=== PATIENT | male | born 1960 | race Caucasian/White ===

== ENCOUNTER 2017-10-14 01:25 | Emergency (ER) | payer SELFPAY ==
[2017-10-14] MEDS ORDERED: DIPH/PERTUSS(ACELL)/TETANUS VAC/PF 0.5 ML SYR (>=10YO) IM ONE (01:47)
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
[2017-10-14 03:33] VITALS: BP 142/82
== END 2017-10-14 03:45 | disposition home or self-care (01) ==
LOC: ER 01:25
DX: S06.0X0A Concussion without loss of consciousness, initial encounter (principal); S02.2XXA Fracture of nasal bones, initial encounter for closed fracture; S00.411A Abrasion of right ear, initial encounter; S50.311A Abrasion of right elbow, initial encounter; S80.212A Abrasion, left knee, initial encounter; S80.211A Abrasion, right knee, initial encounter; R07.81 Pleurodynia; Y04.2XXA Assault by strike against or bumped into by another person, initial encounter; Y92.59 Other trade areas as the place of occurrence of the external cause; F10.129 Alcohol abuse with intoxication, unspecified; E11.9 Type 2 diabetes mellitus without complications; I10 Essential (primary) hypertension; F17.210 Nicotine dependence, cigarettes, uncomplicated
CPT/HCPCS: 99284; 90471; 73070; 70450; 70486; 71250; 72125; 90715; L0120

== ENCOUNTER 2017-10-30 11:01 | Emergency (ER) | payer SELFPAY ==
[2017-10-30] MEDS ORDERED: ACETAMINOPHEN 325 MG TABLET PO ONE (11:54)
[2017-10-30] MEDS ORDERED: CEFTRIAXONE INJ 1000 MG VIAL IV ONE (11:54)
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
[2017-10-30] MEDS ORDERED: LISINOPRIL 5 MG TABLET PO ONE (12:42)
--- NOTE | 2017-10-30 12:49 | RADIOLOGY REPORT (SQ) ---
EXAM DESCRIPTION: CHEST PA/LAT COMPLETED DATE/TIME: 10/30/2017 12:16 pm REASON FOR STUDY: fever, cough COMPARISON: None. EXAM PARAMETERS: NUMBER OF VIEWS: two views TECHNIQUE: Digital Frontal and Lateral radiographic views of the chest acquired. RADIATION DOSE: NA LIMITATIONS: none FINDINGS: LUNGS AND PLEURA: No opacities, masses or pneumothorax. No pleural effusion. MEDIASTINUM AND HILAR STRUCTURES: No masses or contour abnormalities. HEART AND VASCULAR STRUCTURES: Heart normal size. No evidence for failure. BONES: No acute findings. HARDWARE: None in the chest. OTHER: No other significant finding. IMPRESSION: NO SIGNIFICANT RADIOGRAPHIC FINDING IN THE CHEST. TECHNICAL DOCUMENTATION: JOB ID: [id number] [employer]- All Rights Reserved Reading location - IP/workstation name: [email or web address]
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
--- NOTE | 2017-10-30 12:53 | RADIOLOGY REPORT (SQ) ---
EXAM DESCRIPTION: ELBOW RIGHT OVER 2 VIEWS COMPLETED DATE/TIME: 10/30/2017 12:16 pm REASON FOR STUDY: ELBOW PAIN COMPARISON: None. NUMBER OF VIEWS: Four views. TECHNIQUE: AP, lateral, and both oblique radiographic images acquired of the right elbow. LIMITATIONS: None. FINDINGS: MINERALIZATION: Normal. BONES: No acute fracture or dislocation. No worrisome bone lesions. JOINT: No effusion. SOFT TISSUES: Diffuse swelling. No foreign body. OTHER: No other significant finding. IMPRESSION: Soft tissue injury. TECHNICAL DOCUMENTATION: JOB ID: [id number] [employer]- All Rights Reserved Reading location - IP/workstation name: [email or web address]
[2017-10-30 12:59] LABS: ABSOLUTE BASOPHILS # (AUTO) 0.1 10^3/uL (0.0-0.2); ABSOLUTE LYMPHOCYTES (AUTO) 1.2 10^3/uL (0.5-4.7); ABSOLUTE MONOCYTES (AUTO) 1.5 10^3/uL (0.1-1.4); ABSOLUTE NEUT (AUTO) 10.5 10^3/uL (1.7-8.2); BASOPHILS % (AUTO) 0.7 % (0-2); EOSINOPHILS % (AUTO) 0.3 % (0-6); LYMPHOCYTES % (AUTO) 8.8 % (13-45); MEAN CORPUSCULAR HEMOGLOBIN 29.7 pg (27.0-33.4); MEAN CORPUSCULAR HGB CONC 34.1 g/dL (32.0-36.0); MEAN CORPUSCULAR VOLUME 87 fl (80-97); MONOCYTES % (AUTO) 11.5 % (3-13); PLATELET COUNT 266 10^3/uL (150-450); RED CELL DISTRIBUTION WIDTH 13.7 % (11.5-14.0); SEGMENTED NEUTROPHILS % (AUTO) 78.7 % (42-78); TOTAL CELLS COUNTED % (AUTO) 100 %; WHITE BLOOD COUNT 13.3 10^3/uL (4.0-10.5)
[2017-10-30 13:20] LABS: ALANINE AMINOTRANSFERASE 35 U/L (21-72); ALBUMIN 4.3 g/dL (3.5-5.0); ALKALINE PHOSPHATASE 62 U/L (38-126); ANION GAP 11 (5-19); ASPARTATE AMINO TRANSFERASE 22 U/L (17-59); BILIRUBIN,DIRECT 0.4 mg/dL (0.0-0.4); BILIRUBIN,TOTAL 1.5 mg/dL (0.2-1.3); BLOOD UREA NITROGEN 12 mg/dL (7-20); CALCIUM 9.7 mg/dL (8.4-10.2); CARBON DIOXIDE 24 mmol/L (22-30); CHLORIDE 100 mmol/L (98-107); GLUCOSE 239 mg/dL (75-110); POTASSIUM 3.9 mmol/L (3.6-5.0); TOTAL PROTEIN 7.6 g/dL (6.3-8.2)
[2017-10-30] MEDS ORDERED: SULFAMETHOXAZOLE/TRIMETHOPRIM 800-160 MG TABLET PO ONE (13:52)
[2017-10-30] MEDS ORDERED: KETOROLAC TROMETHAMINE INJ/PF 30 MG/1 ML SDV IV ONE (14:43)
[2017-10-30 15:24] VITALS: BP 155/70
== END 2017-10-30 15:21 | disposition home or self-care (01) ==
LOC: ER 11:01
DX: L03.113 Cellulitis of right upper limb (principal); M79.601 Pain in right arm; R50.9 Fever, unspecified; R05 Cough; E11.9 Type 2 diabetes mellitus without complications
CPT/HCPCS: 99284; 96374; 96375; 36415; 87040; 85025; 85652; 86140; 80053; 71046; 73080; J1885; J0696

== ENCOUNTER 2017-10-31 16:18 | Inpatient (IN) | payer SELFPAY ==
--- NOTE | 2017-10-31 16:51 | ER Document Report ---
ED Medical Screen (RME) - General Chief Complaint: Wound Infection Stated Complaint: ELBOW SWELLING/PAIN, DIZZY, HEADACHE Time Seen by Provider: 10/31/17 16:44 Mode of Arrival: Ambulatory Information source: Patient TRAVEL OUTSIDE OF THE [place] IN LAST 30 DAYS: No - HPI Patient complains to provider of: elblow swelling Onset: Yesterday - pt seen here yesterday for cellulitis of R elbow. States swelling and redness have increased and he was told to RTED if this happened - Related Data Allergies/Adverse Reactions: aspartame [From Nutrasweet Aspartame] Allergy (Verified 10/31/17 16:29) Coconut * [Coconut] Allergy (Verified 10/31/17 16:29) Past Medical History - Past Medical History Cardiac Medical History: Reports: Hx Hypertension Endocrine Medical History: Reports: Hx Diabetes Mellitus Type 2 Renal/ Medical History: Denies: Hx Peritoneal Dialysis Past Surgical History: Reports: Hx Orthopedic Surgery - Left Knee, Ruptured Disc Repair L4/L5 - Immunizations Immunizations up to date: Yes Hx Diphtheria, Pertussis, Tetanus Vaccination: Yes Physical Exam - Vital signs Vitals: Temp Pulse Resp BP Pulse Ox 99.9 F 87 18 166/72 H 95 10/31/17 16:39 10/31/17 16:39 10/31/17 16:39 10/31/17 16:39 10/31/17 16:39 Course - Vital Signs Vital signs: Temp Pulse Resp BP Pulse Ox 99.9 F 87 18 166/72 H 95 10/31/17 16:39 10/31/17 16:39 10/31/17 16:39 10/31/17 16:39 10/31/17 16:39
[2017-10-31 18:02] LABS: ABSOLUTE BASOPHILS # (AUTO) 0.1 10^3/uL (0.0-0.2); ABSOLUTE EOSINOPHILS # (AUTO) 0.1 10^3/uL (0.0-0.6); ABSOLUTE LYMPHOCYTES (AUTO) 1.8 10^3/uL (0.5-4.7); ABSOLUTE MONOCYTES (AUTO) 1.8 10^3/uL (0.1-1.4); ABSOLUTE NEUT (AUTO) 10.5 10^3/uL (1.7-8.2); BASOPHILS % (AUTO) 0.5 % (0-2); EOSINOPHILS % (AUTO) 0.4 % (0-6); HEMATOCRIT 38.9 % (37.9-51.0); HEMOGLOBIN 13.2 g/dL (13.5-17.0); LYMPHOCYTES % (AUTO) 12.7 % (13-45); MEAN CORPUSCULAR HEMOGLOBIN 29.6 pg (27.0-33.4); MEAN CORPUSCULAR HGB CONC 33.9 g/dL (32.0-36.0); MEAN CORPUSCULAR VOLUME 87 fl (80-97); MONOCYTES % (AUTO) 12.5 % (3-13); PLATELET COUNT 264 10^3/uL (150-450); RED BLOOD COUNT 4.44 10^6/uL (4.35-5.55); RED CELL DISTRIBUTION WIDTH 13.6 % (11.5-14.0); SEGMENTED NEUTROPHILS % (AUTO) 73.9 % (42-78); TOTAL CELLS COUNTED % (AUTO) 100 %; WHITE BLOOD COUNT 14.2 10^3/uL (4.0-10.5)
[2017-10-31] MEDS ORDERED: PIPERACILLIN/TAZOBACTAM 3.375 GM VIAL IV ONE ×2 (18:04→23:37)
[2017-10-31] MEDS ORDERED: VANCOMYCIN HCL INJ 1000 MG VIAL IV ONE (18:04)
[2017-10-31] MEDS ORDERED: NORMAL SALINE 1000 ML 1,000 ML IV ONE (18:05)
[2017-10-31 18:18] LABS: ALANINE AMINOTRANSFERASE 24 U/L (21-72); ALKALINE PHOSPHATASE 52 U/L (38-126); ANION GAP 14 (5-19); ASPARTATE AMINO TRANSFERASE 15 U/L (17-59); BILIRUBIN,DIRECT 0.2 mg/dL (0.0-0.4); BILIRUBIN,TOTAL 0.6 mg/dL (0.2-1.3); BLOOD UREA NITROGEN 15 mg/dL (7-20); CALCIUM 9.5 mg/dL (8.4-10.2); CARBON DIOXIDE 23 mmol/L (22-30); CHLORIDE 98 mmol/L (98-107); GLUCOSE 278 mg/dL (75-110); POTASSIUM 4.1 mmol/L (3.6-5.0); SODIUM 135.3 mmol/L (137-145); TOTAL PROTEIN 6.6 g/dL (6.3-8.2)
--- NOTE | 2017-10-31 18:20 | ER Document Report ---
ED General - General Chief Complaint: Wound Infection Stated Complaint: ELBOW SWELLING/PAIN, DIZZY, HEADACHE Time Seen by Provider: 10/31/17 16:44 Mode of Arrival: Ambulatory Notes: [id number] male presents with increasing redness and swelling and pain on the right elbow. This began 3 days ago. He had an injury and a skin breakage about a week ago, developed an infection, came here yesterday was recommended to be admitted but instead wanted to go home with antibiotics. At that point he had a mild leukocytosis. He is able to range his elbow Pain is described as severe worse with movement and going up and down his arm. No numbness or tingling. TRAVEL OUTSIDE OF THE [place] IN LAST 30 DAYS: No - Related Data Allergies/Adverse Reactions: aspartame [From Nutrasweet Aspartame] Allergy (Verified 10/31/17 16:46) Coconut * [Coconut] Allergy (Verified 10/31/17 16:46) Past Medical History - General Information source: Patient - Social History Smoking Status: Never Smoker Chew tobacco use (# tins/day): No Frequency of alcohol use: weekends Drug Abuse: None Family History: Reviewed & Not Pertinent. denies: Hyperlipidemia Patient has suicidal ideation: No Patient has homicidal ideation: No - Past Medical History Cardiac Medical History: Reports: Hx Hypertension Endocrine Medical History: Reports: Hx Diabetes Mellitus Type 2 Renal/ Medical History: Denies: Hx Peritoneal Dialysis Past Surgical History: Reports: Hx Orthopedic Surgery - Left Knee, Ruptured Disc Repair L4/L5 - Immunizations Immunizations up to date: Yes Hx Diphtheria, Pertussis, Tetanus Vaccination: Yes Review of Systems - Review of Systems Notes: REVIEW OF SYSTEMS GEN: Denies fever, chills, weight loss ENT: Denies sore throat, nasal discharge, ear pain EYES: Denies blurry vision, eye pain, discharge CV: Denies chest pain, palpitations, edema RESP: Denies cough, shortness of breath, wheezing GI: Denies abdominal pain, nausea, vomiting, diarrhea MSK: Denies joint pain/swelling, edema, SKIN: edness and pain right elbow LYMPH: Denies swollen glands/lymph nodes NEURO: Denies headache, focal weakness or numbness, dizziness PSYCH: Denies depression, suicidal or homicidal ideation PHYSICAL EXAMINATION General: No acute distress, well-nourished Head: Atraumatic, normocephalic ENT: Mouth normal, oropharynx moist, no exudates or tonsillar enlargement Eyes: Conjunctiva normal, pupils equal, lids normal Neck: No JVD, supple, no guarding CVS: Normal rate, regular rhythm, no murmurs Resp: No resp distress, equal and normal breath sounds bilaterally GI: Nondistended, soft, no tenderness to palpation, no rebound or guarding Ext: Edema erythema extending from the upper arm down to the mid forearm. No apparent elbow effusion. Patient can internally externally rotate, pronate supinate flex and extend fully without much pain. Compartments are soft. T Back: No CVA or midline TTP Skin: No rash, warm Lymphatic: No lymphadeopathy noted Neuro: Awake, alert. Face symmetric. GCS 15. R Physical Exam - Vital signs Vitals: Temp Pulse Resp BP Pulse Ox 99.9 F 87 18 166/72 H 95 10/31/17 16:39 10/31/17 16:39 10/31/17 16:39 10/31/17 16:39 10/31/17 16:39 Course - Re-evaluation Re-evalutation: 10/31/17 18:20 Presents with increasing redness and swelling in the right elbow concerning for cellulitis spanning a joint. I have a low suspicion for septic joint at this point given his physical examination. He is able to range quite nicely. I do not feel an abscess but will ultrasound to rule him out. Patient does have leukocytosis which is worsening. He will be given vancomycin and Zosyn, I will elevate that elbow, get some labs, and admit him to the medical service. 10/31/17 21:49 Ultrasound pending but labs showed leukocytosis. Cultures were obtained and antibiotics have been given. I discussed the case with Dr. Rascon who will admit. Arm was elevated. - Vital Signs Vital signs: Temp Pulse Resp BP Pulse Ox 99.9 F 87 18 166/72 H 95 10/31/17 16:39 10/31/17 16:39 10/31/17 16:39 10/31/17 16:39 10/31/17 16:39 - Laboratory Result Diagrams: 10/31/17 17:33 10/31/17 17:33 Laboratory results interpreted by me: 10/31/17 10/31/17 17:33 17:33 WBC 14.2 H Hgb 13.2 L Lymphocytes % 12.7 L Absolute Neutrophils 10.5 H Absolute Monocytes 1.8 H Sodium 135.3 L Glucose 278 H AST 15 L Discharge - Discharge Clinical Impression: Cellulitis of right upper extremity Condition: Fair Disposition: ADMITTED INPATIENT Admitting Provider: Hospitalist Unit Admitted: Medical Floor
[2017-10-31] MEDS ORDERED: MAGNESIUM HYDROXIDE SUSP 30 ML UDCUP PO PRN (18:33)
[2017-10-31] MEDS ORDERED: GLUCAGON,HUMAN RECOMB 1 MG INJ IM PRN (18:38)
[2017-10-31] MEDS ORDERED: DEXTROSE 40% GEL 15 GM TUBE PO PRN ×2 (18:38)
[2017-10-31] MEDS ORDERED: DEXTROSE 50%-WATER 25 GM/50 ML DISP.SYRIN IV PRN ×2 (18:38)
[2017-10-31] MEDS ORDERED: VANCOMYCIN HCL 0 MG in DEXTROSE 5%-WATER 250 ML IV NR (18:45)
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
[2017-10-31] MEDS: RINGERS SOLUTION,LACTATED 1,000 ML IV PRN (20:14)
--- NOTE | 2017-10-31 21:19 | RADIOLOGY REPORT (SQ) ---
EXAM DESCRIPTION: U/S EXTREMITY NONVASCULAR COMP COMPLETED DATE/TIME: 10/31/2017 9:03 pm REASON FOR STUDY: R elbow pain ?abcess COMPARISON: Radiographs 10 30 17 TECHNIQUE: Dynamic and static grayscale images acquired of the localized site of clinical concern an d recorded on PACS. Additional selected color Doppler and spectral images recorded. SITE OF CONCERN: Right elbow LIMITATIONS: None. FINDINGS: SKIN AND SUBCUTANEOUS TISSUES: No masses. No fluid collections. Diffuse superficial soft tissue edema. No foreign bodies. DEEP SOFT TISSUES/MUSCLES: No masses. No fluid collections. No edema. VASCULAR: No increased or decreased vascularity. No occlusions. OTHER: No other significant finding. IMPRESSION: Superficial soft tissue edema without focal fluid collection or abscess. TECHNICAL DOCUMENTATION: JOB ID: [id number] [employer]- All Rights Reserved Reading location - IP/workstation name: [email or web address]
[2017-10-31] MEDS: OXYCODONE-ACETAMINOPHEN 5-325 MG TABLET PO PRN (23:58)
[2017-11-01] MEDS: GUAIFENESIN/D-METHORPHAN (200-20 MG) SYRUP 10 ML PO PRN ×3 (00:09→20:24)
[2017-11-01] MEDS: ONDANSETRON 4 MG TAB.RAPDIS PO PRN ×3 (00:23→16:43)
[2017-11-01] MEDS: PIPERACILLIN/TAZOBACTAM 3.375 GM VIAL IV PRN ×2 (01:17→05:18)
[2017-11-01] MEDS: PIPERACILLIN SODIUM/TAZOBACTAM 3.375 GM in NORMAL SALINE 100 ML IV SCH ×3 (03:25→16:43)
[2017-11-01] MEDS ORDERED: INFLUENZA ADLT QUAD (36MOS+) 2017-18 VAC 0.5 ML SYR IM PRN (03:41)
[2017-11-01] MEDS: LANSOPRAZOLE 30 MG TAB.RAP.DR PO SCH (05:21)
[2017-11-01 05:49] LABS: ABSOLUTE BASOPHILS # (AUTO) 0.1 10^3/uL (0.0-0.2); ABSOLUTE EOSINOPHILS # (AUTO) 0.1 10^3/uL (0.0-0.6); ABSOLUTE LYMPHOCYTES (AUTO) 1.5 10^3/uL (0.5-4.7); ABSOLUTE MONOCYTES (AUTO) 1.3 10^3/uL (0.1-1.4); ABSOLUTE NEUT (AUTO) 7.3 10^3/uL (1.7-8.2); BASOPHILS % (AUTO) 0.7 % (0-2); EOSINOPHILS % (AUTO) 0.6 % (0-6); HEMATOCRIT 32.6 % (37.9-51.0); HEMOGLOBIN 11.3 g/dL (13.5-17.0); LYMPHOCYTES % (AUTO) 14.9 % (13-45); MEAN CORPUSCULAR HEMOGLOBIN 30.5 pg (27.0-33.4); MEAN CORPUSCULAR HGB CONC 34.7 g/dL (32.0-36.0); MEAN CORPUSCULAR VOLUME 88 fl (80-97); MONOCYTES % (AUTO) 13.1 % (3-13); PLATELET COUNT 214 10^3/uL (150-450); RED BLOOD COUNT 3.72 10^6/uL (4.35-5.55); RED CELL DISTRIBUTION WIDTH 13.4 % (11.5-14.0); SEGMENTED NEUTROPHILS % (AUTO) 70.7 % (42-78); TOTAL CELLS COUNTED % (AUTO) 100 %; WHITE BLOOD COUNT 10.3 10^3/uL (4.0-10.5)
[2017-11-01 06:13] LABS: ALANINE AMINOTRANSFERASE 23 U/L (21-72); ALBUMIN 3.2 g/dL (3.5-5.0); ALKALINE PHOSPHATASE 41 U/L (38-126); ANION GAP 11 (5-19); ASPARTATE AMINO TRANSFERASE 12 U/L (17-59); BILIRUBIN,DIRECT 0.1 mg/dL (0.0-0.4); BILIRUBIN,TOTAL 0.5 mg/dL (0.2-1.3); BLOOD UREA NITROGEN 12 mg/dL (7-20); CALCIUM 8.5 mg/dL (8.4-10.2); CARBON DIOXIDE 21 mmol/L (22-30); CHLORIDE 100 mmol/L (98-107); CHOLESTEROL 143.39 mg/dL (0-200); GLUCOSE 301 mg/dL (75-110); POTASSIUM 3.9 mmol/L (3.6-5.0); SODIUM 132.2 mmol/L (137-145); TOTAL PROTEIN 5.6 g/dL (6.3-8.2); TRIGLYCERIDES 153 mg/dL (<150)
[2017-11-01 06:24] LABS: DIRECT LDL 80 mg/dL (<100); VLDL CHOLESTEROL 30.6 mg/dL (10-31)
[2017-11-01] MEDS: OXYCODONE-ACETAMINOPHEN 5-325 MG TABLET PO PRN ×3 (08:28→22:27)
--- NOTE | 2017-11-01 09:28 | PDOC PROGRESS REPORT ---
Subjective Progress Note for:: 11/01/17 Subjective:: Pt states that his arm swelling is improving. Pt states that the pain has improved. Reason For Visit: RIGHT ELBOW FOREARM AND UPPER EXTREMITY CELLULITIS Physical Exam Vital Signs: Temp Pulse Resp BP Pulse Ox 99.2 F 72 16 142/78 H 95 11/01/17 04:39 11/01/17 04:39 11/01/17 04:39 11/01/17 04:39 11/01/17 04:39 Intake & Output 10/31/17 11/01/17 11/02/17 05:59 06:59 06:59 Intake Total Output Total Balance Weight General appearance: PRESENT: no acute distress, well-developed, well-nourished Head exam: PRESENT: atraumatic, normocephalic Eye exam: PRESENT: conjunctiva pink, EOMI. ABSENT: scleral icterus Ear exam: PRESENT: normal external ear exam Mouth exam: PRESENT: moist, tongue midline Neck exam: ABSENT: carotid bruit, JVD, lymphadenopathy, thyromegaly Respiratory exam: PRESENT: clear to auscultation kayleen. ABSENT: rales, rhonchi, wheezes Cardiovascular exam: PRESENT: RRR. ABSENT: diastolic murmur, rubs, systolic murmur Pulses: PRESENT: normal dorsalis pedis pul Vascular exam: PRESENT: normal capillary refill GI/Abdominal exam: PRESENT: normal bowel sounds, soft. ABSENT: distended, guarding, mass, organolmegaly, rebound, tenderness Rectal exam: PRESENT: deferred Extremities exam: PRESENT: +1 edema - right upper ext swelling + 1, other - right upper ext swelling improving with decrease discomfort Musculoskeletal exam: PRESENT: full ROM Neurological exam: PRESENT: alert, awake, oriented to person, oriented to place , oriented to time, oriented to situation, CN II-XII grossly intact. ABSENT: motor sensory deficit Psychiatric exam: PRESENT: appropriate affect, normal mood. ABSENT: homicidal ideation, suicidal ideation Skin exam: PRESENT: other - right elbow erythema improving. Results Laboratory Results: 11/01/17 04:50 11/01/17 04:50 11/01/17 11/01/17 04:50 04:50 WBC 10.3 RBC 3.72 L Hgb 11.3 L Hct 32.6 L MCV 88 MCH 30.5 MCHC 34.7 RDW 13.4 Plt Count 214 Seg Neutrophils % 70.7 Lymphocytes % 14.9 Monocytes % 13.1 H Eosinophils % 0.6 Basophils % 0.7 Absolute Neutrophils 7.3 Absolute Lymphocytes 1.5 Absolute Monocytes 1.3 Absolute Eosinophils 0.1 Absolute Basophils 0.1 Sodium 132.2 L Potassium 3.9 Chloride 100 Carbon Dioxide 21 L Anion Gap 11 BUN 12 Creatinine 0.83 Est GFR ( Amer) > 60 Est GFR (Non-Af Amer) > 60 Glucose 301 H Calcium 8.5 Total Bilirubin 0.5 AST 12 L ALT 23 Alkaline Phosphatase 41 Total Protein 5.6 L Albumin 3.2 L Triglycerides 153 H Cholesterol 143.39 LDL Cholesterol Direct 80 VLDL Cholesterol 30.6 HDL Cholesterol 40 Impressions: Extremity Ultrasound 10/31/17 18:05 IMPRESSION: Superficial soft tissue edema without focal fluid collection or abscess. Assessment & Plan - Diagnosis (1) Cellulitis of right upper extremity Is this a current diagnosis for this admission?: Yes Plan: We will place patient on vancomycin and Zosyn. Improving will check CT elbow right. (2) DM type 2 (diabetes mellitus, type 2) Is this a current diagnosis for this admission?: Yes Plan: HgbA1C 9.5%: Pt on SSI. (3) Overweight (BMI 25.0-29.9) Is this a current diagnosis for this admission?: Yes Plan: Encourage dietary changes. (4) Hypertension Is this a current diagnosis for this admission?: Yes Plan: Resume home medications once meds are known. (5) DVT prophylaxis Is this a current diagnosis for this admission?: Yes Plan: SCDs - Time Time Spent with patient: 25-34 minutes
[2017-11-01] MEDS ORDERED: PIPERACILLIN SODIUM/TAZOBACTAM 3.375 GM in NORMAL SALINE 100 ML IV ONE (12:00)
[2017-11-01] MEDS: INSULIN LISPRO 100 UNIT/ML 3 ML VIAL SUBCUT PRN ×3 (13:12→22:37)
--- NOTE | 2017-11-01 14:04 | RADIOLOGY REPORT (SQ) ---
EXAM DESCRIPTION: CT RT UPPER EXTREMITY WITH COMPLETED DATE/TIME: 11/01/2017 1:53 pm REASON FOR STUDY: concern for abscess. COMPARISON: None. TECHNIQUE: Postcontrast axial imaging performed through the right elbow with reformatted coronal and sagittal imaging windowed for bone and soft tissues. Images saved to PACS. 3D IMAGING: Were 3D images as MIP, SSD, or volume rendering performed at the work station? No. All CT scanners at this facility use dose modulation, iterative reconstruction, and/or weight based d osing when appropriate to reduce radiation dose to as low as reasonably achievable (ALARA). [facility]: Dose Right [facility]: CareDose [facility]: Dose Right [facility]: Teradose 4D [facility]: [employer] CONTRAST TYPE AND DOSE: contrast/concentration: Isovue 370.00 mg/ml; Total Contrast Delivered: 65.0 ml; Total Saline Delivered: 60.0 ml RENAL FUNCTION: BUN 12 creatinine 0.83. LIMITATIONS: None. RADIATION DOSE: CT Rad equipment meets quality standard of care and radiation dose reduction techniq ues were employed. CTDIvol: 2.6 mGy. DLP: 91 mGy-cm.mGy. FINDINGS: SOFT TISSUES: Diffuse edema/ inflammation throughout the subcutaneous soft tissues. Irreg ular fluid collection posterior to the olecranon measuring 1.6 x 2.5 by 3.5 cm. BONES: No acute fracture. No dislocation. MINERALIZATION: Normal. ENHANCEMENT: No abnormal enhancement. OTHER: No other significant finding. IMPRESSION: DIFFUSE EDEMA/ INFLAMMATION THROUGHOUT THE SUBCUTANEOUS SOFT TISSUES. IRREGULAR FLUID C OLLECTION POSTERIOR TO THE OLECRANON WHICH MAY BE AN INFECTED BURSA OR ABSCESS. NO SIGNIFICANT BONY FINDINGS. TECHNICAL DOCUMENTATION: JOB ID: [id number] Quality ID # [id number]: Final reports with documentation of one or more dose reduction techniques (e.g., Au tomated exposure control, adjustment of the mA and/or kV according to patient size, use of iterative reconstruction technique) 2010 [employer]- All Rights Reserved Reading location - IP/workstation name: [email or web address]
[2017-11-01] MEDS: RINGERS SOLUTION,LACTATED 1,000 ML IV PRN (16:44)
[2017-11-02] MEDS: PIPERACILLIN SODIUM/TAZOBACTAM 3.375 GM in NORMAL SALINE 100 ML IV SCH ×5 (00:55→23:05)
[2017-11-02] MEDS: GUAIFENESIN/D-METHORPHAN (200-20 MG) SYRUP 10 ML PO PRN ×4 (02:38→21:01)
[2017-11-02] MEDS: ONDANSETRON 4 MG TAB.RAPDIS PO PRN ×3 (02:50→19:53)
[2017-11-02] MEDS: OXYCODONE-ACETAMINOPHEN 5-325 MG TABLET PO PRN ×2 (03:50→18:21)
[2017-11-02] MEDS: LANSOPRAZOLE 30 MG TAB.RAP.DR PO SCH (05:12)
[2017-11-02] MEDS ORDERED: INSULIN GLARGINE,HUM.REC.ANLOG 1,000 UNIT/10 ML UNIT SUBCUT ONE (10:53)
--- NOTE | 2017-11-02 11:01 | PDOC PROGRESS REPORT ---
Subjective Progress Note for:: 11/02/17 Subjective:: Patient states that the swelling in his right arm has decreased however he is having pain at site of abrasion. Reason For Visit: RIGHT ELBOW FOREARM AND UPPER EXTREMITY CELLULITIS Physical Exam Vital Signs: Temp Pulse Resp BP Pulse Ox 98.9 F 76 16 151/84 H 94 11/02/17 08:22 11/02/17 08:22 11/02/17 08:22 11/02/17 08:22 11/02/17 08:22 Intake & Output 11/01/17 11/02/17 11/03/17 06:59 06:59 06:59 Intake Total 4822 Output Total 400 Balance 4422 Weight 105.6 kg General appearance: PRESENT: no acute distress, well-developed, well-nourished Head exam: PRESENT: atraumatic, normocephalic Eye exam: PRESENT: conjunctiva pink, EOMI. ABSENT: scleral icterus Ear exam: PRESENT: normal external ear exam Mouth exam: PRESENT: moist, tongue midline Neck exam: ABSENT: carotid bruit, JVD, lymphadenopathy, thyromegaly Respiratory exam: PRESENT: clear to auscultation kayleen. ABSENT: rales, rhonchi, wheezes Cardiovascular exam: PRESENT: RRR. ABSENT: diastolic murmur, rubs, systolic murmur Pulses: PRESENT: normal dorsalis pedis pul Vascular exam: PRESENT: normal capillary refill GI/Abdominal exam: PRESENT: normal bowel sounds, soft. ABSENT: distended, guarding, mass, organolmegaly, rebound, tenderness Rectal exam: PRESENT: deferred Extremities exam: PRESENT: other - right elbow with fluctuant area to palpation. Neurological exam: PRESENT: alert, awake, oriented to person, oriented to place , oriented to time, oriented to situation, CN II-XII grossly intact. ABSENT: motor sensory deficit Psychiatric exam: PRESENT: appropriate affect, normal mood. ABSENT: homicidal ideation, suicidal ideation Skin exam: PRESENT: warm - Right upper ext and elbow. Results Laboratory Results: 11/01/17 04:50 11/01/17 04:50 Impressions: Extremity Ultrasound 10/31/17 18:05 IMPRESSION: Superficial soft tissue edema without focal fluid collection or abscess. Upper Extremity CT 11/01/17 00:00 IMPRESSION: DIFFUSE EDEMA/ INFLAMMATION THROUGHOUT THE SUBCUTANEOUS SOFT TISSUES. IRREGULAR FLUID COLLECTION POSTERIOR TO THE OLECRANON WHICH MAY BE AN INFECTED BURSA OR ABSCESS. NO SIGNIFICANT BONY FINDINGS. Assessment & Plan - Diagnosis (1) Cellulitis of right upper extremity Is this a current diagnosis for this admission?: Yes Plan: Will continue vancomycin and Zosyn. CT of right elbow demonstates evidence of possible abscess. Will have Orthopedics evaluate pt. (2) Upper respiratory infection, viral Is this a current diagnosis for this admission?: Yes Plan: Will place pt on PRN Albuterol treatments. (3) DM type 2 (diabetes mellitus, type 2) Is this a current diagnosis for this admission?: Yes Plan: HgbA1C 9.5%: Pt on Lantus 15 units SQ QAM and continue SSI. (4) Overweight (BMI 25.0-29.9) Is this a current diagnosis for this admission?: Yes Plan: Encourage dietary changes. (5) Hypertension Is this a current diagnosis for this admission?: Yes Plan: Will restart losartan. (6) DVT prophylaxis Is this a current diagnosis for this admission?: Yes Plan: SCDs - Time Time Spent with patient: 15-24 minutes
[2017-11-02] MEDS: INSULIN LISPRO 100 UNIT/ML 3 ML VIAL SUBCUT PRN ×3 (13:17→21:50)
[2017-11-02] MEDS: RINGERS SOLUTION,LACTATED 1,000 ML IV PRN (16:27)
[2017-11-02] MEDS: VANCOMYCIN HCL 1,500 MG in DEXTROSE 5%-WATER 250 ML IV SCH ×2 (16:28→23:55)
[2017-11-02] MEDS: ALBUTEROL SULFATE 0.042% NEB (1.25 MG/3 ML) AMPUL NEB PRN ×2 (16:29→20:36)
--- NOTE | 2017-11-02 18:08 | PDOC CONSULTATION ---
Consultation Consult Date: 11/02/17 Consult reason:: Right olecranon bursitis History of Present Illness Admission Date/PCP: 10/31/17 18:28 KASANDRA KING, Patient complains of: Right elbow pain and swelling and redness History of Present Illness: 57-year-old gentleman who status post fall onto his right elbow suffering abrasion over the olecranon process. Patient waited several days developed erythema and swelling of the right elbow and forearm. Patient was admitted overnight for IV antibiotics with cellulitis of the right forearm. From yesterday to today patient states that the erythema has resolved. He has better range of motion although he still has some swelling. Denies any numbness or tingling or paresthesias. Complains of pain over the olecranon process with fluid collection. Complained of fever but since has resolved since being on IV antibiotics. Past Medical History Cardiac Medical History: Reports: Hypertension Endocrine Medical History: Reports: Diabetes Mellitus Type 2 Psychiatric Medical History: Reports: Depression Past Surgical History Past Surgical History: Reports: Orthopedic Surgery - Left Knee, Ruptured Disc Repair L4/L5 Social History Lives with: Spouse/Significant other Smoking Status: Never Smoker Frequency of Alcohol Use: Occasional Hx Recreational Drug Use: No Drugs: None Hx Prescription Drug Abuse: No - Advance Directive Resuscitation Status: Full Code Family History Family History: Reviewed & Not Pertinent. denies: Hyperlipidemia Parental Family History Reviewed: No Children Family History Reviewed: No Sibling(s) Family History Reviewed.: No Medication/Allergy Home Medications: Losartan Potassium 50 mg PO DAILY 30 Days #30 tablet 10/30/17 Metformin HCl [Glucophage 500 mg Tablet] 500 mg PO BIDACBS 11/01/17 Allergies/Adverse Reactions: aspartame [From Nutrasweet Aspartame] Allergy (Verified 10/31/17 16:46) Coconut * [Coconut] Allergy (Verified 10/31/17 16:46) Review of Systems Constitutional: PRESENT: fever(s). ABSENT: weight gain, weight loss Eyes: ABSENT: visual disturbances Ears: ABSENT: hearing changes Nose, Mouth, and Throat: ABSENT: headache(s) Cardiovascular: ABSENT: chest pain, orthropnea Respiratory: ABSENT: dyspnea, hemoptysis Gastrointestinal: ABSENT: abdominal pain, nausea, vomiting Genitourinary: ABSENT: dysuria, hematuria Musculoskeletal: PRESENT: as per HPI Integumentary: PRESENT: as per HPI, erythema Psychiatric: ABSENT: anxiety, hallucinations, homidical ideation, suicidal ideation Endocrine: ABSENT: cold intolerance, heat intolerance Hematologic/Lymphatic: ABSENT: easy bruising, lymphadenopathy Physical Exam Vital Signs: Temp Pulse Resp BP Pulse Ox 37.4 C 89 16 122/85 99 11/02/17 16:30 11/02/17 16:32 11/02/17 16:32 11/02/17 16:30 11/02/17 16:32 Intake & Output 11/01/17 11/02/17 11/03/17 06:59 06:59 06:59 Intake Total 4822 1175 Output Total 400 Balance 4422 1175 Weight 105.6 kg General appearance: PRESENT: no acute distress, well-developed, well-nourished Head exam: PRESENT: atraumatic, normocephalic Eye exam: PRESENT: EOMI, PERRLA Ear exam: PRESENT: normal external ear exam Mouth exam: PRESENT: neck supple Neck exam: PRESENT: full ROM. ABSENT: lymphadenopathy, thyromegaly Respiratory exam: PRESENT: symmetrical, unlabored. ABSENT: accessory muscle use , tachypnea Cardiovascular exam: PRESENT: RRR Pulses: PRESENT: normal radial pulses Vascular exam: PRESENT: normal capillary refill GI/Abdominal exam: PRESENT: soft, tenderness. ABSENT: distended Neurological exam: PRESENT: alert, awake, oriented to person, oriented to place , oriented to time, oriented to situation Psychiatric exam: PRESENT: appropriate affect, normal mood Skin exam: PRESENT: erythema Adult Front & Back Image: 1 - Fluid collection in the olecranon bursa. No erythema. Previous marking of erythema seen. Patient has full range of motion of the elbow with some discomfort. Still has some swelling secondary to infection. Neurovascular intact distally. Results Laboratory Results: 11/01/17 04:50 11/01/17 04:50 Impressions: Extremity Ultrasound 10/31/17 18:05 IMPRESSION: Superficial soft tissue edema without focal fluid collection or abscess. Upper Extremity CT 11/01/17 00:00 IMPRESSION: DIFFUSE EDEMA/ INFLAMMATION THROUGHOUT THE SUBCUTANEOUS SOFT TISSUES. IRREGULAR FLUID COLLECTION POSTERIOR TO THE OLECRANON WHICH MAY BE AN INFECTED BURSA OR ABSCESS. NO SIGNIFICANT BONY FINDINGS. Status: Image reviewed by me Assessment & Plan - Diagnosis (1) Olecranon bursitis of right elbow Is this a current diagnosis for this admission?: Yes Plan: Patient with cellulitis and olecranon bursitis second to infectious process. Patient is responding very well to the IV antibiotics. At this moment I will monitor and if still present here in the next 24-48 hours I may consider aspiration but I do not think the patient at this moment in time will require incision and drainage of the fluid collection. The patient is discharged tomorrow instructed to follow-up at the end of this week in my office to continue monitoring the olecranon bursitis and a resolving cellulitis.
[2017-11-02] MEDS: ACETAMINOPHEN 325 MG TABLET PO PRN (21:38)
[2017-11-03] MEDS: OXYCODONE-ACETAMINOPHEN 5-325 MG TABLET PO PRN (01:13)
[2017-11-03] MEDS ORDERED: GUAIFENESIN 600 MG TABLET.SA PO ONE (02:00)
[2017-11-03] MEDS: PIPERACILLIN SODIUM/TAZOBACTAM 3.375 GM in NORMAL SALINE 100 ML IV SCH ×4 (05:22→23:22)
[2017-11-03] MEDS: LANSOPRAZOLE 30 MG TAB.RAP.DR PO SCH (05:22)
[2017-11-03] MEDS: ALBUTEROL SULFATE 0.042% NEB (1.25 MG/3 ML) AMPUL NEB PRN (06:19)
[2017-11-03] MEDS: GUAIFENESIN/CODEINE PHOS 100-10 MG/ 5 ML UDC PO PRN ×3 (06:32→22:12)
[2017-11-03] MEDS ORDERED: INSULIN GLARGINE,HUM.REC.ANLOG 1,000 UNIT/10 ML UNIT SUBCUT SCH (08:00)
[2017-11-03] MEDS ORDERED: INSULIN GLARGINE,HUM.REC.ANLOG 300 UNIT/3 ML INSULN.PEN SUBCUT SCH (08:00)
[2017-11-03] MEDS ORDERED: AMLODIPINE BESYLATE 10 MG TABLET PO ONE (09:18)
--- NOTE | 2017-11-03 09:19 | PDOC PROGRESS REPORT ---
Subjective Progress Note for:: 11/03/17 Subjective:: Pt states that he is cough a lot. Pt states that he had fever overnight. Spoke to the night nurse who states that patient has not had any fevers. Spoke to daytime nurse who also states that patient has not had any fevers. Patient reports that he is coughing more frequently and having chills. Patient states that his girlfriend and roommate both had flu. Patient did not share this information at time of admission. Informed patient that his last fever was at time of admission. Reason For Visit: RIGHT ELBOW FOREARM AND UPPER EXTREMITY CELLULITIS Physical Exam Vital Signs: Temp Pulse Resp BP Pulse Ox 99.1 F 84 17 155/88 H 95 11/03/17 08:01 11/03/17 08:01 11/03/17 08:01 11/03/17 08:01 11/03/17 08:01 Intake & Output 11/02/17 11/03/17 11/04/17 06:59 06:59 06:59 Intake Total 4822 3012 Output Total 400 Balance 4422 3012 Weight 105.6 kg General appearance: PRESENT: no acute distress, well-developed, well-nourished Head exam: PRESENT: atraumatic, normocephalic Eye exam: PRESENT: conjunctiva pink, EOMI. ABSENT: scleral icterus Ear exam: PRESENT: normal external ear exam Mouth exam: PRESENT: moist, tongue midline Neck exam: ABSENT: carotid bruit, JVD, lymphadenopathy, thyromegaly Respiratory exam: PRESENT: other - Patient with cough, scant wheezing heard, no accessory muscle use, no prolonged expiratory phase Cardiovascular exam: PRESENT: RRR. ABSENT: diastolic murmur, rubs, systolic murmur Pulses: PRESENT: normal dorsalis pedis pul Vascular exam: PRESENT: normal capillary refill GI/Abdominal exam: PRESENT: normal bowel sounds, soft. ABSENT: distended, guarding, mass, organolmegaly, rebound, tenderness Rectal exam: PRESENT: deferred Extremities exam: PRESENT: other - Right elbow with dressing in place. Erythema has decreased.. ABSENT: calf tenderness, clubbing, pedal edema Musculoskeletal exam: PRESENT: other - Elbow with dressing in place right, patient was swelling of right elbow but decreased from time of admission. Neurological exam: PRESENT: alert, awake, oriented to person, oriented to place , oriented to time, oriented to situation, CN II-XII grossly intact. ABSENT: motor sensory deficit Psychiatric exam: PRESENT: appropriate affect, normal mood. ABSENT: homicidal ideation, suicidal ideation Skin exam: PRESENT: other - Erythema has greatly decreased of right elbow. Patient still has edema associated more at the elbow region where the wound has ruptured. Results Laboratory Results: 11/01/17 04:50 11/01/17 04:50 Impressions: Extremity Ultrasound 10/31/17 18:05 IMPRESSION: Superficial soft tissue edema without focal fluid collection or abscess. Upper Extremity CT 11/01/17 00:00 IMPRESSION: DIFFUSE EDEMA/ INFLAMMATION THROUGHOUT THE SUBCUTANEOUS SOFT TISSUES. IRREGULAR FLUID COLLECTION POSTERIOR TO THE OLECRANON WHICH MAY BE AN INFECTED BURSA OR ABSCESS. NO SIGNIFICANT BONY FINDINGS. Assessment & Plan - Diagnosis (1) Cellulitis of right upper extremity Is this a current diagnosis for this admission?: Yes Plan: Complicated by irregular fluid collection posterior to the olecranon S/P draining at site: will continue vancomycin and Zosyn. (2) Upper respiratory infection, viral Is this a current diagnosis for this admission?: Yes Plan: Most likely viral: Patient is given report that he had flu exposure. Will place on Tamiflu. We are unable to test for the flu. Will continue cough suppressant and guaifenesin (3) DM type 2 (diabetes mellitus, type 2) Is this a current diagnosis for this admission?: Yes Plan: HgbA1C 9.5%: We will increase Lantus to 25 units subcu every morning and continue SSI. (4) Overweight (BMI 25.0-29.9) Is this a current diagnosis for this admission?: Yes Plan: Encourage dietary changes. (5) Hypertension Is this a current diagnosis for this admission?: Yes Plan: We will add Norvasc 10 mg and continue losartan 25 mg p.o. daily. (6) DVT prophylaxis Is this a current diagnosis for this admission?: Yes Plan: SCDs
[2017-11-03] MEDS ORDERED: OSELTAMIVIR PHOSPHATE 75 MG CAPSULE PO ONE (10:15)
[2017-11-03 10:35] LABS: ABSOLUTE BASOPHILS # (AUTO) 0.1 10^3/uL (0.0-0.2); ABSOLUTE EOSINOPHILS # (AUTO) 0.1 10^3/uL (0.0-0.6); ABSOLUTE LYMPHOCYTES (AUTO) 1.1 10^3/uL (0.5-4.7); ABSOLUTE NEUT (AUTO) 5.9 10^3/uL (1.7-8.2); BASOPHILS % (AUTO) 0.7 % (0-2); HEMATOCRIT 33.4 % (37.9-51.0); HEMOGLOBIN 11.3 g/dL (13.5-17.0); MEAN CORPUSCULAR HEMOGLOBIN 29.7 pg (27.0-33.4); MEAN CORPUSCULAR HGB CONC 33.8 g/dL (32.0-36.0); MEAN CORPUSCULAR VOLUME 88 fl (80-97); MONOCYTES % (AUTO) 12.6 % (3-13); RED CELL DISTRIBUTION WIDTH 13.1 % (11.5-14.0); SEGMENTED NEUTROPHILS % (AUTO) 72.7 % (42-78); TOTAL CELLS COUNTED % (AUTO) 100 %; WHITE BLOOD COUNT 8.1 10^3/uL (4.0-10.5)
[2017-11-03 10:50] LABS: ALANINE AMINOTRANSFERASE 35 U/L (21-72); ALBUMIN 3.7 g/dL (3.5-5.0); ALKALINE PHOSPHATASE 39 U/L (38-126); ANION GAP 9 (5-19); ASPARTATE AMINO TRANSFERASE 41 U/L (17-59); BILIRUBIN,DIRECT 0.5 mg/dL (0.0-0.4); BILIRUBIN,TOTAL 0.8 mg/dL (0.2-1.3); BLOOD UREA NITROGEN 9 mg/dL (7-20); CALCIUM 8.7 mg/dL (8.4-10.2); CARBON DIOXIDE 25 mmol/L (22-30); CHLORIDE 100 mmol/L (98-107); GLUCOSE 209 mg/dL (75-110); POTASSIUM 3.7 mmol/L (3.6-5.0); SODIUM 134.3 mmol/L (137-145)
[2017-11-03 11:00] LABS: PLATELET COUNT 169 10^3/uL (150-450)
[2017-11-03] MEDS: ACETAMINOPHEN 325 MG TABLET PO PRN (11:47)
[2017-11-03] MEDS: LOSARTAN POTASSIUM 50 MG TABLET PO SCH (11:48)
[2017-11-03] MEDS: ONDANSETRON 4 MG TAB.RAPDIS PO PRN ×2 (11:48→17:51)
[2017-11-03] MEDS: GUAIFENESIN 600 MG TABLET.SA PO SCH ×2 (11:49→22:06)
[2017-11-03] MEDS: DOCUSATE SODIUM 100 MG CAPSULE PO PRN ×2 (11:50→17:52)
[2017-11-03] MEDS: VANCOMYCIN HCL 1,500 MG in DEXTROSE 5%-WATER 250 ML IV SCH ×3 (13:41→23:23)
[2017-11-03] MEDS: INSULIN LISPRO 100 UNIT/ML 3 ML VIAL SUBCUT PRN (13:42)
[2017-11-03] MEDS: RINGERS SOLUTION,LACTATED 1,000 ML IV PRN (15:35)
--- NOTE | 2017-11-03 16:42 | PDOC PROGRESS REPORT ---
Subjective Progress Note for:: 11/03/17 Subjective:: Patient complains of increasing tenderness and pain on the right elbow. States that he is now coming down with the flu. Reason For Visit: RIGHT ELBOW FOREARM AND UPPER EXTREMITY CELLULITIS Physical Exam Vital Signs: Temp Pulse Resp BP Pulse Ox 37.6 C 74 19 147/61 H 90 L 11/03/17 15:47 11/03/17 15:47 11/03/17 15:47 11/03/17 15:47 11/03/17 15:47 Intake & Output 11/02/17 11/03/17 11/04/17 06:59 06:59 06:59 Intake Total 4822 3012 0 Output Total 400 Balance 4422 3012 0 Weight 105.6 kg Adult Front & Back Image: 1 - He spontaneously drained mild purulent drainage. At the drainage patient is very tender palpation of the bursa as well as the lateral aspect of the elbow over the coming extensor muscle belly very hot to touch. Erythema still not present. Full range of motion of the elbow but worse with flexion. Vascular intact distally. No fluctuant palpated in the forearm or olecranon Results Laboratory Results: 11/03/17 09:30 11/03/17 09:30 11/03/17 11/03/17 09:30 09:30 WBC 8.1 RBC 3.80 L Hgb 11.3 L Hct 33.4 L MCV 88 MCH 29.7 MCHC 33.8 RDW 13.1 Plt Count 169 Seg Neutrophils % 72.7 Lymphocytes % 13.0 Monocytes % 12.6 Eosinophils % 1.0 Basophils % 0.7 Absolute Neutrophils 5.9 Absolute Lymphocytes 1.1 Absolute Monocytes 1.0 Absolute Eosinophils 0.1 Absolute Basophils 0.1 Sodium 134.3 L Potassium 3.7 Chloride 100 Carbon Dioxide 25 Anion Gap 9 BUN 9 Creatinine 0.74 Est GFR ( Amer) > 60 Est GFR (Non-Af Amer) > 60 Glucose 209 H Calcium 8.7 Total Bilirubin 0.8 AST 41 ALT 35 Alkaline Phosphatase 39 Total Protein 7.0 Albumin 3.7 Impressions: Extremity Ultrasound 10/31/17 18:05 IMPRESSION: Superficial soft tissue edema without focal fluid collection or abscess. Upper Extremity CT 11/01/17 00:00 IMPRESSION: DIFFUSE EDEMA/ INFLAMMATION THROUGHOUT THE SUBCUTANEOUS SOFT TISSUES. IRREGULAR FLUID COLLECTION POSTERIOR TO THE OLECRANON WHICH MAY BE AN INFECTED BURSA OR ABSCESS. NO SIGNIFICANT BONY FINDINGS. Status: Image reviewed by me Assessment & Plan - Diagnosis (1) Olecranon bursitis of right elbow Is this a current diagnosis for this admission?: Yes - Plan Summary Plan Summary: 57-year-old gentleman who is being treated with IV antibiotics for his infectious olecranon bursitis and cellulitis of the right forearm. Despite the olecranon bursa spontaneously draining patient is exquisitely tender over the bursa and lateral forearm. I am concerned he may have another pocket in the forearm that may require I&D. We will proceed with an MRI without contrast of his right elbow and forearm. Continue IV antibiotics
[2017-11-03 16:43] LABS: VANCOMYCIN,TROUGH 15.7 ug/mL (5.0-20.0)
[2017-11-03] MEDS: OSELTAMIVIR PHOSPHATE 75 MG CAPSULE PO SCH (17:52)
--- NOTE | 2017-11-03 19:06 | RADIOLOGY REPORT (SQ) ---
EXAM DESCRIPTION: SKULL 1-3 VIEWS COMPLETED DATE/TIME: 11/03/2017 6:53 pm REASON FOR STUDY: MRI METAL CHECK FOR ORBITS COMPARISON: None. NUMBER OF VIEWS: Three view. TECHNIQUE: Images of the facial bones acquired. LIMITATIONS: None. FINDINGS: ORBITS: No fracture. No foreign body. SINUSES: No mucosal thickening. No air fluid levels. FACIAL BONES: No fracture. OTHER: Advanced dental caries IMPRESSION: NO FOREIGN BODY OR FRACTURE OF THE FACIAL BONES. TECHNICAL DOCUMENTATION: JOB ID: [id number] [employer]- All Rights Reserved Reading location - IP/workstation name: [email or web address]
[2017-11-04] MEDS: OXYCODONE-ACETAMINOPHEN 5-325 MG TABLET PO PRN ×2 (00:20→15:48)
[2017-11-04] MEDS: LANSOPRAZOLE 30 MG TAB.RAP.DR PO SCH (06:42)
[2017-11-04] MEDS: PIPERACILLIN SODIUM/TAZOBACTAM 3.375 GM in NORMAL SALINE 100 ML IV SCH ×3 (06:42→18:41)
[2017-11-04] MEDS: ONDANSETRON 4 MG TAB.RAPDIS PO PRN (08:56)
[2017-11-04] MEDS: INSULIN GLARGINE,HUM.REC.ANLOG 300 UNIT/3 ML INSULN.PEN SUBCUT SCH (08:57)
[2017-11-04] MEDS: VANCOMYCIN HCL 1,500 MG in DEXTROSE 5%-WATER 250 ML IV SCH ×2 (08:57→17:12)
[2017-11-04] MEDS: AMLODIPINE BESYLATE 10 MG TABLET PO SCH (09:50)
[2017-11-04] MEDS: GUAIFENESIN 600 MG TABLET.SA PO SCH ×2 (09:50→21:43)
[2017-11-04] MEDS: OSELTAMIVIR PHOSPHATE 75 MG CAPSULE PO SCH ×2 (09:50→17:15)
[2017-11-04] MEDS: LOSARTAN POTASSIUM 50 MG TABLET PO SCH (09:51)
[2017-11-04] MEDS: DOCUSATE SODIUM 100 MG CAPSULE PO PRN ×2 (09:52→17:15)
--- NOTE | 2017-11-04 13:39 | RADIOLOGY REPORT (SQ) ---
EXAM DESCRIPTION: MRI RT UPPER EXTREMITY WITHOUT COMPLETED DATE/TIME: 11/04/2017 12:49 pm REASON FOR STUDY: infectious olecranon bursitis COMPARISON: CT right elbow 11/01/2017 TECHNIQUE: Right elbow images acquired and stored on PACS. Multiplanar images to include fat sensiti ve sequences as T1, fluid sensitive sequences as T2/STIR, cartilage sensitive sequences as FSPD, and gradient echo sequences. LIMITATIONS: None. FINDINGS: In the dorsal right elbow soft tissues, the olecranon bursa is distended with fluid. Ther e is an irregularly-shaped fluid pocket measuring 6 cm craniocaudad by 3.5 cm transverse by 2 cm AP w ith extensive surrounding inflammatory change in the subcutaneous fat. A tiny sinus tract to the ski n is identified on axial T2 images 15 and 16. There is no bony olecranon marrow edema worrisome for osteomyelitis. No definite cortical erosion. However, the distal 2 cm of the triceps tendon is abnormally high in signal on T1 and STIR images, wo rrisome for high-grade tendinopathy, infectious etiology is favored over degenerative change due to t he adjacent inflamed/infected olecranon bursa. There is no definite intra-articular extension of infection. Physiologic joint fluid is present at t he elbow. BONE MARROW: No alteration of signal to suggest marrow replacement or edema. No occult fracture. No l arge osteophytes. JOINT EFFUSION: None noted. No loose bodies. ARTICULAR SURFACES: Normal. MEDIAL COLLATERAL LIGAMENT COMPLEX: Intact without edema or tear. MEDIAL EPICONDYLE AND COMMON FLEXOR TENDON: No tendinopathy. No partial or full-thickness tear. LATERAL COLLATERAL LIGAMENT: Intact without edema or tear. LATERAL EPICONDYLE AND COMMON EXTENSOR TENDON: No tendinopathy. No partial or full-thickness tear. LATERAL ULNAR COLLATERAL LIGAMENT: Intact without evidence for tear. BICEPS TENDON: Intact. No partial or full-thickness tendon tear. No muscle edema. TRICEPS TENDON: As above ULNAR NERVE: Well-visualized. No extrinsic compression. Inflammation along the olecranon spares the perineural fat along the ulnar nerve. ADJACENT SOFT TISSUES: There is focal infectious olecranon bursitis as above. Mild skin thickening a nd subcutaneous edema is seen elsewhere in the soft tissues around the elbow joint. No other fluid p ocket worrisome for abscess OTHER: No other significant finding. IMPRESSION: Infected olecranon bursa with sinus tract draining to the skin. Residual abscess measur es about 6 cm craniocaudad by 3.5 cm transverse by 2 cm AP. There is adjacent abnormal increased sig nal in the distal 2 cm of the triceps tendon without bony erosion or edema. TECHNICAL DOCUMENTATION: JOB ID: [id number] [employer]- All Rights Reserved Reading location - IP/workstation name: [email or web address]
[2017-11-04] MEDS: ALBUTEROL SULFATE 0.042% NEB (1.25 MG/3 ML) AMPUL NEB PRN (14:52)
[2017-11-04] MEDS: INSULIN LISPRO 100 UNIT/ML 3 ML VIAL SUBCUT PRN (18:40)
--- NOTE | 2017-11-04 20:07 | PDOC PROGRESS REPORT ---
Subjective Progress Note for:: 11/04/17 Subjective:: 57-year-old white male with a past injury to his right elbow presents with an infected olecranon bursa, cellulitis to the area, with underlying abscess. Surgery following and possible I&D to address the retained abscess near his elbow. Patient currently on empiric Zosyn and vancomycin. No growth on blood cultures 2. Cellulitis is clearly getting better on examination. Pain in the area has gotten better with manipulation of his elbow. Reason For Visit: RIGHT ELBOW FOREARM AND UPPER EXTREMITY CELLULITIS Physical Exam Vital Signs: Temp Pulse Resp BP Pulse Ox 98.7 F 87 18 156/66 H 90 L 11/04/17 16:27 11/04/17 16:27 11/04/17 16:27 11/04/17 16:27 11/04/17 16:27 Intake & Output 11/03/17 11/04/17 11/05/17 06:59 06:59 06:59 Intake Total 3012 3833 1625 Balance 3012 3833 1625 Weight 104.6 kg General appearance: PRESENT: no acute distress, cooperative, obese Head exam: PRESENT: atraumatic, normocephalic Eye exam: PRESENT: EOMI, PERRLA. ABSENT: conjunctiva pink, nystagmus Mouth exam: PRESENT: moist, neck supple, tongue midline Throat exam: PRESENT: tonsillar exudate, tonsillogmegaly Neck exam: ABSENT: JVD, lymphadenopathy, meningismus, tenderness Respiratory exam: PRESENT: accessory muscle use, chest wall tenderness. ABSENT : crackles, rales, rhonchi Cardiovascular exam: PRESENT: RRR, +S1, +S2. ABSENT: bradycardia, tachycardia Pulses: PRESENT: normal radial pulses, +1 pedal pulses bilateral GI/Abdominal exam: ABSENT: ascites, diminished bowel sounds, distended, mass, rebound, rigid Gentrourinary exam: ABSENT: ecchymosis Extremities exam: PRESENT: joint swelling, tenderness. ABSENT: pedal edema Musculoskeletal exam: PRESENT: deformity, tenderness. ABSENT: dislocation Neurological exam: PRESENT: altered, oriented to person, oriented to place, oriented to time, CN II-XII grossly intact Psychiatric exam: ABSENT: agitated, anxious, depressed, flat affect Focused psych exam: ABSENT: delusional, euphoric, paranoid, pressured speech Skin exam: ABSENT: dry Results Laboratory Results: 11/03/17 09:30 11/03/17 09:30 Impressions: Extremity Ultrasound 10/31/17 18:05 IMPRESSION: Superficial soft tissue edema without focal fluid collection or abscess. Upper Extremity CT 11/01/17 00:00 IMPRESSION: DIFFUSE EDEMA/ INFLAMMATION THROUGHOUT THE SUBCUTANEOUS SOFT TISSUES. IRREGULAR FLUID COLLECTION POSTERIOR TO THE OLECRANON WHICH MAY BE AN INFECTED BURSA OR ABSCESS. NO SIGNIFICANT BONY FINDINGS. Skull X-Ray 11/03/17 17:23 IMPRESSION: NO FOREIGN BODY OR FRACTURE OF THE FACIAL BONES. Upper Extremity MRI 11/04/17 00:00 IMPRESSION: Infected olecranon bursa with sinus tract draining to the skin. Residual abscess measures about 6 cm craniocaudad by 3.5 cm transverse by 2 cm AP. There is adjacent abnormal increased signal in the distal 2 cm of the triceps tendon without bony erosion or edema. Assessment & Plan - Plan Summary Plan Summary: 1. Infected olecranon bursa on right arm with cellulitis and abscess. No growth on blood cultures after 4 days continue on empiric vancomycin, Zosyn Possible I&D by surgery this Thursday. 2. Upper respiratory infection, viral Flu test in this institution. Was empirically started on Tamiflu. otherWise supportive care. 3. Diabetes mellitus type 2 A1c 9.5% Continue Lantus dose On sliding scale insulin, continue 4. Overweight Encourage caloric restriction. 5. Hypertension Monitor on Norvasc and losartan.
[2017-11-04] MEDS: GUAIFENESIN/CODEINE PHOS 100-10 MG/ 5 ML UDC PO PRN (20:18)
[2017-11-05] MEDS: PIPERACILLIN SODIUM/TAZOBACTAM 3.375 GM in NORMAL SALINE 100 ML IV SCH ×3 (00:19→11:04)
[2017-11-05] MEDS: VANCOMYCIN HCL 1,500 MG in DEXTROSE 5%-WATER 250 ML IV SCH ×2 (00:59→07:55)
[2017-11-05] MEDS: ONDANSETRON 4 MG TAB.RAPDIS PO PRN ×2 (02:55→23:20)
[2017-11-05] MEDS: LANSOPRAZOLE 30 MG TAB.RAP.DR PO SCH (05:41)
[2017-11-05 07:10] LABS: HEMATOCRIT 34.7 % (37.9-51.0); HEMOGLOBIN 11.9 g/dL (13.5-17.0); MEAN CORPUSCULAR HEMOGLOBIN 29.7 pg (27.0-33.4); MEAN CORPUSCULAR HGB CONC 34.4 g/dL (32.0-36.0); MEAN CORPUSCULAR VOLUME 86 fl (80-97); PLATELET COUNT 289 10^3/uL (150-450); RED BLOOD COUNT 4.02 10^6/uL (4.35-5.55); WHITE BLOOD COUNT 7.1 10^3/uL (4.0-10.5)
[2017-11-05 07:34] LABS: ALBUMIN 3.5 g/dL (3.5-5.0); ANION GAP 14 (5-19); BLOOD UREA NITROGEN 10 mg/dL (7-20); CALCIUM 9.1 mg/dL (8.4-10.2); CARBON DIOXIDE 25 mmol/L (22-30); CHLORIDE 100 mmol/L (98-107); GLUCOSE 111 mg/dL (75-110); PHOSPHORUS 4.4 mg/dL (2.5-4.5); POTASSIUM 3.6 mmol/L (3.6-5.0)
[2017-11-05] MEDS: OXYCODONE-ACETAMINOPHEN 5-325 MG TABLET PO PRN ×2 (07:55→18:36)
[2017-11-05] MEDS: INSULIN GLARGINE,HUM.REC.ANLOG 300 UNIT/3 ML INSULN.PEN SUBCUT SCH (07:56)
[2017-11-05] MEDS: LOSARTAN POTASSIUM 50 MG TABLET PO SCH (10:03)
[2017-11-05] MEDS: GUAIFENESIN 600 MG TABLET.SA PO SCH ×2 (10:03→22:20)
[2017-11-05] MEDS: AMLODIPINE BESYLATE 10 MG TABLET PO SCH (10:04)
[2017-11-05] MEDS: OSELTAMIVIR PHOSPHATE 75 MG CAPSULE PO SCH ×2 (10:04→18:35)
[2017-11-05] MEDS: DOCUSATE SODIUM 100 MG CAPSULE PO PRN ×2 (10:04→18:36)
[2017-11-05] MEDS ORDERED: BUPIVACAINE HCL 0.5 % INJ/PF 30 ML SDV ONE (13:01)
--- NOTE | 2017-11-05 13:55 | EKG REPORT ---
SEVERITY:- BORDERLINE ECG - SINUS RHYTHM BORDERLINE T ABNORMALITIES, DIFFUSE LEADS : Confirmed by: Zuhair Powers MD 05-Nov-2017 13:54:23
[2017-11-05] MEDS: RINGERS SOLUTION,LACTATED 1,000 ML IV PRN ×2 (13:57→23:36)
--- NOTE | 2017-11-05 14:19 | PDOC PROGRESS REPORT ---
Subjective Progress Note for:: 11/05/17 Subjective:: 57-year-old male with infected olecranon bursa. I&D today with surgery for abscess identified on MRI of right elbow. Cellulitis component of infection has been successfully receding. Patient does describe some symptoms subjective fever and chills last night. Patient with less tenderness of right elbow today and increased range of motion. No growth on blood cultures 2. Highly suspicious of MRSA infection and will continue covering for this. Will target a total antibiotic coverage of 14 days. Patient continues to be on empiric Tamiflu for possible flu. His significant other at the bedside was flu positive a proximally 1 month ago. Reason For Visit: RIGHT ELBOW FOREARM AND UPPER EXTREMITY CELLULITIS Physical Exam Vital Signs: Temp Pulse Resp BP Pulse Ox 98.4 F 70 18 148/71 H 95 11/05/17 11:59 11/05/17 11:59 11/05/17 11:59 11/05/17 11:59 11/05/17 11:59 Intake & Output 11/04/17 11/05/17 11/06/17 06:59 06:59 06:59 Intake Total 3833 3306 Balance 3833 3306 Weight 104.6 kg General appearance: PRESENT: no acute distress, cooperative, mild distress, obese Head exam: PRESENT: atraumatic, normocephalic Eye exam: PRESENT: EOMI, PERRLA Ear exam: PRESENT: normal external ear exam. ABSENT: bleeding Mouth exam: PRESENT: moist, neck supple, tongue midline Neck exam: ABSENT: thyromegaly Respiratory exam: PRESENT: wheezes. ABSENT: accessory muscle use, rales, rhonchi Cardiovascular exam: PRESENT: RRR, +S1, +S2. ABSENT: bradycardia, diastolic murmur, systolic murmur Pulses: PRESENT: normal radial pulses. ABSENT: normal dorsalis pedis pul GI/Abdominal exam: PRESENT: soft. ABSENT: ascites, distended, firm, mass, rebound, rigid, tenderness Extremities exam: PRESENT: joint swelling. ABSENT: full ROM Musculoskeletal exam: PRESENT: full ROM. ABSENT: ambulatory Neurological exam: PRESENT: alert, altered, oriented to person, oriented to place, oriented to time Psychiatric exam: ABSENT: agitated, anxious, flat affect Focused psych exam: ABSENT: catatonic, delusional Skin exam: ABSENT: cyanosis, dry, mottled, pallor Results Laboratory Results: 11/05/17 06:34 11/05/17 06:34 11/05/17 11/05/17 06:34 06:34 WBC 7.1 RBC 4.02 L Hgb 11.9 L Hct 34.7 L MCV 86 MCH 29.7 MCHC 34.4 RDW 13.0 Plt Count 289 Sodium 139.0 Potassium 3.6 Chloride 100 Carbon Dioxide 25 Anion Gap 14 BUN 10 Creatinine 1.33 H Est GFR ( Amer) > 60 Est GFR (Non-Af Amer) 55 L Glucose 111 H Calcium 9.1 Phosphorus 4.4 Albumin 3.5 Impressions: Extremity Ultrasound 10/31/17 18:05 IMPRESSION: Superficial soft tissue edema without focal fluid collection or abscess. Upper Extremity CT 11/01/17 00:00 IMPRESSION: DIFFUSE EDEMA/ INFLAMMATION THROUGHOUT THE SUBCUTANEOUS SOFT TISSUES. IRREGULAR FLUID COLLECTION POSTERIOR TO THE OLECRANON WHICH MAY BE AN INFECTED BURSA OR ABSCESS. NO SIGNIFICANT BONY FINDINGS. Skull X-Ray 11/03/17 17:23 IMPRESSION: NO FOREIGN BODY OR FRACTURE OF THE FACIAL BONES. Upper Extremity MRI 11/04/17 00:00 IMPRESSION: Infected olecranon bursa with sinus tract draining to the skin. Residual abscess measures about 6 cm craniocaudad by 3.5 cm transverse by 2 cm AP. There is adjacent abnormal increased signal in the distal 2 cm of the triceps tendon without bony erosion or edema. Assessment & Plan - Plan Summary Plan Summary: 1. Infected olecranon bursa on the right arm with cellulitis and abscess. Patient will receive an I&D surgery today. continued on empiric vancomycin and Zosyn with good improvement in cellulitis. Describes subjective fever and chills last night. Good Improvement in leukocytosis. Will complete a total antibiotic course of 14 days. Can complete PO treatment in outpatient if he is stable s/p I&D, likely tomorrow. 2. Upper respiratory infection, viral Significant other at the bedside was diagnosed positive for the flu approximately 1 month ago Patient did have diffuse achy body pain and fever and chills on admission, continued on Tamiflu coverage. 3. Diabetes mellitus, type II A1C:9.5% Continue Lantus and sliding scale short-acting insulin. 4. Hypertension Continue Norvasc and losartan 5. Overweight. Encourage caloric reduction 6. Reducable periumbilical hernia Advised outpatient surgery evaluation and possible elective repair after his infection has been treated.
[2017-11-05] MEDS ORDERED: FENTANYL CITRATE INJ/PF 250 MCG/5 ML AMPULE ONE (14:47)
[2017-11-05] MEDS ORDERED: ACETAMINOPHEN 100 ML IV ONE (14:48)
[2017-11-05] MEDS ORDERED: PROPOFOL INJ 200 MG/20 ML VIAL IV ONE (14:48)
[2017-11-05] MEDS ORDERED: MIDAZOLAM 2 MG/2 ML INJ ONE ×2 (14:48→15:13)
[2017-11-05] MEDS ORDERED: EPHEDRINE SULFATE INJ 50 MG/1 ML AMPULE ONE (14:49)
[2017-11-05] MEDS ORDERED: BUPIVACAINE HCL 0.5%-EPI 1:200000 INJ/PF 30 ML VIAL ONE (15:11)
[2017-11-05] MEDS ORDERED: KETAMINE HCL INJ 500 MG/10 ML VIAL ONE (15:13)
[2017-11-05] MEDS ORDERED: MEPERIDINE HCL/PF INJ 25 MG/1 ML DISP.SYRIN IV PRN (15:47)
[2017-11-05] MEDS ORDERED: DIPHENHYDRAMINE HCL 50 MG/ML VIAL IV PRN (15:47)
[2017-11-05] MEDS ORDERED: OXYCODONE-ACETAMINOPHEN 5-325 MG TABLET PO PRN ×2 (15:47)
[2017-11-05] MEDS ORDERED: FENTANYL CITRATE INJ/PF 100 MCG/2 ML AMPUL IV PRN ×3 (15:47)
[2017-11-05] MEDS ORDERED: ALBUTEROL SULFATE 0.083% NEB 2.5 MG/3 ML AMPUL NEB ONE (16:01)
--- NOTE | 2017-11-05 16:50 | Operative Report ---
Operative Report DATE OF SURGERY: 11/05/17 PREOPERATIVE DIAGNOSIS: Right infectious olecranon bursitis POSTOPERATIVE DIAGNOSIS: Same OPERATION: I&D and excision of olecranon bursa right elbow SURGEON: SHAMA ODSHI ANESTHESIA: LMAC TISSUE REMOVED OR ALTERED: Olecranon bursa COMPLICATIONS: None ESTIMATED BLOOD LOSS: 30 mL INTRAOPERATIVE FINDINGS: As above PROCEDURE: Patient was brought to the operating room and was given MAC. Patient was placed in a lateral decubitus position with the right elbow over post. The tourniquet was applied to the right upper extremity and the right upper extremity was prepped and draped in a normal sterile surgical fashion. Timeout was done identifying the right vallecula as the correct site. Tourniquet was inflated at 250 mmHg and then we did a 3 inch incision over the olecranon bursa including the sinus tract. Then between the skin and bursa we used Metzenbaum scissors to delineate the space and interval between it. I was able to dissect the bursal tissue medial laterally as well as superior and inferiorly to the best my abilities. It was thickened yellow and inflamed. There is mild purulent drainage but the majority had drained through the sinus tract. This tissue was then sent to pathology for culture sensitivity and evaluation. I then cut and used rondure to remove the bursal tissue identified. I used 3 L of sterile saline solution with pulsatile lavage and clean the wound nicely. The wound looked dry clean with no purulent left behind and no purulent tissue. I then used 2-0 PDS to approximate the tissue and 3-0 nylon to do horizontal mattress sutures. The most proximal incision I placed a Anderson. 4 x 4 dressing followed by soft roll was applied and the tourniquet was deflated at 22 minutes. Bobo bandage was used to overwrap it and then drapes were removed. Patient was placed in supine position and then transferred to PACU in a stable condition.
[2017-11-05] MEDS: VANCOMYCIN HCL 1,000 MG in DEXTROSE 5%-WATER 250 ML IV SCH (22:20)
[2017-11-05] MEDS: INSULIN LISPRO 100 UNIT/ML 3 ML VIAL SUBCUT SCH (23:12)
[2017-11-05] MEDS ORDERED: KETOROLAC TROMETHAMINE INJ/PF 30 MG/1 ML SDV INJ ONE (23:15)
[2017-11-05] MEDS ORDERED: OXYCODONE-ACETAMINOPHEN 5-325 MG TABLET PO ONE (23:15)
[2017-11-06] MEDS: OXYCODONE-ACETAMINOPHEN 5-325 MG TABLET PO PRN ×4 (00:32→20:12)
[2017-11-06] MEDS: PIPERACILLIN SODIUM/TAZOBACTAM 3.375 GM in NORMAL SALINE 100 ML IV SCH (05:48)
[2017-11-06] MEDS: LANSOPRAZOLE 30 MG TAB.RAP.DR PO SCH (06:55)
[2017-11-06] MEDS: INSULIN LISPRO 100 UNIT/ML 3 ML VIAL SUBCUT SCH ×4 (07:15→22:43)
[2017-11-06 07:46] LABS: HEMATOCRIT 30.5 % (37.9-51.0); HEMOGLOBIN 10.4 g/dL (13.5-17.0); MEAN CORPUSCULAR HEMOGLOBIN 29.8 pg (27.0-33.4); MEAN CORPUSCULAR HGB CONC 34.1 g/dL (32.0-36.0); MEAN CORPUSCULAR VOLUME 87 fl (80-97); PLATELET COUNT 311 10^3/uL (150-450); RED BLOOD COUNT 3.49 10^6/uL (4.35-5.55); RED CELL DISTRIBUTION WIDTH 13.3 % (11.5-14.0); WHITE BLOOD COUNT 8.8 10^3/uL (4.0-10.5)
[2017-11-06 08:12] LABS: ANION GAP 10 (5-19); BLOOD UREA NITROGEN 16 mg/dL (7-20); CALCIUM 8.4 mg/dL (8.4-10.2); CARBON DIOXIDE 23 mmol/L (22-30); CHLORIDE 105 mmol/L (98-107); GLUCOSE 94 mg/dL (75-110); PHOSPHORUS 5.1 mg/dL (2.5-4.5); POTASSIUM 3.7 mmol/L (3.6-5.0); SODIUM 137.8 mmol/L (137-145)
[2017-11-06] MEDS: INSULIN GLARGINE,HUM.REC.ANLOG 300 UNIT/3 ML INSULN.PEN SUBCUT SCH (08:24)
[2017-11-06] MEDS: LOSARTAN POTASSIUM 50 MG TABLET PO SCH (09:38)
[2017-11-06] MEDS: AMLODIPINE BESYLATE 10 MG TABLET PO SCH (09:39)
[2017-11-06] MEDS: OSELTAMIVIR PHOSPHATE 75 MG CAPSULE PO SCH ×2 (09:39→18:09)
[2017-11-06] MEDS: GUAIFENESIN 600 MG TABLET.SA PO SCH ×2 (09:39→22:31)
[2017-11-06] MEDS: VANCOMYCIN HCL 1,000 MG in DEXTROSE 5%-WATER 250 ML IV SCH (09:39)
[2017-11-06] MEDS: RINGERS SOLUTION,LACTATED 1,000 ML IV PRN (09:44)
[2017-11-06] MEDS: DOCUSATE SODIUM 100 MG CAPSULE PO PRN ×2 (09:44→18:10)
[2017-11-06] MEDS ORDERED: HYDRALAZINE HCL INJ/PF 20 MG/1 ML SDV IV PRN (10:38)
[2017-11-06] MEDS: NORMAL SALINE 1000 ML 1,000 ML IV PRN ×2 (11:58→22:32)
--- NOTE | 2017-11-06 13:41 | PDOC PROGRESS REPORT ---
Subjective Progress Note for:: 11/06/17 Subjective:: Patient states pain is adequately controlled. Denies any fevers or chills overnight. Denies any numbness or tingling. Reason For Visit: RIGHT ELBOW FOREARM AND UPPER EXTREMITY CELLULITIS Physical Exam Vital Signs: Temp Pulse Resp BP Pulse Ox 37.1 C 64 20 146/78 H 95 11/06/17 11:48 11/06/17 11:48 11/06/17 11:48 11/06/17 11:48 11/06/17 11:48 Intake & Output 11/05/17 11/06/17 11/07/17 06:59 06:59 06:59 Intake Total 3306 27951 Output Total 5 Balance 3306 79518 Weight 104.2 kg Adult Front & Back Image: 1 - Dressing was removed and the Flournoy was removed as well. I was able to compress and express only serosanguineous drainage. Sutures are intact with minimal to no erythema. Tenderness is improved. He has about -10 of extension with full flexion pronation and supination. Neurovascular intact distally. Results Laboratory Results: 11/06/17 06:40 11/06/17 06:40 11/06/17 11/06/17 06:40 06:40 WBC 8.8 RBC 3.49 L Hgb 10.4 L Hct 30.5 L MCV 87 MCH 29.8 MCHC 34.1 RDW 13.3 Plt Count 311 Sodium 137.8 Potassium 3.7 Chloride 105 Carbon Dioxide 23 Anion Gap 10 BUN 16 Creatinine 2.42 H Est GFR ( Amer) 33 L Est GFR (Non-Af Amer) 28 L Glucose 94 Calcium 8.4 Phosphorus 5.1 H Albumin 3.0 L 10/31/17 19:30 Blood Blood Culture - Final NO GROWTH IN 5 DAYS Impressions: Extremity Ultrasound 10/31/17 18:05 IMPRESSION: Superficial soft tissue edema without focal fluid collection or abscess. Upper Extremity CT 11/01/17 00:00 IMPRESSION: DIFFUSE EDEMA/ INFLAMMATION THROUGHOUT THE SUBCUTANEOUS SOFT TISSUES. IRREGULAR FLUID COLLECTION POSTERIOR TO THE OLECRANON WHICH MAY BE AN INFECTED BURSA OR ABSCESS. NO SIGNIFICANT BONY FINDINGS. Skull X-Ray 11/03/17 17:23 IMPRESSION: NO FOREIGN BODY OR FRACTURE OF THE FACIAL BONES. Upper Extremity MRI 11/04/17 00:00 IMPRESSION: Infected olecranon bursa with sinus tract draining to the skin. Residual abscess measures about 6 cm craniocaudad by 3.5 cm transverse by 2 cm AP. There is adjacent abnormal increased signal in the distal 2 cm of the triceps tendon without bony erosion or edema. Status: Image reviewed by me Assessment & Plan - Diagnosis (1) Olecranon bursitis of right elbow Is this a current diagnosis for this admission?: Yes - Plan Summary Plan Summary: Patient is postop day 1 from I&D as well as excision of the right elbow olecranon bursa. Gram stain showing gram-positive cocci in cluster. Awaiting final culture and sensitivity to hopefully send the patient on p.o. antibiotics. Daily dressing changes required. Instructed to do range of motion exercises to avoid having the elbow it stiff. He can follow-up in 1-2 weeks for wound check and removal of sutures.
[2017-11-06 14:17] LABS: AMORPHOUS SEDIMENT,URINE TRACE /HPF; APPEARANCE,URINE CLOUDY; BILIRUBIN,URINE NEGATIVE (NEGATIVE); COLOR,URINE YELLOW; GLUCOSE, URINE 50 mg/dL (NEGATIVE); KETONES,URINE NEGATIVE (NEGATIVE); LEUKOCYTE ESTERASE,URINE NEGATIVE (NEGATIVE); NITRITE,URINE NEGATIVE (NEGATIVE); PROTEIN,URINE 30 mg/dL (NEGATIVE); UROBILINOGEN,URINE NEGATIVE mg/dL (<2.0)
--- NOTE | 2017-11-06 20:09 | RADIOLOGY REPORT (SQ) ---
EXAM DESCRIPTION: U/S LTD DUPLEX ART/LINCOLN FLOW COMPLETED DATE/TIME: 11/06/2017 7:57 pm REASON FOR STUDY: eval of renal arteries and any hydronephrosis COMPARISON: None. TECHNIQUE: Realtime and static grayscale images acquired. Selected color Doppler, velocities and spe ctral images recorded. LIMITATIONS: None. FINDINGS: RIGHT KIDNEY: RENAL ARTERY VELOCITIES: 85.9 cm/sec. Segmental artery velocity 57.3 cm/sec. VELOCITY RATIO: 0.86. Normal waveforms. KIDNEY: Normal size. No significant pathology. LEFT KIDNEY: RENAL ARTERY VELOCITIES: 54.9 cm/sec. Segmental artery velocity 70.0 cm/sec. VELOCITY RATIO: 0.55. Normal waveforms. KIDNEY: Normal size. Possible cyst. IMPRESSION: NO DOPPLER EVIDENCE OF HEMODYNAMICALLY SIGNIFICANT RENAL ARTERY STENOSIS. NO HYDRONEPHROSIS. POSSIBLE CYST LEFT KIDNEY. COMMENT: NORMAL RENAL ARTERY/AORTA VELOCITY RATIO IS LESS THAN OR EQUAL TO 3.5. TECHNICAL DOCUMENTATION: JOB ID: [id number] [employer] [employer]- All Rights Reserved Reading location - IP/workstation name: [email or web address]
--- NOTE | 2017-11-06 21:46 | PDOC PROGRESS REPORT ---
Subjective Subjective:: 57-year-old male with infected olecranon bursa. I&D on 11/05/17 with surgery for abscess identified on MRI of right elbow. Continued improvement on Vancomycin IV, culture from I and D growing Gram + cocci, pending final result. Patient with noted CHERYLE, Vanc trough requested from pharmacy. Zosyn has been discontinued. Giving supportive IVF. UA was benign for infection. US of renals showed no hydronephrosis, or renal artery stenosis, noted cyst. Patients cellulitis continues to recover. Clinically, patient was feeling better today, and elbow has increased ROM, and decreased tenderness. Total inpatient/outpatient antibiotic duration should be 14 days, of which he has had 7 out of 14. Reason For Visit: RIGHT ELBOW FOREARM AND UPPER EXTREMITY CELLULITIS Physical Exam Vital Signs: Temp Pulse Resp BP Pulse Ox 98.5 F 70 18 140/68 H 92 11/06/17 16:32 11/06/17 16:32 11/06/17 16:32 11/06/17 16:32 11/06/17 16:32 Intake & Output 11/05/17 11/06/17 11/07/17 06:59 06:59 06:59 Intake Total 3306 01986 1280 Output Total 5 Balance 3306 44396 1280 Weight 104.2 kg General appearance: PRESENT: no acute distress, obese Head exam: PRESENT: atraumatic, normocephalic Eye exam: PRESENT: EOMI, PERRLA Mouth exam: PRESENT: moist, neck supple, tongue midline Neck exam: PRESENT: full ROM. ABSENT: JVD, tenderness Respiratory exam: ABSENT: accessory muscle use, crackles, rales, rhonchi, wheezes Cardiovascular exam: PRESENT: RRR, +S1, +S2. ABSENT: diastolic murmur, irregular rhythm Pulses: PRESENT: normal radial pulses, normal dorsalis pedis pul GI/Abdominal exam: ABSENT: ascites, distended, mass Extremities exam: ABSENT: calf tenderness, pedal edema Musculoskeletal exam: PRESENT: full ROM. ABSENT: normal inspection - right elbow with mild limits in ROM, improving cellulitis. Neurological exam: PRESENT: alert, oriented to person, oriented to place, oriented to time, CN II-XII grossly intact. ABSENT: altered Psychiatric exam: ABSENT: agitated, anxious, manic Focused psych exam: ABSENT: delusional, flight of ideas, paranoid Skin exam: PRESENT: dry, erythema. ABSENT: cyanosis, mottled Results Laboratory Results: 11/06/17 06:40 11/06/17 06:40 11/06/17 11/06/17 11/06/17 06:40 06:40 13:45 WBC 8.8 RBC 3.49 L Hgb 10.4 L Hct 30.5 L MCV 87 MCH 29.8 MCHC 34.1 RDW 13.3 Plt Count 311 Sodium 137.8 Potassium 3.7 Chloride 105 Carbon Dioxide 23 Anion Gap 10 BUN 16 Creatinine 2.42 H Est GFR ( Amer) 33 L Est GFR (Non-Af Amer) 28 L Glucose 94 Calcium 8.4 Phosphorus 5.1 H Albumin 3.0 L Urine Color YELLOW Urine Appearance CLOUDY Urine pH 5.0 Ur Specific [place] 1.010 Urine Protein 30 H Urine Glucose (UA) 50 H Urine Ketones NEGATIVE Urine Blood NEGATIVE Urine Nitrite NEGATIVE Ur Leukocyte Esterase NEGATIVE Urine WBC (Auto) 3 Urine RBC (Auto) 1 10/31/17 19:30 Blood Blood Culture - Final NO GROWTH IN 5 DAYS Impressions: Extremity Ultrasound 10/31/17 18:05 IMPRESSION: Superficial soft tissue edema without focal fluid collection or abscess. Upper Extremity CT 11/01/17 00:00 IMPRESSION: DIFFUSE EDEMA/ INFLAMMATION THROUGHOUT THE SUBCUTANEOUS SOFT TISSUES. IRREGULAR FLUID COLLECTION POSTERIOR TO THE OLECRANON WHICH MAY BE AN INFECTED BURSA OR ABSCESS. NO SIGNIFICANT BONY FINDINGS. Skull X-Ray 11/03/17 17:23 IMPRESSION: NO FOREIGN BODY OR FRACTURE OF THE FACIAL BONES. Upper Extremity MRI 11/04/17 00:00 IMPRESSION: Infected olecranon bursa with sinus tract draining to the skin. Residual abscess measures about 6 cm craniocaudad by 3.5 cm transverse by 2 cm AP. There is adjacent abnormal increased signal in the distal 2 cm of the triceps tendon without bony erosion or edema. Vascular Ultrasound 11/06/17 00:00 IMPRESSION: NO DOPPLER EVIDENCE OF HEMODYNAMICALLY SIGNIFICANT RENAL ARTERY STENOSIS. NO HYDRONEPHROSIS. POSSIBLE CYST LEFT KIDNEY. Assessment & Plan - Plan Summary Plan Summary: 1. Infected olecranon bursa on the right arm with cellulitis and abscess. Patient will receive an I&D surgery on 11/05/17 continued on empiric vancomycin with good improvement in cellulitis. good improvement in cellulitis, pain, and ROM of right elbow, awaiting I&D culture for sensitivities. Will complete a total antibiotic course of 14 days. at present he is 7 out of 14 days 2. Upper respiratory infection, viral Significant other at the bedside was diagnosed positive for the flu approximately 1 month ago Patient did have diffuse achy body pain and fever and chills on admission, continued on Tamiflu coverage. He is on day 4 of 5. 3. Diabetes mellitus, type II A1C:9.5% Continue Lantus and sliding scale short-acting insulin. 4. Hypertension Continue Norvasc and losartan 5. Overweight. Encourage caloric reduction 6. Reducable periumbilical hernia Advised outpatient surgery evaluation and possible elective repair after his infection has been treated. can request outpatient surgery f/u for this and to follow up elbow infection
[2017-11-06] MEDS: GUAIFENESIN/CODEINE PHOS 100-10 MG/ 5 ML UDC PO PRN (22:48)
[2017-11-07 04:39] LABS: ABSOLUTE EOSINOPHILS # (AUTO) 0.4 10^3/uL (0.0-0.6); ABSOLUTE LYMPHOCYTES (AUTO) 1.5 10^3/uL (0.5-4.7); ABSOLUTE MONOCYTES (AUTO) 1.1 10^3/uL (0.1-1.4); ABSOLUTE NEUT (AUTO) 5.2 10^3/uL (1.7-8.2); BASOPHILS % (AUTO) 0.5 % (0-2); EOSINOPHILS % (AUTO) 5.1 % (0-6); HEMATOCRIT 31.4 % (37.9-51.0); HEMOGLOBIN 10.5 g/dL (13.5-17.0); LYMPHOCYTES % (AUTO) 18.2 % (13-45); MEAN CORPUSCULAR HEMOGLOBIN 29.3 pg (27.0-33.4); MEAN CORPUSCULAR HGB CONC 33.3 g/dL (32.0-36.0); MEAN CORPUSCULAR VOLUME 88 fl (80-97); MONOCYTES % (AUTO) 13.5 % (3-13); PLATELET COUNT 325 10^3/uL (150-450); RED BLOOD COUNT 3.57 10^6/uL (4.35-5.55); RED CELL DISTRIBUTION WIDTH 13.4 % (11.5-14.0); SEGMENTED NEUTROPHILS % (AUTO) 62.7 % (42-78); TOTAL CELLS COUNTED % (AUTO) 100 %; WHITE BLOOD COUNT 8.3 10^3/uL (4.0-10.5)
[2017-11-07 05:05] LABS: ALBUMIN 2.9 g/dL (3.5-5.0); ANION GAP 10 (5-19); BLOOD UREA NITROGEN 17 mg/dL (7-20); CALCIUM 8.1 mg/dL (8.4-10.2); CARBON DIOXIDE 23 mmol/L (22-30); CHLORIDE 106 mmol/L (98-107); GLUCOSE 150 mg/dL (75-110); PHOSPHORUS 5.1 mg/dL (2.5-4.5); POTASSIUM 3.6 mmol/L (3.6-5.0); SODIUM 138.5 mmol/L (137-145)
[2017-11-07] MEDS: LANSOPRAZOLE 30 MG TAB.RAP.DR PO SCH (06:52)
[2017-11-07] MEDS: OXYCODONE-ACETAMINOPHEN 5-325 MG TABLET PO PRN ×3 (06:52→23:12)
[2017-11-07] MEDS: INSULIN LISPRO 100 UNIT/ML 3 ML VIAL SUBCUT SCH ×4 (06:55→21:21)
[2017-11-07] MEDS ORDERED: VANCOMYCIN HCL 1,500 MG in DEXTROSE 5%-WATER 250 ML IV SCH (08:00)
[2017-11-07] MEDS: INSULIN GLARGINE,HUM.REC.ANLOG 300 UNIT/3 ML INSULN.PEN SUBCUT SCH (08:31)
[2017-11-07 09:02] LABS: VANCOMYCIN,TROUGH 26.5 ug/mL (5.0-20.0)
[2017-11-07] MEDS: GUAIFENESIN 600 MG TABLET.SA PO SCH ×2 (10:42→21:13)
[2017-11-07] MEDS: AMLODIPINE BESYLATE 10 MG TABLET PO SCH (10:43)
[2017-11-07] MEDS: OSELTAMIVIR PHOSPHATE 75 MG CAPSULE PO SCH ×2 (10:43→17:23)
[2017-11-07] MEDS: DOCUSATE SODIUM 100 MG CAPSULE PO PRN ×2 (10:43→17:22)
--- NOTE | 2017-11-07 11:04 | PDOC PROGRESS REPORT ---
Subjective Progress Note for:: 11/07/17 Subjective:: The patient is a 57-year-old male admitted for an abscess over the right olecranon bursa. He was taken to surgery on 11/05/2017 for incision and drainage. Cultures are growing MRSA. The patient is feeling well and wants to be discharged. However, he has developed acute kidney injury. I explained that his creatinine went up overnight. I told him that he is not appropriate for discharge at this time. He states that he is urinating frequently and really feels the best he has in weeks. He is also being treated for an upper respiratory tract infection presumably due to flu. He is on Tamiflu. Reason For Visit: RIGHT ELBOW FOREARM AND UPPER EXTREMITY CELLULITIS Physical Exam Vital Signs: Temp Pulse Resp BP Pulse Ox 97.8 F 65 20 149/74 H 97 11/07/17 00:06 11/07/17 00:06 11/07/17 00:06 11/07/17 00:06 11/07/17 00:06 Intake & Output 11/06/17 11/07/17 11/08/17 06:59 06:59 06:59 Intake Total 84462 3458 Output Total 5 Balance 80402 3458 Weight 104.2 kg 101.8 kg Additional comments: The patient appears to be very healthy for his age. He does not appear to be toxic. He is not in any distress. His facial appearance is unremarkable. His lungs are clear anteriorly. He does have a few crackles in the left base. The cardiac exam is regular without murmurs, gallops or rubs. The abdomen is obese but bowel sounds are present. He does not have guarding or rebound noted and there are no hernias or masses present. The right elbow is covered with a surgical bandage. Otherwise, there is no erythema present. The lower extremities are unremarkable. No pitting edema is present. There are no other acute skin lesions or rashes. Results Laboratory Results: 11/07/17 04:09 11/07/17 04:09 11/06/17 11/07/17 11/07/17 13:45 04:09 04:09 WBC 8.3 RBC 3.57 L Hgb 10.5 L Hct 31.4 L MCV 88 MCH 29.3 MCHC 33.3 RDW 13.4 Plt Count 325 Seg Neutrophils % 62.7 Lymphocytes % 18.2 Monocytes % 13.5 H Eosinophils % 5.1 Basophils % 0.5 Absolute Neutrophils 5.2 Absolute Lymphocytes 1.5 Absolute Monocytes 1.1 Absolute Eosinophils 0.4 Absolute Basophils 0.0 Sodium 138.5 Potassium 3.6 Chloride 106 Carbon Dioxide 23 Anion Gap 10 BUN 17 Creatinine 2.78 H Est GFR ( Amer) 28 L Est GFR (Non-Af Amer) 24 L Glucose 150 H Calcium 8.1 L Phosphorus 5.1 H Albumin 2.9 L Urine Color YELLOW Urine Appearance CLOUDY Urine pH 5.0 Ur Specific [place] 1.010 Urine Protein 30 H Urine Glucose (UA) 50 H Urine Ketones NEGATIVE Urine Blood NEGATIVE Urine Nitrite NEGATIVE Ur Leukocyte Esterase NEGATIVE Urine WBC (Auto) 3 Urine RBC (Auto) 1 Impressions: Extremity Ultrasound 10/31/17 18:05 IMPRESSION: Superficial soft tissue edema without focal fluid collection or abscess. Upper Extremity CT 11/01/17 00:00 IMPRESSION: DIFFUSE EDEMA/ INFLAMMATION THROUGHOUT THE SUBCUTANEOUS SOFT TISSUES. IRREGULAR FLUID COLLECTION POSTERIOR TO THE OLECRANON WHICH MAY BE AN INFECTED BURSA OR ABSCESS. NO SIGNIFICANT BONY FINDINGS. Skull X-Ray 11/03/17 17:23 IMPRESSION: NO FOREIGN BODY OR FRACTURE OF THE FACIAL BONES. Upper Extremity MRI 11/04/17 00:00 IMPRESSION: Infected olecranon bursa with sinus tract draining to the skin. Residual abscess measures about 6 cm craniocaudad by 3.5 cm transverse by 2 cm AP. There is adjacent abnormal increased signal in the distal 2 cm of the triceps tendon without bony erosion or edema. Vascular Ultrasound 11/06/17 00:00 IMPRESSION: NO DOPPLER EVIDENCE OF HEMODYNAMICALLY SIGNIFICANT RENAL ARTERY STENOSIS. NO HYDRONEPHROSIS. POSSIBLE CYST LEFT KIDNEY. Assessment & Plan - Diagnosis (1) Infected olecranon bursa Is this a current diagnosis for this admission?: Yes (2) Cellulitis of right upper extremity Is this a current diagnosis for this admission?: Yes (3) Acute kidney injury (nontraumatic) Is this a current diagnosis for this admission?: Yes (4) Hernia Is this a current diagnosis for this admission?: Yes (5) DM type 2 (diabetes mellitus, type 2) Is this a current diagnosis for this admission?: Yes (6) DVT prophylaxis Is this a current diagnosis for this admission?: Yes (7) Hypertension Is this a current diagnosis for this admission?: Yes (8) Overweight (BMI 25.0-29.9) Is this a current diagnosis for this admission?: Yes (9) Upper respiratory infection, viral Is this a current diagnosis for this admission?: Yes - Time Time Spent with patient: 25-34 minutes - Inpatient Certification Medical Necessity: Need For IV Fluids, Risk of Complication if Not Cared For in Hospital - The patient will remain in the hospital for progressive, acute renal injury. - Plan Summary Plan Summary: 1. Continue IV fluids for acute kidney injury 2. Zosyn was previously discontinued. Today, I discontinued vancomycin secondary to the elevated trough. In addition, oral agents are available according to the culture. 3. We will repeat labs in the morning and if the labs are significantly trending downward I think patient can be discharged with close outpatient follow -up. 4. Hypertension is under good control. Continue medical management. 5. Complete Tamiflu for upper respiratory tract infection. 6. Continue insulin coverage. Blood sugars are under good range. 7. Patient has been informed that he should seek treatment for a reducible periumbilical hernia after his acute illness resolves.
[2017-11-07] MEDS: 1/2 NORMAL SALINE 1,000 ML IV PRN (14:47)
[2017-11-07] MEDS: LINEZOLID 600 MG TABLET PO SCH (21:13)
[2017-11-08] MEDS: LANSOPRAZOLE 30 MG TAB.RAP.DR PO SCH (05:04)
[2017-11-08] MEDS: 1/2 NORMAL SALINE 1,000 ML IV PRN (05:04)
[2017-11-08] MEDS: INSULIN LISPRO 100 UNIT/ML 3 ML VIAL SUBCUT SCH ×4 (05:14→21:45)
[2017-11-08 05:20] LABS: ANION GAP 14 (5-19); BLOOD UREA NITROGEN 17 mg/dL (7-20); CALCIUM 8.4 mg/dL (8.4-10.2); CARBON DIOXIDE 22 mmol/L (22-30); CHLORIDE 103 mmol/L (98-107); GLUCOSE 146 mg/dL (75-110); SODIUM 138.8 mmol/L (137-145)
[2017-11-08] MEDS: OSELTAMIVIR PHOSPHATE 75 MG CAPSULE PO SCH (10:43)
[2017-11-08] MEDS: AMLODIPINE BESYLATE 10 MG TABLET PO SCH (10:43)
[2017-11-08] MEDS: INSULIN GLARGINE,HUM.REC.ANLOG 300 UNIT/3 ML INSULN.PEN SUBCUT SCH (10:43)
[2017-11-08] MEDS: GUAIFENESIN 600 MG TABLET.SA PO SCH ×2 (10:43→21:46)
[2017-11-08] MEDS: LINEZOLID 600 MG TABLET PO SCH ×2 (10:43→21:46)
[2017-11-08] MEDS: DOCUSATE SODIUM 100 MG CAPSULE PO PRN ×2 (10:46→17:30)
[2017-11-08] MEDS: OXYCODONE-ACETAMINOPHEN 5-325 MG TABLET PO PRN ×2 (13:19→20:06)
--- NOTE | 2017-11-08 16:14 | PDOC PROGRESS REPORT ---
Subjective Progress Note for:: 11/08/17 Subjective:: The patient is a 57-year-old male admitted for an abscess over the right olecranon bursa. He was taken to surgery on 11/05/2017 for incision and drainage. Cultures are growing MRSA. The patient is feeling well and wants to be discharged. However, he has developed acute kidney injury. Creatinine has stabilized overnight. Patient is without any complaints with the exception of pain at his elbow when he tries to bear weight with the right arm. Reason For Visit: RIGHT ELBOW FOREARM AND UPPER EXTREMITY CELLULITIS Physical Exam Vital Signs: Temp Pulse Resp BP Pulse Ox 97.9 F 68 16 150/76 H 97 11/08/17 07:50 11/08/17 08:03 11/08/17 08:03 11/08/17 07:50 11/08/17 08:03 Intake & Output 11/07/17 11/08/17 11/09/17 06:59 06:59 06:59 Intake Total 3458 2112 Balance 3458 2112 Weight 101.8 kg 105.6 kg Additional comments: The patient appears nontoxic and in no acute distress. His cognition and mentation are completely appropriate. His lungs continue to demonstrate a few crackles in the left base but his lung exam is improved from yesterday. His cardiac exam is regular without murmurs, gallops or rubs. The abdomen is soft, flat and benign. Bowel sounds are noted in the lower quadrants. No guarding or rebound is present. The patient's lower extremities are without edema. Skin is warm dry and intact without lesions or rashes. Right elbow was examined. The surgical site looks great. There is no drainage present. There is no erythema. There is mild edema. Results Laboratory Results: 11/07/17 04:09 11/08/17 04:20 11/08/17 04:20 Sodium 138.8 Potassium 4.0 Chloride 103 Carbon Dioxide 22 Anion Gap 14 BUN 17 Creatinine 2.69 H Est GFR ( Amer) 30 L Est GFR (Non-Af Amer) 24 L Glucose 146 H Calcium 8.4 11/05/17 16:00 Elbow - Right Gram Stain - Final 11/05/17 16:00 Elbow - Right Wound Culture - Final Mrsa (Meth Resis Staph Aureus) No Anaerobic Organisms Impressions: Extremity Ultrasound 10/31/17 18:05 IMPRESSION: Superficial soft tissue edema without focal fluid collection or abscess. Upper Extremity CT 11/01/17 00:00 IMPRESSION: DIFFUSE EDEMA/ INFLAMMATION THROUGHOUT THE SUBCUTANEOUS SOFT TISSUES. IRREGULAR FLUID COLLECTION POSTERIOR TO THE OLECRANON WHICH MAY BE AN INFECTED BURSA OR ABSCESS. NO SIGNIFICANT BONY FINDINGS. Skull X-Ray 11/03/17 17:23 IMPRESSION: NO FOREIGN BODY OR FRACTURE OF THE FACIAL BONES. Upper Extremity MRI 11/04/17 00:00 IMPRESSION: Infected olecranon bursa with sinus tract draining to the skin. Residual abscess measures about 6 cm craniocaudad by 3.5 cm transverse by 2 cm AP. There is adjacent abnormal increased signal in the distal 2 cm of the triceps tendon without bony erosion or edema. Vascular Ultrasound 11/06/17 00:00 IMPRESSION: NO DOPPLER EVIDENCE OF HEMODYNAMICALLY SIGNIFICANT RENAL ARTERY STENOSIS. NO HYDRONEPHROSIS. POSSIBLE CYST LEFT KIDNEY. Assessment & Plan - Diagnosis (1) Infected olecranon bursa Is this a current diagnosis for this admission?: Yes Plan: Therapy was switched to linezolid. Literature review demonstrates non- superiority to Vancomycin. (2) Cellulitis of right upper extremity Is this a current diagnosis for this admission?: Yes Plan: As above. (3) Acute kidney injury (nontraumatic) Is this a current diagnosis for this admission?: Yes Plan: IVF were discontinued. Patient told to continue good po fluid intake. (4) Hernia Is this a current diagnosis for this admission?: Yes Plan: The patient has an umbilical hernia which will need to be repaired, this can be done electively after discharge. (5) DM type 2 (diabetes mellitus, type 2) Is this a current diagnosis for this admission?: Yes Plan: Continue basal insulin with sliding scale coverage. (6) DVT prophylaxis Is this a current diagnosis for this admission?: Yes Plan: Ambulation, SCD. (7) Hypertension Is this a current diagnosis for this admission?: Yes Plan: Stable, continue medical management. (8) Overweight (BMI 25.0-29.9) Is this a current diagnosis for this admission?: Yes (9) Upper respiratory infection, viral Is this a current diagnosis for this admission?: Yes Plan: Patient is being empirically treated with Tamiflu. He has received 5 days. This can be discontinued. - Time Time Spent with patient: 25-34 minutes - Inpatient Certification Medical Necessity: Need Close Monitoring Due to Risk of Patient Decompensation, Risk of Complication if Not Cared For in Hospital
[2017-11-09] MEDS: LANSOPRAZOLE 30 MG TAB.RAP.DR PO SCH (05:16)
[2017-11-09 05:44] LABS: ANION GAP 10 (5-19); BLOOD UREA NITROGEN 17 mg/dL (7-20); CALCIUM 8.5 mg/dL (8.4-10.2); CARBON DIOXIDE 24 mmol/L (22-30); CHLORIDE 108 mmol/L (98-107); GLUCOSE 71 mg/dL (75-110); POTASSIUM 3.5 mmol/L (3.6-5.0)
[2017-11-09] MEDS: INSULIN LISPRO 100 UNIT/ML 3 ML VIAL SUBCUT SCH ×4 (06:39→23:43)
[2017-11-09] MEDS ORDERED: POTASSIUM CHLORIDE 10 MEQ TABLET.SA PO ONE ×2 (07:22→09:30)
[2017-11-09] MEDS: OXYCODONE-ACETAMINOPHEN 5-325 MG TABLET PO PRN ×2 (09:36→21:28)
[2017-11-09] MEDS: LINEZOLID 600 MG TABLET PO SCH ×2 (09:36→21:28)
[2017-11-09] MEDS: AMLODIPINE BESYLATE 10 MG TABLET PO SCH (09:37)
[2017-11-09] MEDS: GUAIFENESIN 600 MG TABLET.SA PO SCH ×2 (09:37→21:28)
[2017-11-09] MEDS: DOCUSATE SODIUM 100 MG CAPSULE PO PRN ×2 (10:17→17:59)
[2017-11-09] MEDS: INSULIN GLARGINE,HUM.REC.ANLOG 300 UNIT/3 ML INSULN.PEN SUBCUT SCH (10:43)
--- NOTE | 2017-11-09 12:25 | RADIOLOGY REPORT (SQ) ---
EXAM DESCRIPTION: VENOUS UNILATERAL UPPER COMPLETED DATE/TIME: 11/09/2017 12:13 pm REASON FOR STUDY: edema Right upper extrimety COMPARISON: None. TECHNIQUE: Dynamic and static sanabria scale and color images acquired of the right arm venous system. S elected spectral images acquired with additional compression and augmentation maneuvers. The contrala teral subclavian vein and internal jugular vein were also imaged. Images stored on PACS. LIMITATIONS: None. FINDINGS: INTERNAL JUGULAR VEIN: Normal phasicity, compression, augmentation. No visualized echogeni c material on sanabria scale. No defects on color images. Comparison opposite side normal. SUBCLAVIAN VEIN: Normal compression, augmentation. No visualized echogenic material on sanabria scale. No defects on color images. AXILLARY VEIN: Normal compression, augmentation. No visualized echogenic material on sanabria scale. No d efects on color images. BRACHIAL VEIN: Normal compression, augmentation. No visualized echogenic material on sanabria scale. No d efects on color images. BASILIC VEIN: Normal compression, augmentation. No visualized echogenic material on sanabria scale. No de fects on color images. CEPHALIC VEIN: Normal compression, augmentation. No visualized echogenic material on sanabria scale. No d efects on color images. OTHER: No other significant finding. CONTRALATERAL SUBCLAVIAN VEIN AND INTERNAL JUGULAR VEIN: Normal phasicity, compression and augmentation. No visualized echogenic material on sanabria scale. No de fects on color images. IMPRESSION: NO EVIDENCE DVT OR SVT RIGHT ARM. TECHNICAL DOCUMENTATION: JOB ID: [id number] [employer]- All Rights Reserved Reading location - IP/workstation name: [email or web address]
[2017-11-09] MEDS: GUAIFENESIN/CODEINE PHOS 100-10 MG/ 5 ML UDC PO PRN (14:36)
--- NOTE | 2017-11-09 15:03 | PDOC PROGRESS REPORT ---
Subjective Progress Note for:: 11/09/17 Subjective:: The patient is a 57-year-old male admitted for an abscess over the right olecranon bursa. He was taken to surgery on 11/05/2017 for incision and drainage. Cultures are growing MRSA. The patient is feeling well and wants to be discharged. However, he has developed acute kidney injury likely secondary to vancomycin toxicity. The patient's creatinine does appear to have plateaued. I did discuss the case with nephrology. They feel that if the patient's creatinine is stable tomorrow he can be discharged with follow-up in [address] Starks did agree to see the patient in 1 week after discharge. Today, the patient was complaining of swelling in both of his hands. His right hand was significantly more swollen than the left. The left is mildly swollen where an IV is placed. He told me that he was lying on the right arm. I ordered a stat venous Doppler which is negative for DVT. Reason For Visit: RIGHT ELBOW FOREARM AND UPPER EXTREMITY CELLULITIS Physical Exam Vital Signs: Temp Pulse Resp BP Pulse Ox 97.9 F 70 16 157/78 H 96 11/09/17 11:58 11/09/17 14:12 11/09/17 14:12 11/09/17 11:58 11/09/17 14:12 Intake & Output 11/08/17 11/09/17 11/10/17 06:59 06:59 06:59 Intake Total 2112 1233 Output Total 350 Balance 2112 883 Weight 105.6 kg 105.6 kg Additional comments: The patient is obviously annoyed this morning. He wanted me to tell him he was going home. In any event, his mentation and cognition are appropriate. He is appropriately upset that he has remained in the hospital. His facial appearance is unremarkable. His lungs do show a few crackles in the bases posteriorly. His cardiac exam is regular without murmurs, gallops or rubs. The abdomen is soft and flat. Bowel sounds are present. He does not have any guarding rebound noted and there are no hernias or masses present. The right arm is swollen up to the elbow. The left hand shows some swelling. Yesterday, I examined the wound and it is healing extremely well. There is no purulent discharge. In fact there is essentially no discharge from the wound. The lower extremities also show approximately 1+ edema. The skin is otherwise clean , warm, dry and intact. Results Laboratory Results: 11/07/17 04:09 11/09/17 04:04 11/09/17 11/09/17 04:04 04:04 Sodium 142.0 Potassium 3.5 L Chloride 108 H Carbon Dioxide 24 Anion Gap 10 BUN 17 Creatinine 2.85 H Est GFR ( Amer) 28 L Est GFR (Non-Af Amer) 23 L Glucose 71 L Uric Acid 6.2 Calcium 8.5 11/05/17 16:00 Elbow - Right Gram Stain - Final 11/05/17 16:00 Elbow - Right Wound Culture - Final Mrsa (Meth Resis Staph Aureus) No Anaerobic Organisms Impressions: Extremity Ultrasound 10/31/17 18:05 IMPRESSION: Superficial soft tissue edema without focal fluid collection or abscess. Upper Extremity CT 11/01/17 00:00 IMPRESSION: DIFFUSE EDEMA/ INFLAMMATION THROUGHOUT THE SUBCUTANEOUS SOFT TISSUES. IRREGULAR FLUID COLLECTION POSTERIOR TO THE OLECRANON WHICH MAY BE AN INFECTED BURSA OR ABSCESS. NO SIGNIFICANT BONY FINDINGS. Skull X-Ray 11/03/17 17:23 IMPRESSION: NO FOREIGN BODY OR FRACTURE OF THE FACIAL BONES. Upper Extremity MRI 11/04/17 00:00 IMPRESSION: Infected olecranon bursa with sinus tract draining to the skin. Residual abscess measures about 6 cm craniocaudad by 3.5 cm transverse by 2 cm AP. There is adjacent abnormal increased signal in the distal 2 cm of the triceps tendon without bony erosion or edema. Vascular Ultrasound 11/06/17 00:00 IMPRESSION: NO DOPPLER EVIDENCE OF HEMODYNAMICALLY SIGNIFICANT RENAL ARTERY STENOSIS. NO HYDRONEPHROSIS. POSSIBLE CYST LEFT KIDNEY. Venous Doppler Study 11/09/17 00:00 IMPRESSION: NO EVIDENCE DVT OR SVT RIGHT ARM. Assessment & Plan - Diagnosis (1) Infected olecranon bursa Is this a current diagnosis for this admission?: Yes Plan: Therapy was switched to linezolid. Literature review demonstrates non- inferiority to Vancomycin. Follow-up with orthopedic surgery after discharge. (2) Cellulitis of right upper extremity Is this a current diagnosis for this admission?: Yes Plan: As above. (3) Acute kidney injury (nontraumatic) Is this a current diagnosis for this admission?: Yes Plan: The patient's creatinine is slightly higher today, but, in significantly so. The acute kidney injury is likely secondary to toxicity from vancomycin. Urinalysis was fairly unremarkable. Duplex exam of the renal arteries and veins and anatomy was unremarkable. The patient will need to follow-up with nephrology. If his renal function is stable to improved tomorrow he can be considered for discharge. Again, Dr. Starks agreed to see the patient in 1 week. At this point time the patient appears to be slightly volume up. Therefore, I am not going to continue any additional IV fluids. IV fluids were stopped yesterday afternoon. (4) Hernia Is this a current diagnosis for this admission?: Yes Plan: The patient has an umbilical hernia which will need to be repaired, this can be done electively after discharge. Surgery should not be considered until renal failure is completely resolved. (5) DM type 2 (diabetes mellitus, type 2) Is this a current diagnosis for this admission?: Yes Plan: Continue basal insulin with sliding scale coverage. (6) DVT prophylaxis Is this a current diagnosis for this admission?: Yes Plan: Ambulation, SCD. (7) Hypertension Is this a current diagnosis for this admission?: Yes Plan: Stable, continue medical management. (8) Overweight (BMI 25.0-29.9) Is this a current diagnosis for this admission?: Yes (9) Upper respiratory infection, viral Is this a current diagnosis for this admission?: Yes Plan: Patient was empirically treated with Tamiflu. He received 5 days. - Time Time Spent with patient: 15-24 minutes - Inpatient Certification Medical Necessity: Need Close Monitoring Due to Risk of Patient Decompensation, Risk of Complication if Not Cared For in Hospital
[2017-11-10] MEDS: LANSOPRAZOLE 30 MG TAB.RAP.DR PO SCH (05:21)
[2017-11-10] MEDS: INSULIN LISPRO 100 UNIT/ML 3 ML VIAL SUBCUT SCH ×4 (05:26→23:23)
[2017-11-10 06:17] LABS: ANION GAP 13 (5-19); BLOOD UREA NITROGEN 18 mg/dL (7-20); CALCIUM 8.8 mg/dL (8.4-10.2); CARBON DIOXIDE 24 mmol/L (22-30); CHLORIDE 103 mmol/L (98-107); GLUCOSE 120 mg/dL (75-110); POTASSIUM 4.1 mmol/L (3.6-5.0); SODIUM 139.9 mmol/L (137-145)
[2017-11-10] MEDS: INSULIN GLARGINE,HUM.REC.ANLOG 300 UNIT/3 ML INSULN.PEN SUBCUT SCH (08:58)
[2017-11-10] MEDS: AMLODIPINE BESYLATE 10 MG TABLET PO SCH (09:47)
[2017-11-10] MEDS: OXYCODONE-ACETAMINOPHEN 5-325 MG TABLET PO PRN ×2 (09:49→22:34)
[2017-11-10] MEDS: LINEZOLID 600 MG TABLET PO SCH ×2 (09:51→22:29)
[2017-11-10] MEDS: GUAIFENESIN 600 MG TABLET.SA PO SCH ×2 (09:51→22:29)
[2017-11-10] MEDS: DOCUSATE SODIUM 100 MG CAPSULE PO PRN ×2 (09:57→18:05)
--- NOTE | 2017-11-10 17:30 | PDOC PROGRESS REPORT ---
Subjective Progress Note for:: 11/10/17 Subjective:: Pt states that he is doing well. Reason For Visit: RIGHT ELBOW FOREARM AND UPPER EXTREMITY CELLULITIS Physical Exam Vital Signs: Temp Pulse Resp BP Pulse Ox 98.8 F 70 18 150/79 H 96 11/10/17 11:56 11/10/17 11:56 11/10/17 11:56 11/10/17 11:56 11/10/17 11:56 Intake & Output 11/09/17 11/10/17 11/11/17 06:59 06:59 06:59 Intake Total 1233 1595 Output Total 350 Balance 883 1595 Weight 105.6 kg 105.8 kg General appearance: PRESENT: no acute distress, well-developed, well-nourished Head exam: PRESENT: atraumatic, normocephalic Eye exam: PRESENT: conjunctiva pink, EOMI. ABSENT: scleral icterus Ear exam: PRESENT: normal external ear exam Mouth exam: PRESENT: moist, tongue midline Neck exam: ABSENT: carotid bruit, JVD, lymphadenopathy, thyromegaly Respiratory exam: PRESENT: clear to auscultation kayleen. ABSENT: rales, rhonchi, wheezes Cardiovascular exam: PRESENT: RRR. ABSENT: diastolic murmur, rubs, systolic murmur Pulses: PRESENT: normal dorsalis pedis pul Vascular exam: PRESENT: normal capillary refill GI/Abdominal exam: PRESENT: normal bowel sounds, soft. ABSENT: distended, guarding, mass, organolmegaly, rebound, tenderness Rectal exam: PRESENT: deferred Extremities exam: PRESENT: other - +right arm swollen Musculoskeletal exam: PRESENT: other - +right arm swelling Neurological exam: PRESENT: alert, awake, oriented to person, oriented to place , oriented to time, oriented to situation, CN II-XII grossly intact. ABSENT: motor sensory deficit Psychiatric exam: PRESENT: appropriate affect, normal mood. ABSENT: homicidal ideation, suicidal ideation Skin exam: PRESENT: dry, intact, warm, other - + right elbow mild erythema.. ABSENT: cyanosis, rash Results Laboratory Results: 11/07/17 04:09 11/10/17 04:50 11/10/17 04:50 Sodium 139.9 Potassium 4.1 Chloride 103 Carbon Dioxide 24 Anion Gap 13 BUN 18 Creatinine 2.78 H Est GFR ( Amer) 28 L Est GFR (Non-Af Amer) 24 L Glucose 120 H Calcium 8.8 Impressions: Extremity Ultrasound 10/31/17 18:05 IMPRESSION: Superficial soft tissue edema without focal fluid collection or abscess. Upper Extremity CT 11/01/17 00:00 IMPRESSION: DIFFUSE EDEMA/ INFLAMMATION THROUGHOUT THE SUBCUTANEOUS SOFT TISSUES. IRREGULAR FLUID COLLECTION POSTERIOR TO THE OLECRANON WHICH MAY BE AN INFECTED BURSA OR ABSCESS. NO SIGNIFICANT BONY FINDINGS. Skull X-Ray 11/03/17 17:23 IMPRESSION: NO FOREIGN BODY OR FRACTURE OF THE FACIAL BONES. Upper Extremity MRI 11/04/17 00:00 IMPRESSION: Infected olecranon bursa with sinus tract draining to the skin. Residual abscess measures about 6 cm craniocaudad by 3.5 cm transverse by 2 cm AP. There is adjacent abnormal increased signal in the distal 2 cm of the triceps tendon without bony erosion or edema. Vascular Ultrasound 11/06/17 00:00 IMPRESSION: NO DOPPLER EVIDENCE OF HEMODYNAMICALLY SIGNIFICANT RENAL ARTERY STENOSIS. NO HYDRONEPHROSIS. POSSIBLE CYST LEFT KIDNEY. Venous Doppler Study 11/09/17 00:00 IMPRESSION: NO EVIDENCE DVT OR SVT RIGHT ARM. Assessment & Plan - Diagnosis (1) Acute renal injury Is this a current diagnosis for this admission?: Yes Plan: Secondary to ATN: Resolving. Pt will follow up with Dr. Starks outpatient. (2) Septic joint Qualifiers: Septic arthritis location: elbow Laterality: right Is this a current diagnosis for this admission?: Yes Plan: Will continue Zyvox. (3) Cellulitis of right upper extremity Is this a current diagnosis for this admission?: Yes Plan: Zyvox. (4) Upper respiratory infection, viral Is this a current diagnosis for this admission?: Yes Plan: Most likely viral: Completed Tamiflu. (5) DM type 2 (diabetes mellitus, type 2) Is this a current diagnosis for this admission?: Yes Plan: HgbA1C 9.5%: Will continue Lantus to 25 units subcu every morning and continue SSI. (6) Overweight (BMI 25.0-29.9) Is this a current diagnosis for this admission?: Yes Plan: Encourage dietary changes. (7) Hypertension Is this a current diagnosis for this admission?: Yes Plan: Will continue to monitor. (8) DVT prophylaxis Is this a current diagnosis for this admission?: Yes Plan: SCDs - Time Time Spent with patient: 15-24 minutes
[2017-11-11] MEDS: LANSOPRAZOLE 30 MG TAB.RAP.DR PO SCH (06:54)
[2017-11-11] MEDS: INSULIN LISPRO 100 UNIT/ML 3 ML VIAL SUBCUT SCH ×2 (06:58→12:01)
[2017-11-11 07:43] LABS: ANION GAP 11 (5-19); BLOOD UREA NITROGEN 20 mg/dL (7-20); CALCIUM 8.7 mg/dL (8.4-10.2); CARBON DIOXIDE 25 mmol/L (22-30); CHLORIDE 105 mmol/L (98-107); GLUCOSE 131 mg/dL (75-110); POTASSIUM 4.2 mmol/L (3.6-5.0); SODIUM 140.5 mmol/L (137-145)
[2017-11-11] MEDS: INSULIN GLARGINE,HUM.REC.ANLOG 300 UNIT/3 ML INSULN.PEN SUBCUT SCH (08:24)
[2017-11-11] MEDS: LINEZOLID 600 MG TABLET PO SCH (10:05)
[2017-11-11] MEDS: AMLODIPINE BESYLATE 10 MG TABLET PO SCH (10:06)
[2017-11-11] MEDS: GUAIFENESIN 600 MG TABLET.SA PO SCH (10:06)
[2017-11-11] MEDS: DOCUSATE SODIUM 100 MG CAPSULE PO PRN (10:07)
[2017-11-11] MEDS: OXYCODONE-ACETAMINOPHEN 5-325 MG TABLET PO PRN (10:15)
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
[2017-11-11 15:21] VITALS: BP 163/71
== END 2017-11-11 16:27 | disposition home or self-care (01) | DRG 501 ==
LOC: ER 16:18 → EH 18:28 → 3N 23:27 → 4N 11-05 06:43
PROVIDERS: ADMIT Internal Medicine; ATTEND Internal Medicine
PROC: 3E0F73Z Introduction of Anti-inflammatory into Respiratory Tract, Via Natural or Artificial Opening (ICD-10-PCS; 2017-11-02)
PROC: 0R9L3ZX Drainage of Right Elbow Joint, Percutaneous Approach, Diagnostic (ICD-10-PCS; 2017-11-05)
PROC: 0MB30ZZ Excision of Right Elbow Bursa and Ligament, Open Approach (ICD-10-PCS; principal; 2017-11-05 15:15)
DX: M71.121 Other infective bursitis, right elbow (principal); L03.113 Cellulitis of right upper limb; N17.9 Acute kidney failure, unspecified; E11.65 Type 2 diabetes mellitus with hyperglycemia; E87.1 Hypo-osmolality and hyponatremia; M71.021 Abscess of bursa, right elbow; E66.3 Overweight; B95.62 Methicillin resistant Staphylococcus aureus infection as the cause of diseases classified elsewhere; E74.39 Other disorders of intestinal carbohydrate absorption; F32.9 Major depressive disorder, single episode, unspecified; I10 Essential (primary) hypertension; K42.9 Umbilical hernia without obstruction or gangrene; J06.9 Acute upper respiratory infection, unspecified; Z68.31 Body mass index [BMI] 31.0-31.9, adult; Z79.899 Other long term (current) drug therapy; Z91.018 Allergy to other foods; Z91.048 Other nonmedicinal substance allergy status
CPT/HCPCS: 01710; 36415; 70250; 76881; 80048; 80053; 80061; 80069; 80202; 81001; 82962; 83036; 84550; 85025; 85027; 87040; 87070; 87075; 87077; 87186; 87205; 88305; 93005; 93010; 93971; 93976; 94640; 94799; 99285; J0131; J1815; J1885; J2250; J2543; J2704; J3010; J3370; J3490; J7030; J7060; J7120; S0119

== ENCOUNTER → 2017-11-13 | Outpatient (CLI) | payer SELFPAY ==
[2017-11-13 16:45] LABS: ABSOLUTE BASOPHILS # (AUTO) 0.1 10^3/uL (0.0-0.2); ABSOLUTE EOSINOPHILS # (AUTO) 0.3 10^3/uL (0.0-0.6); ABSOLUTE LYMPHOCYTES (AUTO) 1.5 10^3/uL (0.5-4.7); ABSOLUTE NEUT (AUTO) 7.2 10^3/uL (1.7-8.2); EOSINOPHILS % (AUTO) 3.3 % (0-6); HEMATOCRIT 34.1 % (37.9-51.0); HEMOGLOBIN 11.3 g/dL (13.5-17.0); LYMPHOCYTES % (AUTO) 15.1 % (13-45); MEAN CORPUSCULAR HEMOGLOBIN 28.4 pg (27.0-33.4); MEAN CORPUSCULAR VOLUME 86 fl (80-97); MONOCYTES % (AUTO) 10.3 % (3-13); PLATELET COUNT 563 10^3/uL (150-450); RED BLOOD COUNT 3.96 10^6/uL (4.35-5.55); RED CELL DISTRIBUTION WIDTH 13.6 % (11.5-14.0); SEGMENTED NEUTROPHILS % (AUTO) 70.3 % (42-78); TOTAL CELLS COUNTED % (AUTO) 100 %; WHITE BLOOD COUNT 10.2 10^3/uL (4.0-10.5)
[2017-11-13 17:05] LABS: ANION GAP 11 (5-19); BLOOD UREA NITROGEN 19 mg/dL (7-20); CALCIUM 9.4 mg/dL (8.4-10.2); CARBON DIOXIDE 27 mmol/L (22-30); CHLORIDE 100 mmol/L (98-107); GLUCOSE 128 mg/dL (75-110); POTASSIUM 4.8 mmol/L (3.6-5.0); SODIUM 138.4 mmol/L (137-145); URIC ACID 6.3 mg/dL (3.5-8.5)
[2017-11-14 12:13] LABS: APPEARANCE,URINE CLEAR; BILIRUBIN,URINE NEGATIVE (NEGATIVE); COLOR,URINE COLORLESS; GLUCOSE, URINE NEGATIVE (NEGATIVE); KETONES,URINE NEGATIVE (NEGATIVE); LEUKOCYTE ESTERASE,URINE NEGATIVE (NEGATIVE); NITRITE,URINE NEGATIVE (NEGATIVE); PROTEIN,URINE NEGATIVE (NEGATIVE); URINE SPECIFIC GRAVITY 1.006; UROBILINOGEN,URINE NEGATIVE mg/dL (<2.0)
== END ==
LOC: OD 15:03
PROVIDERS: ATTEND Internal Medicine Nephrology
DX: E11.9 Type 2 diabetes mellitus without complications (principal); I10 Essential (primary) hypertension; B95.62 Methicillin resistant Staphylococcus aureus infection as the cause of diseases classified elsewhere
CPT/HCPCS: 36415; 80048; 81001; 83735; 84550; 85025

== ENCOUNTER → 2017-11-18 | Outpatient (CLI) | payer SELFPAY ==
[2017-11-18 17:31] LABS: ANION GAP 13 (5-19); BLOOD UREA NITROGEN 28 mg/dL (7-20); CALCIUM 9.8 mg/dL (8.4-10.2); CARBON DIOXIDE 27 mmol/L (22-30); CHLORIDE 100 mmol/L (98-107); GLUCOSE 158 mg/dL (75-110); POTASSIUM 4.5 mmol/L (3.6-5.0); SODIUM 139.5 mmol/L (137-145)
== END ==
LOC: OD 15:13
PROVIDERS: ATTEND Internal Medicine Nephrology
DX: E11.9 Type 2 diabetes mellitus without complications (principal); I10 Essential (primary) hypertension; B95.62 Methicillin resistant Staphylococcus aureus infection as the cause of diseases classified elsewhere
CPT/HCPCS: 36415; 80048; 83735

== ENCOUNTER → 2017-12-31 | Outpatient (CLI) | payer SELFPAY ==
[2017-12-31 13:31] LABS: HEMATOCRIT 35.5 % (37.9-51.0); HEMOGLOBIN 12.2 g/dL (13.5-17.0); MEAN CORPUSCULAR HEMOGLOBIN 29.7 pg (27.0-33.4); MEAN CORPUSCULAR HGB CONC 34.4 g/dL (32.0-36.0); MEAN CORPUSCULAR VOLUME 86 fl (80-97); PLATELET COUNT 320 10^3/uL (150-450); RED BLOOD COUNT 4.12 10^6/uL (4.35-5.55)
[2017-12-31 13:45] LABS: APPEARANCE,URINE CLEAR; BILIRUBIN,URINE NEGATIVE (NEGATIVE); COLOR,URINE YELLOW; GLUCOSE, URINE 50 mg/dL (NEGATIVE); KETONES,URINE NEGATIVE (NEGATIVE); LEUKOCYTE ESTERASE,URINE NEGATIVE (NEGATIVE); NITRITE,URINE NEGATIVE (NEGATIVE); PROTEIN,URINE NEGATIVE (NEGATIVE); URINE SPECIFIC GRAVITY 1.012; UROBILINOGEN,URINE NEGATIVE mg/dL (<2.0)
[2017-12-31 14:14] LABS: ANION GAP 16 (5-19); BLOOD UREA NITROGEN 12 mg/dL (7-20); CALCIUM 9.8 mg/dL (8.4-10.2); CARBON DIOXIDE 26 mmol/L (22-30); CHLORIDE 104 mmol/L (98-107); GLUCOSE 140 mg/dL (75-110); PHOSPHORUS 4.4 mg/dL (2.5-4.5); POTASSIUM 4.8 mmol/L (3.6-5.0); SODIUM 145.6 mmol/L (137-145)
== END ==
LOC: OD 12:05
PROVIDERS: ATTEND Internal Medicine Nephrology
DX: I12.9 Hypertensive chronic kidney disease with stage 1 through stage 4 chronic kidney disease, or unspecified chronic kidney disease (principal); N18.4 Chronic kidney disease, stage 4 (severe); E11.9 Type 2 diabetes mellitus without complications
CPT/HCPCS: 36415; 80048; 81001; 83970; 84100; 85027

== ENCOUNTER → 2018-07-01 | Outpatient (CLI) | payer SELFPAY ==
[2018-07-01 15:31] LABS: ANION GAP 12 (5-19); BLOOD UREA NITROGEN 14 mg/dL (7-20); CALCIUM 9.6 mg/dL (8.4-10.2); CARBON DIOXIDE 25 mmol/L (22-30); CHLORIDE 103 mmol/L (98-107); GLUCOSE 154 mg/dL (75-110); POTASSIUM 4.6 mmol/L (3.6-5.0); SODIUM 140.3 mmol/L (137-145)
== END ==
LOC: OD 13:40
PROVIDERS: ATTEND Internal Medicine Nephrology
DX: I12.9 Hypertensive chronic kidney disease with stage 1 through stage 4 chronic kidney disease, or unspecified chronic kidney disease (principal); N18.2 Chronic kidney disease, stage 2 (mild); E11.22 Type 2 diabetes mellitus with diabetic chronic kidney disease
CPT/HCPCS: 36415; 80048

== ENCOUNTER 2018-09-12 20:25 | Emergency (ER) | payer SELFPAY ==
[2018-09-12] MEDS ORDERED: NORMAL SALINE 1000 ML 1,000 ML IV ONE (20:58)
[2018-09-12] MEDS ORDERED: ONDANSETRON HCL INJ/PF 4 MG/2 ML SDV IV ONE (20:58)
--- NOTE | 2018-09-12 20:58 | ER Document Report ---
ED General - General Chief Complaint: Flu Symptoms Stated Complaint: POSSIBLE FEVER,CHILLS,NAUSEA Time Seen by Provider: 09/12/18 20:45 Notes: Patient is a 57-year-old male that presents to the emergency department for chief complaint of fevers, chills, body aches. Patient states he was feeling well earlier today, he went to worship, and shortly after, started having nausea, several episodes of vomiting, and subjective fever and chills. He was feeling lightheaded like he may pass out and generalized body aches. He denies having any diarrhea associated with this. He is had an associated cough, nonproductive. Denies having any associated chest pain. He does have some pain in the left upper quadrant of his abdomen, he currently rates the pain as a 3 out of 10 describes as an aching sensation, that was worse with the vomiting. No other complaints at this time. 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 Past Medical History: Diabetes, hypertension Past Surgical History: Back surgery, knee surgery Social History: Denies current tobacco use, admits occasional alcohol use, denies illicit drug use. Family History: Reviewed and noncontributory for presenting illness Allergies: Reviewed, see documented allergy list. REVIEW OF SYSTEMS: Other than noted above, the 12 point review of systems was reviewed with the patient and were negative, all pertinent findings are included in the HPI. PHYSICAL EXAMINATION: Vital signs reviewed, nursing noted reviewed. GENERAL: Patient appears uncomfortable, but nontoxic appearing, no respiratory distress HEAD: Atraumatic, normocephalic. EYES: Eyes appear normal, extraocular movements intact, sclera anicteric, conjunctiva are normal. ENT: nares patent, oropharynx clear without exudates. Moist mucous membranes. NECK: Normal range of motion, supple without lymphadenopathy LUNGS: Breath sounds clear to auscultation bilaterally and equal. No wheezes rales or rhonchi. HEART: Regular rate and rhythm without murmurs ABDOMEN: Soft, nontender, normoactive bowel sounds. No rebound, guarding, or rigidity. No masses appreciated. EXTREMITIES: Nontender, good range of motion, no pitting or edema. NEUROLOGICAL: No focal neurological deficits. Moves all extremities spontaneously Motor and sensory grossly intact on exam. PSYCH: Normal mood, normal affect. SKIN: Warm, Dry, normal turgor, no rashes or lesions noted on exposed skin TRAVEL OUTSIDE OF THE [place] IN LAST 30 DAYS: No - Related Data Allergies/Adverse Reactions: aspartame [From Nutrasweet Aspartame] Allergy (Verified 10/31/17 16:46) Coconut * [Coconut] Allergy (Verified 10/31/17 16:46) Past Medical History - Social History Smoking Status: Never Smoker Family History: Reviewed & Not Pertinent. denies: Hyperlipidemia - Past Medical History Cardiac Medical History: Reports: Hx Hypertension Endocrine Medical History: Reports: Hx Diabetes Mellitus Type 2 Renal/ Medical History: Denies: Hx Peritoneal Dialysis Psychiatric Medical History: Reports: Hx Depression Past Surgical History: Reports: Hx Orthopedic Surgery - Left Knee, Ruptured Disc Repair L4/L5 - Immunizations Immunizations up to date: Yes Hx Diphtheria, Pertussis, Tetanus Vaccination: Yes Physical Exam - Vital signs Vitals: Temp Pulse Resp BP Pulse Ox 99.7 F 76 16 203/78 H 93 09/12/18 20:49 09/12/18 20:49 09/12/18 20:49 09/12/18 20:49 09/12/18 20:49 Course - Re-evaluation Re-evalutation: Patient seen and examined vital signs reviewed. Laboratory data and imaging were ordered as appropriate for the patient's presenting symptoms and complaint, with consideration of any critical or life threatening conditions that may be associated with their obtained history and exam as noted above. Patient was treated with IV fluid, Toradol, and Tylenol, is also given Zofran for nausea. Results were reviewed when available and demonstrated mild hyponatremia, otherwise unremarkable, flu testing was negative, however patient's symptoms were most consistent with influenza, with body aches, fever, nausea vomiting and cough. Has a symptoms started within the past 12 hours, I did give the patient the option to have a prescription for Tamiflu to take it if needed to possibly shorten the duration of his overall symptoms. Advised hydration at home, and taking oral Zofran, and NSAIDs and Tylenol for fever. Patient was agreeable to plan of care The patient was re-evaluated and was improved Evaluation was most consistent with influenza Results were discussed with the patient at this point, after careful consideration I feel that that patient can be discharged from the emergency department, the patient was educated treatments and reasons to return to the [facility] department based on their presumed diagnosis as noted above, they were advised to followup with a primary care physician in 2-3 days. Patient was agreeable to plan of care. *Note is created using voice recognition software and may contain spelling, syntax or grammatical errors. Laboratory 09/12/18 09/12/18 09/12/18 21:40 21:40 21:40 WBC 6.4 RBC 4.05 L Hgb 12.2 L Hct 34.9 L MCV 86 MCH 30.2 MCHC 35.0 RDW 13.4 Plt Count 234 Seg Neutrophils % 74.2 Lymphocytes % 8.9 L Monocytes % 14.6 H Eosinophils % 1.4 Basophils % 0.9 Absolute Neutrophils 4.7 Absolute Lymphocytes 0.6 Absolute Monocytes 0.9 Absolute Eosinophils 0.1 Absolute Basophils 0.1 Sodium 132.5 L Potassium 4.3 Chloride 101 Carbon Dioxide 22 Anion Gap 10 BUN 13 Creatinine 1.08 Est GFR ( Amer) > 60 Est GFR (Non-Af Amer) > 60 Glucose 183 H Calcium 9.4 Total Bilirubin 0.6 Direct Bilirubin 0.2 Neonat Total Bilirubin Not Reportable Neonat Direct Bilirubin Not Reportable Neonat Indirect Bili Not Reportable AST 31 ALT 34 Alkaline Phosphatase 51 Total Protein 7.0 Albumin 4.2 Lipase 65.3 Influenza A (Rapid) NEGATIVE Influenza B (Rapid) NEGATIVE Chest X-Ray 09/12/18 20:57 IMPRESSION: No acute cardiopulmonary disease. copyright 2011 [facility] [facility]- All Rights Reserved - Vital Signs Vital signs: Temp Pulse Resp BP Pulse Ox 103.1 F H 76 16 203/78 H 93 09/12/18 22:19 09/12/18 20:49 09/12/18 20:49 09/12/18 20:49 09/12/18 20:49 - Laboratory Result Diagrams: 09/12/18 21:40 09/12/18 21:40 Laboratory results interpreted by me: 09/12/18 09/12/18 09/12/18 21:40 21:40 23:25 RBC 4.05 L Hgb 12.2 L Hct 34.9 L Lymphocytes % 8.9 L Monocytes % 14.6 H Sodium 132.5 L Glucose 183 H Urine Glucose (UA) 50 H Discharge - Discharge Clinical Impression: Influenza Nausea and vomiting Qualifiers: Vomiting type: unspecified Vomiting Intractability: non-intractable Qualified Code(s): R11.2 - Nausea with vomiting, unspecified Condition: Stable Disposition: HOME, SELF-CARE Instructions: Influenza (OM) Additional Instructions: PLEASE TAKE 500-1000MG EVERY 8 HOURS FOR FEVER AND PAIN, YOU CAN TAKE 400-600MG OF IBUPROFEN/ADVIL EVERY 8 HOURS FOR FEVER AND PAIN WELL. PLEASE START TAKING OVER THE COUNTER MELATONIN 4MG WITH 2 25MG BENADRYL CAPSULES TO HELP WITH YOUR SLEEPING ISSUES. IF YOU SYMPTOMS ARE WORSENING OR NOT IMPROVING DO NOT HESITATE TO RETURN TO THE EMERGENCY DEPARTMENT. Prescriptions: Oseltamivir Phosphate [Tamiflu 75 mg Capsule] 75 mg PO BID #10 capsule Referrals: Mary CARMICHAEL MD [Primary Care Provider] - Follow up as needed
--- NOTE | 2018-09-12 21:47 | RADIOLOGY REPORT (SQ) ---
EXAM DESCRIPTION: XR CHEST 2 VIEWS COMPLETED DATE/TME: 09/12/2018 20:57 CLINICAL HISTORY: 57 years, Male, cough COMPARISON: October 30, 2017 NUMBER OF VIEWS: Two TECHNIQUE: PA and lateral views of the chest LIMITATIONS: None. FINDINGS: Lung volumes are decreased but clear. No pleural abnormalities. The cardiac silhouette and pulmonary vessels are normal. IMPRESSION: No acute cardiopulmonary disease. copyright 2010 [employer]- All Rights Reserved
[2018-09-12 21:58] LABS: ABSOLUTE BASOPHILS # (AUTO) 0.1 10^3/uL (0.0-0.2); ABSOLUTE EOSINOPHILS # (AUTO) 0.1 10^3/uL (0.0-0.6); ABSOLUTE LYMPHOCYTES (AUTO) 0.6 10^3/uL (0.5-4.7); ABSOLUTE MONOCYTES (AUTO) 0.9 10^3/uL (0.1-1.4); ABSOLUTE NEUT (AUTO) 4.7 10^3/uL (1.7-8.2); BASOPHILS % (AUTO) 0.9 % (0-2); EOSINOPHILS % (AUTO) 1.4 % (0-6); HEMATOCRIT 34.9 % (37.9-51.0); HEMOGLOBIN 12.2 g/dL (13.5-17.0); LYMPHOCYTES % (AUTO) 8.9 % (13-45); MEAN CORPUSCULAR HEMOGLOBIN 30.2 pg (27.0-33.4); MEAN CORPUSCULAR VOLUME 86 fl (80-97); MONOCYTES % (AUTO) 14.6 % (3-13); PLATELET COUNT 234 10^3/uL (150-450); RED BLOOD COUNT 4.05 10^6/uL (4.35-5.55); RED CELL DISTRIBUTION WIDTH 13.4 % (11.5-14.0); SEGMENTED NEUTROPHILS % (AUTO) 74.2 % (42-78); TOTAL CELLS COUNTED % (AUTO) 100 %; WHITE BLOOD COUNT 6.4 10^3/uL (4.0-10.5)
[2018-09-12 22:07] LABS: ALANINE AMINOTRANSFERASE 34 U/L (21-72); ALBUMIN 4.2 g/dL (3.5-5.0); ALKALINE PHOSPHATASE 51 U/L (38-126); ANION GAP 10 (5-19); ASPARTATE AMINO TRANSFERASE 31 U/L (17-59); BILIRUBIN,DIRECT 0.2 mg/dL (0.0-0.4); BILIRUBIN,TOTAL 0.6 mg/dL (0.2-1.3); BLOOD UREA NITROGEN 13 mg/dL (7-20); CALCIUM 9.4 mg/dL (8.4-10.2); CARBON DIOXIDE 22 mmol/L (22-30); CHLORIDE 101 mmol/L (98-107); GLUCOSE 183 mg/dL (75-110); LIPASE 65.3 U/L (23-300); POTASSIUM 4.3 mmol/L (3.6-5.0); SODIUM 132.5 mmol/L (137-145)
[2018-09-12 22:12] LABS: A TYPE INFLUENZA AG NEGATIVE (NEGATIVE); B INFLUENZA AG NEGATIVE (NEGATIVE)
[2018-09-12] MEDS ORDERED: KETOROLAC TROMETHAMINE INJ/PF 30 MG/1 ML SDV IV ONE (22:20)
[2018-09-12] MEDS ORDERED: ACETAMINOPHEN 325 MG TABLET PO ONE (22:21)
[2018-09-12] MEDS ORDERED: RINGERS SOLUTION,LACTATED 1,000 ML IV ONE (22:24)
[2018-09-12 23:38] LABS: APPEARANCE,URINE CLEAR; BILIRUBIN,URINE NEGATIVE (NEGATIVE); COLOR,URINE STRAW; GLUCOSE, URINE 50 mg/dL (NEGATIVE); KETONES,URINE NEGATIVE (NEGATIVE); LEUKOCYTE ESTERASE,URINE NEGATIVE (NEGATIVE); NITRITE,URINE NEGATIVE (NEGATIVE); PROTEIN,URINE NEGATIVE (NEGATIVE); URINE SPECIFIC GRAVITY 1.009; UROBILINOGEN,URINE NEGATIVE mg/dL (<2.0)
[2018-09-12] MEDS ORDERED: ONDANSETRON ODT 4 MG TAB (6 TAB/ER DISP) PO PRN (23:45)
[2018-09-12 23:58] VITALS: BP 132/68
== END 2018-09-12 23:58 | disposition home or self-care (01) ==
LOC: ER 20:25
DX: J10.1 Influenza due to other identified influenza virus with other respiratory manifestations (principal); E87.6 Hypokalemia; R11.2 Nausea with vomiting, unspecified; R05 Cough; R42 Dizziness and giddiness; R10.12 Left upper quadrant pain; E11.9 Type 2 diabetes mellitus without complications; I10 Essential (primary) hypertension; Z91.018 Allergy to other foods
CPT/HCPCS: 99283; 96361; 96374; 96375; 36415; 83690; 85025; 80053; 81001; 87804; 71046; J1885; J2405; J7030; J7120

== ENCOUNTER 2019-02-16 10:45 | Inpatient (IN) | payer OTHER ==
--- NOTE | 2019-02-16 10:57 | ER Document Report ---
Addendum entered and electronically signed by AIRAM MARTINEZ NP 02/16/19 11:29: Course - Re-evaluation Re-evalutation: 02/16/19 11:28 Provider called to patient for complaints of feeling lightheaded. Patient sitting with head slumped over although answers questions appropriately. Patient sits up and is alert when provider speaks the patient. RN advised to repeat vitals and obtain Accu-Chek at this time. RN states that blood sugar was in the 300s and at that his blood pressure with the machine was reading 80 systolic. RN encouraged to obtain manual blood pressure - Vital Signs Vital signs: Temp Pulse Resp BP Pulse Ox 99.5 F 82 18 166/78 H 97 02/16/19 10:51 02/16/19 10:51 02/16/19 10:51 02/16/19 10:51 02/16/19 10:51 - Laboratory Result Diagrams: 02/16/19 11:15 02/16/19 11:15 Laboratory results interpreted by me: 02/16/19 11:15 WBC 13.8 H Hgb 13.1 L Seg Neutrophils % 79.8 H Lymphocytes % 9.4 L Absolute Neutrophils 11.0 H Original Note: ED Medical Screen (RME) - General Chief Complaint: Toe Injury Stated Complaint: TOE PAIN Time Seen by Provider: 02/16/19 10:49 Primary Care Provider: Mary CARMICHAEL MD [Primary Care Provider] - Follow up as needed Notes: Patient with a history of high blood pressure and diabetes with diabetic foot wound to right foot. Patient's right second toe swollen and bleeding. Patient states symptoms started yesterday. Patient reports subjective fever. I have greeted and performed a rapid initial assessment of this patient. A comprehensive ED assessment and evaluation of the patient, analysis of test results and completion of the medical decision making process will be conducted by additional ED providers. TRAVEL OUTSIDE OF THE [place] IN LAST 30 DAYS: No - Related Data Allergies/Adverse Reactions: aspartame [From Nutrasweet Aspartame] Allergy (Verified 02/16/19 10:53) Coconut * [Coconut] Allergy (Verified 02/16/19 10:53) vancomycin Allergy (Verified 02/16/19 10:53) Past Medical History - Past Medical History Cardiac Medical History: Reports: Hx Hypertension Endocrine Medical History: Reports: Hx Diabetes Mellitus Type 2 Renal/ Medical History: Denies: Hx Peritoneal Dialysis Psychiatric Medical History: Reports: Hx Depression Past Surgical History: Reports: Hx Orthopedic Surgery - Left Knee, Ruptured Disc Repair L4/L5 - Immunizations Immunizations up to date: Yes Hx Diphtheria, Pertussis, Tetanus Vaccination: Yes History of Influenza Vaccine for 05/2017 - 10/2017 Season: No Physical Exam - Vital signs Vitals: Temp Pulse Resp BP Pulse Ox 99.5 F 82 18 166/78 H 97 02/16/19 10:51 02/16/19 10:51 02/16/19 10:51 02/16/19 10:51 02/16/19 10:51 - General General appearance: Alert Notes: Diabetic foot wound to the toe of right foot Course - Vital Signs Vital signs: Temp Pulse Resp BP Pulse Ox 99.5 F 82 18 166/78 H 97 02/16/19 10:51 02/16/19 10:51 02/16/19 10:51 02/16/19 10:51 02/16/19 10:51 Doctor's Discharge - Discharge Referrals: Mary CARMICHAEL MD [Primary Care Provider] - Follow up as needed
[2019-02-16 11:26] LABS: ABSOLUTE BASOPHILS # (AUTO) 0.1 10^3/uL (0.0-0.2); ABSOLUTE EOSINOPHILS # (AUTO) 0.1 10^3/uL (0.0-0.6); ABSOLUTE LYMPHOCYTES (AUTO) 1.3 10^3/uL (0.5-4.7); ABSOLUTE MONOCYTES (AUTO) 1.3 10^3/uL (0.1-1.4); BASOPHILS % (AUTO) 0.7 % (0-2); EOSINOPHILS % (AUTO) 0.6 % (0-6); HEMATOCRIT 37.9 % (37.9-51.0); HEMOGLOBIN 13.1 g/dL (13.5-17.0); LYMPHOCYTES % (AUTO) 9.4 % (13-45); MEAN CORPUSCULAR HEMOGLOBIN 29.2 pg (27.0-33.4); MEAN CORPUSCULAR HGB CONC 34.5 g/dL (32.0-36.0); MEAN CORPUSCULAR VOLUME 85 fl (80-97); MONOCYTES % (AUTO) 9.5 % (3-13); PLATELET COUNT 358 10^3/uL (150-450); RED BLOOD COUNT 4.48 10^6/uL (4.35-5.55); RED CELL DISTRIBUTION WIDTH 13.4 % (11.5-14.0); SEGMENTED NEUTROPHILS % (AUTO) 79.8 % (42-78); TOTAL CELLS COUNTED % (AUTO) 100 %; WHITE BLOOD COUNT 13.8 10^3/uL (4.0-10.5)
[2019-02-16 11:46] LABS: ALANINE AMINOTRANSFERASE 18 U/L (21-72); ALBUMIN 4.2 g/dL (3.5-5.0); ALKALINE PHOSPHATASE 82 U/L (38-126); ANION GAP 10 (5-19); ASPARTATE AMINO TRANSFERASE 16 U/L (17-59); BILIRUBIN,DIRECT 0.3 mg/dL (0.0-0.4); BILIRUBIN,TOTAL 0.8 mg/dL (0.2-1.3); BLOOD UREA NITROGEN 15 mg/dL (7-20); CALCIUM 9.6 mg/dL (8.4-10.2); CARBON DIOXIDE 27 mmol/L (22-30); CHLORIDE 96 mmol/L (98-107); GLUCOSE 323 mg/dL (75-110); POTASSIUM 4.8 mmol/L (3.6-5.0); SODIUM 133.2 mmol/L (137-145); TOTAL PROTEIN 7.7 g/dL (6.3-8.2)
--- NOTE | 2019-02-16 12:06 | RADIOLOGY REPORT (SQ) ---
EXAM DESCRIPTION: FOOT RIGHT COMPLETE COMPLETED DATE/TIME: 02/16/2019 11:57 am REASON FOR STUDY: diabetic foot wound/infection COMPARISON: None. NUMBER OF VIEWS: Three views. TECHNIQUE: AP, lateral and oblique radiographic images acquired of the right foot. LIMITATIONS: None. FINDINGS: MINERALIZATION: Normal. BONES: There appears to be some bone destruction in the terminal tuft of the 2nd digit. JOINTS: No effusions. SOFT TISSUES: There is a small amount of air in the soft tissues of the 2nd digit. OTHER: No other significant finding. IMPRESSION: Likely osteomyelitis in the 2nd distal phalanx. TECHNICAL DOCUMENTATION: JOB ID: [id number] [employer]- All Rights Reserved Reading location - IP/workstation name: [email or web address]
[2019-02-16] MEDS ORDERED: LINEZOLID 600 MG/300 ML RTUPB IV ONE (12:42)
--- NOTE | 2019-02-16 13:36 | ER Document Report ---
Entered by KASANDRA RITTER SCRIBE 02/16/19 1231 Acting as scribe for:FRANKY MARQUIS MD ED Extremity Problem, Lower - General Chief Complaint: Toe Injury Stated Complaint: TOE INJURY Time Seen by Provider: 02/16/19 10:49 Primary Care Provider: Mary CARMICHAEL MD [ACTIVE STAFF] - Follow up as needed Notes: Patient is a 58-year-old male presenting to the emergency department complaining of a toe injury. Patient states that this morning he reached down to touch his right, second toe and pulled off numerous layers of skin which caused it to bleed excessively. at bedside states that she noticed his feet swollen last night but did not think much of it. TRAVEL OUTSIDE OF THE [place] IN LAST 30 DAYS: No - Related Data Allergies/Adverse Reactions: aspartame [From Nutrasweet Aspartame] Allergy (Verified 02/16/19 10:53) Coconut * [Coconut] Allergy (Verified 02/16/19 10:53) vancomycin Allergy (Verified 02/16/19 10:53) Past Medical History - General Information source: Patient - Social History Smoking Status: Never Smoker Cigarette use (# per day): No Chew tobacco use (# tins/day): No Frequency of alcohol use: Occasional Drug Abuse: None Family History: Reviewed & Not Pertinent Patient has suicidal ideation: No Patient has homicidal ideation: No - Past Medical History Cardiac Medical History: Reports: Hx Hypertension Endocrine Medical History: Reports: Hx Diabetes Mellitus Type 2 Psychiatric Medical History: Reports: Hx Depression Past Surgical History: Reports: Hx Orthopedic Surgery - Left Knee, Ruptured Disc Repair L4/L5 - Immunizations Immunizations up to date: Yes Hx Diphtheria, Pertussis, Tetanus Vaccination: Yes Review of Systems - Review of Systems Constitutional: No symptoms reported EENT: No symptoms reported Cardiovascular: No symptoms reported Respiratory: No symptoms reported Gastrointestinal: No symptoms reported Genitourinary: No symptoms reported Male Genitourinary: No symptoms reported Musculoskeletal: No symptoms reported Skin: No symptoms reported Hematologic/Lymphatic: No symptoms reported Neurological/Psychological: Numbness - Feet diabetic peripheral neuropathy -: Yes All other systems reviewed and negative Physical Exam - Vital signs Vitals: Temp Pulse Resp BP Pulse Ox 99.5 F 82 18 166/78 H 97 02/16/19 10:51 02/16/19 10:51 02/16/19 10:51 02/16/19 10:51 02/16/19 10:51 - Notes Notes: Physical Exam: General: Alert, appears well. HEENT: Normocephalic. Atraumatic. PERRL. Extraocular movements intact. Oropharynx clear. Neck: Supple. Non-tender. Respiratory: No respiratory distress. Clear and equal breath sounds bilaterally. Cardiovascular: Regular rate and rhythm. Abdominal: Normal Inspection. Non-tender. No distension. Normal Bowel Sounds. Back: Non-tender. No deformity or step off. Extremities: Moves all four extremities. Upper extremities: Normal inspection. Normal ROM. Lower extremities: Decreased sensation in the feet. Right second digit is grossly epididymis. Plantar surface of the toe has swelling. Distal pressure ulcer present. Entire surface Erithmatic. Normal ROM. Neurological: Normal cognition. AAOx4. Normal speech. Psychological: Normal affect. Normal Mood. Skin: Warm. Dry. Normal color. Course - Vital Signs Vital signs: Temp Pulse Resp BP Pulse Ox 99.5 F 82 18 123/66 97 02/16/19 10:51 02/16/19 10:51 02/16/19 10:51 02/16/19 11:39 02/16/19 10:51 - Laboratory Result Diagrams: 02/16/19 11:15 02/16/19 11:15 Laboratory results interpreted by me: 02/16/19 02/16/19 02/16/19 11:15 11:15 11:15 WBC 13.8 H Hgb 13.1 L Seg Neutrophils % 79.8 H Lymphocytes % 9.4 L Absolute Neutrophils 11.0 H Sodium 133.2 L Chloride 96 L Glucose 323 H POC Glucose Hemoglobin A1c % 9.2 H AST 16 L ALT 18 L 02/16/19 11:24 WBC Hgb Seg Neutrophils % Lymphocytes % Absolute Neutrophils Sodium Chloride Glucose POC Glucose 317 H Hemoglobin A1c % AST ALT - Diagnostic Test Radiology reviewed: Image reviewed, Reports reviewed - X-ray of the right foot shows swelling to the right second toe, air in the distal soft tissues, erosion of the end of the distal phalanx consistent with osteomyelitis. - Consults Dr. Crabtree Time consulted: 12:40 Consulted provider: will come to ER Discharge - Discharge Clinical Impression: Diabetic peripheral neuropathy associated with type 2 diabetes mellitus, Type 2 diabetes mellitus with pressure ulcer of toe, stage 4 Osteomyelitis Qualifiers: Osteomyelitis type: other Osteomyelitis location: foot Laterality: right Qualified Code(s): M86.8X7 - Other osteomyelitis, ankle and foot Cellulitis Qualifiers: Site of cellulitis: extremity Site of cellulitis of extremity: toe Laterality: right Qualified Code(s): L03.031 - Cellulitis of right toe Condition: Stable Disposition: ADMITTED INPATIENT Admitting Provider: Leyda (Hospitalist) Unit Admitted: Medical Floor Referrals: Mary CARMICHAEL MD [ACTIVE STAFF] - Follow up as needed Scribe Attestation: 02/16/19 12:49 I personally performed the services described in the documentation, reviewed and edited the documentation which was dictated to the scribe in my presence, and it accurately records my words and actions. I personally performed the services described in the documentation, reviewed and edited the documentation which was dictated to the scribe in my presence, and it accurately records my words and actions.
[2019-02-16] MEDS ORDERED: TEMAZEPAM 15 MG CAPSULE PO PRN (13:59)
[2019-02-16] MEDS ORDERED: IPRATROPIUM/ALBUTEROL 0.5-2.5 MG/3 ML AMPUL NEB PRN (13:59)
[2019-02-16] MEDS ORDERED: GLUCAGON,HUMAN RECOMB 1 MG INJ IM PRN (14:05)
[2019-02-16] MEDS ORDERED: DEXTROSE 50%-WATER 25 GM/50 ML DISP.SYRIN IV PRN ×2 (14:05)
[2019-02-16] MEDS ORDERED: DEXTROSE 40% GEL 15 GM TUBE PO PRN ×2 (14:05)
[2019-02-16 14:37] LABS: APPEARANCE,URINE CLEAR; BILIRUBIN,URINE NEGATIVE (NEGATIVE); COLOR,URINE YELLOW; GLUCOSE, URINE >=500 mg/dL (NEGATIVE); KETONES,URINE NEGATIVE (NEGATIVE); LEUKOCYTE ESTERASE,URINE NEGATIVE (NEGATIVE); NITRITE,URINE NEGATIVE (NEGATIVE); PROTEIN,URINE 30 mg/dL (NEGATIVE); URINE SPECIFIC GRAVITY 1.021; UROBILINOGEN,URINE NEGATIVE mg/dL (<2.0)
--- NOTE | 2019-02-16 15:48 | PDOC H&P ---
History of Present Illness Admission Date/PCP: 02/16/19 15:21 BRIDGER MARTINEZ MD History of Present Illness: GISELLA HAYS is a 58 year old male past medical history of diabetes, hypertensi on, recently admitted for right upper extremity cellulitis caused by MRSA presenting to ED complaining of right second toe wound. Patient is stating that he felt a scab at the dorsal aspect of his right second toe and he pulled it off, he noticed that the skin came off right away his toe started to bleed excessively. He does not recall any injuries, checks his feet frequently, does not recall any blisters, wound, or any trauma. He is endorsing throbbing sensation to the right lower extremity however he does not any feel any pain, he also felt some chills and was febrile at home last night. Recently was hospitalized for right upper extremity cellulitis caused by MRSA was started on vancomycin and developed CHERYLE. Denies any chills, shortness of breath, chest pain, nausea, vomiting, diarrhea, constipation or any urinary symptoms. In ED x-ray of right feet was suspicious for possible osteomyelitis with elevated ESR and CRP. Hospitalist consulted for admission. Past Medical History Cardiac Medical History: Reports: Hypertension Endocrine Medical History: Reports: Diabetes Mellitus Type 2 Psychiatric Medical History: Reports: Depression Past Surgical History Past Surgical History: Reports: Orthopedic Surgery - Left Knee, Ruptured Disc Repair L4/L5 Social History Smoking Status: Never Smoker Frequency of Alcohol Use: Occasional Hx Recreational Drug Use: No Drugs: None Hx Prescription Drug Abuse: No Family History Family History: Reviewed & Not Pertinent Parental Family History Reviewed: Yes Children Family History Reviewed: Yes Sibling(s) Family History Reviewed.: Yes Medication/Allergy Home Medications: Amlodipine Besylate [Norvasc 10 mg Tablet] 10 mg PO DAILY #30 tablet 11/11/17 Hum Insulin NPH/Reg Insulin Hm [Insulin Inj 70-30 (100 Unit/1 ml) 3 ml Vial] 1 unit SUBCUT BID #10 ml 11/11/17 Insulin Glargine,Hum.rec.anlog [Lantus Insulin 100 Unit/mL Insulin Pen] 25 unit SUBCUT QAM insuln.pen 11/11/17 Linezolid [Zyvox 600 mg Tablet] 600 mg PO Q12 #28 tablet 11/11/17 Oxycodone HCl/Acetaminophen [Percocet 5-325 mg Tablet] 1 tab PO Q6HP PRN #10 tablet 11/11/17 Oseltamivir Phosphate [Tamiflu 75 mg Capsule] 75 mg PO BID #10 capsule 09/12/18 Allergies/Adverse Reactions: aspartame [From Nutrasweet Aspartame] Allergy (Verified 02/16/19 10:53) Coconut * [Coconut] Allergy (Verified 02/16/19 10:53) vancomycin Allergy (Verified 02/16/19 10:53) Review of Systems Review of Systems: as per hpi Physical Exam Vital Signs: Temp Pulse Resp BP Pulse Ox 98.4 F 82 17 129/83 H 98 02/16/19 13:01 02/16/19 10:51 02/16/19 13:01 02/16/19 13:01 02/16/19 13:01 Intake & Output 02/15/19 02/16/19 02/17/19 06:59 06:59 06:59 Weight 95.9 kg General appearance: PRESENT: no acute distress, well-developed, well-nourished Head exam: PRESENT: atraumatic, normocephalic Eye exam: PRESENT: conjunctiva pink, EOMI, PERRLA. ABSENT: scleral icterus Ear exam: PRESENT: normal external ear exam Mouth exam: PRESENT: moist, tongue midline Neck exam: ABSENT: carotid bruit, JVD, lymphadenopathy, thyromegaly Respiratory exam: PRESENT: clear to auscultation kayleen. ABSENT: rales, rhonchi, wheezes Cardiovascular exam: PRESENT: RRR. ABSENT: diastolic murmur, rubs, systolic murmur Pulses: PRESENT: normal dorsalis pedis pul, +2 pedal pulses bilateral Vascular exam: PRESENT: normal capillary refill GI/Abdominal exam: PRESENT: normal bowel sounds, soft. ABSENT: distended, guarding, mass, organolmegaly, rebound, tenderness Rectal exam: PRESENT: deferred Extremities exam: PRESENT: full ROM. ABSENT: calf tenderness, clubbing, pedal edema Musculoskeletal exam: PRESENT: other - Swollen right second toe, circular scab about 1 x 1 cm at the plantar surface of the distal metatarsal. No active discharge. Neurological exam: PRESENT: alert, awake, oriented to person, oriented to place, oriented to time, oriented to situation, CN II-XII grossly intact. ABSENT: motor sensory deficit Psychiatric exam: PRESENT: appropriate affect, normal mood. ABSENT: homicidal ideation, suicidal ideation Skin exam: PRESENT: dry, intact, warm. ABSENT: cyanosis, rash Results Laboratory Results: 02/16/19 11:15 02/16/19 11:15 02/16/19 02/16/19 02/16/19 11:15 11:15 11:15 WBC 13.8 H RBC 4.48 Hgb 13.1 L Hct 37.9 MCV 85 MCH 29.2 MCHC 34.5 RDW 13.4 Plt Count 358 Seg Neutrophils % 79.8 H Lymphocytes % 9.4 L Monocytes % 9.5 Eosinophils % 0.6 Basophils % 0.7 Absolute Neutrophils 11.0 H Absolute Lymphocytes 1.3 Absolute Monocytes 1.3 Absolute Eosinophils 0.1 Absolute Basophils 0.1 Sodium 133.2 L Potassium 4.8 Chloride 96 L Carbon Dioxide 27 Anion Gap 10 BUN 15 Creatinine 1.13 Est GFR ( Amer) > 60 Est GFR (Non-Af Amer) > 60 Glucose 323 H Calcium 9.6 Total Bilirubin 0.8 AST 16 L ALT 18 L Alkaline Phosphatase 82 C-Reactive Protein 63.1 H Total Protein 7.7 Albumin 4.2 Urine Color Urine Appearance Urine pH Ur Specific Blair Urine Protein Urine Glucose (UA) Urine Ketones Urine Blood Urine Nitrite Ur Leukocyte Esterase Urine WBC (Auto) 02/16/19 14:18 WBC RBC Hgb Hct MCV MCH MCHC RDW Plt Count Seg Neutrophils % Lymphocytes % Monocytes % Eosinophils % Basophils % Absolute Neutrophils Absolute Lymphocytes Absolute Monocytes Absolute Eosinophils Absolute Basophils Sodium Potassium Chloride Carbon Dioxide Anion Gap BUN Creatinine Est GFR ( Amer) Est GFR (Non-Af Amer) Glucose Calcium Total Bilirubin AST ALT Alkaline Phosphatase C-Reactive Protein Total Protein Albumin Urine Color YELLOW Urine Appearance CLEAR Urine pH 5.0 Ur Specific Blair 1.021 Urine Protein 30 H Urine Glucose (UA) >=500 H Urine Ketones NEGATIVE Urine Blood NEGATIVE Urine Nitrite NEGATIVE Ur Leukocyte Esterase NEGATIVE Urine WBC (Auto) 1 Impressions: Foot X-Ray 02/16/19 10:54 IMPRESSION: Likely osteomyelitis in the 2nd distal phalanx. Assessment and Plan - Diagnosis (1) Osteomyelitis Qualifiers: Osteomyelitis type: other acute Osteomyelitis location: foot Laterality: right Qualified Code(s): M86.171 - Other acute osteomyelitis, right ankle and foot Is this a current diagnosis for this admission?: Yes Plan: Elevated CRP/ESR. Right foot radiography suspicious for osteomyelitis. IV antibiotics day 1. Zyvox 600 mg IV twice daily day 1. Follow-up wound and blood culture. Continue empiric IV antibiotics, wound care. Surgery consulted. Pending recommendations. (2) DM type 2 (diabetes mellitus, type 2) Qualifiers: Diabetes mellitus jail insulin use: with jail use Diabetes lorena litus complication detail: with polyneuropathy Is this a current diagnosis for this admission?: Yes Plan: Not controlled. A1c> 9% Diabetic diet, long-acting insulin, pre-meal insulin, sliding scale insulin, Accu-Chek, hypoglycemia protocol. Adjust dosage as needed. Outpatient PCP follow-up. (3) Hypertension Is this a current diagnosis for this admission?: Yes Plan: Normotensive. Will start on low-dose lisinopril as patient has uncontrolled diabetes and KATHY inhibitors are known to be renal protective. Adjust dosage as needed.
[2019-02-16] MEDS ORDERED: HYDRALAZINE HCL INJ/PF 20 MG/1 ML SDV IV PRN (15:49)
[2019-02-16] MEDS: INSULIN LISPRO 100 UNIT/ML 3 ML VIAL SUBCUT SCH ×2 (17:46→21:53)
[2019-02-16] MEDS: PROMETHAZINE HCL INJ 25 MG/1 ML VIAL IV PRN ×2 (17:46→22:56)
[2019-02-16] MEDS: HEPARIN SOD (PORCINE) 5,000 UNIT/ML 1 ML SYRINGE SUBCUT SCH ×2 (17:48→21:54)
[2019-02-16] MEDS: PIPERACILLIN SODIUM/TAZOBACTAM 4.5 GM in NORMAL SALINE 100 ML IV SCH (18:38)
[2019-02-16] MEDS: NORMAL SALINE 1000 ML 1,000 ML IV PRN (20:09)
--- NOTE | 2019-02-16 20:28 | PDOC CONSULTATION ---
Consultation Consult Date: 02/16/19 Provider Consulted: EKTA BOOGIE Consult reason:: Infected right 2nd toe History of Present Illness Admission Date/PCP: 02/16/19 15:21 BRIDGER MARTINEZ MD History of Present Illness: GISELLA HAYS is a 58 year old male diabetic noted swelling and redness right 2nd toe for past 2 days. Noted some drainage on his right sock this am and went to ED. Apparently has a chronic ulcer on his right 2nd toe plantar area but he never noticed it in the past because of neuropathy. Has decreased sensation in both feet. Admits to having fever and chills. Past Medical History Cardiac Medical History: Reports: Hypertension Endocrine Medical History: Reports: Diabetes Mellitus Type 2 Psychiatric Medical History: Reports: Depression Past Surgical History Past Surgical History: Reports: Orthopedic Surgery - Left Knee, Ruptured Disc Repair L4/L5 Social History Smoking Status: Never Smoker Frequency of Alcohol Use: Occasional Hx Recreational Drug Use: No Drugs: None Hx Prescription Drug Abuse: No Family History Family History: Reviewed & Not Pertinent Parental Family History Reviewed: Yes - mother had DM Children Family History Reviewed: No Sibling(s) Family History Reviewed.: No Medication/Allergy Home Medications: No Home Medications 02/16/19 Allergies/Adverse Reactions: aspartame [From Nutrasweet Aspartame] Allergy (Verified 02/16/19 10:53) Coconut * [Coconut] Allergy (Verified 02/16/19 10:53) vancomycin Allergy (Verified 02/16/19 10:53) Review of Systems Constitutional: PRESENT: as per HPI Cardiovascular: PRESENT: other - no chest pains/cough Gastrointestinal: PRESENT: other - no pains Musculoskeletal: PRESENT: other - right 2nd toe pains Physical Exam Vital Signs: Temp Pulse Resp BP Pulse Ox 98.4 F 82 17 129/83 H 98 02/16/19 13:01 02/16/19 10:51 02/16/19 13:01 02/16/19 13:01 02/16/19 13:01 Intake & Output 02/15/19 02/16/19 02/17/19 06:59 06:59 06:59 Weight 95.9 kg General appearance: PRESENT: mild distress Head exam: PRESENT: atraumatic Eye exam: PRESENT: conjunctiva pink Mouth exam: PRESENT: moist Neck exam: PRESENT: full ROM Respiratory exam: PRESENT: clear to auscultation kayleen Cardiovascular exam: PRESENT: RRR Pulses: PRESENT: normal radial pulses, +2 pedal pulses bilateral Vascular exam: PRESENT: normal capillary refill GI/Abdominal exam: PRESENT: soft Rectal exam: PRESENT: deferred Extremities exam: PRESENT: tenderness - Marked swelling right 2nd toe with a scab on the tip plantar area with some flactuance. Has small raw areas around 2nd toe. Results Laboratory Results: 02/16/19 11:15 02/16/19 11:15 02/16/19 02/16/19 02/16/19 11:15 11:15 11:15 WBC 13.8 H RBC 4.48 Hgb 13.1 L Hct 37.9 MCV 85 MCH 29.2 MCHC 34.5 RDW 13.4 Plt Count 358 Seg Neutrophils % 79.8 H Lymphocytes % 9.4 L Monocytes % 9.5 Eosinophils % 0.6 Basophils % 0.7 Absolute Neutrophils 11.0 H Absolute Lymphocytes 1.3 Absolute Monocytes 1.3 Absolute Eosinophils 0.1 Absolute Basophils 0.1 Sodium 133.2 L Potassium 4.8 Chloride 96 L Carbon Dioxide 27 Anion Gap 10 BUN 15 Creatinine 1.13 Est GFR ( Amer) > 60 Est GFR (Non-Af Amer) > 60 Glucose 323 H Calcium 9.6 Total Bilirubin 0.8 AST 16 L ALT 18 L Alkaline Phosphatase 82 C-Reactive Protein 63.1 H Total Protein 7.7 Albumin 4.2 Urine Color Urine Appearance Urine pH Ur Specific [place] Urine Protein Urine Glucose (UA) Urine Ketones Urine Blood Urine Nitrite Ur Leukocyte Esterase Urine WBC (Auto) 02/16/19 14:18 WBC RBC Hgb Hct MCV MCH MCHC RDW Plt Count Seg Neutrophils % Lymphocytes % Monocytes % Eosinophils % Basophils % Absolute Neutrophils Absolute Lymphocytes Absolute Monocytes Absolute Eosinophils Absolute Basophils Sodium Potassium Chloride Carbon Dioxide Anion Gap BUN Creatinine Est GFR ( Amer) Est GFR (Non-Af Amer) Glucose Calcium Total Bilirubin AST ALT Alkaline Phosphatase C-Reactive Protein Total Protein Albumin Urine Color YELLOW Urine Appearance CLEAR Urine pH 5.0 Ur Specific [place] 1.021 Urine Protein 30 H Urine Glucose (UA) >=500 H Urine Ketones NEGATIVE Urine Blood NEGATIVE Urine Nitrite NEGATIVE Ur Leukocyte Esterase NEGATIVE Urine WBC (Auto) 1 Impressions: Foot X-Ray 02/16/19 10:54 IMPRESSION: Likely osteomyelitis in the 2nd distal phalanx. Assessment & Plan - Diagnosis (1) Cellulitis Qualifiers: Site of cellulitis: extremity Site of cellulitis of extremity: toe Laterality: right Qualified Code(s): L03.031 - Cellulitis of right toe Is this a current diagnosis for this admission?: Yes (2) Type 2 diabetes mellitus with stage 4 decubitus ulcer of toe Is this a current diagnosis for this admission?: Yes - Time Time Spent: 30 to 50 Minutes - Inpatient Certification Medical Necessity: Need for IV Antibiotics, Need for Surgery - Plan Summary Plan Summary: D/W Hospitalist .Will have MRI right foot to R/O osteomyelitis Will need I&D right 2nd toe with possible amputation especially if positive for osteomyelitis Continue IV antibiotic NPO from midnight
--- NOTE | 2019-02-16 21:41 | RADIOLOGY REPORT (SQ) ---
EXAM DESCRIPTION: MR LOWER EXTREMITY WITHOUT IV CONTRAST COMPLETED DATE/TME: 02/16/2019 18:40 CLINICAL HISTORY: 58 years, Male, Rt 2nd Toe Wound. R/O osteomyelitis COMPARISON: Plain films from today's date TECHNIQUE: 191 Images stored on PACS. LIMITATIONS: None. FINDINGS: Diffuse subcutaneous edema suggesting cellulitis. Bone marrow edema with abnormal signal involving the distal phalanx of the second digit. Surrounding pronounced subcutaneous edema and inflammation. Periosteal irregularity of the distal phalanx of the second digit is also present, and findings are most consistent with acute osteomyelitis. No discrete sinus tract formation. No other areas of suspicious marrow signal. IMPRESSION: Osteomyelitis of the distal phalanx of the second digit. copyright 2010 [employer]- All Rights Reserved
[2019-02-16] MEDS: LINEZOLID 600 MG/300 ML RTUPB IV SCH (21:50)
[2019-02-16] MEDS: GABAPENTIN 100 MG CAPSULE PO SCH (21:51)
[2019-02-16] MEDS: FAMOTIDINE 20 MG TABLET PO SCH (21:51)
[2019-02-16] MEDS ORDERED: INSULIN GLARGINE,HUM.REC.ANLOG 1,000 UNIT/10 ML VIAL SUBCUT SCH (22:00)
[2019-02-16] MEDS: OXYCODONE-ACETAMINOPHEN 5-325 MG TABLET PO PRN (22:56)
[2019-02-17] MEDS: PIPERACILLIN SODIUM/TAZOBACTAM 4.5 GM in NORMAL SALINE 100 ML IV SCH ×5 (00:16→23:52)
[2019-02-17] MEDS: GABAPENTIN 100 MG CAPSULE PO SCH ×3 (05:05→21:35)
[2019-02-17] MEDS: HEPARIN SOD (PORCINE) 5,000 UNIT/ML 1 ML SYRINGE SUBCUT SCH ×3 (05:05→21:44)
[2019-02-17 05:25] LABS: ABSOLUTE BASOPHILS # (AUTO) 0.1 10^3/uL (0.0-0.2); ABSOLUTE EOSINOPHILS # (AUTO) 0.2 10^3/uL (0.0-0.6); ABSOLUTE LYMPHOCYTES (AUTO) 2.1 10^3/uL (0.5-4.7); ABSOLUTE MONOCYTES (AUTO) 1.3 10^3/uL (0.1-1.4); ABSOLUTE NEUT (AUTO) 6.1 10^3/uL (1.7-8.2); EOSINOPHILS % (AUTO) 1.8 % (0-6); HEMATOCRIT 32.9 % (37.9-51.0); HEMOGLOBIN 11.2 g/dL (13.5-17.0); LYMPHOCYTES % (AUTO) 21.4 % (13-45); MEAN CORPUSCULAR HEMOGLOBIN 28.8 pg (27.0-33.4); MEAN CORPUSCULAR HGB CONC 34.2 g/dL (32.0-36.0); MEAN CORPUSCULAR VOLUME 84 fl (80-97); MONOCYTES % (AUTO) 13.4 % (3-13); PLATELET COUNT 297 10^3/uL (150-450); RED CELL DISTRIBUTION WIDTH 13.4 % (11.5-14.0); SEGMENTED NEUTROPHILS % (AUTO) 62.4 % (42-78); TOTAL CELLS COUNTED % (AUTO) 100 %; WHITE BLOOD COUNT 9.7 10^3/uL (4.0-10.5)
[2019-02-17 05:49] LABS: ANION GAP 10 (5-19); BLOOD UREA NITROGEN 17 mg/dL (7-20); CALCIUM 8.8 mg/dL (8.4-10.2); CARBON DIOXIDE 23 mmol/L (22-30); CHLORIDE 101 mmol/L (98-107); GLUCOSE 244 mg/dL (75-110); POTASSIUM 4.2 mmol/L (3.6-5.0); SODIUM 134.4 mmol/L (137-145)
[2019-02-17] MEDS: INSULIN LISPRO 100 UNIT/ML 3 ML VIAL SUBCUT SCH ×4 (07:33→21:39)
[2019-02-17] MEDS: OXYCODONE-ACETAMINOPHEN 5-325 MG TABLET PO PRN ×2 (07:43→21:34)
[2019-02-17] MEDS ORDERED: GLUCAGON,HUMAN RECOMB 1 MG INJ IM PRN (08:41)
[2019-02-17] MEDS ORDERED: DEXTROSE 40% GEL 15 GM TUBE PO PRN ×2 (08:41)
[2019-02-17] MEDS ORDERED: DEXTROSE 50%-WATER 25 GM/50 ML DISP.SYRIN IV PRN ×2 (08:41)
[2019-02-17] MEDS: FAMOTIDINE 20 MG TABLET PO SCH ×2 (09:17→21:35)
[2019-02-17] MEDS: LISINOPRIL 5 MG TABLET PO SCH (09:17)
[2019-02-17] MEDS: LINEZOLID 600 MG/300 ML RTUPB IV SCH ×2 (10:35→21:36)
--- NOTE | 2019-02-17 11:12 | PDOC PROGRESS REPORT ---
Subjective Progress Note for:: 02/17/19 Subjective:: GISELLA HAYS is a 58 year old male past medical history of diabetes, hypertension, recently admitted for right upper extremity cellulitis caused by MRSA presenting to ED complaining of right second toe wound. Patient is stating that he felt a scab at the dorsal aspect of his right second toe and he pulled it off, he noticed that the skin came off right away his toe started to bleed excessively. He does not recall any injuries, checks his feet frequently, does not recall any blisters, wound, or any trauma. He is endorsing throbbing sensation to the right lower extremity however he does not any feel any pain, he also felt some chills and was febrile at home last night. Recently was hospitalized for right upper extremity cellulitis caused by MRSA was started on vancomycin and developed CHERYLE. Denies any chills, shortness of breath, chest pain, nausea, vomiting, diarrhea, constipation or any urinary symptoms. In ED x-ray of right feet was suspicious for possible osteomyelitis with elevated ESR and CRP. Hospitalist consulted for admission. 02/17/2019. No acute events overnight. Patient n.p.o. pending for possible I&D or amputation. Surgery following. Denies any fever, chills, nausea, vomiting, diarrhea, constipation or any urinary symptoms. Patient anxious about surgery. Reason For Visit: OSTEOMYELITIS Physical Exam Vital Signs: Temp Pulse Resp BP Pulse Ox 98.8 F 68 18 149/75 H 96 02/16/19 19:40 02/16/19 19:40 02/16/19 19:40 02/16/19 19:40 02/16/19 19:40 Intake & Output 02/16/19 02/17/19 02/18/19 06:59 06:59 06:59 Intake Total 1300 Balance 1300 Weight 106.7 kg General appearance: PRESENT: no acute distress, obese, well-developed, well- nourished Head exam: PRESENT: atraumatic, normocephalic Eye exam: PRESENT: conjunctiva pink, EOMI, PERRLA. ABSENT: scleral icterus Ear exam: PRESENT: normal external ear exam Mouth exam: PRESENT: moist, tongue midline Neck exam: ABSENT: carotid bruit, JVD, lymphadenopathy, thyromegaly Respiratory exam: PRESENT: clear to auscultation kayleen. ABSENT: rales, rhonchi, wheezes Cardiovascular exam: PRESENT: RRR. ABSENT: diastolic murmur, rubs, systolic murmur Pulses: PRESENT: normal dorsalis pedis pul, +2 pedal pulses bilateral Vascular exam: PRESENT: normal capillary refill GI/Abdominal exam: PRESENT: normal bowel sounds, soft. ABSENT: distended, guarding, mass, organolmegaly, rebound, tenderness Rectal exam: PRESENT: deferred Extremities exam: PRESENT: full ROM. ABSENT: calf tenderness, clubbing, pedal edema Neurological exam: PRESENT: alert, awake, oriented to person, oriented to place, oriented to time, oriented to situation, CN II-XII grossly intact. ABSENT: motor sensory deficit Psychiatric exam: PRESENT: appropriate affect, normal mood. ABSENT: homicidal ideation, suicidal ideation Skin exam: PRESENT: dry, intact, warm, other - Right second toe swollen edematous. No active discharge.. ABSENT: cyanosis, rash Results Laboratory Results: 02/17/19 04:58 02/17/19 04:58 02/16/19 02/16/19 02/16/19 11:15 11:15 11:15 WBC 13.8 H RBC 4.48 Hgb 13.1 L Hct 37.9 MCV 85 MCH 29.2 MCHC 34.5 RDW 13.4 Plt Count 358 Seg Neutrophils % 79.8 H Lymphocytes % 9.4 L Monocytes % 9.5 Eosinophils % 0.6 Basophils % 0.7 Absolute Neutrophils 11.0 H Absolute Lymphocytes 1.3 Absolute Monocytes 1.3 Absolute Eosinophils 0.1 Absolute Basophils 0.1 Sodium 133.2 L Potassium 4.8 Chloride 96 L Carbon Dioxide 27 Anion Gap 10 BUN 15 Creatinine 1.13 Est GFR ( Amer) > 60 Est GFR (Non-Af Amer) > 60 Glucose 323 H Calcium 9.6 Total Bilirubin 0.8 AST 16 L ALT 18 L Alkaline Phosphatase 82 C-Reactive Protein 63.1 H Total Protein 7.7 Albumin 4.2 Urine Color Urine Appearance Urine pH Ur Specific [place] Urine Protein Urine Glucose (UA) Urine Ketones Urine Blood Urine Nitrite Ur Leukocyte Esterase Urine WBC (Auto) 02/16/19 02/17/19 02/17/19 14:18 04:58 04:58 WBC 9.7 RBC 3.90 L Hgb 11.2 L Hct 32.9 L MCV 84 MCH 28.8 MCHC 34.2 RDW 13.4 Plt Count 297 Seg Neutrophils % 62.4 Lymphocytes % 21.4 Monocytes % 13.4 H Eosinophils % 1.8 Basophils % 1.0 Absolute Neutrophils 6.1 Absolute Lymphocytes 2.1 Absolute Monocytes 1.3 Absolute Eosinophils 0.2 Absolute Basophils 0.1 Sodium 134.4 L Potassium 4.2 Chloride 101 Carbon Dioxide 23 Anion Gap 10 BUN 17 Creatinine 1.15 Est GFR ( Amer) > 60 Est GFR (Non-Af Amer) > 60 Glucose 244 H Calcium 8.8 Total Bilirubin AST ALT Alkaline Phosphatase C-Reactive Protein Total Protein Albumin Urine Color YELLOW Urine Appearance CLEAR Urine pH 5.0 Ur Specific [place] 1.021 Urine Protein 30 H Urine Glucose (UA) >=500 H Urine Ketones NEGATIVE Urine Blood NEGATIVE Urine Nitrite NEGATIVE Ur Leukocyte Esterase NEGATIVE Urine WBC (Auto) 1 Impressions: Foot X-Ray 02/16/19 10:54 IMPRESSION: Likely osteomyelitis in the 2nd distal phalanx. Lower Extremity MRI 02/16/19 18:40 IMPRESSION: Osteomyelitis of the distal phalanx of the second digit. copyright 2010 [employer]- All Rights Reserved Assessment and Plan - Diagnosis (1) Osteomyelitis Qualifiers: Osteomyelitis type: other acute Osteomyelitis location: foot Laterality: right Qualified Code(s): M86.171 - Other acute osteomyelitis, right ankle and foot Is this a current diagnosis for this admission?: Yes Plan: Elevated CRP/ESR. Right foot radiography suspicious for osteomyelitis. 02/16/2019. MRI right foot positive for osteomyelitis second toe. IV antibiotics day 2 Zyvox 600 mg IV twice daily day 2 Zosyn day 2. Follow-up wound and blood culture. Continue empiric IV antibiotics, wound care. Following. N.p.o. for possible surgery. (2) DM type 2 (diabetes mellitus, type 2) Qualifiers: Diabetes mellitus mcfp insulin use: with mcfp use Diabetes mellitus complication detail: with polyneuropathy Is this a current diagnosis for this admission?: Yes Plan: Not controlled. A1c> 9% Diabetic diet, long-acting insulin, pre-meal insulin, sliding scale insulin, Accu-Chek, hypoglycemia protocol. Adjust dosage as needed. Outpatient PCP follow-up. (3) Hypertension Is this a current diagnosis for this admission?: Yes Plan: Normotensive. Will start on low-dose lisinopril as patient has uncontrolled diabetes and KATHY inhibitors are known to be renal protective. Adjust dosage as needed.
--- NOTE | 2019-02-17 11:32 | PDOC PROGRESS REPORT ---
Subjective Progress Note for:: 02/17/19 Subjective:: No complaints. Reason For Visit: OSTEOMYELITIS Physical Exam Vital Signs: Temp Pulse Resp BP Pulse Ox 98.8 F 68 18 149/75 H 96 02/16/19 19:40 02/16/19 19:40 02/16/19 19:40 02/16/19 19:40 02/16/19 19:40 Intake & Output 02/16/19 02/17/19 02/18/19 06:59 06:59 06:59 Intake Total 1300 Balance 1300 Weight 106.7 kg General appearance: PRESENT: no acute distress, cooperative Respiratory exam: PRESENT: clear to auscultation kayleen Cardiovascular exam: PRESENT: RRR Extremities exam: PRESENT: other - Right foot with palpable pulse. Right second toe with diffuse discoloration and erythema and tenderness. Mild forefoot edema. Results Laboratory Results: 02/17/19 04:58 02/17/19 04:58 02/16/19 02/16/19 02/16/19 11:15 11:15 14:18 WBC RBC Hgb Hct MCV MCH MCHC RDW Plt Count Seg Neutrophils % Lymphocytes % Monocytes % Eosinophils % Basophils % Absolute Neutrophils Absolute Lymphocytes Absolute Monocytes Absolute Eosinophils Absolute Basophils Sodium 133.2 L Potassium 4.8 Chloride 96 L Carbon Dioxide 27 Anion Gap 10 BUN 15 Creatinine 1.13 Est GFR ( Amer) > 60 Est GFR (Non-Af Amer) > 60 Glucose 323 H Calcium 9.6 Total Bilirubin 0.8 AST 16 L ALT 18 L Alkaline Phosphatase 82 C-Reactive Protein 63.1 H Total Protein 7.7 Albumin 4.2 Urine Color YELLOW Urine Appearance CLEAR Urine pH 5.0 Ur Specific [place] 1.021 Urine Protein 30 H Urine Glucose (UA) >=500 H Urine Ketones NEGATIVE Urine Blood NEGATIVE Urine Nitrite NEGATIVE Ur Leukocyte Esterase NEGATIVE Urine WBC (Auto) 1 02/17/19 02/17/19 04:58 04:58 WBC 9.7 RBC 3.90 L Hgb 11.2 L Hct 32.9 L MCV 84 MCH 28.8 MCHC 34.2 RDW 13.4 Plt Count 297 Seg Neutrophils % 62.4 Lymphocytes % 21.4 Monocytes % 13.4 H Eosinophils % 1.8 Basophils % 1.0 Absolute Neutrophils 6.1 Absolute Lymphocytes 2.1 Absolute Monocytes 1.3 Absolute Eosinophils 0.2 Absolute Basophils 0.1 Sodium 134.4 L Potassium 4.2 Chloride 101 Carbon Dioxide 23 Anion Gap 10 BUN 17 Creatinine 1.15 Est GFR ( Amer) > 60 Est GFR (Non-Af Amer) > 60 Glucose 244 H Calcium 8.8 Total Bilirubin AST ALT Alkaline Phosphatase C-Reactive Protein Total Protein Albumin Urine Color Urine Appearance Urine pH Ur Specific [place] Urine Protein Urine Glucose (UA) Urine Ketones Urine Blood Urine Nitrite Ur Leukocyte Esterase Urine WBC (Auto) Impressions: Foot X-Ray 02/16/19 10:54 IMPRESSION: Likely osteomyelitis in the 2nd distal phalanx. Lower Extremity MRI 02/16/19 18:40 IMPRESSION: Osteomyelitis of the distal phalanx of the second digit. copyright 2010 [email or web address]- All Rights Reserved Assessment & Plan - Diagnosis (1) Osteomyelitis Qualifiers: Osteomyelitis location: foot Laterality: right Is this a current diagnosis for this admission?: Yes Plan: Osteomyelitis of the right second toe. We will plan second toe amputation with plans to leave the wound open. I have discussed with the patient the risk and benefits of the procedure including risk of poor wound healing, infection, bleeding, need for additional surgery. Patient understands and agrees to proceed.
[2019-02-17] MEDS: NORMAL SALINE 1000 ML 1,000 ML IV PRN ×2 (12:26→17:39)
[2019-02-17] MEDS ORDERED: PROPOFOL INJ 200 MG/20 ML VIAL IV ONE (13:43)
[2019-02-17] MEDS ORDERED: FENTANYL CITRATE INJ/PF 100 MCG/2 ML AMPUL ONE ×2 (13:43→15:39)
[2019-02-17] MEDS ORDERED: MIDAZOLAM 2 MG/2 ML INJ ONE (13:43)
[2019-02-17] MEDS ORDERED: FENTANYL CITRATE INJ/PF 100 MCG/2 ML AMPUL IV PRN ×3 (15:19)
[2019-02-17] MEDS ORDERED: MEPERIDINE HCL/PF INJ 25 MG/1 ML DISP.SYRIN IV PRN (15:19)
[2019-02-17] MEDS ORDERED: MORPHINE SULFATE 10 MG/ML INJ IV PRN (15:19)
[2019-02-17] MEDS ORDERED: BUPIVACAINE HCL 0.25 % INJ/PF (2.5 MG/1 ML) 30 ML VIAL ONE (15:19)
[2019-02-17] MEDS ORDERED: DIPHENHYDRAMINE HCL 50 MG/ML VIAL IV PRN (15:19)
[2019-02-17] MEDS ORDERED: ONDANSETRON HCL INJ/PF 4 MG/2 ML SDV IV PRN (15:19)
[2019-02-17] MEDS ORDERED: OXYCODONE-ACETAMINOPHEN 5-325 MG TABLET PO PRN ×2 (15:19)
--- NOTE | 2019-02-17 16:58 | Operative Report ---
Operative Report DATE OF SURGERY: 02/17/19 PREOPERATIVE DIAGNOSIS: Right second toe osteomyelitis POSTOPERATIVE DIAGNOSIS: Right second toe osteomyelitis OPERATION: Right second toe amputation SURGEON: YESSICA BURROWS ANESTHESIA: GA TISSUE REMOVED OR ALTERED: Right second toe COMPLICATIONS: None ESTIMATED BLOOD LOSS: 30 cc INTRAOPERATIVE FINDINGS: Markedly erythematous and edematous right second toe PROCEDURE: Informed consent was obtained. Patient was brought to the operating room placed on the operating table in the supine position. After satisfactory induction of general anesthesia patient's right foot was prepped and draped in usual sterile fashion. Incision was made circumferentially just above the base of the second toe dissection was carried down and the second toe was disarticulated and removed. Hemostasis was achieved with electrocautery. The wound was then irrigated and irrigant aspirated out. The deeper tissue was closed over the metatarsal head. The superficial tissue was left open. However 3 interrupted nylon sutures were placed for delayed primary closure in a few days. The sutures were taped together with Steri-Strips. The wound was packed with gauze. Dressings were applied. Patient tolerated procedure well with no apparent complications.
[2019-02-17] MEDS ORDERED: EPHEDRINE SULFATE INJ 50 MG/1 ML AMPULE ONE (17:04)
[2019-02-17] MEDS ORDERED: ONDANSETRON HCL INJ/PF 4 MG/2 ML SDV ONE (17:06)
[2019-02-17] MEDS: PROMETHAZINE HCL INJ 25 MG/1 ML VIAL IV PRN (18:04)
[2019-02-17] MEDS: MORPHINE SULFATE 10 MG/ML INJ IV PRN (18:17)
[2019-02-17] MEDS ORDERED: ROCURONIUM BROMIDE INJ 50 MG/5 ML VIAL IV ONE (18:22)
[2019-02-17] MEDS ORDERED: SUCCINYLCHOLINE CHLORIDE INJ 200 MG/10 ML VIAL ONE (18:22)
[2019-02-17] MEDS: INSULIN GLARGINE,HUM.REC.ANLOG 1,000 UNIT/10 ML VIAL SUBCUT SCH (21:39)
[2019-02-18] MEDS: OXYCODONE-ACETAMINOPHEN 5-325 MG TABLET PO PRN ×4 (03:03→21:44)
[2019-02-18] MEDS: PIPERACILLIN SODIUM/TAZOBACTAM 4.5 GM in NORMAL SALINE 100 ML IV SCH (05:19)
[2019-02-18] MEDS: GABAPENTIN 100 MG CAPSULE PO SCH ×3 (05:19→21:35)
[2019-02-18] MEDS: HEPARIN SOD (PORCINE) 5,000 UNIT/ML 1 ML SYRINGE SUBCUT SCH ×3 (05:21→21:35)
[2019-02-18] MEDS: PROMETHAZINE HCL INJ 25 MG/1 ML VIAL IV PRN (05:59)
[2019-02-18 06:30] LABS: ABSOLUTE BASOPHILS # (AUTO) 0.1 10^3/uL (0.0-0.2); ABSOLUTE EOSINOPHILS # (AUTO) 0.2 10^3/uL (0.0-0.6); ABSOLUTE LYMPHOCYTES (AUTO) 1.8 10^3/uL (0.5-4.7); ABSOLUTE MONOCYTES (AUTO) 1.1 10^3/uL (0.1-1.4); ABSOLUTE NEUT (AUTO) 5.6 10^3/uL (1.7-8.2); BASOPHILS % (AUTO) 0.9 % (0-2); HEMATOCRIT 31.3 % (37.9-51.0); HEMOGLOBIN 10.4 g/dL (13.5-17.0); LYMPHOCYTES % (AUTO) 20.3 % (13-45); MEAN CORPUSCULAR HEMOGLOBIN 28.7 pg (27.0-33.4); MEAN CORPUSCULAR HGB CONC 33.3 g/dL (32.0-36.0); MEAN CORPUSCULAR VOLUME 86 fl (80-97); MONOCYTES % (AUTO) 12.7 % (3-13); PLATELET COUNT 275 10^3/uL (150-450); RED BLOOD COUNT 3.63 10^6/uL (4.35-5.55); RED CELL DISTRIBUTION WIDTH 13.4 % (11.5-14.0); SEGMENTED NEUTROPHILS % (AUTO) 64.1 % (42-78); TOTAL CELLS COUNTED % (AUTO) 100 %; WHITE BLOOD COUNT 8.8 10^3/uL (4.0-10.5)
[2019-02-18 06:48] LABS: ALANINE AMINOTRANSFERASE 15 U/L (21-72); ALKALINE PHOSPHATASE 41 U/L (38-126); ANION GAP 7 (5-19); ASPARTATE AMINO TRANSFERASE 13 U/L (17-59); BILIRUBIN,DIRECT 0.3 mg/dL (0.0-0.4); BILIRUBIN,TOTAL 0.4 mg/dL (0.2-1.3); BLOOD UREA NITROGEN 12 mg/dL (7-20); CALCIUM 8.4 mg/dL (8.4-10.2); CARBON DIOXIDE 25 mmol/L (22-30); CHLORIDE 105 mmol/L (98-107); GLUCOSE 135 mg/dL (75-110); POTASSIUM 4.3 mmol/L (3.6-5.0); SODIUM 137.2 mmol/L (137-145); TOTAL PROTEIN 5.9 g/dL (6.3-8.2)
[2019-02-18] MEDS: INSULIN LISPRO 100 UNIT/ML 3 ML VIAL SUBCUT SCH ×4 (07:14→21:35)
--- NOTE | 2019-02-18 09:02 | PDOC PROGRESS REPORT ---
Subjective Progress Note for:: 02/18/19 Subjective:: Mild pains right 2nd toe amputation site. Reason For Visit: OSTEOMYELITIS Physical Exam Vital Signs: Temp Pulse Resp BP Pulse Ox 98.9 F 66 18 141/66 H 99 02/18/19 08:00 02/18/19 08:34 02/18/19 08:34 02/18/19 08:00 02/18/19 08:34 Intake & Output 02/17/19 02/18/19 02/19/19 06:59 06:59 06:59 Intake Total 1300 4157 100 Output Total 10 Balance 1300 4147 100 Weight 106.7 kg 105.8 kg Exam: Dressing over roght foot is dry though needed to be re inforced last night for bleeding Amp site was packed and not closed Results Laboratory Results: 02/18/19 06:07 02/18/19 06:07 02/18/19 02/18/19 06:07 06:07 WBC 8.8 RBC 3.63 L Hgb 10.4 L Hct 31.3 L MCV 86 MCH 28.7 MCHC 33.3 RDW 13.4 Plt Count 275 Seg Neutrophils % 64.1 Lymphocytes % 20.3 Monocytes % 12.7 Eosinophils % 2.0 Basophils % 0.9 Absolute Neutrophils 5.6 Absolute Lymphocytes 1.8 Absolute Monocytes 1.1 Absolute Eosinophils 0.2 Absolute Basophils 0.1 Sodium 137.2 Potassium 4.3 Chloride 105 Carbon Dioxide 25 Anion Gap 7 BUN 12 Creatinine 1.18 Est GFR ( Amer) > 60 Est GFR (Non-Af Amer) > 60 Glucose 135 H Calcium 8.4 Total Bilirubin 0.4 AST 13 L ALT 15 L Alkaline Phosphatase 41 Total Protein 5.9 L Albumin 3.0 L Impressions: Foot X-Ray 02/16/19 10:54 IMPRESSION: Likely osteomyelitis in the 2nd distal phalanx. Lower Extremity MRI 02/16/19 18:40 IMPRESSION: Osteomyelitis of the distal phalanx of the second digit. copyright 2011 [employer]- All Rights Reserved Assessment & Plan - Diagnosis (1) Cellulitis Qualifiers: Site of cellulitis: extremity Site of cellulitis of extremity: toe Laterality: right Qualified Code(s): L03.031 - Cellulitis of right toe Is this a current diagnosis for this admission?: Yes (2) Type 2 diabetes mellitus with stage 4 decubitus ulcer of toe Is this a current diagnosis for this admission?: Yes - Time Time Spent with patient: 15-24 minutes - Inpatient Certification Medical Necessity: Need for IV Antibiotics - Plan Summary Plan Summary: Will remove packing in am. Continue IV antibiotics
[2019-02-18] MEDS: NORMAL SALINE 1000 ML 1,000 ML IV PRN ×2 (09:10→21:35)
[2019-02-18] MEDS: LINEZOLID 600 MG/300 ML RTUPB IV SCH ×2 (09:52→21:35)
[2019-02-18] MEDS: FAMOTIDINE 20 MG TABLET PO SCH ×2 (09:56→21:35)
[2019-02-18] MEDS: LISINOPRIL 5 MG TABLET PO SCH (09:56)
[2019-02-18] MEDS ORDERED: LORAZEPAM INJ 2 MG/1 ML VIAL IV ONE (15:15)
--- NOTE | 2019-02-18 16:39 | PDOC PROGRESS REPORT ---
Subjective Progress Note for:: 02/18/19 Subjective:: GISELLA HAYS is a 58 year old male past medical history of diabetes, hypertension, recently admitted for right upper extremity cellulitis caused by MRSA presenting to ED complaining of right second toe wound. Patient is stating that he felt a scab at the dorsal aspect of his right second toe and he pulled it off, he noticed that the skin came off right away his toe started to bleed excessively. He does not recall any injuries, checks his feet frequently, does not recall any blisters, wound, or any trauma. He is endorsing throbbing sensation to the right lower extremity however he does not any feel any pain, he also felt some chills and was febrile at home last night. Recently was hospitalized for right upper extremity cellulitis caused by MRSA was started on vancomycin and developed CHERYLE. Denies any chills, shortness of breath, chest pain, nausea, vomiting, diarrhea, constipation or any urinary symptoms. In ED x-ray of right feet was suspicious for possible osteomyelitis with elevated ESR and CRP. Hospitalist consulted for admission. 02/17/2019. No acute events overnight. Patient n.p.o. pending for possible I&D or amputation. Surgery following. Denies any fever, chills, nausea, vomiting, diarrhea, constipation or any urinary symptoms. Patient anxious about surgery. 02/18/2019. No acute events overnight, status post right second toe amputation. Planing of right foot pain, denies any fever, chills, nausea, vomiting, diarrhea, constipation or any urinary symptoms. P.o. tolerant, having normal bowel and bladder movements. Reason For Visit: OSTEOMYELITIS Physical Exam Vital Signs: Temp Pulse Resp BP Pulse Ox 98.9 F 66 18 141/66 H 99 02/18/19 08:00 02/18/19 08:34 02/18/19 08:34 02/18/19 08:00 02/18/19 08:34 Intake & Output 02/17/19 02/18/19 02/19/19 06:59 06:59 06:59 Intake Total 1300 5157 400 Output Total 10 Balance 1300 5147 400 Weight 106.7 kg 105.8 kg General appearance: PRESENT: no acute distress, well-developed, well-nourished Head exam: PRESENT: atraumatic, normocephalic Eye exam: PRESENT: conjunctiva pink, EOMI, PERRLA. ABSENT: scleral icterus Ear exam: PRESENT: normal external ear exam Mouth exam: PRESENT: moist, tongue midline Neck exam: ABSENT: carotid bruit, JVD, lymphadenopathy, thyromegaly Respiratory exam: PRESENT: clear to auscultation kayleen. ABSENT: rales, rhonchi, wheezes Cardiovascular exam: PRESENT: RRR. ABSENT: diastolic murmur, rubs, systolic murmur Pulses: PRESENT: normal dorsalis pedis pul Vascular exam: PRESENT: normal capillary refill GI/Abdominal exam: PRESENT: normal bowel sounds, soft. ABSENT: distended, guarding, mass, organolmegaly, rebound, tenderness Rectal exam: PRESENT: deferred Extremities exam: PRESENT: full ROM, other - Right second metatarsal status post amputation. No active discharge, no erythema, no hemorrhage.. ABSENT: calf tenderness, clubbing, pedal edema Neurological exam: PRESENT: alert, awake, oriented to person, oriented to place, oriented to time, oriented to situation, CN II-XII grossly intact. ABSENT: motor sensory deficit Psychiatric exam: PRESENT: appropriate affect, normal mood. ABSENT: homicidal ideation, suicidal ideation Skin exam: PRESENT: dry, intact, warm. ABSENT: cyanosis, rash Results Laboratory Results: 02/18/19 06:07 02/18/19 06:07 02/18/19 02/18/19 06:07 06:07 WBC 8.8 RBC 3.63 L Hgb 10.4 L Hct 31.3 L MCV 86 MCH 28.7 MCHC 33.3 RDW 13.4 Plt Count 275 Seg Neutrophils % 64.1 Lymphocytes % 20.3 Monocytes % 12.7 Eosinophils % 2.0 Basophils % 0.9 Absolute Neutrophils 5.6 Absolute Lymphocytes 1.8 Absolute Monocytes 1.1 Absolute Eosinophils 0.2 Absolute Basophils 0.1 Sodium 137.2 Potassium 4.3 Chloride 105 Carbon Dioxide 25 Anion Gap 7 BUN 12 Creatinine 1.18 Est GFR ( Amer) > 60 Est GFR (Non-Af Amer) > 60 Glucose 135 H Calcium 8.4 Total Bilirubin 0.4 AST 13 L ALT 15 L Alkaline Phosphatase 41 Total Protein 5.9 L Albumin 3.0 L 02/16/19 20:00 Toe - Right Second Gram Stain - Final Impressions: Foot X-Ray 02/16/19 10:54 IMPRESSION: Likely osteomyelitis in the 2nd distal phalanx. Lower Extremity MRI 02/16/19 18:40 IMPRESSION: Osteomyelitis of the distal phalanx of the second digit. copyright 2010 [employer]- All Rights Reserved Assessment and Plan - Diagnosis (1) Osteomyelitis Qualifiers: Osteomyelitis type: other acute Osteomyelitis location: foot Laterality: right Qualified Code(s): M86.171 - Other acute osteomyelitis, right ankle and foot Is this a current diagnosis for this admission?: Yes Plan: Day 1 status post right second toe amputation. Wound culture growing gram- positive cocci in clusters pending sensitivity. Elevated CRP/ESR. Right foot radiography suspicious for osteomyelitis on admission. 02/16/2019. MRI right foot positive for osteomyelitis second toe. IV antibiotics day 3 Day 3 IV Zyvox. Zyvox 600 mg IV twice daily day 2 Day 2 IV Zosyn. DC Zosyn. Received 2 days of Zosyn. Follow-up wound and blood culture. Continue empiric IV antibiotics, wound care. 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 A1c> 9%, optimized during this admission. Diabetic diet, long-acting insulin, pre-meal insulin, sliding scale insulin, Accu-Chek, hypoglycemia protocol. Adjust dosage as needed. Outpatient PCP follow-up. (3) Hypertension Is this a current diagnosis for this admission?: Yes Plan: Normotensive. Euvolemic. Continue lisinopril 2.5 mg p.o. daily. Adjust meds as needed. Outpatient PCP follow-up. (4) Obesity (BMI 30.0-34.9) Is this a current diagnosis for this admission?: Yes Plan: Diet and lifestyle modification recommended.
[2019-02-18] MEDS: INSULIN GLARGINE,HUM.REC.ANLOG 1,000 UNIT/10 ML VIAL SUBCUT SCH (21:36)
[2019-02-19] MEDS: MORPHINE SULFATE 10 MG/ML INJ IV PRN ×3 (01:13→17:16)
[2019-02-19] MEDS: PROMETHAZINE HCL INJ 25 MG/1 ML VIAL IV PRN ×2 (01:31→17:15)
[2019-02-19 06:43] LABS: ABSOLUTE BASOPHILS # (AUTO) 0.1 10^3/uL (0.0-0.2); ABSOLUTE EOSINOPHILS # (AUTO) 0.2 10^3/uL (0.0-0.6); ABSOLUTE LYMPHOCYTES (AUTO) 2.1 10^3/uL (0.5-4.7); ABSOLUTE MONOCYTES (AUTO) 0.9 10^3/uL (0.1-1.4); ABSOLUTE NEUT (AUTO) 3.7 10^3/uL (1.7-8.2); BASOPHILS % (AUTO) 1.2 % (0-2); EOSINOPHILS % (AUTO) 2.5 % (0-6); HEMATOCRIT 30.3 % (37.9-51.0); HEMOGLOBIN 10.4 g/dL (13.5-17.0); LYMPHOCYTES % (AUTO) 30.5 % (13-45); MEAN CORPUSCULAR HEMOGLOBIN 29.2 pg (27.0-33.4); MEAN CORPUSCULAR HGB CONC 34.4 g/dL (32.0-36.0); MEAN CORPUSCULAR VOLUME 85 fl (80-97); MONOCYTES % (AUTO) 12.9 % (3-13); PLATELET COUNT 306 10^3/uL (150-450); RED BLOOD COUNT 3.57 10^6/uL (4.35-5.55); RED CELL DISTRIBUTION WIDTH 13.4 % (11.5-14.0); SEGMENTED NEUTROPHILS % (AUTO) 52.9 % (42-78); TOTAL CELLS COUNTED % (AUTO) 100 %; WHITE BLOOD COUNT 6.9 10^3/uL (4.0-10.5)
[2019-02-19] MEDS: HEPARIN SOD (PORCINE) 5,000 UNIT/ML 1 ML SYRINGE SUBCUT SCH ×4 (06:59→22:24)
[2019-02-19] MEDS: OXYCODONE-ACETAMINOPHEN 5-325 MG TABLET PO PRN ×2 (06:59→18:55)
[2019-02-19] MEDS: GABAPENTIN 100 MG CAPSULE PO SCH ×3 (06:59→22:23)
[2019-02-19 07:05] LABS: ANION GAP 6 (5-19); BLOOD UREA NITROGEN 8 mg/dL (7-20); CALCIUM 8.3 mg/dL (8.4-10.2); CARBON DIOXIDE 26 mmol/L (22-30); CHLORIDE 103 mmol/L (98-107); GLUCOSE 194 mg/dL (75-110); SODIUM 135.3 mmol/L (137-145)
[2019-02-19] MEDS: INSULIN LISPRO 100 UNIT/ML 3 ML VIAL SUBCUT SCH ×4 (07:50→22:23)
[2019-02-19] MEDS ORDERED: DEXTROSE 40% GEL 15 GM TUBE PO PRN ×2 (08:07)
[2019-02-19] MEDS ORDERED: DEXTROSE 50%-WATER 25 GM/50 ML DISP.SYRIN IV PRN ×2 (08:07)
[2019-02-19] MEDS ORDERED: GLUCAGON,HUMAN RECOMB 1 MG INJ IM PRN (08:07)
[2019-02-19] MEDS: LINEZOLID 600 MG/300 ML RTUPB IV SCH ×2 (09:22→22:21)
[2019-02-19] MEDS: LISINOPRIL 5 MG TABLET PO SCH (09:22)
[2019-02-19] MEDS: FAMOTIDINE 20 MG TABLET PO SCH ×2 (09:22→22:23)
[2019-02-19] MEDS: NORMAL SALINE 1000 ML 1,000 ML IV PRN (09:24)
[2019-02-19] MEDS ORDERED: MORPHINE SULFATE 10 MG/ML INJ ONE (11:23)
[2019-02-19] MEDS ORDERED: MORPHINE SULFATE 10 MG/ML INJ IV ONE (12:00)
--- NOTE | 2019-02-19 13:12 | PDOC PROGRESS REPORT ---
Subjective Progress Note for:: 02/19/19 Subjective:: Still with pains right toe amp site Also has chronic pains left neck Reason For Visit: OSTEOMYELITIS Physical Exam Vital Signs: Temp Pulse Resp BP Pulse Ox 97.8 F 58 L 16 150/72 H 100 02/19/19 11:05 02/19/19 11:05 02/19/19 11:05 02/19/19 11:05 02/19/19 11:05 Intake & Output 02/18/19 02/19/19 02/20/19 06:59 06:59 06:59 Intake Total 5157 2852 1149 Output Total 10 Balance 5147 2852 1149 Weight 105.8 kg 106.1 kg Exam: Packing fom amp site removed. Wound is dry but no granulation tissue and looks slightly dusky Tenderness left neck but no mass Results Laboratory Results: 02/19/19 06:22 02/19/19 06:22 02/19/19 02/19/19 06:22 06:22 WBC 6.9 RBC 3.57 L Hgb 10.4 L Hct 30.3 L MCV 85 MCH 29.2 MCHC 34.4 RDW 13.4 Plt Count 306 Seg Neutrophils % 52.9 Lymphocytes % 30.5 Monocytes % 12.9 Eosinophils % 2.5 Basophils % 1.2 Absolute Neutrophils 3.7 Absolute Lymphocytes 2.1 Absolute Monocytes 0.9 Absolute Eosinophils 0.2 Absolute Basophils 0.1 Sodium 135.3 L Potassium 4.0 Chloride 103 Carbon Dioxide 26 Anion Gap 6 BUN 8 Creatinine 0.98 Est GFR ( Amer) > 60 Est GFR (Non-Af Amer) > 60 Glucose 194 H Calcium 8.3 L 02/16/19 20:00 Toe - Right Second Gram Stain - Final Impressions: Foot X-Ray 02/16/19 10:54 IMPRESSION: Likely osteomyelitis in the 2nd distal phalanx. Lower Extremity MRI 02/16/19 18:40 IMPRESSION: Osteomyelitis of the distal phalanx of the second digit. 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 Has some sutures left untied for delayed wound cosure. Not ready for closure yet Continue IV antibiotics Soft tissue XRAY of neck
--- NOTE | 2019-02-19 13:33 | PDOC PROGRESS REPORT ---
Subjective Progress Note for:: 02/19/19 Subjective:: GISELLA HAYS is a 58 year old male past medical history of diabetes, hypertension, recently admitted for right upper extremity cellulitis caused by MRSA presenting to ED complaining of right second toe wound. Patient is stating that he felt a scab at the dorsal aspect of his right second toe and he pulled it off, he noticed that the skin came off right away his toe started to bleed excessively. He does not recall any injuries, checks his feet frequently, does not recall any blisters, wound, or any trauma. He is endorsing throbbing sensation to the right lower extremity however he does not any feel any pain, he also felt some chills and was febrile at home last night. Recently was hospitalized for right upper extremity cellulitis caused by MRSA was started on vancomycin and developed CHERYLE. Denies any chills, shortness of breath, chest pain, nausea, vomiting, diarrhea, constipation or any urinary symptoms. In ED x-ray of right feet was suspicious for possible osteomyelitis with elevated ESR and CRP. Hospitalist consulted for admission. 02/17/2019. No acute events overnight. Patient n.p.o. pending for possible I&D or amputation. Surgery following. Denies any fever, chills, nausea, vomiting, diarrhea, constipation or any urinary symptoms. Patient anxious about surgery. 02/18/2019. No acute events overnight, status post right second toe amputation. Complaining of right foot pain, denies any fever, chills, nausea, vomiting, diarrhea, constipation or any urinary symptoms. P.o. tolerant, having normal bowel and bladder movements. 02/19/2019. No acute events overnight. Complaining of right-sided neck pain. Chronic. Denies any fever, chills, nausea, vomiting, diarrhea, constipation or any urinary symptoms. Reason For Visit: OSTEOMYELITIS Physical Exam Vital Signs: Temp Pulse Resp BP Pulse Ox 97.8 F 58 L 16 150/72 H 100 02/19/19 11:05 02/19/19 11:05 02/19/19 11:05 02/19/19 11:05 02/19/19 11:05 Intake & Output 02/18/19 02/19/19 02/20/19 06:59 06:59 06:59 Intake Total 3737 2852 1149 Output Total 10 Balance 7453 2852 1149 Weight 105.8 kg 106.1 kg General appearance: PRESENT: no acute distress, well-developed, well-nourished Head exam: PRESENT: atraumatic, normocephalic Eye exam: PRESENT: conjunctiva pink, EOMI, PERRLA. ABSENT: scleral icterus Ear exam: PRESENT: normal external ear exam Mouth exam: PRESENT: moist, tongue midline Neck exam: ABSENT: carotid bruit, JVD, lymphadenopathy, thyromegaly Respiratory exam: PRESENT: clear to auscultation kayleen. ABSENT: rales, rhonchi, wheezes Cardiovascular exam: PRESENT: RRR. ABSENT: diastolic murmur, rubs, systolic murmur Pulses: PRESENT: normal dorsalis pedis pul Vascular exam: PRESENT: normal capillary refill GI/Abdominal exam: PRESENT: normal bowel sounds, soft. ABSENT: distended, guarding, mass, organolmegaly, rebound, tenderness Rectal exam: PRESENT: deferred Extremities exam: PRESENT: full ROM. ABSENT: calf tenderness, clubbing, pedal edema Musculoskeletal exam: PRESENT: other - Right second metatarsal status post ablation. No discharge. Neurological exam: PRESENT: alert, awake, oriented to person, oriented to place, oriented to time, oriented to situation, CN II-XII grossly intact. ABSENT: motor sensory deficit Psychiatric exam: PRESENT: appropriate affect, normal mood. ABSENT: homicidal ideation, suicidal ideation Results Laboratory Results: 02/19/19 06:22 02/19/19 06:22 02/19/19 02/19/19 06:22 06:22 WBC 6.9 RBC 3.57 L Hgb 10.4 L Hct 30.3 L MCV 85 MCH 29.2 MCHC 34.4 RDW 13.4 Plt Count 306 Seg Neutrophils % 52.9 Lymphocytes % 30.5 Monocytes % 12.9 Eosinophils % 2.5 Basophils % 1.2 Absolute Neutrophils 3.7 Absolute Lymphocytes 2.1 Absolute Monocytes 0.9 Absolute Eosinophils 0.2 Absolute Basophils 0.1 Sodium 135.3 L Potassium 4.0 Chloride 103 Carbon Dioxide 26 Anion Gap 6 BUN 8 Creatinine 0.98 Est GFR ( Amer) > 60 Est GFR (Non-Af Amer) > 60 Glucose 194 H Calcium 8.3 L 02/16/19 20:00 Toe - Right Second Gram Stain - Final Impressions: Foot X-Ray 02/16/19 10:54 IMPRESSION: Likely osteomyelitis in the 2nd distal phalanx. Lower Extremity MRI 02/16/19 18:40 IMPRESSION: Osteomyelitis of the distal phalanx of the second digit. copyright 2010 [employer]- All Rights Reserved Assessment and Plan - Diagnosis (1) Osteomyelitis Qualifiers: Osteomyelitis type: other acute Osteomyelitis location: foot Laterality: right Qualified Code(s): M86.171 - Other acute osteomyelitis, right ankle and foot Is this a current diagnosis for this admission?: Yes Plan: Day 2 status post right second toe amputation. Wound culture growing gram- positive cocci in clusters pending sensitivity. Elevated CRP/ESR. Right foot radiography suspicious for osteomyelitis on admission. 02/16/2019. MRI right foot positive for osteomyelitis second toe. IV antibiotics day 4 Day 4 IV Zyvox. Zyvox 600 mg IV twice daily Day 2 IV Zosyn. DC Zosyn. Received 2 days of Zosyn. Follow-up wound and blood culture. Continue empiric IV antibiotics, wound care. (2) DM type 2 (diabetes mellitus, type 2) Qualifiers: Diabetes mellitus manager intermediate insulin use: with longterm use Diabetes mellitus complication detail: with polyneuropathy Is this a current diagnosis for this admission?: Yes Plan: Not controlled. A1c> 9%, optimized during this admission. Diabetic diet, long-acting insulin, pre-meal insulin, sliding scale insulin, Accu-Chek, hypoglycemia protocol. Adjust dosage as needed. Outpatient PCP follow-up. (3) Hypertension Is this a current diagnosis for this admission?: Yes Plan: Normotensive. Euvolemic. Continue lisinopril 2.5 mg p.o. daily. Adjust meds as needed. Outpatient PCP follow-up. (4) Obesity (BMI 30.0-34.9) Is this a current diagnosis for this admission?: Yes Plan: Diet and lifestyle modification recommended.
--- NOTE | 2019-02-19 13:34 | RADIOLOGY REPORT (SQ) ---
EXAM DESCRIPTION: SOFT TISSUE NECK COMPLETED DATE/TIME: 02/19/2019 1:25 pm REASON FOR STUDY: R/O MASS COMPARISON: None. NUMBER OF VIEWS: Two views. TECHNIQUE: AP and lateral radiographic image of the soft tissues of the neck. LIMITATIONS: None. FINDINGS: EPIGLOTTIS: Normal. Contour normal. Aryepiglottic folds normal. PREVERTEBRAL SOFT TISSUES: Normal. No soft tissue swelling. SUBGLOTTIC AREA: Normal. No narrowing. RETROPHARYNGEAL SPACE: Normal. No soft tissue masses. BONES: No significant findings. Degenerative changes in the cervical spine. LUNG APICES: Normal. OTHER: No radiopaque foreign body. No other significant finding. IMPRESSION: NEGATIVE STUDY OF THE SOFT TISSUES OF THE NECK. TECHNICAL DOCUMENTATION: JOB ID: [id number] [employer]- All Rights Reserved Reading location - IP/workstation name: [email or web address]
[2019-02-19] MEDS: TIZANIDINE HCL 4 MG TABLET PO SCH ×2 (16:43→22:22)
[2019-02-19] MEDS: INSULIN GLARGINE,HUM.REC.ANLOG 1,000 UNIT/10 ML VIAL SUBCUT SCH (22:22)
[2019-02-20] MEDS: MORPHINE SULFATE 10 MG/ML INJ IV PRN ×5 (00:08→20:21)
[2019-02-20] MEDS: OXYCODONE-ACETAMINOPHEN 5-325 MG TABLET PO PRN ×4 (04:09→17:57)
[2019-02-20] MEDS: NORMAL SALINE 1000 ML 1,000 ML IV PRN ×2 (04:10→17:57)
[2019-02-20] MEDS: HEPARIN SOD (PORCINE) 5,000 UNIT/ML 1 ML SYRINGE SUBCUT SCH ×3 (06:24→21:54)
[2019-02-20] MEDS: PANTOPRAZOLE SODIUM 20 MG TABLET.DR PO SCH (06:31)
[2019-02-20] MEDS: TIZANIDINE HCL 4 MG TABLET PO SCH (06:31)
[2019-02-20] MEDS: GABAPENTIN 100 MG CAPSULE PO SCH ×3 (06:31→21:53)
[2019-02-20] MEDS: PROMETHAZINE HCL INJ 25 MG/1 ML VIAL IV PRN (07:05)
[2019-02-20] MEDS: INSULIN LISPRO 100 UNIT/ML 3 ML VIAL SUBCUT SCH ×4 (07:36→21:54)
--- NOTE | 2019-02-20 07:52 | PDOC PROGRESS REPORT ---
Subjective Progress Note for:: 02/20/19 Subjective:: pains at the right 2nd toe amputation site. Reason For Visit: OSTEOMYELITIS Physical Exam Vital Signs: Temp Pulse Resp BP Pulse Ox 98.4 F 59 L 17 137/67 H 98 02/19/19 19:54 02/20/19 00:58 02/20/19 00:58 02/20/19 00:58 02/20/19 00:58 Intake & Output 02/19/19 02/20/19 02/21/19 06:59 06:59 06:59 Intake Total 2852 3874 Balance 2852 3874 Weight 106.1 kg 88.1 kg Exam: Amp site noted to have some granulation tissue. Has some erythema around it but less than yesterday. Results Laboratory Results: 02/19/19 06:22 02/19/19 06:22 02/16/19 20:00 Toe - Right Second Gram Stain - Final Impressions: Foot X-Ray 02/16/19 10:54 IMPRESSION: Likely osteomyelitis in the 2nd distal phalanx. Lower Extremity MRI 02/16/19 18:40 IMPRESSION: Osteomyelitis of the distal phalanx of the second digit. copyright 2011 [employer]- All Rights Reserved Soft Tissue Neck X-Ray 02/19/19 12:15 IMPRESSION: NEGATIVE STUDY OF THE SOFT TISSUES OF THE NECK. 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 Has sutures placed around amp site but left untied during surgery02/17/19
[2019-02-20] MEDS: LISINOPRIL 5 MG TABLET PO SCH (09:42)
[2019-02-20] MEDS: LINEZOLID 600 MG/300 ML RTUPB IV SCH ×2 (09:43→21:51)
[2019-02-20] MEDS: FAMOTIDINE 20 MG TABLET PO SCH ×2 (09:43→21:53)
--- NOTE | 2019-02-20 11:16 | PDOC PROGRESS REPORT ---
Subjective Progress Note for:: 02/20/19 Subjective:: GISELLA HAYS is a 58 year old male past medical history of diabetes, hypertension, recently admitted for right upper extremity cellulitis caused by MRSA presenting to ED complaining of right second toe wound. Patient is stating that he felt a scab at the dorsal aspect of his right second toe and he pulled it off, he noticed that the skin came off right away his toe started to bleed excessively. He does not recall any injuries, checks his feet frequently, does not recall any blisters, wound, or any trauma. He is endorsing throbbing sensation to the right lower extremity however he does not any feel any pain, he also felt some chills and was febrile at home last night. Recently was hospitalized for right upper extremity cellulitis caused by MRSA was started on vancomycin and developed CHERYLE. Denies any chills, shortness of breath, chest pain, nausea, vomiting, diarrhea, constipation or any urinary symptoms. In ED x-ray of right feet was suspicious for possible osteomyelitis with elevated ESR and CRP. Hospitalist consulted for admission. 02/17/2019. No acute events overnight. Patient n.p.o. pending for possible I&D or amputation. Surgery following. Denies any fever, chills, nausea, vomiting, diarrhea, constipation or any urinary symptoms. Patient anxious about surgery. 02/18/2019. No acute events overnight, status post right second toe amputation. Complaining of right foot pain, denies any fever, chills, nausea, vomiting, diarrhea, constipation or any urinary symptoms. P.o. tolerant, having normal bowel and bladder movements. 02/19/2019. No acute events overnight. Complaining of right-sided neck pain. Chronic. Denies any fever, chills, nausea, vomiting, diarrhea, constipation or any urinary symptoms. 02/20/2019. No acute events overnight. Complaining of neck and right foot pain, able to ambulate with assistance of his . Denies any fever, chills, nausea, vomiting, diarrhea, constipation or any urinary symptoms. Reason For Visit: OSTEOMYELITIS Physical Exam Vital Signs: Temp Pulse Resp BP Pulse Ox 98.3 F 58 L 17 131/68 H 98 02/20/19 07:36 02/20/19 07:36 02/20/19 07:36 02/20/19 07:36 02/20/19 07:36 Intake & Output 02/19/19 02/20/19 02/21/19 06:59 06:59 06:59 Intake Total 2852 3874 300 Balance 2852 3874 300 Weight 106.1 kg 88.1 kg General appearance: PRESENT: no acute distress, well-developed, well-nourished Head exam: PRESENT: atraumatic, normocephalic Respiratory exam: PRESENT: clear to auscultation kayleen. ABSENT: rales, rhonchi, wheezes Cardiovascular exam: PRESENT: RRR. ABSENT: diastolic murmur, rubs, systolic murmur GI/Abdominal exam: PRESENT: normal bowel sounds, soft. ABSENT: distended, guarding, mass, organolmegaly, rebound, tenderness Musculoskeletal exam: PRESENT: other - Rt foot, dressing in place. Neurological exam: PRESENT: alert, awake, oriented to person, oriented to place, oriented to time, oriented to situation, CN II-XII grossly intact. ABSENT: motor sensory deficit Results Laboratory Results: 02/19/19 06:22 02/19/19 06:22 02/16/19 20:00 Toe - Right Second Gram Stain - Final Impressions: Foot X-Ray 02/16/19 10:54 IMPRESSION: Likely osteomyelitis in the 2nd distal phalanx. Lower Extremity MRI 02/16/19 18:40 IMPRESSION: Osteomyelitis of the distal phalanx of the second digit. copyright 2010 [employer]- All Rights Reserved Soft Tissue Neck X-Ray 02/19/19 12:15 IMPRESSION: NEGATIVE STUDY OF THE SOFT TISSUES OF THE NECK. Assessment and Plan - Diagnosis (1) Osteomyelitis Qualifiers: Osteomyelitis type: other acute Osteomyelitis location: foot Laterality: right Qualified Code(s): M86.171 - Other acute osteomyelitis, right ankle and foot Is this a current diagnosis for this admission?: Yes Plan: Day 4 status post right second toe amputation. Wound culture growing gram-positive cocci in clusters pending sensitivity. Elevated CRP/ESR. Right foot radiography suspicious for osteomyelitis on admission. 02/16/2019. MRI right foot positive for osteomyelitis second toe. IV antibiotics day 5 Day 5 IV Zyvox. Zyvox 600 mg IV twice daily Day 2 IV Zosyn. DC Zosyn. Received 2 days of Zosyn. Follow-up wound and blood culture. Continue empiric IV antibiotics, wound care. (2) DM type 2 (diabetes mellitus, type 2) Qualifiers: Diabetes mellitus longterm insulin use: with longterm use Diabetes mellitus complication detail: with polyneuropathy Is this a current diagnosis for this admission?: Yes Plan: Not controlled. A1c> 9%, optimized during this admission. Diabetic diet, long-acting insulin, pre-meal insulin, sliding scale insulin, Accu-Chek, hypoglycemia protocol. Adjust dosage as needed. Outpatient PCP follow-up. (3) Hypertension Is this a current diagnosis for this admission?: Yes Plan: Normotensive. Euvolemic. Continue lisinopril 2.5 mg p.o. daily. Adjust meds as needed. Outpatient PCP follow-up. (4) Obesity (BMI 30.0-34.9) Is this a current diagnosis for this admission?: Yes Plan: Diet and lifestyle modification recommended.
[2019-02-20] MEDS: CYCLOBENZAPRINE HCL 10 MG TABLET PO SCH ×2 (13:51→21:52)
[2019-02-20] MEDS: INSULIN GLARGINE,HUM.REC.ANLOG 1,000 UNIT/10 ML VIAL SUBCUT SCH (21:53)
[2019-02-21] MEDS: HEPARIN SOD (PORCINE) 5,000 UNIT/ML 1 ML SYRINGE SUBCUT SCH ×2 (05:24→15:17)
[2019-02-21] MEDS: CYCLOBENZAPRINE HCL 10 MG TABLET PO SCH (05:27)
[2019-02-21] MEDS: PANTOPRAZOLE SODIUM 20 MG TABLET.DR PO SCH (05:27)
[2019-02-21] MEDS: GABAPENTIN 100 MG CAPSULE PO SCH ×2 (05:27→15:17)
[2019-02-21] MEDS: OXYCODONE-ACETAMINOPHEN 5-325 MG TABLET PO PRN ×2 (05:28→10:30)
[2019-02-21 06:49] LABS: ABSOLUTE BASOPHILS # (AUTO) 0.1 10^3/uL (0.0-0.2); ABSOLUTE EOSINOPHILS # (AUTO) 0.2 10^3/uL (0.0-0.6); ABSOLUTE LYMPHOCYTES (AUTO) 1.4 10^3/uL (0.5-4.7); ABSOLUTE MONOCYTES (AUTO) 0.6 10^3/uL (0.1-1.4); BASOPHILS % (AUTO) 0.9 % (0-2); EOSINOPHILS % (AUTO) 2.5 % (0-6); HEMATOCRIT 30.2 % (37.9-51.0); HEMOGLOBIN 10.3 g/dL (13.5-17.0); LYMPHOCYTES % (AUTO) 19.6 % (13-45); MEAN CORPUSCULAR HEMOGLOBIN 28.7 pg (27.0-33.4); MEAN CORPUSCULAR HGB CONC 34.2 g/dL (32.0-36.0); MEAN CORPUSCULAR VOLUME 84 fl (80-97); MONOCYTES % (AUTO) 8.4 % (3-13); PLATELET COUNT 279 10^3/uL (150-450); RED CELL DISTRIBUTION WIDTH 13.2 % (11.5-14.0); SEGMENTED NEUTROPHILS % (AUTO) 68.6 % (42-78); TOTAL CELLS COUNTED % (AUTO) 100 %; WHITE BLOOD COUNT 7.3 10^3/uL (4.0-10.5)
[2019-02-21 07:10] LABS: ANION GAP 7 (5-19); BLOOD UREA NITROGEN 11 mg/dL (7-20); CALCIUM 8.7 mg/dL (8.4-10.2); CARBON DIOXIDE 24 mmol/L (22-30); CHLORIDE 104 mmol/L (98-107); GLUCOSE 172 mg/dL (75-110); POTASSIUM 4.5 mmol/L (3.6-5.0); SODIUM 134.7 mmol/L (137-145)
[2019-02-21] MEDS: MORPHINE SULFATE 10 MG/ML INJ IV PRN ×2 (07:30→12:26)
[2019-02-21] MEDS: INSULIN LISPRO 100 UNIT/ML 3 ML VIAL SUBCUT SCH ×2 (07:32→11:36)
[2019-02-21] MEDS: NORMAL SALINE 1000 ML 1,000 ML IV PRN (07:32)
[2019-02-21] MEDS: FAMOTIDINE 20 MG TABLET PO SCH (09:46)
[2019-02-21] MEDS: LINEZOLID 600 MG/300 ML RTUPB IV SCH (09:46)
[2019-02-21] MEDS: LISINOPRIL 5 MG TABLET PO SCH (09:46)
[2019-02-21] MEDS ORDERED: TIZANIDINE HCL 4 MG TABLET PO SCH (14:00)
[2019-02-21] MEDS ORDERED: CLINDAMYCIN HCL 150 MG CAPSULE PO SCH (14:00)
--- NOTE | 2019-02-21 15:29 | PDOC PROGRESS REPORT ---
Subjective Progress Note for:: 02/21/19 Subjective:: pains amp site right 2nd toe Reason For Visit: OSTEOMYELITIS Physical Exam Vital Signs: Temp Pulse Resp BP Pulse Ox 98.9 F 63 16 150/67 H 97 02/21/19 11:18 02/21/19 11:18 02/21/19 11:18 02/21/19 11:18 02/21/19 11:18 Intake & Output 02/20/19 02/21/19 02/22/19 06:59 06:59 06:59 Intake Total 3874 3522 988 Balance 3874 3522 988 Weight 88.1 kg 89.2 kg Exam: amp site looks good and appears to be slightly co-aptating Inflammation improving Results Laboratory Results: 02/21/19 06:18 02/21/19 06:18 02/21/19 02/21/19 06:18 06:18 WBC 7.3 RBC 3.60 L Hgb 10.3 L Hct 30.2 L MCV 84 MCH 28.7 MCHC 34.2 RDW 13.2 Plt Count 279 Seg Neutrophils % 68.6 Lymphocytes % 19.6 Monocytes % 8.4 Eosinophils % 2.5 Basophils % 0.9 Absolute Neutrophils 5.0 Absolute Lymphocytes 1.4 Absolute Monocytes 0.6 Absolute Eosinophils 0.2 Absolute Basophils 0.1 Sodium 134.7 L Potassium 4.5 Chloride 104 Carbon Dioxide 24 Anion Gap 7 BUN 11 Creatinine 0.93 Est GFR ( Amer) > 60 Est GFR (Non-Af Amer) > 60 Glucose 172 H Calcium 8.7 02/16/19 12:14 Blood Blood Culture - Final NO GROWTH IN 5 DAYS 02/16/19 11:15 Blood Blood Culture - Final NO GROWTH IN 5 DAYS 02/18/19 21:00 Nasophary ([facility] Only) MRSA Culture - Final NO MRSA RECOVERED 02/16/19 20:00 Toe - Right Second Gram Stain - Final 02/16/19 20:00 Toe - Right Second Wound Culture - Final Staphylococcus Aureus Group B Beta Streptococcus Impressions: Foot X-Ray 02/16/19 10:54 IMPRESSION: Likely osteomyelitis in the 2nd distal phalanx. Lower Extremity MRI 02/16/19 18:40 IMPRESSION: Osteomyelitis of the distal phalanx of the second digit. copyright 2011 [employer]- All Rights Reserved Soft Tissue Neck X-Ray 02/19/19 12:15 IMPRESSION: NEGATIVE STUDY OF THE SOFT TISSUES OF THE NECK. 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 The dressings can be removed tomorrow then patient can take shower and may leave wound open to air. Will f/U in surgical clinic in 2-3 weeks for removal of sutures OK to continue po antibotics for another week Gave a prescription for Percocet for the next 3-4 days (10 pills) then can just take tylenol prn for painn OK to discharge. Nurse can provide special slippers/shoe for right foot. He says he can also consult with his friend Dr Peraza who is a De[facility] C[facility].
[2019-02-21 15:45] VITALS: BP 123/66
--- NOTE | 2019-02-24 17:21 | PDOC DISCHARGE SUMMARY ---
General - Admit/Disc Date/PCP Admission Date/Primary Care Provider: 02/16/19 15:21 BRIDGER MARTINEZ MD Discharge Date: 02/21/19 - Discharge Diagnosis (1) Osteomyelitis Is this a current diagnosis for this admission?: Yes (2) DM type 2 (diabetes mellitus, type 2) Is this a current diagnosis for this admission?: Yes (3) Hypertension Is this a current diagnosis for this admission?: Yes (4) Obesity (BMI 30.0-34.9) Is this a current diagnosis for this admission?: Yes - Additional Information Resuscitation Status: Full Code Discharge Diet: Diabetic Discharge Activity: Activity As Tolerated Prescriptions: Clindamycin HCl [Cleocin 300 mg Capsule] 300 mg PO BID 7 Days #21 capsule Gabapentin [Neurontin 100 mg Capsule] 100 mg PO Q8 30 Days #90 capsule Insulin Glargine,Hum.rec.anlog [Lantus Insulin 100 Unit/1 ml 10 ml] 22 unit SUBCUT QHS 30 Days #30 unit Lisinopril [Prinivil 5 mg Tablet] 5 mg PO DAILY 30 Days #30 tablet Metformin HCl 1,000 mg PO BID 30 Days #60 tablet Tizanidine HCl [Zanaflex 4 mg Tablet] 2 mg PO TID 10 Days #30 tablet Home Medications: Clindamycin HCl [Cleocin 300 mg Capsule] 300 mg PO BID 7 Days #21 capsule 02/21/19 Gabapentin [Neurontin 100 mg Capsule] 100 mg PO Q8 30 Days #90 capsule 02/21/19 Insulin Glargine,Hum.rec.anlog [Lantus Insulin 100 Unit/1 ml 10 ml] 22 unit SUBCUT QHS 30 Days #30 unit 02/21/19 Lisinopril [Prinivil 5 mg Tablet] 5 mg PO DAILY 30 Days #30 tablet 02/21/19 Metformin HCl 1,000 mg PO BID 30 Days #60 tablet 02/21/19 Tizanidine HCl [Zanaflex 4 mg Tablet] 2 mg PO TID 10 Days #30 tablet 02/21/19 History of Present Illness History of Present Illness: GISELLA HAYS is a 58 year old male past medical history of diabetes, hypertension, recently admitted for right upper extremity cellulitis caused by MRSA presenting to ED complaining of right second toe wound. Patient is stating that he felt a scab at the dorsal aspect of his right second toe and he pulled it off, he noticed that the skin came off right away his toe started to bleed excessively. He does not recall any injuries, checks his feet frequently, does not recall any blisters, wound, or any trauma. He is endorsing throbbing sensation to the right lower extremity however he does not any feel any pain, he also felt some chills and was febrile at home last night. Recently was hospitalized for right upper extremity cellulitis caused by MRSA was started on vancomycin and developed CHERYLE. Denies any chills, shortness of breath, chest pain, nausea, vomiting, diarrhea, constipation or any urinary symptoms. In ED x-ray of right feet was suspicious for possible osteomyelitis with elevated ESR and CRP. Hospitalist consulted for admission. Hospital Course Hospital Course: (1) Osteomyelitis Status post right second toe amputation by surgery. Elevated CRP/ESR. Right foot radiography suspicious for osteomyelitis on admission. 02/16/2019. MRI right foot positive for osteomyelitis second toe. Received 6 days of IV antibiotics. Received 6 days of IV Zyvox. Received 2 days of IV Zosyn. Blood cultures remain negative. Wound culture positive for MSSA. Pathology report positive for gangrene with acute osteomyelitis. Was discharged on clindamycin for another 7 days. Was asked to continue wound care. An appointment was made to follow-up with surgery as outpatient. (2) DM type 2 (diabetes mellitus, type 2) Not controlled. A1c> 9%, optimized during this admission. Was started on diabetic diet, long-acting insulin, pre-meal insulin, sliding scale insulin, Accu-Chek, hypoglycemia protocol. Adjust dosage as needed. Outpatient PCP follow-up. Was discharged on Lantus and metformin. An appointment was made for him to follow-up with his PCP for readjustment of his insulin dosage. (3) Hypertension Normotensive. Euvolemic. She will start on 2.5 mg lisinopril. Was increased to 5 mg p.o. daily. Discharged on lisinopril 5 mg p.o. daily. Outpatient PCP follow-up. (4) Obesity (BMI 30.0-34.9) Diet and lifestyle modification recommended. Physical Exam Vital Signs: Temp Pulse Resp BP Pulse Ox 98.9 F 63 16 123/66 97 02/21/19 15:44 02/21/19 15:44 02/21/19 15:44 02/21/19 15:44 02/21/19 15:44 General appearance: PRESENT: no acute distress, well-developed, well-nourished Head exam: PRESENT: atraumatic, normocephalic Eye exam: PRESENT: conjunctiva pink, EOMI, PERRLA. ABSENT: scleral icterus Ear exam: PRESENT: normal external ear exam Mouth exam: PRESENT: moist, tongue midline Neck exam: ABSENT: carotid bruit, JVD, lymphadenopathy, thyromegaly Respiratory exam: PRESENT: clear to auscultation kayleen. ABSENT: rales, rhonchi, wheezes Cardiovascular exam: PRESENT: RRR. ABSENT: diastolic murmur, rubs, systolic murmur Pulses: PRESENT: normal dorsalis pedis pul Vascular exam: PRESENT: normal capillary refill GI/Abdominal exam: PRESENT: normal bowel sounds, soft. ABSENT: distended, guarding, mass, organolmegaly, rebound, tenderness Rectal exam: PRESENT: deferred Extremities exam: PRESENT: full ROM, other - Right second toe wound clean. No sign of discharge.. ABSENT: calf tenderness, clubbing, pedal edema Neurological exam: PRESENT: alert, awake, oriented to person, oriented to place, oriented to time, oriented to situation, CN II-XII grossly intact. ABSENT: motor sensory deficit Psychiatric exam: PRESENT: appropriate affect, normal mood. ABSENT: homicidal ideation, suicidal ideation Skin exam: PRESENT: dry, intact, warm. ABSENT: cyanosis, rash Results Laboratory Results: 02/21/19 06:18 02/21/19 06:18 Impressions: Foot X-Ray 02/16/19 10:54 IMPRESSION: Likely osteomyelitis in the 2nd distal phalanx. Lower Extremity MRI 02/16/19 18:40 IMPRESSION: Osteomyelitis of the distal phalanx of the second digit. copyright 2010 [employer]- All Rights Reserved Soft Tissue Neck X-Ray 02/19/19 12:15 IMPRESSION: NEGATIVE STUDY OF THE SOFT TISSUES OF THE NECK. Qualifiers - * PATIENT BEING DISCHARGED WITH ANY OF THE FOLLOWING DIAGNOSIS: No Acute Heart Failure - Is this a Heart Failure Patient?: No
== END 2019-02-21 16:00 | disposition home or self-care (01) | DRG 616 ==
LOC: ER 10:45 → EH 15:21 → 4S 19:30
PROVIDERS: ADMIT Internal Medicine; ATTEND Internal Medicine
PROC: 0Y6R0Z0 Detachment at Right 2nd Toe, Complete, Open Approach (ICD-10-PCS; principal; 2019-02-17 15:30)
DX: E11.69 Type 2 diabetes mellitus with other specified complication (principal); L89.894 Pressure ulcer of other site, stage 4; E11.52 Type 2 diabetes mellitus with diabetic peripheral angiopathy with gangrene; I96 Gangrene, not elsewhere classified; M86.171 Other acute osteomyelitis, right ankle and foot; I10 Essential (primary) hypertension; E66.9 Obesity, unspecified; B95.61 Methicillin susceptible Staphylococcus aureus infection as the cause of diseases classified elsewhere; F32.9 Major depressive disorder, single episode, unspecified; L03.031 Cellulitis of right toe; E11.622 Type 2 diabetes mellitus with other skin ulcer; E11.65 Type 2 diabetes mellitus with hyperglycemia; Z79.899 Other long term (current) drug therapy; Z86.14 Personal history of Methicillin resistant Staphylococcus aureus infection; Z79.4 Long term (current) use of insulin; Z83.3 Family history of diabetes mellitus; Z88.3 Allergy status to other anti-infective agents; Z91.018 Allergy to other foods
CPT/HCPCS: 01480; 36415; 70360; 80048; 80053; 81001; 82962; 83036; 85025; 85652; 86140; 87040; 87070; 87077; 87186; 87205; 88305; 88311; 99284; J0330; J1644; J1815; J2020; J2060; J2250; J2270; J2405; J2543; J2550; J2704; J3010; J3490; J7030; J7050

== ENCOUNTER 2019-05-28 06:50 | Inpatient (IN) | payer OTHER ==
[2019-05-28] MEDS ORDERED: ONDANSETRON HCL INJ/PF 4 MG/2 ML SDV IV ONE (07:51)
[2019-05-28] MEDS ORDERED: ACETAMINOPHEN 325 MG TABLET PO ONE (07:51)
[2019-05-28] MEDS ORDERED: NORMAL SALINE 1000 ML 1,000 ML IV ONE ×2 (07:51→09:52)
--- NOTE | 2019-05-28 08:36 | ER Document Report ---
Entered by STEFANIE BARTON SCRIBE 05/28/19 0805 Acting as scribe for:FRANKY MARQUIS MD ED Extremity Problem, Lower - General Chief Complaint: Leg Swelling Stated Complaint: LEFT LEG PAIN Time Seen by Provider: 05/28/19 07:21 Primary Care Provider: BRIDGER MARTINEZ MD [Primary Care Provider] - Follow up as needed Mode of Arrival: Ambulatory Information source: Patient Notes: 58-year-old diabetic male who presents to the emergency department today with complaints of a left great toe ulcer with associated pain radiating up to the level of the thigh. Patient states he noticed this toe blister about 3 days ago. Patient states last night he began feeling nauseated and began vomiting at about 1030 which has continued through the night. Patient denies having a history of gout. TRAVEL OUTSIDE OF THE [place] IN LAST 30 DAYS: No - Related Data Allergies/Adverse Reactions: aspartame [From Nutrasweet Aspartame] Allergy (Verified 02/16/19 10:53) Coconut * [Coconut] Allergy (Verified 02/16/19 10:53) vancomycin Allergy (Verified 02/16/19 10:53) Past Medical History - General Information source: Patient - Social History Smoking Status: Never Smoker Cigarette use (# per day): No Chew tobacco use (# tins/day): No Frequency of alcohol use: Social Drug Abuse: None Lives with: Family Family History: Reviewed & Not Pertinent Patient has suicidal ideation: No Patient has homicidal ideation: No - Past Medical History Cardiac Medical History: Reports: Hx Hypertension Endocrine Medical History: Reports: Hx Diabetes Mellitus Type 2 Psychiatric Medical History: Reports: Hx Depression Past Surgical History: Reports: Hx Orthopedic Surgery - Left Knee, Ruptured Disc Repair L4/L5 - Immunizations Immunizations up to date: Yes Hx Diphtheria, Pertussis, Tetanus Vaccination: Yes Review of Systems - Review of Systems Constitutional: See HPI, Fever EENT: No symptoms reported Cardiovascular: No symptoms reported Respiratory: No symptoms reported Gastrointestinal: See HPI, Nausea, Vomiting Genitourinary: No symptoms reported Male Genitourinary: No symptoms reported Musculoskeletal: See HPI, Joint pain - left foot, ankle, leg Skin: See HPI, Lesions - left great toe Hematologic/Lymphatic: No symptoms reported Neurological/Psychological: No symptoms reported -: Yes All other systems reviewed and negative Physical Exam - Vital signs Vitals: Temp Pulse Resp BP Pulse Ox 99.1 F 90 16 194/77 H 98 05/28/19 06:55 05/28/19 06:55 05/28/19 06:55 05/28/19 06:55 05/28/19 06:55 - Notes Notes: Physical Exam: General: Alert, appears uncomfortable and nauseated. HEENT: Normocephalic. Atraumatic. PERRL. Extraocular movements intact. Oropharynx clear. Neck: Supple. Non-tender. Respiratory: No respiratory distress. Clear and equal breath sounds bilaterally. Cardiovascular: 2/6 systolic murmur. Regular rate and rhythm. Abdominal: Obese. Non-tender. No distension. Normal Bowel Sounds. Back: No gross abnormalities. Extremities: Moves all four extremities. Upper extremities: Normal inspection. Normal ROM. Lower extremities: Left great toe is erythematous and swollen, erythema stops at the MTP of left great toe. Diabetic ulcer over the distal radial toe. Tenderness with palpation of the left medial thigh without erythema. Left calf tenderness without gross swelling. Neurological: Normal cognition. AAOx4. Normal speech. Psychological: Normal affect. Normal Mood. Skin: Hot to the touch. Dry. See lower extremity exam. Course - Vital Signs Vital signs: Temp Pulse Resp BP Pulse Ox 102.9 F H 89 18 177/86 H 98 05/28/19 09:22 05/28/19 07:12 05/28/19 09:00 05/28/19 09:02 05/28/19 09:00 - Laboratory Result Diagrams: 05/28/19 08:34 05/28/19 08:34 Laboratory results interpreted by me: 05/28/19 05/28/19 05/28/19 08:34 08:34 08:34 WBC 16.0 H Hgb 13.0 L Hct 37.7 L Seg Neuts % (Manual) 84 H Band Neutrophils % 1 L Lymphocytes % (Manual) 5 L Abs Neuts (Manual) 13.6 H Sodium 133.7 L Chloride 96 L Glucose 243 H Hemoglobin A1c % 8.9 H Magnesium 1.4 L - Diagnostic Test Radiology reviewed: Image reviewed, Reports reviewed - Right toe x-rays does not show bony involvement of the first toe - EKG Interpretation by Sd EKG shows normal: Sinus rhythm, [place], Intervals, QRS Complexes. abnormal: ST-T Waves - Diffuse borderline T abnormalities Rate: Normal - 89 [place]/QRS: Right axis deviation Heart block present: 1st Degree When compared to previous EKG there are: No significant change - Consults Dr. Nobles Consulted provider: will come to ER - This should will see the patient in the emergency room, request that hospitalist admit the patient. Dr. 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 home use Diabetes mellitus complication status: with skin complications Diabetes mellitus complication detail: with foot ulcer Qualified Code(s): E11.621 - Type 2 diabetes mellitus with foot ulcer Hypertension Qualifiers: Hypertension type: essential hypertension Qualified Code(s): I10 - Essential (primary) hypertension Leukocytosis Qualifiers: Leukocytosis type: bandemia Qualified Code(s): D72.825 - Bandemia Cellulitis Qualifiers: Site of cellulitis: extremity Site of cellulitis of extremity: lower extremity Laterality: left Qualified Code(s): L03.116 - Cellulitis of left lower limb Fever Qualifiers: Fever type: unspecified Qualified Code(s): R50.9 - Fever, unspecified Condition: Stable Disposition: ADMITTED INPATIENT Admitting Provider: Nunu (Hospitalist) Unit Admitted: IMCU Referrals: BRIDGER MARTINEZ MD [Primary Care Provider] - Follow up as needed Scribe Attestation: 05/28/19 09:54 I personally performed the services described in the documentation, reviewed and edited the documentation which was dictated to the scribe in my presence, and it accurately records my words and actions. I personally performed the services described in the documentation, reviewed and edited the documentation which was dictated to the scribe in my presence, and it accurately records my words and actions.
--- NOTE | 2019-05-28 08:40 | RADIOLOGY REPORT (SQ) ---
EXAM DESCRIPTION: TOE LEFT COMPLETED DATE/TIME: 05/28/2019 8:22 am REASON FOR STUDY: 1st toe diabetic ulcer, red, swelling COMPARISON: None. NUMBER OF VIEWS: Three views. TECHNIQUE: AP, lateral, and oblique images acquired of the left toes. LIMITATIONS: None. FINDINGS: MINERALIZATION: Normal. BONES: Subluxation of the MTP joint of the 2nd toe. No fractures. No worrisome bone lesions. JOINTS: No effusions. SOFT TISSUES: No soft tissue swelling. No foreign body. OTHER: No other significant finding. IMPRESSION: SUBLUXATION OF THE MTP JOINT OF THE 2ND TOE, PRESUMED CHRONIC. NO OTHER SIGNIFICANT RAD IOGRAPHIC FINDINGS. COMMENT: SITE OF TRAUMA/COMPLAINT MARKED/STAMP COMPLETED: YES. TECHNICAL DOCUMENTATION: JOB ID: [id number] [employer]- All Rights Reserved Reading location - IP/workstation name: [email or web address]
[2019-05-28 08:59] LABS: HEMATOCRIT 37.7 % (37.9-51.0); MEAN CORPUSCULAR HEMOGLOBIN 29.6 pg (27.0-33.4); MEAN CORPUSCULAR HGB CONC 34.4 g/dL (32.0-36.0); MEAN CORPUSCULAR VOLUME 86 fl (80-97); PLATELET COUNT 268 10^3/uL (150-450); RED BLOOD COUNT 4.38 10^6/uL (4.35-5.55); RED CELL DISTRIBUTION WIDTH 13.7 % (11.5-14.0)
[2019-05-28] MEDS ORDERED: ERTAPENEM SODIUM INJ 1 GM VIAL IV ONE (09:10)
[2019-05-28 09:14] LABS: ALBUMIN 4.3 g/dL (3.5-5.0); ALKALINE PHOSPHATASE 61 U/L (38-126); ANION GAP 13 (5-19); ASPARTATE AMINO TRANSFERASE 22 U/L (17-59); BILIRUBIN,DIRECT 0.1 mg/dL (0.0-0.4); BILIRUBIN,TOTAL 0.9 mg/dL (0.2-1.3); BLOOD UREA NITROGEN 15 mg/dL (7-20); CALCIUM 9.4 mg/dL (8.4-10.2); CARBON DIOXIDE 25 mmol/L (22-30); CHLORIDE 96 mmol/L (98-107); CREATINE KINASE 145 U/L (55-170); GLUCOSE 243 mg/dL (75-110); POTASSIUM 4.1 mmol/L (3.6-5.0); TOTAL PROTEIN 7.5 g/dL (6.3-8.2); URIC ACID 6.8 mg/dL (3.5-8.5)
[2019-05-28 09:24] LABS: ABSOLUTE LYMPHOCYTES# (MANUAL) 0.8 10^3/uL (0.5-4.7); ABSOLUTE MONOCYTES # (MANUAL) 1.4 10^3/uL (0.1-1.4); BAND NEUTROPHILS % (MANUAL) 1 % (3-5); BASOPHILS % (MANUAL) 1 % (0-2); EOSINOPHILS % (MANUAL) 0 % (0-6); LYMPHOCYTES % (MANUAL) 5 % (13-45); MONOCYTES % (MANUAL) 9 % (3-13); SEGMENTED NEUTROPHILS % (MAN) 84 % (42-78); TOTAL CELLS COUNTED 100
[2019-05-28 09:25] LABS: PLATELET COMMENT ADEQUATE
[2019-05-28] MEDS ORDERED: METOCLOPRAMIDE HCL INJ/PF 10 MG/2 ML SDV IV ONE (09:52)
[2019-05-28 10:27] LABS: APPEARANCE,URINE CLEAR; BILIRUBIN,URINE NEGATIVE (NEGATIVE); COLOR,URINE YELLOW; GLUCOSE, URINE >=500 mg/dL (NEGATIVE); KETONES,URINE TRACE mg/dL (NEGATIVE); LEUKOCYTE ESTERASE,URINE NEGATIVE (NEGATIVE); NITRITE,URINE NEGATIVE (NEGATIVE); PROTEIN,URINE 30 mg/dL (NEGATIVE); URINE SPECIFIC GRAVITY 1.013; UROBILINOGEN,URINE NEGATIVE mg/dL (<2.0)
[2019-05-28] MEDS ORDERED: HYDROMORPHONE HCL INJ/PF 2 MG/ML AMPULE IV PRN (10:42)
[2019-05-28] MEDS ORDERED: DEXTROSE 40% GEL 15 GM TUBE PO PRN ×2 (10:43)
[2019-05-28] MEDS ORDERED: DEXTROSE 50%-WATER 25 GM/50 ML DISP.SYRIN IV PRN ×2 (10:43)
[2019-05-28] MEDS ORDERED: GLUCAGON,HUMAN RECOMB 1 MG INJ IM PRN (10:43)
--- NOTE | 2019-05-28 10:56 | PDOC H&P ---
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 He has a fever of 103 in the emergency room with a WBC count of 16,000. Medical consult was called for admission. Dr. Demetrice proctor is going to see the patient today. And agreed to stay in the hospital for further management. Invanz was given in the hospital. Past Medical History Cardiac Medical History: Reports: Hypertension Endocrine Medical History: Reports: Diabetes Mellitus Type 2 Psychiatric Medical History: Reports: Depression Past Surgical History Past Surgical History: Reports: Orthopedic Surgery - Left Knee, Ruptured Disc Repair L4/L5 Social History Lives with: Family Smoking Status: Never Smoker Electronic Cigarette use?: No Frequency of Alcohol Use: Occasional Hx Recreational Drug Use: No Drugs: None Hx Prescription Drug Abuse: No Family History Family History: Reviewed & Not Pertinent Parental Family History Reviewed: Yes - Junie history of diabetes mellitus. Children Family History Reviewed: Yes Sibling(s) Family History Reviewed.: Yes Medication/Allergy Home Medications: Metformin HCl [Glucophage] 1,000 mg PO BID 05/28/19 Allergies/Adverse Reactions: aspartame [From Nutrasweet Aspartame] Allergy (Verified 02/16/19 10:53) Coconut * [Coconut] Allergy (Verified 02/16/19 10:53) vancomycin Allergy (Verified 02/16/19 10:53) Review of Systems Constitutional: PRESENT: chills, fever(s). ABSENT: headache(s), night sweats Eyes: ABSENT: visual disturbances Ears: ABSENT: hearing changes Nose, Mouth, and Throat: ABSENT: sore throat Cardiovascular: ABSENT: palpitations Respiratory: ABSENT: dyspnea, hemoptysis Gastrointestinal: PRESENT: nausea Integumentary: ABSENT: rash, wounds Neurological: ABSENT: abnormal gait, abnormal speech, confusion, dizziness, focal weakness, syncope Psychiatric: ABSENT: anxiety, depression, homidical ideation, suicidal ideation Physical Exam Vital Signs: Temp Pulse Resp BP Pulse Ox 100.6 F H 89 16 138/57 H 97 05/28/19 10:08 05/28/19 07:12 05/28/19 10:02 05/28/19 10:02 05/28/19 10:02 Intake & Output 05/27/19 05/28/19 05/29/19 06:59 06:59 06:59 Intake Total 1000 Balance 1000 Weight 96.3 kg General appearance: PRESENT: no acute distress, obese Head exam: PRESENT: atraumatic Eye exam: PRESENT: PERRLA Mouth exam: PRESENT: moist, tongue midline Teeth exam: PRESENT: poor dentation Neck exam: ABSENT: carotid bruit, JVD, lymphadenopathy, thyromegaly Respiratory exam: PRESENT: clear to auscultation kayleen. ABSENT: rales, rhonchi, wheezes Cardiovascular exam: PRESENT: RRR. ABSENT: diastolic murmur, rubs, systolic murmur GI/Abdominal exam: PRESENT: normal bowel sounds, soft. ABSENT: distended, guarding, mass, organolmegaly, rebound, tenderness Rectal exam: PRESENT: deferred Extremities exam: PRESENT: other - Left great toe was swollen erythematous extremely tender to touch. Neurological exam: PRESENT: alert Psychiatric exam: PRESENT: appropriate affect, normal mood. ABSENT: homicidal ideation, suicidal ideation Results Laboratory Results: 05/28/19 08:34 05/28/19 08:34 05/28/19 05/28/19 05/28/19 08:34 08:34 08:34 WBC 16.0 H RBC 4.38 Hgb 13.0 L Hct 37.7 L MCV 86 MCH 29.6 MCHC 34.4 RDW 13.7 Plt Count 268 Seg Neutrophils % Not Reportable Sodium 133.7 L Potassium 4.1 Chloride 96 L Carbon Dioxide 25 Anion Gap 13 BUN 15 Creatinine 1.10 Est GFR ( Amer) > 60 Glucose 243 H Lactic Acid 1.4 Uric Acid 6.8 Calcium 9.4 Magnesium 1.4 L Total Bilirubin 0.9 AST 22 Alkaline Phosphatase 61 Total Protein 7.5 Albumin 4.3 Urine Color Urine Appearance Urine pH Ur Specific Jenners Urine Protein Urine Glucose (UA) Urine Ketones Urine Blood Urine Nitrite Ur Leukocyte Esterase Urine WBC (Auto) Urine RBC (Auto) 05/28/19 10:00 WBC RBC Hgb Hct MCV MCH MCHC RDW Plt Count Seg Neutrophils % Sodium Potassium Chloride Carbon Dioxide Anion Gap BUN Creatinine Est GFR ( Amer) Glucose Lactic Acid Uric Acid Calcium Magnesium Total Bilirubin AST Alkaline Phosphatase Total Protein Albumin Urine Color YELLOW Urine Appearance CLEAR Urine pH 5.0 Ur Specific Jenners 1.013 Urine Protein 30 H Urine Glucose (UA) >=500 H Urine Ketones TRACE H Urine Blood SMALL H Urine Nitrite NEGATIVE Ur Leukocyte Esterase NEGATIVE Urine WBC (Auto) 0 Urine RBC (Auto) 1 05/28/19 05/28/19 08:34 08:34 Creatine Kinase 145 Troponin I 0.014 Impressions: Toe X-Ray 05/28/19 07:54 IMPRESSION: SUBLUXATION OF THE MTP JOINT OF THE 2ND TOE, PRESUMED CHRONIC. NO OTHER SIGNIFICANT RADIOGRAPHIC FINDINGS. Assessment and Plan - Diagnosis (1) Cellulitis Qualifiers: Site of cellulitis: extremity Site of cellulitis of extremity: lower extremity Laterality: left Qualified Code(s): L03.116 - Cellulitis of left lower limb Is this a current diagnosis for this admission?: Yes (2) DM type 2 (diabetes mellitus, type 2) Qualifiers: Diabetes mellitus mcfp insulin use: without superintendent terminal use Diabetes mellitus complication status: with skin complications Diabetes mellitus complication detail: with foot ulcer Qualified Code(s): E11.621 - Type 2 diabetes mellitus with foot ulcer; L97.509 - Non-pressure chronic ulcer of other part of unspecified foot with unspecified severity Is this a current diagnosis for this admission?: No (3) Hypertension Qualifiers: Hypertension type: essential hypertension Qualified Code(s): I10 - Essential (primary) hypertension Is this a current diagnosis for this admission?: No (4) Leukocytosis Qualifiers: Leukocytosis type: bandemia Qualified Code(s): D72.825 - Bandemia Is this a current diagnosis for this admission?: Yes - Plan Summary Summary: 1.cellulitis of the left great toe Plan to place him in IMCU surgical consult was requested started on Invanz. MRI of the left foot was requested. GI prophylaxis DVT prophylaxis initiated. Started on Dilaudid 1 mg IV every 4 as needed for pain. Start on Zofran 4 mg IV every 6 as needed for nausea. Started on insulin sliding scale. pt also pl aced on Lantus 10 units p.o. twice daily patient is taking metformin at home which is on hold. 2.type 2 diabetes mellitus Patient blood sugar is 265 and hemoglobin A1c is 8.9, patient is on metformin at home which is on hold started on insulin sliding scale before meals and at bedtime and Lantus 10 units p.o. twice daily dietary consult is requested. 3.hypertension. Blood pressure is 138/57. Stable. Start her on hydralazine 10 mg IV every 4 as needed for blood pressure more than systolic more than 150. 4.leukocytosis wBC count is a 16,000 most likely secondary to cellulitis of the left great toe MRI of the left foot is pending we are looking for osteomyelitis.
[2019-05-28 11:12] LABS: URINE AMPHETAMINES SCREEN NEGATIVE; URINE BARBITURATES SCREEN NEGATIVE; URINE BENZODIAZEPINES SCREEN NEGATIVE; URINE COCAINE SCREEN UNCONFIRMED POSITIVE; URINE MARIJUANA (THC) SCREEN NEGATIVE; URINE METHADONE SCREEN NEGATIVE; URINE PHENCYCLIDINE SCREEN NEGATIVE
--- NOTE | 2019-05-28 11:17 | PDOC CONSULTATION ---
Consultation Consult Date: 05/28/19 Provider Consulted: BRIANNA SAAVEDRA Consult reason:: Left great toe cellulitis History of Present Illness Admission Date/PCP: 05/28/19 10:21 BRIDGER MARTINEZ MD History of Present Illness: GISELLA HAYS is a 58 year old male, diabetic, who presented to the emergency room with a 3-day history of redness swelling of the left great toe as well as swelling of the left foot and ankle. According to the , the patient has become progressively more obtunded, but arousable. He underwent amputation of his right foot second toe back in February with good healing. Past Medical History Cardiac Medical History: Reports: Hypertension Endocrine Medical History: Reports: Diabetes Mellitus Type 2 Psychiatric Medical History: Reports: Depression Past Surgical History Past Surgical History: Reports: Orthopedic Surgery - Left Knee, Ruptured Disc Repair L4/L5 Social History Lives with: Family Smoking Status: Never Smoker Electronic Cigarette use?: No Frequency of Alcohol Use: Occasional Hx Recreational Drug Use: No Drugs: None Hx Prescription Drug Abuse: No Family History Family History: Reviewed & Not Pertinent Parental Family History Reviewed: No Children Family History Reviewed: No Sibling(s) Family History Reviewed.: No Medication/Allergy Home Medications: Metformin HCl [Glucophage] 1,000 mg PO BID 05/28/19 Allergies/Adverse Reactions: aspartame [From Nutrasweet Aspartame] Allergy (Verified 02/16/19 10:53) Coconut * [Coconut] Allergy (Verified 02/16/19 10:53) vancomycin Allergy (Verified 02/16/19 10:53) Physical Exam Vital Signs: Temp Pulse Resp BP Pulse Ox 100.6 F H 89 16 138/57 H 97 05/28/19 10:08 05/28/19 07:12 05/28/19 10:02 05/28/19 10:02 05/28/19 10:02 Intake & Output 05/27/19 05/28/19 05/29/19 06:59 06:59 06:59 Intake Total 1000 Balance 1000 Weight 96.3 kg General appearance: PRESENT: no acute distress, obese, other - Sleepy but arousable Head exam: PRESENT: atraumatic Eye exam: PRESENT: EOMI Mouth exam: PRESENT: moist, neck supple Teeth exam: PRESENT: poor dentation Neck exam: PRESENT: full ROM Respiratory exam: PRESENT: clear to auscultation kayleen Cardiovascular exam: PRESENT: RRR GI/Abdominal exam: PRESENT: normal bowel sounds, soft Rectal exam: PRESENT: deferred Extremities exam: PRESENT: full ROM, other Musculoskeletal exam: PRESENT: full ROM Neurological exam: PRESENT: CN II-XII grossly intact, other - Sleepy but arousable and able to follow commands Skin exam: PRESENT: other - Left foot = erythema and swelling of the great toe, swelling of the left foot and ankle, palpable dorsalis pedis and posterior tibialis pulses, maintained sensation of the left foot with decreased sensation of the left distal great toe Results Laboratory Results: 05/28/19 08:34 05/28/19 08:34 05/28/19 05/28/19 05/28/19 08:34 08:34 08:34 WBC 16.0 H RBC 4.38 Hgb 13.0 L Hct 37.7 L MCV 86 MCH 29.6 MCHC 34.4 RDW 13.7 Plt Count 268 Seg Neutrophils % Not Reportable Sodium 133.7 L Potassium 4.1 Chloride 96 L Carbon Dioxide 25 Anion Gap 13 BUN 15 Creatinine 1.10 Est GFR ( Amer) > 60 Glucose 243 H Lactic Acid 1.4 Uric Acid 6.8 Calcium 9.4 Magnesium 1.4 L Total Bilirubin 0.9 AST 22 Alkaline Phosphatase 61 Total Protein 7.5 Albumin 4.3 Urine Color Urine Appearance Urine pH Ur Specific [place] Urine Protein Urine Glucose (UA) Urine Ketones Urine Blood Urine Nitrite Ur Leukocyte Esterase Urine WBC (Auto) Urine RBC (Auto) 05/28/19 10:00 WBC RBC Hgb Hct MCV MCH MCHC RDW Plt Count Seg Neutrophils % Sodium Potassium Chloride Carbon Dioxide Anion Gap BUN Creatinine Est GFR ( Amer) Glucose Lactic Acid Uric Acid Calcium Magnesium Total Bilirubin AST Alkaline Phosphatase Total Protein Albumin Urine Color YELLOW Urine Appearance CLEAR Urine pH 5.0 Ur Specific [place] 1.013 Urine Protein 30 H Urine Glucose (UA) >=500 H Urine Ketones TRACE H Urine Blood SMALL H Urine Nitrite NEGATIVE Ur Leukocyte Esterase NEGATIVE Urine WBC (Auto) 0 Urine RBC (Auto) 1 05/28/19 05/28/19 08:34 08:34 Creatine Kinase 145 Troponin I 0.014 Impressions: Toe X-Ray 05/28/19 07:54 IMPRESSION: SUBLUXATION OF THE MTP JOINT OF THE 2ND TOE, PRESUMED CHRONIC. NO OTHER SIGNIFICANT RADIOGRAPHIC FINDINGS. Assessment & Plan - Diagnosis (1) Cellulitis of toe of left foot Is this a current diagnosis for this admission?: Yes (2) DM type 2 (diabetes mellitus, type 2) Qualifiers: Diabetes mellitus skilled nursing insulin use: without terminologist use Diabetes mellitus complication status: with skin complications Diabetes mellitus complication detail: with foot ulcer Qualified Code(s): E11.621 - Type 2 diabetes mellitus with foot ulcer; L97.509 - Non-pressure chronic ulcer of other part of unspecified foot with unspecified severity Is this a current diagnosis for this admission?: Yes - Plan Summary Plan Summary: Assessment: 58-year-old type II diabetic patient with cellulitis of the left great toe, diffuse edema left foot and ankle Leukocytosis at 16,000 today Hyperglycemia 246 Glucosuria more than 500 Plain x-ray of the left foot does not show any bone abnormalities or demineralization except for subluxation of the second toe Altered mental status most likely secondary to an infectious/septic process Plan: Admit as per hospitalist IV antibiotics broad-spectrum Patient will undergo left foot leg MRI to identify the presence of osteomyelitis Should the patient have osteomyelitis of the left toe or foot, he might require an amputation of the affected toe/extremity
[2019-05-28] MEDS: INSULIN REG, HUMAN 100 UNIT/ML 3 ML VIAL (PYX) SUBCUT SCH ×3 (12:00→21:54)
[2019-05-28] MEDS: ONDANSETRON HCL INJ/PF 4 MG/2 ML SDV IV PRN (15:13)
[2019-05-28] MEDS: MEROPENEM 1 GM in NORMAL SALINE 50 ML IV SCH ×2 (15:46→21:14)
[2019-05-28] MEDS: ACETAMINOPHEN 325 MG TABLET PO PRN ×2 (15:51→21:56)
[2019-05-28] MEDS: LINEZOLID 600 MG/300 ML RTUPB IV SCH (17:06)
[2019-05-28 17:31] LABS: CREATINE KINASE MB 0.54 ng/mL (<4.55); TROPONIN I 0.024 ng/mL
[2019-05-28] MEDS: NORMAL SALINE 1000 ML 1,000 ML IV PRN (19:00)
--- NOTE | 2019-05-28 19:18 | EKG REPORT ---
SEVERITY:- ABNORMAL ECG - SINUS RHYTHM FIRST DEGREE AV BLOCK BORDERLINE RIGHT AXIS DEVIATION BORDERLINE T ABNORMALITIES, DIFFUSE LEADS : Confirmed by: Alice Teixeira MD 28-May-2019 19:17:30
--- NOTE | 2019-05-28 20:36 | RADIOLOGY REPORT (SQ) ---
EXAM DESCRIPTION: MRI LT LOWER EXTREMITY WITHOUT COMPLETED DATE/TIME: 05/28/2019 2:20 pm REASON FOR STUDY: lt great toe cellulitis COMPARISON: X-ray dated 05/28/2019. TECHNIQUE: Multiplanar imaging of the mid and distal right foot to include fat and fluid sensitive s equences. LIMITATIONS: Some motion artifact. FINDINGS: BONE MARROW: No marrow signal alteration. Specifically no marrow replacement or marrow ed minesh. No evidence for osteomyelitis. No cortical break through. SOFT TISSUES: There is generalized subcutaneous edema along the dorsum of the foot and extending into the great toe. No no focal fluid collections. OTHER: There is posterior subluxation of the MTP joint of the 2nd toe, presumably chronic. IMPRESSION: 1. NO EVIDENCE FOR OSTEOMYELITIS. 2. SUBCUTANEOUS SOFT TISSUE EDEMA/INFLAMMATION. NO EVIDENCE OF ABSCESS. 3. POSTERIOR SUBLUXATION OF THE MTP JOINT OF THE 2ND TOE, PRESUMABLY CHRONIC. TECHNICAL DOCUMENTATION: JOB ID: [id number] [employer]- All Rights Reserved Reading location - IP/workstation name: [email or web address]
[2019-05-28] MEDS ORDERED: CHLORPROMAZINE HCL INJ 25 MG/1 ML AMPULE ONE (20:42)
[2019-05-28] MEDS: FAMOTIDINE 20 MG TABLET PO SCH (21:14)
[2019-05-28 21:34] LABS: CREATINE KINASE MB 0.61 ng/mL (<4.55); TROPONIN I 0.031 ng/mL
[2019-05-28] MEDS ORDERED: INSULIN GLARGINE,HUM.REC.ANLOG 1,000 UNIT/10 ML VIAL (PYX) SUBCUT ONE (21:50)
[2019-05-28] MEDS: INSULIN GLARGINE,HUM.REC.ANLOG 1,000 UNIT/10 ML VIAL SUBCUT SCH (21:55)
[2019-05-29 03:53] LABS: CREATINE KINASE MB 1.26 ng/mL (<4.55); TROPONIN I 0.032 ng/mL
[2019-05-29] MEDS: LINEZOLID 600 MG/300 ML RTUPB IV SCH ×2 (05:12→17:24)
[2019-05-29] MEDS: MEROPENEM 1 GM in NORMAL SALINE 50 ML IV SCH ×3 (05:12→21:13)
[2019-05-29] MEDS: NORMAL SALINE 1000 ML 1,000 ML IV PRN ×3 (05:14→23:34)
[2019-05-29 06:14] LABS: HEMATOCRIT 34.9 % (37.9-51.0); HEMOGLOBIN 11.6 g/dL (13.5-17.0); MEAN CORPUSCULAR HEMOGLOBIN 28.8 pg (27.0-33.4); MEAN CORPUSCULAR HGB CONC 33.4 g/dL (32.0-36.0); MEAN CORPUSCULAR VOLUME 86 fl (80-97); PLATELET COUNT 213 10^3/uL (150-450); RED BLOOD COUNT 4.05 10^6/uL (4.35-5.55); RED CELL DISTRIBUTION WIDTH 13.3 % (11.5-14.0); WHITE BLOOD COUNT 20.3 10^3/uL (4.0-10.5)
[2019-05-29 06:19] LABS: ALBUMIN 3.1 g/dL (3.5-5.0); ALKALINE PHOSPHATASE 45 U/L (38-126); ANION GAP 10 (5-19); ASPARTATE AMINO TRANSFERASE 21 U/L (17-59); BILIRUBIN,DIRECT 0.2 mg/dL (0.0-0.4); BLOOD UREA NITROGEN 14 mg/dL (7-20); CALCIUM 8.2 mg/dL (8.4-10.2); CARBON DIOXIDE 23 mmol/L (22-30); CHLORIDE 100 mmol/L (98-107); CHOLESTEROL 134.13 mg/dL (0-200); GLUCOSE 189 mg/dL (75-110); POTASSIUM 3.5 mmol/L (3.6-5.0); TOTAL PROTEIN 5.9 g/dL (6.3-8.2); TRIGLYCERIDES 100 mg/dL (<150)
[2019-05-29 06:35] LABS: DIRECT LDL 86 mg/dL (<100)
[2019-05-29 07:32] LABS: ABSOLUTE LYMPHOCYTES# (MANUAL) 2.4 10^3/uL (0.5-4.7); ABSOLUTE MONOCYTES # (MANUAL) 1.6 10^3/uL (0.1-1.4); BASOPHILS % (MANUAL) 0 % (0-2); EOSINOPHILS % (MANUAL) 0 % (0-6); LYMPHOCYTES % (MANUAL) 12 % (13-45); MONOCYTES % (MANUAL) 8 % (3-13); SEGMENTED NEUTROPHILS % (MAN) 80 % (42-78); TOTAL CELLS COUNTED 100
[2019-05-29 07:33] LABS: PLATELET COMMENT ADEQUATE
[2019-05-29] MEDS ORDERED: INFLUENZA QUAD (6MOS+) 2019-20 VAC 0.5 ML SYR IM ONE (08:00)
[2019-05-29] MEDS: ACETAMINOPHEN 325 MG TABLET PO PRN (08:04)
[2019-05-29] MEDS: INSULIN REG, HUMAN 100 UNIT/ML 3 ML VIAL (PYX) SUBCUT SCH ×4 (08:05→21:13)
[2019-05-29] MEDS: ENOXAPARIN SODIUM INJ 40 MG/0.4 ML DISP.SYRIN SUBCUT SCH (09:43)
[2019-05-29] MEDS: INSULIN GLARGINE,HUM.REC.ANLOG 1,000 UNIT/10 ML VIAL SUBCUT SCH ×2 (09:43→21:12)
[2019-05-29] MEDS: FAMOTIDINE 20 MG TABLET PO SCH ×2 (09:43→21:12)
[2019-05-29] MEDS ORDERED: ERTAPENEM SODIUM INJ 1 GM VIAL IV SCH (10:00)
--- NOTE | 2019-05-29 10:17 | PDOC PROGRESS REPORT ---
Subjective Progress Note for:: 05/29/19 Subjective:: 58 year old male history of type 2 diabetes mellitus, history of right great toe osteomyelitis status post amputation, renal failure secondary to vancomycin came to the emergency room with complaints of great toe swelling and pain for the last 2 to 3 days. He has a fever of 103 in the emergency room with a WBC count of 16,000. Medical consult was called for admission. Dr. Moreno is going to see the patient today. And agreed to stay in the hospital for further management. Invanz was given in the hospital. 05/29/[id number]-odcg-old male with history of type 2 diabetes mellitus and history of right foot osteomyelitis admitted for left foot cellulitis MRI with contrast was done yesterday negative for osteomyelitis surgical consultation with Dr. Moreno was done. Patient was started on Invanz because patient has allergic reaction to vancomycin, the antibiotics are changed to meropenem today as per the pharmacy recommendations. Patient was also started on linozelide Patient still have a spiking fever of 102. I spoke to Dr. Moreno this morning ,he re quested me to talk to the radiology about possible CT of the lower extremity look for the abscesses. I spoke to Frantz in the radiology department his recommendation is MRI did not show any abscess there is no need for the investigations like CT. Patient WBC went up to 23,000 today. Did not want D odalis he wants to try Percocets from today. Reason For Visit: LT FOOT CELLUTLITIS Physical Exam Vital Signs: Temp Pulse Resp BP Pulse Ox 102.7 F H 79 18 126/44 H 92 05/29/19 07:33 05/29/19 07:33 05/29/19 07:33 05/29/19 07:33 05/29/19 07:33 Intake & Output 05/28/19 05/29/19 05/30/19 06:59 06:59 06:59 Intake Total 4500 350 Balance 4500 350 Weight 96.3 kg 98 kg General appearance: PRESENT: no acute distress, obese Head exam: PRESENT: atraumatic Eye exam: PRESENT: PERRLA Mouth exam: PRESENT: moist, tongue midline Teeth exam: PRESENT: poor dentation Neck exam: ABSENT: carotid bruit, JVD, lymphadenopathy, thyromegaly Respiratory exam: PRESENT: decreased breath sounds Cardiovascular exam: PRESENT: RRR. ABSENT: diastolic murmur, rubs, systolic murmur GI/Abdominal exam: PRESENT: normal bowel sounds, soft. ABSENT: distended, guarding, mass, organolmegaly, rebound, tenderness Rectal exam: PRESENT: deferred Extremities exam: PRESENT: other - Left foot wrapped in dressing. Neurological exam: PRESENT: alert, awake, oriented to person, oriented to place, oriented to time, oriented to situation, CN II-XII grossly intact. ABSENT: motor sensory deficit Psychiatric exam: PRESENT: appropriate affect, normal mood. ABSENT: homicidal ideation, suicidal ideation Results Laboratory Results: 05/29/19 05:34 05/29/19 05:34 05/28/19 05/29/19 05/29/19 10:00 05:34 05:34 WBC 20.3 H RBC 4.05 L Hgb 11.6 L Hct 34.9 L MCV 86 MCH 28.8 MCHC 33.4 RDW 13.3 Plt Count 213 Seg Neutrophils % Not Reportable Sodium 133.2 L Potassium 3.5 L Chloride 100 Carbon Dioxide 23 Anion Gap 10 BUN 14 Creatinine 1.10 Est GFR ( Amer) > 60 Glucose 189 H Calcium 8.2 L Magnesium 1.5 L Total Bilirubin 1.0 AST 21 Alkaline Phosphatase 45 Total Protein 5.9 L Albumin 3.1 L Triglycerides 100 Cholesterol 134.13 LDL Cholesterol Direct 86 VLDL Cholesterol 20.0 HDL Cholesterol 40 TSH Urine Color YELLOW Urine Appearance CLEAR Urine pH 5.0 Ur Specific [place] 1.013 Urine Protein 30 H Urine Glucose (UA) >=500 H Urine Ketones TRACE H Urine Blood SMALL H Urine Nitrite NEGATIVE Ur Leukocyte Esterase NEGATIVE Urine WBC (Auto) 0 Urine RBC (Auto) 1 05/29/19 05:34 WBC RBC Hgb Hct MCV MCH MCHC RDW Plt Count Seg Neutrophils % Sodium Potassium Chloride Carbon Dioxide Anion Gap BUN Creatinine Est GFR ( Amer) Glucose Calcium Magnesium Total Bilirubin AST Alkaline Phosphatase Total Protein Albumin Triglycerides Cholesterol LDL Cholesterol Direct VLDL Cholesterol HDL Cholesterol TSH 0.46 L Urine Color Urine Appearance Urine pH Ur Specific [place] Urine Protein Urine Glucose (UA) Urine Ketones Urine Blood Urine Nitrite Ur Leukocyte Esterase Urine WBC (Auto) Urine RBC (Auto) 05/28/19 05/28/19 05/28/19 08:34 08:34 15:50 Creatine Kinase 145 117 CK-MB (CK-2) Troponin I 0.014 10/01/0905/28/19 05/28/19 15:50 20:25 20:25 Creatine Kinase 144 CK-MB (CK-2) 0.54 0.61 Troponin I 0.024 0.031 05/29/19 05/29/19 02:41 02:41 Creatine Kinase 259 H CK-MB (CK-2) 1.26 Troponin I 0.032 Impressions: Lower Extremity MRI 05/28/19 00:00 IMPRESSION: 1. NO EVIDENCE FOR OSTEOMYELITIS. 2. SUBCUTANEOUS SOFT TISSUE EDEMA/INFLAMMATION. NO EVIDENCE OF ABSCESS. 3. POSTERIOR SUBLUXATION OF THE MTP JOINT OF THE 2ND TOE, PRESUMABLY CHRONIC. Toe X-Ray 05/28/19 07:54 IMPRESSION: SUBLUXATION OF THE MTP JOINT OF THE 2ND TOE, PRESUMED CHRONIC. NO OTHER SIGNIFICANT RADIOGRAPHIC FINDINGS. Assessment and Plan - Diagnosis (1) Cellulitis Qualifiers: Site of cellulitis: extremity Site of cellulitis of extremity: lower extremity Laterality: left Qualified Code(s): L03.116 - Cellulitis of left lower limb Is this a current diagnosis for this admission?: Yes (2) DM type 2 (diabetes mellitus, type 2) Qualifiers: Diabetes mellitus manager long term care insulin use: without manager long term care use Diabetes mellitus complication status: with skin complications Diabetes mellitus complication detail: with foot ulcer Qualified Code(s): E11.621 - Type 2 diabetes mellitus with foot ulcer; L97.509 - Non-pressure chronic ulcer of other part of unspecified foot with unspecified severity Is this a current diagnosis for this admission?: Yes (3) Hypertension Qualifiers: Hypertension type: essential hypertension Qualified Code(s): I10 - Essential (primary) hypertension Is this a current diagnosis for this admission?: No (4) Leukocytosis Qualifiers: Leukocytosis type: bandemia Qualified Code(s): D72.825 - Bandemia Is this a current diagnosis for this admission?: Yes - Plan Summary Summary: 1.cellulitis of the left great toe Plan to place him in IMCU surgical consult was requested started on Invanz. MRI of the left foot was requested. GI prophylaxis DVT prophylaxis initiated. Started on Dilaudid 1 mg IV every 4 as needed for pain. Start on Zofran 4 mg IV every 6 as needed for nausea. Started on insulin sliding scale. pt also placed on Lantus 10 units p.o. twice daily patient is taking metformin at home which is on hold. 05/29/2019-patient admitted with left foot cellulitis, negative for osteomyelitis. Presently on meropenem on daily Nasalide. Still have a spiking fever of 102 and a history of MRSA. Plan is to continue IV antibiotic therapy for now as per surgical recommendations. 2.type 2 diabetes mellitus Patient blood sugar is 265 and hemoglobin A1c is 8.9, patient is on metformin at home which is on hold started on insulin sliding scale before meals and at bedtime and Lantus 10 units p.o. twice daily dietary consult is requested. 05/28/2019-patient blood sugar today is 189 and hemoglobin A1c is 8.7. Presently on insulin sliding scale before meals and at bedtime Lantus 10 units twice a day. Plan is to continue the present management. 3.hypertension. Blood pressure is 138/57. Stable. Start her on hydralazine 10 mg IV every 4 as needed for blood pressure more than systolic more than 150. 05/29/2019-patient blood pressure today is 26/44 on hydralazine 10 mg IV every 4 as needed for high blood pressure he is receiving IV fluids at this moment. 4.leukocytosis wBC count is a 16,000 most likely secondary to cellulitis of the left great toe MRI of the left foot is pending we are looking for osteomyelitis. 05/29/2019-WBC count went up to 8000 today. Most likely secondary to left lower leg cellulitis. Plan is to check the labs on daily basis.
[2019-05-29] MEDS: OXYCODONE-ACETAMINOPHEN 5-325 MG TABLET PO PRN ×2 (12:18→17:08)
[2019-05-29] MEDS: ONDANSETRON HCL INJ/PF 4 MG/2 ML SDV IV PRN ×2 (12:24→18:16)
--- NOTE | 2019-05-29 13:15 | PDOC PROGRESS REPORT ---
Subjective Progress Note for:: 05/29/19 Subjective:: The patient is complaining of left leg pain as well as swelling of the left leg and foot Reason For Visit: LT FOOT CELLUTLITIS Physical Exam Vital Signs: Temp Pulse Resp BP Pulse Ox 98.3 F 75 16 152/67 H 97 05/29/19 11:29 05/29/19 11:29 05/29/19 11:29 05/29/19 11:29 05/29/19 11:29 Intake & Output 05/28/19 05/29/19 05/30/19 06:59 06:59 06:59 Intake Total 4500 350 Balance 4500 350 Weight 96.3 kg 98 kg General appearance: PRESENT: no acute distress Pulses: PRESENT: +2 pedal pulses bilateral Extremities exam: PRESENT: +2 edema - Diffuse edema of the left leg and foot;, other - Left great toe edematous, erythematous, small ulcer of the plantar aspect Results Laboratory Results: 05/29/19 05:34 05/29/19 05:34 05/29/19 05/29/19 05/29/19 05:34 05:34 05:34 WBC 20.3 H RBC 4.05 L Hgb 11.6 L Hct 34.9 L MCV 86 MCH 28.8 MCHC 33.4 RDW 13.3 Plt Count 213 Seg Neutrophils % Not Reportable Sodium 133.2 L Potassium 3.5 L Chloride 100 Carbon Dioxide 23 Anion Gap 10 BUN 14 Creatinine 1.10 Est GFR ( Amer) > 60 Glucose 189 H Calcium 8.2 L Magnesium 1.5 L Total Bilirubin 1.0 AST 21 Alkaline Phosphatase 45 Total Protein 5.9 L Albumin 3.1 L Triglycerides 100 Cholesterol 134.13 LDL Cholesterol Direct 86 VLDL Cholesterol 20.0 HDL Cholesterol 40 TSH 0.46 L 05/28/19 05/28/19 05/28/19 08:34 08:34 15:50 Creatine Kinase 145 117 CK-MB (CK-2) Troponin I 0.014 05/28/19 05/28/19 05/28/19 15:50 20:25 20:25 Creatine Kinase 144 CK-MB (CK-2) 0.54 0.61 Troponin I 0.024 0.031 05/29/19 05/29/19 02:41 02:41 Creatine Kinase 259 H CK-MB (CK-2) 1.26 Troponin I 0.032 Impressions: Lower Extremity MRI 05/28/19 00:00 IMPRESSION: 1. NO EVIDENCE FOR OSTEOMYELITIS. 2. SUBCUTANEOUS SOFT TISSUE EDEMA/INFLAMMATION. NO EVIDENCE OF ABSCESS. 3. POSTERIOR SUBLUXATION OF THE MTP JOINT OF THE 2ND TOE, PRESUMABLY CHRONIC. Toe X-Ray 05/28/19 07:54 IMPRESSION: SUBLUXATION OF THE MTP JOINT OF THE 2ND TOE, PRESUMED CHRONIC. NO OTHER SIGNIFICANT RADIOGRAPHIC FINDINGS. Assessment & Plan - Diagnosis (1) Cellulitis of toe of left foot Is this a current diagnosis for this admission?: Yes (2) DM type 2 (diabetes mellitus, type 2) Qualifiers: Diabetes mellitus intermediate accountant insulin use: without intermediate accountant use Diabetes mellitus complication status: with skin complications Diabetes mellitus complication detail: with foot ulcer Qualified Code(s): E11.621 - Type 2 diabetes mellitus with foot ulcer; L97.509 - Non-pressure chronic ulcer of other part of unspecified foot with unspecified severity Is this a current diagnosis for this admission?: Yes - Time Time Spent with patient: 15-24 minutes - Plan Summary Plan Summary: Assessment: Hospital day #2 following admission for left foot cellulitis and edema Diffuse edema with pain of the left leg Decreased edema of the left foot Improved redness and edema of the left great toe Plan: Continue leg elevation and strict bedrest Obtain venous duplex left lower extremity to rule out DVT, stat Continue IV antibiotics Patient can be discharged to home once the left lower extremity edema has resolved and he is pain-free I will sign off. Please call me with questions.
--- NOTE | 2019-05-29 14:19 | RADIOLOGY REPORT (SQ) ---
EXAM DESCRIPTION: VENOUS UNILATERAL LOWER COMPLETED DATE/TIME: 05/29/2019 2:11 pm REASON FOR STUDY: pain ands swelling left leg, r/o DVT LLE COMPARISON: None. TECHNIQUE: Dynamic and static san[place] scale and color images acquired of the left leg venous system. Se lected spectral images acquired with additional compression and augmentation maneuvers. The contralat eral common femoral vein and saphenofemoral junction were also imaged. Images stored on PACS. LIMITATIONS: None. FINDINGS: COMMON FEMORAL: Normal phasicity, compression and augmentation. No visualized echogenic ma terial on sanabria scale. No defects on color images. FEMORAL: Normal compression and augmentation. No visualized echogenic material on sanabria scale. No defe cts on color images. POPLITEAL: Normal compression, augmentation. No visualized echogenic material on sanabria scale. No defec ts on color images. CALF VESSELS: Normal compression, augmentation. No visualized echogenic material on sanabria scale. No de fects on color images. GSV and SSV: Normal compression, augmentation. No visualized echogenic material on sanabria scale. No def ects on color images. ANY DEEP VENOUS INSUFFICIENCY: No. ANY EVIDENCE OF POPLITEAL CYST: No. OTHER: No other significant finding. CONTRALATERAL COMMON FEMORAL VEIN AND SAPHENOFEMORAL JUNCTION: Normal phasicity, compression and augmentation. No visualized echogenic material on sanabria scale. No de fects on color images. IMPRESSION: NO EVIDENCE DVT OR SVT IN THE LEFT LEG. TECHNICAL DOCUMENTATION: JOB ID: [id number] [employer]- All Rights Reserved Reading location - IP/workstation name: [email or web address]
[2019-05-29] MEDS: CHLORPROMAZINE HCL INJ 25 MG/1 ML AMPULE IV PRN (21:00)
[2019-05-30] MEDS: MEROPENEM 1 GM in NORMAL SALINE 50 ML IV SCH ×3 (05:09→22:46)
[2019-05-30] MEDS: LINEZOLID 600 MG/300 ML RTUPB IV SCH ×2 (05:10→17:09)
[2019-05-30] MEDS: OXYCODONE-ACETAMINOPHEN 5-325 MG TABLET PO PRN ×2 (05:39→16:32)
[2019-05-30 07:19] LABS: ABSOLUTE BASOPHILS # (AUTO) 0.1 10^3/uL (0.0-0.2); ABSOLUTE LYMPHOCYTES (AUTO) 1.2 10^3/uL (0.5-4.7); ABSOLUTE MONOCYTES (AUTO) 1.8 10^3/uL (0.1-1.4); ABSOLUTE NEUT (AUTO) 11.8 10^3/uL (1.7-8.2); BASOPHILS % (AUTO) 0.3 % (0-2); EOSINOPHILS % (AUTO) 0.2 % (0-6); HEMATOCRIT 31.6 % (37.9-51.0); HEMOGLOBIN 10.9 g/dL (13.5-17.0); LYMPHOCYTES % (AUTO) 7.8 % (13-45); MEAN CORPUSCULAR HEMOGLOBIN 29.3 pg (27.0-33.4); MEAN CORPUSCULAR HGB CONC 34.3 g/dL (32.0-36.0); MEAN CORPUSCULAR VOLUME 85 fl (80-97); MONOCYTES % (AUTO) 12.2 % (3-13); PLATELET COUNT 198 10^3/uL (150-450); RED BLOOD COUNT 3.71 10^6/uL (4.35-5.55); SEGMENTED NEUTROPHILS % (AUTO) 79.5 % (42-78); TOTAL CELLS COUNTED % (AUTO) 100 %; WHITE BLOOD COUNT 14.8 10^3/uL (4.0-10.5)
[2019-05-30 08:00] LABS: ALBUMIN 2.6 g/dL (3.5-5.0); ALKALINE PHOSPHATASE 39 U/L (38-126); ANION GAP 8 (5-19); ASPARTATE AMINO TRANSFERASE 22 U/L (17-59); BILIRUBIN,DIRECT 0.2 mg/dL (0.0-0.4); BILIRUBIN,TOTAL 0.4 mg/dL (0.2-1.3); BLOOD UREA NITROGEN 11 mg/dL (7-20); CALCIUM 7.8 mg/dL (8.4-10.2); CARBON DIOXIDE 22 mmol/L (22-30); CHLORIDE 100 mmol/L (98-107); GLUCOSE 148 mg/dL (75-110); POTASSIUM 3.1 mmol/L (3.6-5.0); TOTAL PROTEIN 5.4 g/dL (6.3-8.2)
[2019-05-30] MEDS: INSULIN REG, HUMAN 100 UNIT/ML 3 ML VIAL (PYX) SUBCUT SCH ×4 (08:05→22:47)
--- NOTE | 2019-05-30 08:36 | PDOC PROGRESS REPORT ---
Subjective Progress Note for:: 05/30/19 Subjective:: 58 year old male history of type 2 diabetes mellitus, history of right great toe osteomyelitis status post amputation, renal failure secondary to vancomycin came to the emergency room with complaints of great toe swelling and pain for the last 2 to 3 days. He has a fever of 103 in the emergency room with a WBC count of 16,000. Medical consult was called for admission. Dr. Moreno is going to see the patient today. And agreed to stay in the hospital for further management. Invanz was given in the hospital. 05/29/[id number]-xaoy-old male with history of type 2 diabetes mellitus and history of right foot osteomyelitis admitted for left foot cellulitis MRI with contrast was done yesterday negative for osteomyelitis surgical consultation with Dr. Moreno was done. Patient was started on Invanz because patient has allergic reaction to vancomycin, the antibiotics are changed to meropenem today as per the pharmacy recommendations. Patient was also started on linozelide Patient still have a spiking fever of 102. I spoke to Dr. Moreno this morning ,he re quested me to talk to the radiology about possible CT of the lower extremity look for the abscesses. I spoke to Frantz in the radiology department his recommendation is MRI did not show any abscess there is no need for the investigations like CT. Patient WBC went up to 23,000 today. Did not want D odalis he wants to try Percocets from today. 05/30/[id number]-mobv-old male with history of type 2 diabetes mellitus right second toe osteomyelitis status post amputation admitted with left great toe ce llulitis. MRI of the left foot was done negative for osteomyelitis negative for abscess negative for fluid collection surgical consult was done recommendation is continue the IV antibiotic therapy. t Max is 100.2. Patient says he is feeling much better. Cultures are pending so far. Reason For Visit: LT FOOT CELLUTLITIS Physical Exam Vital Signs: Temp Pulse Resp BP Pulse Ox 100.2 F 72 22 H 157/66 H 92 05/30/19 05:41 05/30/19 06:45 05/30/19 05:41 05/30/19 05:41 05/30/19 05:41 Intake & Output 05/29/19 05/30/19 05/31/19 06:59 06:59 06:59 Intake Total 4500 3420 1000 Output Total 100 Balance 4500 3320 1000 Weight 98 kg 98.4 kg General appearance: PRESENT: no acute distress Head exam: PRESENT: atraumatic Eye exam: PRESENT: PERRLA Mouth exam: PRESENT: moist, tongue midline Teeth exam: PRESENT: poor dentation Neck exam: ABSENT: carotid bruit, JVD, lymphadenopathy, thyromegaly Respiratory exam: PRESENT: decreased breath sounds GI/Abdominal exam: PRESENT: normal bowel sounds, soft. ABSENT: distended, guarding, mass, organolmegaly, rebound, tenderness Rectal exam: PRESENT: deferred Extremities exam: PRESENT: other - Lower leg was swollen redness around the calf region. Peripheral pulses are poor. Musculoskeletal exam: PRESENT: ambulatory Neurological exam: PRESENT: alert, awake, oriented to person, oriented to place, oriented to time, oriented to situation, CN II-XII grossly intact. ABSENT: motor sensory deficit Psychiatric exam: PRESENT: appropriate affect, normal mood. ABSENT: homicidal ideation, suicidal ideation Results Laboratory Results: 05/30/19 06:05 05/30/19 06:05 05/30/19 05/30/19 06:05 06:05 WBC 14.8 H RBC 3.71 L Hgb 10.9 L Hct 31.6 L MCV 85 MCH 29.3 MCHC 34.3 RDW 13.0 Plt Count 198 Seg Neutrophils % 79.5 H Sodium 130.4 L Potassium 3.1 L Chloride 100 Carbon Dioxide 22 Anion Gap 8 BUN 11 Creatinine 0.99 Est GFR ( Amer) > 60 Glucose 148 H Calcium 7.8 L Magnesium 1.6 Total Bilirubin 0.4 AST 22 Alkaline Phosphatase 39 Total Protein 5.4 L Albumin 2.6 L 05/28/19 05/28/19 05/28/19 08:34 08:34 15:50 Creatine Kinase 145 117 CK-MB (CK-2) Troponin I 0.014 05/28/19 05/28/19 05/28/19 15:50 20:25 20:25 Creatine Kinase 144 CK-MB (CK-2) 0.54 0.61 Troponin I 0.024 0.031 05/29/19 05/29/19 02:41 02:41 Creatine Kinase 259 H CK-MB (CK-2) 1.26 Troponin I 0.032 Impressions: Lower Extremity MRI 05/28/19 00:00 IMPRESSION: 1. NO EVIDENCE FOR OSTEOMYELITIS. 2. SUBCUTANEOUS SOFT TISSUE EDEMA/INFLAMMATION. NO EVIDENCE OF ABSCESS. 3. POSTERIOR SUBLUXATION OF THE MTP JOINT OF THE 2ND TOE, PRESUMABLY CHRONIC. Toe X-Ray 05/28/19 07:54 IMPRESSION: SUBLUXATION OF THE MTP JOINT OF THE 2ND TOE, PRESUMED CHRONIC. NO OTHER SIGNIFICANT RADIOGRAPHIC FINDINGS. Venous Doppler Study 05/29/19 00:00 IMPRESSION: NO EVIDENCE DVT OR SVT IN THE LEFT LEG. Assessment and Plan - Diagnosis (1) Cellulitis Qualifiers: Site of cellulitis: extremity Site of cellulitis of extremity: lower extremity Laterality: left Qualified Code(s): L03.116 - Cellulitis of left lower limb Is this a current diagnosis for this admission?: Yes (2) DM type 2 (diabetes mellitus, type 2) Qualifiers: Diabetes mellitus shelter insulin use: without salvage determiner use Diabetes mellitus complication status: with skin complications Diabetes mellitus complication detail: with foot ulcer Qualified Code(s): E11.621 - Type 2 diabetes mellitus with foot ulcer; L97.509 - Non-pressure chronic ulcer of other part of unspecified foot with unspecified severity Is this a current diagnosis for this admission?: Yes (3) Hypertension Qualifiers: Hypertension type: essential hypertension Qualified Code(s): I10 - Essential (primary) hypertension Is this a current diagnosis for this admission?: No (4) Leukocytosis Qualifiers: Leukocytosis type: bandemia Qualified Code(s): D72.825 - Bandemia Is this a current diagnosis for this admission?: Yes - Plan Summary Summary: 1.cellulitis of the left great toe Plan to place him in IMCU surgical consult was requested started on Invanz. MRI of the left foot was requested. GI prophylaxis DVT prophylaxis initiated. Started on Dilaudid 1 mg IV every 4 as needed for pain. Start on Zofran 4 mg IV every 6 as needed for nausea. Started on insulin sliding scale. pt also placed on Lantus 10 units p.o. twice daily patient is taking metformin at home which is on hold. 05/29/2019-patient admitted with left foot cellulitis, negative for osteomyelitis. Presently on meropenem on daily Nasalide. Still have a spiking fever of 102 and a history of MRSA. Plan is to continue IV antibiotic therapy for now as per surgical recommendations. 05/30/2019-patient admitted with left foot cellulitis especially involving the left great toe. Consultation with Dr. Giuliano franco is done. Recommendation is conservative management with IV antibiotic therapy. T-max is 100.2 patient is presently on vancomycin and Zosyn cultures are no growth so far. 2.type 2 diabetes mellitus Patient blood sugar is 265 and hemoglobin A1c is 8.9, patient is on metformin at home which is on hold started on insulin sliding scale before meals and at bedtime and Lantus 10 units p.o. twice daily dietary consult is requested. 05/29/2019-patient blood sugar today is 189 and hemoglobin A1c is 8.9. Presently on insulin sliding scale before meals and at bedtime Lantus 10 units twice a day. Plan is to continue the present management. 05/30/2019-patient has history of type 2 diabetes mellitus. Latest blood sugar is 171 and hemoglobin A1c is 8.7. On Lantus 10 units twice a day and also insul in sliding scale before meals and at bedtime. Plan is to continue the present management dietary consult was requested. 3.hypertension. Blood pressure is 138/57. Stable. Start her on hydralazine 10 mg IV every 4 as needed for blood pressure more than systolic more than 150. 05/29/2019-patient blood pressure today is 126/44 on hydralazine 10 mg IV every 4 as needed for high blood pressure he is receiving IV fluids at this moment. 05/30/2019-patient blood pressure today is 157/66. Stable. Plan is to discontinue IV fluids from today. 4.leukocytosis wBC count is a 16,000 most likely secondary to cellulitis of the left great toe MRI of the left foot is pending we are looking for osteomyelitis. 05/29/2019-WBC count went up to 20,000 today. Most likely secondary to left lower leg cellulitis. Plan is to check the labs on daily basis. 05/30/2019-WBC count today is 14,000, improving from a 20,000 yesterday. On IV Zosyn and vancomycin plan is to continue the present management. T-max is 100.2 . 5.heart murmur Examination patient has a systolic heart murmur in the mitral area to arrange for the transthoracic echocardiogram today.
[2019-05-30] MEDS: INSULIN GLARGINE,HUM.REC.ANLOG 1,000 UNIT/10 ML VIAL SUBCUT SCH ×2 (09:04→22:47)
[2019-05-30] MEDS: ENOXAPARIN SODIUM INJ 40 MG/0.4 ML DISP.SYRIN SUBCUT SCH (09:04)
[2019-05-30] MEDS: FAMOTIDINE 20 MG TABLET PO SCH ×2 (09:04→22:48)
[2019-05-30] MEDS: ONDANSETRON HCL INJ/PF 4 MG/2 ML SDV IV PRN (16:34)
[2019-05-30] MEDS: ONDANSETRON HCL INJ/PF 4 MG/2 ML SDV IV SCH (17:12)
[2019-05-30] MEDS: ACETAMINOPHEN 325 MG TABLET PO PRN (18:48)
--- NOTE | 2019-05-30 20:45 | XCELERA REPORT ---
[address] [address] Transthoracic Echocardiogram Report Name: GISELLA HAYS Age: 58 yrs Gender: Male : 1960 Patient Status: Inpatient Patient Location: [address] [place], [place] [address] Study Date: 05/30/2019 11:29 AM Height: 72 in Weight: 216 lb BSA: 2.2 m2 Procedure: A two-dimensional transthoracic echocardiogram with color flow and Doppler was performed. Study Quality: Fair. Reason For Study: endocarditis History: endocarditis. Ordering Physician: CULLEN FISCHER Performed By: Jarad Reyna Interpretation Summary A two-dimensional transthoracic echocardiogram with color flow and Doppler was performed. Study Quality: Fair. The left ventricle is normal in size. There is mild concentric left ventricular hypertrophy. LV EF is 60% The left ventricular ejection fraction is within normal limits. There is no thrombus. No ASD ,VSD or PFO seen. The right ventricle is grossly normal size. The right ventricle is not well visualized secondary to technical limitations The right atrium is normal. The left atrium is moderately dilated. There is no evidence of mitral valve prolapse. There is no vegetation seen on the mitral valve. There is no mitral valve stenosis. There is a mild amount of mitral regurgitation There is aortic sclerosis without aortic stenosis. There is no aortic valve stenosis There is no LVOT obstruction. There is a trace amount of aortic regurgitation No defenite vegetation seen on the aortic valve,but recommend CHIP to be sure. There is no tricuspid stenosis. There is no tricuspid valve vegetation. There is a mild amount of tricuspid regurgitation There is mild pulmonary hypertension by echo RVSP is 45 to 39 mm of Hg , with RA mean of 5 to 10. There is no pulmonic valvular stenosis. There is a trace amount of pulmonic regurgitation The aortic root is normal size. The inferior vena cava appeared normal and decreased > 50% with respiration (RAP 5-10 mmHg) There is no pericardial effusion. MMode/2D Measurements & Calculations RVDd: 4.8 cm LVIDd: 4.6 cm FS: 19.2 % Ao root diam: 3.3 cm IVSd: 1.2 cm LVIDs: 3.7 cm EDV(Teich): 95.7 ml Ao root area: 8.4 cm2 LVPWd: 1.2 cm ESV(Teich): 57.8 ml LA dimension: 4.8 cm EF(Teich): 39.6 % Doppler Measurements & Calculations MV E max massiel: MV P1/2t max massiel: Ao V2 max: LV V1 max P.5 cm/sec 110.8 cm/sec 160.7 cm/sec 8.1 mmHg MV A max massiel: MV P1/2t: 71.9 msec Ao max PG: LV V1 max: 84.4 cm/sec MVA(P1/2t): 3.1 cm2 10.3 mmHg 142.6 cm/sec MV E/A: 1.4 MV dec slope: LV dP/dt: 1818 mmHg/s 451.4 cm/sec2 MV dec time: 0.17 sec PA V2 max: TR max massiel: MV P1/2t-pr_phl: 90.3 cm/sec 268.8 cm/sec 71.9 msec PA max P.3 mmHgTR max P.9 mmHg Left Ventricle The left ventricle is normal in size. There is mild concentric left ventricular hypertrophy. LV EF is 60%. The left ventricular ejection fraction is within normal limits. Doppler measurements suggest normal left ventricular diastolic function. The left ventricular wall motion is normal. There is no thrombus. No ASD ,VSD or PFO seen. Right Ventricle The right ventricle is grossly normal size. The right ventricle is not well visualized secondary to technical limitations. Atria The right atrium is normal. The left atrium is moderately dilated. Mitral Valve There is no evidence of mitral valve prolapse. There is no vegetation seen on the mitral valve. There is no mitral valve stenosis. There is a mild amount of mitral regurgitation. Aortic Valve There is aortic sclerosis without aortic stenosis. There is no aortic valve stenosis. There is no LVOT obstruction. There is a trace amount of aortic regurgitation. No defenite vegetation seen on the aortic valve,but recommend CHIP to be sure. Tricuspid Valve There is no tricuspid valve vegetation. There is no tricuspid stenosis. There is a mild amount of tricuspid regurgitation. There is mild pulmonary hypertension by echo. RVSP is 45 to 39 mm of Hg , with RA mean of 5 to 10. Pulmonic Valve There is no pulmonic valvular stenosis. There is a trace amount of pulmonic regurgitation. Great Vessels The aortic root is normal size. The inferior vena cava appeared normal and decreased > 50% with respiration (RAP 5-10 mmHg). Effusions There is no pericardial effusion. : CULLEN FISCHER Lakshmi
[2019-05-30] MEDS ORDERED: CHLORPROMAZINE HCL INJ 25 MG/1 ML AMPULE ONE (22:32)
[2019-05-30] MEDS: CHLORPROMAZINE HCL INJ 25 MG/1 ML AMPULE IV PRN (22:48)
[2019-05-31] MEDS: OXYCODONE-ACETAMINOPHEN 5-325 MG TABLET PO PRN (04:37)
[2019-05-31] MEDS: MEROPENEM 1 GM in NORMAL SALINE 50 ML IV SCH ×3 (05:30→22:04)
[2019-05-31] MEDS: LINEZOLID 600 MG/300 ML RTUPB IV SCH ×2 (05:31→20:55)
[2019-05-31 07:34] LABS: ABSOLUTE BASOPHILS # (AUTO) 0.1 10^3/uL (0.0-0.2); ABSOLUTE EOSINOPHILS # (AUTO) 0.1 10^3/uL (0.0-0.6); ABSOLUTE MONOCYTES (AUTO) 1.5 10^3/uL (0.1-1.4); BASOPHILS % (AUTO) 0.7 % (0-2); EOSINOPHILS % (AUTO) 0.8 % (0-6); HEMATOCRIT 31.5 % (37.9-51.0); HEMOGLOBIN 10.8 g/dL (13.5-17.0); LYMPHOCYTES % (AUTO) 8.2 % (13-45); MEAN CORPUSCULAR HEMOGLOBIN 29.2 pg (27.0-33.4); MEAN CORPUSCULAR HGB CONC 34.3 g/dL (32.0-36.0); MEAN CORPUSCULAR VOLUME 85 fl (80-97); PLATELET COUNT 213 10^3/uL (150-450); RED CELL DISTRIBUTION WIDTH 13.1 % (11.5-14.0); SEGMENTED NEUTROPHILS % (AUTO) 77.3 % (42-78); TOTAL CELLS COUNTED % (AUTO) 100 %; WHITE BLOOD COUNT 11.7 10^3/uL (4.0-10.5)
[2019-05-31 07:59] LABS: ALBUMIN 2.8 g/dL (3.5-5.0); ALKALINE PHOSPHATASE 46 U/L (38-126); ANION GAP 9 (5-19); ASPARTATE AMINO TRANSFERASE 34 U/L (17-59); BILIRUBIN,DIRECT 0.1 mg/dL (0.0-0.4); BILIRUBIN,TOTAL 0.5 mg/dL (0.2-1.3); BLOOD UREA NITROGEN 9 mg/dL (7-20); CALCIUM 8.2 mg/dL (8.4-10.2); CARBON DIOXIDE 23 mmol/L (22-30); CHLORIDE 99 mmol/L (98-107); GLUCOSE 243 mg/dL (75-110); POTASSIUM 3.3 mmol/L (3.6-5.0); TOTAL PROTEIN 5.7 g/dL (6.3-8.2)
[2019-05-31] MEDS: INSULIN REG, HUMAN 100 UNIT/ML 3 ML VIAL (PYX) SUBCUT SCH ×2 (08:05→12:29)
[2019-05-31] MEDS: ONDANSETRON HCL INJ/PF 4 MG/2 ML SDV IV SCH ×3 (08:15→16:43)
[2019-05-31] MEDS: FAMOTIDINE 20 MG TABLET PO SCH ×2 (09:30→22:04)
[2019-05-31] MEDS ORDERED: POTASSIUM CHLORIDE 10 MEQ CAPSULE.ER PO ONE (09:30)
[2019-05-31] MEDS: ENOXAPARIN SODIUM INJ 40 MG/0.4 ML DISP.SYRIN SUBCUT SCH (09:41)
[2019-05-31] MEDS: INSULIN GLARGINE,HUM.REC.ANLOG 1,000 UNIT/10 ML VIAL SUBCUT SCH ×2 (09:42→22:05)
--- NOTE | 2019-05-31 13:25 | PDOC PROGRESS REPORT ---
Subjective Progress Note for:: 05/31/19 Subjective:: 58 year old male history of type 2 diabetes mellitus, history of right great toe osteomyelitis status post amputation, renal failure secondary to vancomycin came to the emergency room with complaints of great toe swelling and pain for the last 2 to 3 days. He has a fever of 103 in the emergency room with a WBC count of 16,000. Medical consult was called for admission. Dr. Moreno is going to see the patient today. And agreed to stay in the hospital for further management. Invanz was given in the hospital. 05/29/[id number]-qcir-old male with history of type 2 diabetes mellitus and history of right foot osteomyelitis admitted for left foot cellulitis MRI with contrast was done yesterday negative for osteomyelitis surgical consultation with Dr. Moreno was done. Patient was started on Invanz because patient has allergic reaction to vancomycin, the antibiotics are changed to meropenem today as per the pharmacy recommendations. Patient was also started on linozelide Patient still have a spiking fever of 102. I spoke to Dr. Moreno this morning ,he req uested me to talk to the radiology about possible CT of the lower extremity look for the abscesses. I spoke to Frantz in the radiology department his recommendation is MRI did not show any abscess there is no need for the investigations like CT. Patient WBC went up to 23,000 today. Did not want Di laudid he wants to try Percocets from today. 05/30/[id number]-rlof-old male with history of type 2 diabetes mellitus right second toe osteomyelitis status post amputation admitted with left great toe lyric lulitis. MRI of the left foot was done negative for osteomyelitis negative for abscess negative for fluid collection surgical consult was done recommendation is continue the IV antibiotic therapy. t Max is 100.2. Patient says he is feeling much better. Cultures are pending so far. 05/31/2019. No acute events overnight. Mild improvement of left toe erythema and swelling, persistent swelling of the right lower extremity below the knee, with significant erythema neurovascularly intact. Patient reports improvement of his symptoms, denies any fever, chills, nausea, vomiting, diarrhea, constipation or any urinary symptoms. MRI of left lower extremity is negative for osteomyelitis and venous Doppler negative for DVT. Surgery has signed off at this point, recommending IV antibiotic therapy. Reason For Visit: LT FOOT CELLUTLITIS Physical Exam Vital Signs: Temp Pulse Resp BP Pulse Ox 98.6 F 82 18 173/79 H 96 05/31/19 11:49 05/31/19 11:49 05/31/19 11:49 05/31/19 11:49 05/31/19 11:49 Intake & Output 05/30/19 05/31/19 06/01/19 06:59 06:59 06:59 Intake Total 3420 2460 Output Total 100 Balance 3320 2460 Weight 98.4 kg 98.4 kg General appearance: PRESENT: obese Head exam: PRESENT: atraumatic, normocephalic Respiratory exam: PRESENT: clear to auscultation kayleen. ABSENT: rales, rhonchi, wheezes Cardiovascular exam: PRESENT: RRR. ABSENT: diastolic murmur, rubs, systolic murmur Extremities exam: PRESENT: full ROM, tenderness - Left lower extremity below the knee circumferential erythema and swelling and TTP, no skin compromise, no active discharge, neurovascularly intact.. ABSENT: calf tenderness, clubbing, pedal edema Neurological exam: PRESENT: alert, awake, oriented to person, oriented to place, oriented to time, oriented to situation, CN II-XII grossly intact. ABSENT: motor sensory deficit Results Laboratory Results: 05/31/19 06:31 05/31/19 06:31 05/31/19 05/31/19 06:31 06:31 WBC 11.7 H RBC 3.70 L Hgb 10.8 L Hct 31.5 L MCV 85 MCH 29.2 MCHC 34.3 RDW 13.1 Plt Count 213 Seg Neutrophils % 77.3 Sodium 131.2 L Potassium 3.3 L Chloride 99 Carbon Dioxide 23 Anion Gap 9 BUN 9 Creatinine 1.09 Est GFR ( Amer) > 60 Glucose 243 H Calcium 8.2 L Magnesium 1.6 Total Bilirubin 0.5 AST 34 Alkaline Phosphatase 46 Total Protein 5.7 L Albumin 2.8 L 05/28/19 05/28/19 05/28/19 08:34 08:34 15:50 Creatine Kinase 145 117 CK-MB (CK-2) Troponin I 0.014 05/28/19 05/28/19 05/28/19 15:50 20:25 20:25 Creatine Kinase 144 CK-MB (CK-2) 0.54 0.61 Troponin I 0.024 0.031 05/29/19 05/29/19 02:41 02:41 Creatine Kinase 259 H CK-MB (CK-2) 1.26 Troponin I 0.032 Impressions: Lower Extremity MRI 05/28/19 00:00 IMPRESSION: 1. NO EVIDENCE FOR OSTEOMYELITIS. 2. SUBCUTANEOUS SOFT TISSUE EDEMA/INFLAMMATION. NO EVIDENCE OF ABSCESS. 3. POSTERIOR SUBLUXATION OF THE MTP JOINT OF THE 2ND TOE, PRESUMABLY CHRONIC. Toe X-Ray 05/28/19 07:54 IMPRESSION: SUBLUXATION OF THE MTP JOINT OF THE 2ND TOE, PRESUMED CHRONIC. NO OTHER SIGNIFICANT RADIOGRAPHIC FINDINGS. Venous Doppler Study 05/29/19 00:00 IMPRESSION: NO EVIDENCE DVT OR SVT IN THE LEFT LEG. Assessment and Plan - Diagnosis (1) Cellulitis Qualifiers: Site of cellulitis: extremity Site of cellulitis of extremity: lower extremity Laterality: left Qualified Code(s): L03.116 - Cellulitis of left lower limb Is this a current diagnosis for this admission?: Yes (2) DM type 2 (diabetes mellitus, type 2) Qualifiers: Diabetes mellitus long term care social worker insulin use: without care home use Diabetes mellitus complication status: with skin complications Diabetes mellitus complication detail: with foot ulcer Qualified Code(s): E11.621 - Type 2 diabetes mellitus with foot ulcer; L97.509 - Non-pressure chronic ulcer of other part of unspecified foot with unspecified severity Is this a current diagnosis for this admission?: Yes (3) Hypertension Qualifiers: Hypertension type: essential hypertension Qualified Code(s): I10 - Essential (primary) hypertension Is this a current diagnosis for this admission?: No (4) Leukocytosis Qualifiers: Leukocytosis type: bandemia Qualified Code(s): D72.825 - Bandemia Is this a current diagnosis for this admission?: Yes (5) Overweight (BMI 25.0-29.9) Is this a current diagnosis for this admission?: Yes - Plan Summary Summary: 1.cellulitis of the left great toe Plan to place him in IMCU surgical consult was requested started on Invanz. MRI of the left foot was requested. GI prophylaxis DVT prophylaxis initiated. Started on Dilaudid 1 mg IV every 4 as needed for pain. Start on Zofran 4 mg IV every 6 as needed for nausea. Started on insulin sliding scale. pt also placed on Lantus 10 units p.o. twice daily patient is taking metformin at home which is on hold. 05/29/2019-patient admitted with left foot cellulitis, negative for osteomyelitis. Presently on meropenem on daily Nasalide. Still have a spiking fever of 102 and a history of MRSA. Plan is to continue IV antibiotic therapy for now as per surgical recommendations. 05/30/2019-patient admitted with left foot cellulitis especially involving the left great toe. Consultation with Dr. Giuliano franco is done. Recommendation is conservative management with IV antibiotic therapy. T-max is 100.2 patient is presently on vancomycin and Zosyn cultures are no growth so far. 05/31/2019. Extremity cellulitis with left toe base gangrene. Surgery has signed off, MRI left lower extremity negative for any osteomyelitis, abscess or fluid collection, venous Doppler negative for any DVT. Recommendation is to continue IV empiric antibiotics. Is negative so far. We will continue IV empiric antibiotics and switch to p.o. antibiotics once symptomatic improvement. Monitor for compartment syndrome. 2.type 2 diabetes mellitus Patient blood sugar is 265 and hemoglobin A1c is 8.9, patient is on metformin at home which is on hold started on insulin sliding scale before meals and at bedtime and Lantus 10 units p.o. twice daily dietary consult is requested. 05/29/2019-patient blood sugar today is 189 and hemoglobin A1c is 8.9. Presently on insulin sliding scale before meals and at bedtime Lantus 10 units twice a day. Plan is to continue the present management. 05/30/2019-patient has history of type 2 diabetes mellitus. Latest blood sugar is 171 and hemoglobin A1c is 8.7. On Lantus 10 units twice a day and also insulin sliding scale before meals and at bedtime. Plan is to continue the present management dietary consult was requested. 05/31/2019. History of uncontrolled diabetes. Hemoglobin A1c 8.7 on this admission. History of noncompliance. Takes metformin and glyburide at home. Increase Lantus to 12 units twice daily, continue sliding scale insulin, adjust dosage as needed. Outpatient PCP follow-up. Restart metformin upon discharge. 3.hypertension. Blood pressure is 138/57. Stable. Start her on hydralazine 10 mg IV every 4 as needed for blood pressure more than systolic more than 150. 05/29/2019-patient blood pressure today is 126/44 on hydralazine 10 mg IV every 4 as needed for high blood pressure he is receiving IV fluids at this moment. 05/30/2019-patient blood pressure today is 157/66. Stable. Plan is to discontinue IV fluids from today. 05/31/2019. BP uncontrolled. UDS positive for cocaine. Start on losartan 50 mg p.o. daily, adjust as needed. Continue hydralazine IV as needed. 4.leukocytosis wBC count is a 16,000 most likely secondary to cellulitis of the left great toe MRI of the left foot is pending we are looking for osteomyelitis. 05/29/2019-WBC count went up to 20,000 today. Most likely secondary to left lower leg cellulitis. Plan is to check the labs on daily basis. 05/30/2019-WBC count today is 14,000, improving from a 20,000 yesterday. On IV Zosyn and vancomycin plan is to continue the present management. T-max is 100.2. 05/31/2019. WBC 11.7. Blood cultures negative. Afebrile. Continue Vanco and Zosyn, switch to p.o. antibiotics once symptomatic improvement. 5.heart murmur Examination patient has a systolic heart murmur in the mitral area to arrange for the transthoracic echocardiogram today.
[2019-05-31] MEDS ORDERED: GLUCAGON,HUMAN RECOMB 1 MG INJ IM PRN (13:39)
[2019-05-31] MEDS ORDERED: DEXTROSE 50%-WATER 25 GM/50 ML DISP.SYRIN IV PRN ×2 (13:39)
[2019-05-31] MEDS ORDERED: DEXTROSE 40% GEL 15 GM TUBE PO PRN ×2 (13:39)
[2019-05-31] MEDS: LORAZEPAM INJ 2 MG/1 ML VIAL IV PRN ×2 (14:06→16:39)
[2019-05-31] MEDS: INSULIN LISPRO 100 UNIT/ML 3 ML VIAL SUBCUT SCH ×2 (16:39→22:04)
[2019-05-31] MEDS ORDERED: DIAZEPAM INJ 10 MG/2 ML DISP.SYRIN IV PRN (17:25)
[2019-05-31] MEDS ORDERED: HALOPERIDOL LACTATE INJ 5 MG/1 ML VIAL IV PRN (17:43)
--- NOTE | 2019-05-31 19:17 | RADIOLOGY REPORT (SQ) ---
EXAM DESCRIPTION: CT LT LOWER EXTREMITY WITHOUT COMPLETED DATE/TIME: 05/31/2019 6:53 pm REASON FOR STUDY: r/o compartment syndrome COMPARISON: None. EXAM PARAMETERS: TECHNIQUE:Axial imaging performed through the left lower leg with reformatted coron al and sagittal imaging windowed for bone and soft tissues. Images saved to PACS. 3D IMAGING: Were 3D images as MIP, SSD, or volume rendering performed at the work station? No All CT scanners at this facility use dose modulation, iterative reconstruction, and/or weight based d osing when appropriate to reduce radiation dose to as low as reasonably achievable (ALARA). [facility]: Dose Right [facility]: SureCare [facility]: Dose Right [facility]: Teradose 4D [facility]: [employer] RADIATION DOSE: CT Rad equipment meets quality standard of care and radiation dose reduction techniqu es were employed. CTDIvol: 4.1 mGy. DLP: 197 mGy-cm. mGy. LIMITATIONS: None. FINDINGS: SOFT TISSUES: There is subcutaneous soft tissue edema most prominent in the anterior aspec t of the leg. There is no fluid collection. The intramuscular fascial planes and soft tissue planes are maintained. BONES: There is a prior ACL repair. No acute osseous findings. MINERALIZATION: Normal. OTHER: No other significant finding. IMPRESSION: Subcutaneous edema. Cannot exclude cellulitis. No evidence of compartment syndrome. H ave compartment measurements been obtained? TECHNICAL DOCUMENTATION: JOB ID: [id number] [facility] [id number]: Final reports with documentation of one or more dose reduction techniques (e.g., Automate d exposure control, adjustment of the mA and/or kV according to patient size, use of iterative recons truction technique) 2010 [employer]- All Rights Reserved Reading location - IP/workstation name: [email or web address]
--- NOTE | 2019-05-31 20:57 | PDOC CONSULTATION ---
Consultation Consult Date: 05/31/19 Provider Consulted: BRIANNA SAAVEDRA Consult reason:: left anterior leg redness, tenderness History of Present Illness Admission Date/PCP: 05/28/19 10:21 BRIDGER MARTINEZ MD History of Present Illness: The patient is a 58-year-old diabetic male admitted on May 28 for erythema, swelling, tenderness of the left great toe. The general surgery service was consulted on the day of admission and seen the day after. At the time the redness swelling and discomfort of the left great toe had improved. I been consulted again today because of worsening of the redness swelling and tenderness of the left anterior leg extending from just below the knee to the ankle. CT scan of the left leg was done today revealing moderately severe edema of the subcutaneous tissue of the left leg and normal fascial and muscle planes which ruled out compartment syndrome as per radiologist. The patient does not report spontaneous pain of the left leg as well as denies pain over the left leg upon moving his toes. Currently on IV antibiotics (Zyvox and meropenem). In addition, he has blood pressure count has improved from 16,000 on admission to 11.600 today. Past Medical History Cardiac Medical History: Reports: Hypertension Endocrine Medical History: Reports: Diabetes Mellitus Type 2 Psychiatric Medical History: Reports: Depression Past Surgical History Past Surgical History: Reports: Orthopedic Surgery - Left Knee, Ruptured Disc Repair L4/L5 Social History Lives with: Family Smoking Status: Never Smoker Electronic Cigarette use?: No Frequency of Alcohol Use: Heavy Hx Recreational Drug Use: No Drugs: None Hx Prescription Drug Abuse: No Family History Family History: Reviewed & Not Pertinent Parental Family History Reviewed: No Children Family History Reviewed: No Sibling(s) Family History Reviewed.: No Medication/Allergy Home Medications: Metformin HCl [Glucophage] 1,000 mg PO BID 05/28/19 Allergies/Adverse Reactions: aspartame [From Nutrasweet Aspartame] Allergy (Verified 02/16/19 10:53) Coconut * [Coconut] Allergy (Verified 02/16/19 10:53) vancomycin Allergy (Verified 02/16/19 10:53) Physical Exam Vital Signs: Temp Pulse Resp BP Pulse Ox 98.7 F 87 18 174/69 H 97 05/31/19 15:21 05/31/19 15:21 05/31/19 15:21 05/31/19 15:21 05/31/19 15:21 Intake & Output 05/30/19 05/31/19 06/01/19 06:59 06:59 06:59 Intake Total 3420 2510 50 Output Total 100 Balance 3320 2510 50 Weight 98.4 kg 98.4 kg General appearance: PRESENT: no acute distress Head exam: PRESENT: atraumatic Eye exam: PRESENT: EOMI Mouth exam: PRESENT: moist, neck supple Respiratory exam: PRESENT: clear to auscultation kayleen Cardiovascular exam: PRESENT: RRR GI/Abdominal exam: PRESENT: soft Rectal exam: PRESENT: deferred Musculoskeletal exam: PRESENT: other - Left lower extremity = normal range of motion, edema diffuse from the knee down to the ankle and foot, redness on anterior aspect of the leg from just below the knee to the ankle, palpation of the muscle compartments reveals soft tissues without induration and no spontaneous pain. Results Laboratory Results: 05/31/19 06:31 05/31/19 06:31 05/31/19 05/31/19 06:31 06:31 WBC 11.7 H RBC 3.70 L Hgb 10.8 L Hct 31.5 L MCV 85 MCH 29.2 MCHC 34.3 RDW 13.1 Plt Count 213 Seg Neutrophils % 77.3 Sodium 131.2 L Potassium 3.3 L Chloride 99 Carbon Dioxide 23 Anion Gap 9 BUN 9 Creatinine 1.09 Est GFR ( Amer) > 60 Glucose 243 H Calcium 8.2 L Magnesium 1.6 Total Bilirubin 0.5 AST 34 Alkaline Phosphatase 46 Total Protein 5.7 L Albumin 2.8 L 05/28/19 05/28/19 05/28/19 08:34 08:34 15:50 Creatine Kinase 145 117 CK-MB (CK-2) Troponin I 0.014 05/28/19 05/28/19 05/28/19 15:50 20:25 20:25 Creatine Kinase 144 CK-MB (CK-2) 0.54 0.61 Troponin I 0.024 0.031 05/29/19 05/29/19 02:41 02:41 Creatine Kinase 259 H CK-MB (CK-2) 1.26 Troponin I 0.032 Impressions: Lower Extremity MRI 05/28/19 00:00 IMPRESSION: 1. NO EVIDENCE FOR OSTEOMYELITIS. 2. SUBCUTANEOUS SOFT TISSUE EDEMA/INFLAMMATION. NO EVIDENCE OF ABSCESS. 3. POSTERIOR SUBLUXATION OF THE MTP JOINT OF THE 2ND TOE, PRESUMABLY CHRONIC. Toe X-Ray 05/28/19 07:54 IMPRESSION: SUBLUXATION OF THE MTP JOINT OF THE 2ND TOE, PRESUMED CHRONIC. NO OTHER SIGNIFICANT RADIOGRAPHIC FINDINGS. Venous Doppler Study 05/29/19 00:00 IMPRESSION: NO EVIDENCE DVT OR SVT IN THE LEFT LEG. Lower Extremity CT 05/31/19 17:45 IMPRESSION: Subcutaneous edema. Cannot exclude cellulitis. No evidence of compartment syndrome. Have compartment measurements been obtained? Assessment & Plan - Diagnosis (1) Cellulitis of toe of left foot Is this a current diagnosis for this admission?: Yes (2) DM type 2 (diabetes mellitus, type 2) Qualifiers: Diabetes mellitus assisted insulin use: without superintendent terminal use Diabetes mellitus complication status: with skin complications Diabetes mellitus complication detail: with foot ulcer Qualified Code(s): E11.621 - Type 2 diabetes mellitus with foot ulcer; L97.509 - Non-pressure chronic ulcer of other part of unspecified foot with unspecified severity Is this a current diagnosis for this admission?: Yes - Plan Summary Plan Summary: Assessment: Cellulitis left anterior leg CT scan of the left leg reveals subcutaneous tissue edema of the left anterior leg, no involvement of the of Fascia or muscular planes Improved white blood cell count which has decreased from 16,000 on admission to 11,600 today Physical exam of the left lower extremity reveals minimal spontaneous pain, no pain on passive or active range of motion of the toes or ankle, diffuse redness anterior leg from just below the knee to the ankle No induration of the leg muscle compartments on palpation In view of the above findings, do not believe the patient has a compartment syndrome (it is usually a condition which occurred following severe trauma to the muscle compartments, as crush injuries, leg fractures, orthopedic procedures to the leg, i.e. rodding): Rather, the patient has a severe cellulitis to the anterior aspect of the leg Plan: No intervention planned Measurement of the left leg compartment pressures is not necessary at this point I am recommending to continue left leg elevation, strict bed rest, and completion of the current regimen of IV antibiotics. I will sign off, please call me with questions.
[2019-06-01] MEDS: MEROPENEM 1 GM in NORMAL SALINE 50 ML IV SCH ×3 (05:02→21:05)
[2019-06-01] MEDS: LINEZOLID 600 MG/300 ML RTUPB IV SCH ×2 (05:02→17:04)
[2019-06-01 06:29] LABS: ABSOLUTE BASOPHILS # (AUTO) 0.1 10^3/uL (0.0-0.2); ABSOLUTE EOSINOPHILS # (AUTO) 0.2 10^3/uL (0.0-0.6); ABSOLUTE LYMPHOCYTES (AUTO) 1.2 10^3/uL (0.5-4.7); ABSOLUTE MONOCYTES (AUTO) 1.2 10^3/uL (0.1-1.4); ABSOLUTE NEUT (AUTO) 6.8 10^3/uL (1.7-8.2); BASOPHILS % (AUTO) 0.6 % (0-2); EOSINOPHILS % (AUTO) 1.8 % (0-6); HEMATOCRIT 29.6 % (37.9-51.0); HEMOGLOBIN 10.3 g/dL (13.5-17.0); LYMPHOCYTES % (AUTO) 12.4 % (13-45); MEAN CORPUSCULAR HEMOGLOBIN 29.6 pg (27.0-33.4); MEAN CORPUSCULAR HGB CONC 34.7 g/dL (32.0-36.0); MEAN CORPUSCULAR VOLUME 85 fl (80-97); MONOCYTES % (AUTO) 13.1 % (3-13); PLATELET COUNT 221 10^3/uL (150-450); RED BLOOD COUNT 3.47 10^6/uL (4.35-5.55); RED CELL DISTRIBUTION WIDTH 13.3 % (11.5-14.0); SEGMENTED NEUTROPHILS % (AUTO) 72.1 % (42-78); TOTAL CELLS COUNTED % (AUTO) 100 %; WHITE BLOOD COUNT 9.4 10^3/uL (4.0-10.5)
[2019-06-01] MEDS: OXYCODONE-ACETAMINOPHEN 5-325 MG TABLET PO PRN ×2 (06:37→22:19)
[2019-06-01 06:47] LABS: ALBUMIN 2.8 g/dL (3.5-5.0); ALKALINE PHOSPHATASE 43 U/L (38-126); ANION GAP 9 (5-19); ASPARTATE AMINO TRANSFERASE 39 U/L (17-59); BILIRUBIN,DIRECT 0.2 mg/dL (0.0-0.4); BILIRUBIN,TOTAL 0.6 mg/dL (0.2-1.3); BLOOD UREA NITROGEN 9 mg/dL (7-20); CALCIUM 8.3 mg/dL (8.4-10.2); CARBON DIOXIDE 24 mmol/L (22-30); CHLORIDE 101 mmol/L (98-107); GLUCOSE 107 mg/dL (75-110); POTASSIUM 3.5 mmol/L (3.6-5.0); TOTAL PROTEIN 5.6 g/dL (6.3-8.2)
[2019-06-01] MEDS: INSULIN LISPRO 100 UNIT/ML 3 ML VIAL SUBCUT SCH ×4 (08:28→22:07)
[2019-06-01] MEDS: FAMOTIDINE 20 MG TABLET PO SCH ×2 (09:06→22:09)
[2019-06-01] MEDS: ENOXAPARIN SODIUM INJ 40 MG/0.4 ML DISP.SYRIN SUBCUT SCH (09:06)
[2019-06-01] MEDS: INSULIN GLARGINE,HUM.REC.ANLOG 1,000 UNIT/10 ML VIAL SUBCUT SCH ×2 (09:07→21:04)
--- NOTE | 2019-06-01 09:10 | PDOC PROGRESS REPORT ---
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 He has a fever of 103 in the emergency room with a WBC count of 16,000. Medical consult was called for admission. Dr. Moreno is going to see the patient today. And agreed to stay in the hospital for further management. Invanz was given in the hospital. 05/29/[id number]-wgku-old male with history of type 2 diabetes mellitus and history of right foot osteomyelitis admitted for left foot cellulitis MRI with contrast was done yesterday negative for osteomyelitis surgical consultation with Dr. Moreno was done. Patient was started on Invanz because patient has allergic reaction to vancomycin, the antibiotics are changed to meropenem today as per the pharmacy recommendations. Patient was also started on linozelide Patient still have a spiking fever of 102. I spoke to Dr. Moreno this morning ,he re quested me to talk to the radiology about possible CT of the lower extremity look for the abscesses. I spoke to Frantz in the radiology department his recommendation is MRI did not show any abscess there is no need for the investigations like CT. Patient WBC went up to 23,000 today. Did not want D jolieaudid he wants to try Percocets from today. 05/30/[id number]-kvta-old male with history of type 2 diabetes mellitus right second toe osteomyelitis status post amputation admitted with left great toe ce llulitis. MRI of the left foot was done negative for osteomyelitis negative for abscess negative for fluid collection surgical consult was done recommendation is continue the IV antibiotic therapy. t Max is 100.2. Patient says he is feeling much better. Cultures are pending so far. 05/31/2019. No acute events overnight. Mild improvement of left toe erythema and swelling, persistent swelling of the right lower extremity below the knee, with significant erythema neurovascularly intact. Patient reports improvement of his symptoms, denies any fever, chills, nausea, v omiting, diarrhea, constipation or any urinary symptoms. MRI of left lower extremity is negative for osteomyelitis and venous Doppler negative for DVT. Surgery has signed off at this point, recommending IV antibiotic therapy. 06/01/[id number]-eclp-old male admitted with left great toe cellulitis. Os teomyelitis is ruled out. Left lower leg was still swollen. CT of the lower extremity was done indicating subcutaneous edema most likely secondary to cellulitis. Surgical follow-up requested Dr. Aldana think is not a compartmental syndrome. MRI of the left lower extremity ruled out osteomyeliti s. Patient is afebrile. No acute events in the last 24 hours. Presently on meropenem and lenezolid. Reason For Visit: LT FOOT CELLUTLITIS Physical Exam Vital Signs: Temp Pulse Resp BP Pulse Ox 98.5 F 75 21 H 140/67 H 98 06/01/19 00:40 06/01/19 00:40 06/01/19 00:40 06/01/19 00:40 06/01/19 00:40 Intake & Output 05/31/19 06/01/19 06/02/19 06:59 06:59 06:59 Intake Total 2510 1160 Balance 2510 1160 Weight 98.4 kg 98 kg General appearance: PRESENT: no acute distress, obese Head exam: PRESENT: atraumatic Eye exam: PRESENT: PERRLA Mouth exam: PRESENT: moist, tongue midline Teeth exam: PRESENT: poor dentation Neck exam: ABSENT: carotid bruit, JVD, lymphadenopathy, thyromegaly Respiratory exam: PRESENT: decreased breath sounds Cardiovascular exam: PRESENT: RRR. ABSENT: diastolic murmur, rubs, systolic murmur GI/Abdominal exam: PRESENT: normal bowel sounds, soft. ABSENT: distended, guarding, mass, organolmegaly, rebound, tenderness Rectal exam: PRESENT: deferred Extremities exam: PRESENT: full ROM. ABSENT: calf tenderness, clubbing, pedal edema Neurological exam: PRESENT: alert, awake, oriented to person, oriented to place, oriented to time, oriented to situation, CN II-XII grossly intact. ABSENT: motor sensory deficit Psychiatric exam: PRESENT: appropriate affect, normal mood. ABSENT: homicidal ideation, suicidal ideation Results Laboratory Results: 06/01/19 05:35 06/01/19 05:35 06/01/19 06/01/19 05:35 05:35 WBC 9.4 RBC 3.47 L Hgb 10.3 L Hct 29.6 L MCV 85 MCH 29.6 MCHC 34.7 RDW 13.3 Plt Count 221 Seg Neutrophils % 72.1 Sodium 133.8 L Potassium 3.5 L Chloride 101 Carbon Dioxide 24 Anion Gap 9 BUN 9 Creatinine 0.92 Est GFR ( Amer) > 60 Glucose 107 Calcium 8.3 L Total Bilirubin 0.6 AST 39 Alkaline Phosphatase 43 Total Protein 5.6 L Albumin 2.8 L 05/28/19 05/28/19 05/28/19 08:34 08:34 15:50 Creatine Kinase 145 117 CK-MB (CK-2) Troponin I 0.014 05/28/19 05/28/19 05/28/19 15:50 20:25 20:25 Creatine Kinase 144 CK-MB (CK-2) 0.54 0.61 Troponin I 0.024 0.031 05/29/19 05/29/19 02:41 02:41 Creatine Kinase 259 H CK-MB (CK-2) 1.26 Troponin I 0.032 Impressions: Lower Extremity MRI 05/28/19 00:00 IMPRESSION: 1. NO EVIDENCE FOR OSTEOMYELITIS. 2. SUBCUTANEOUS SOFT TISSUE EDEMA/INFLAMMATION. NO EVIDENCE OF ABSCESS. 3. POSTERIOR SUBLUXATION OF THE MTP JOINT OF THE 2ND TOE, PRESUMABLY CHRONIC. Toe X-Ray 05/28/19 07:54 IMPRESSION: SUBLUXATION OF THE MTP JOINT OF THE 2ND TOE, PRESUMED CHRONIC. NO OTHER SIGNIFICANT RADIOGRAPHIC FINDINGS. Venous Doppler Study 05/29/19 00:00 IMPRESSION: NO EVIDENCE DVT OR SVT IN THE LEFT LEG. Lower Extremity CT 05/31/19 17:45 IMPRESSION: Subcutaneous edema. Cannot exclude cellulitis. No evidence of compartment syndrome. Have compartment measurements been obtained? Assessment and Plan - Diagnosis (1) Cellulitis Qualifiers: Site of cellulitis: extremity Site of cellulitis of extremity: lower e xtremity Laterality: left Qualified Code(s): L03.116 - Cellulitis of left lower limb Is this a current diagnosis for this admission?: Yes (2) DM type 2 (diabetes mellitus, type 2) Qualifiers: Diabetes mellitus terminal computer operator insulin use: without snf use Diabetes mellitus complication status: with skin complications Diabetes mellitus complication detail: with foot ulcer Qualified Code(s): E11.621 - Type 2 diabetes mellitus with foot ulcer; L97.509 - Non-pressure chronic ulcer of other part of unspecified foot with unspecified severity Is this a current diagnosis for this admission?: Yes (3) Hypertension Qualifiers: Hypertension type: essential hypertension Qualified Code(s): I10 - Essential (primary) hypertension Is this a current diagnosis for this admission?: No (4) Leukocytosis Qualifiers: Leukocytosis type: bandemia Qualified Code(s): D72.825 - Bandemia Is this a current diagnosis for this admission?: Yes - Plan Summary Summary: 1.cellulitis of the left great toe Plan to place him in IMCU surgical consult was requested started on Invanz. MRI of the left foot was requested. GI prophylaxis DVT prophylaxis initiated. Started on Dilaudid 1 mg IV every 4 as needed for pain. Start on Zofran 4 mg IV every 6 as needed for nausea. Started on insulin sliding scale. pt also placed on Lantus 10 units p.o. twice daily patient is taking metformin at home which is on hold. 05/29/2019-patient admitted with left foot cellulitis, negative for osteomyelitis. Presently on meropenem on daily Nasalide. Still have a spiking fever of 102 and a history of MRSA. Plan is to continue IV antibiotic therapy for now as per surgical recommendations. 05/30/2019-patient admitted with left foot cellulitis especially involving the left great toe. Consultation with Dr. Giuliano franco is done. Recommendation is conservative management with IV antibiotic therapy. T-max is 100.2 patient is presently on vancomycin and Zosyn cultures are no growth so far. 05/31/2019. Extremity cellulitis with left toe base gangrene. Surgery has signed off, MRI left lower extremity negative for any osteomyelitis, abscess or fluid collection, venous Doppler negative for any DVT. Recommendation is to continue IV empiric antibiotics. Is negative so far. We will continue IV empiric antibiotics and switch to p.o. antibiotics once symptomatic improvement. Monitor for compartment syndrome. 06/01/2019-patient came in with left great toe cellulitis MRI is negative for osteomyelitis. Left lower leg still swollen erythematous. With fluid blisters on the skin. Compartmental syndrome is ruled out. CT of the left lower extremity suggestive of subcutaneous edema most likely secondary to cellulitis. Patient is presently on linezolid and meropenem. Cultures are negative so far. 2.type 2 diabetes mellitus Patient blood sugar is 265 and hemoglobin A1c is 8.9, patient is on metformin at home which is on hold started on insulin sliding scale before meals and at bedtime and Lantus 10 units p.o. twice daily dietary consult is requested. 05/29/2019-patient blood sugar today is 189 and hemoglobin A1c is 8.9. Presently on insulin sliding scale before meals and at bedtime Lantus 10 units twice a day. Plan is to continue the present management. 10 05/30/2019-patient has history of type 2 diabetes mellitus. Latest blood sugar is 171 and hemoglobin A1c is 8.7. On Lantus 10 units twice a day and also insulin sliding scale before meals and at bedtime. Plan is to continue the present management dietary consult was requested. 05/31/2019. History of uncontrolled diabetes. Hemoglobin A1c 8.7 on this admission. History of noncompliance. Takes metformin and glyburide at home. Increase Lantus to 15 units twice daily, continue sliding scale insulin, adjust dosage as needed. Outpatient PCP follow-up. Restart metformin upon discharge. 06/01/2019-patient has history of type 2 diabetes mellitus latest blood sugar is 107. Hemoglobin A1c is 8.7. Is presently on Lantus 15 units twice a day and insulin sliding scale. 3.hypertension. Blood pressure is 138/57. Stable. Start her on hydralazine 10 mg IV every 4 as needed for blood pressure more than systolic more than 150. 05/29/2019-patient blood pressure today is 126/44 on hydralazine 10 mg IV every 4 as needed for high blood pressure he is receiving IV fluids at this moment. 05/30/2019-patient blood pressure today is 157/66. Stable. Plan is to discontinue IV fluids from today. 05/31/2019. BP uncontrolled. UDS positive for cocaine. Start on losartan 50 mg p.o. daily, adjust as needed. Continue hydralazine IV as needed. 06/01/2019-patient blood pressure today is 140/67. Patient is off the IV fluids. Left lower leg is extremely edematous plan to give 1 dose of IV Lasix today. 4.leukocytosis wBC count is a 16,000 most likely secondary to cellulitis of the left great toe MRI of the left foot is pending we are looking for osteomyelitis. 05/29/2019-WBC count went up to 20,000 today. Most likely secondary to left lower leg cellulitis. Plan is to check the labs on daily basis. 05/30/2019-WBC count today is 14,000, improving from a 20,000 yesterday. On IV Zosyn and vancomycin plan is to continue the present management. T-max is 100.2. 05/31/2019. WBC 11.7. Blood cultures negative. Afebrile. Continue Vanco and Zosyn, switch to p.o. antibiotics once symptomatic improvement. 06/01/2019-blood cultures are negative WBC count came back to normal at 9.4 today. Presently on linezolid and meropenem. pt has a history of vancomycin induced renal failure. 5.heart murmur Examination patient has a systolic heart murmur in the mitral area to arrange for the transthoracic echocardiogram today. 06/01/19- normal echo with EF 60% - Time Time Spent with patient: 25-34 minutes Medications reviewed and adjusted accordingly: Yes Anticipated discharge: Home
[2019-06-01] MEDS ORDERED: FUROSEMIDE INJ/PF 40 MG/4 ML SDV IV ONE (09:30)
[2019-06-01 11:26] LABS: URINE AMPHETAMINES SCREEN NEGATIVE; URINE BARBITURATES SCREEN NEGATIVE; URINE BENZODIAZEPINES SCREEN NEGATIVE; URINE COCAINE SCREEN NEGATIVE; URINE MARIJUANA (THC) SCREEN NEGATIVE; URINE METHADONE SCREEN NEGATIVE; URINE PHENCYCLIDINE SCREEN NEGATIVE
[2019-06-01] MEDS ORDERED: MELATONIN 3 MG TABLET PO PRN (23:18)
[2019-06-02] MEDS: LINEZOLID 600 MG/300 ML RTUPB IV SCH ×2 (05:22→17:29)
[2019-06-02] MEDS: MEROPENEM 1 GM in NORMAL SALINE 50 ML IV SCH ×3 (05:23→22:59)
[2019-06-02] MEDS: PROMETHAZINE HCL INJ 25 MG/1 ML VIAL IV PRN (06:12)
[2019-06-02] MEDS: INSULIN LISPRO 100 UNIT/ML 3 ML VIAL SUBCUT SCH ×4 (08:14→21:32)
[2019-06-02 08:32] LABS: ABSOLUTE BASOPHILS # (AUTO) 0.1 10^3/uL (0.0-0.2); ABSOLUTE EOSINOPHILS # (AUTO) 0.3 10^3/uL (0.0-0.6); ABSOLUTE LYMPHOCYTES (AUTO) 1.2 10^3/uL (0.5-4.7); ABSOLUTE MONOCYTES (AUTO) 1.3 10^3/uL (0.1-1.4); ABSOLUTE NEUT (AUTO) 5.3 10^3/uL (1.7-8.2); BASOPHILS % (AUTO) 0.7 % (0-2); EOSINOPHILS % (AUTO) 3.4 % (0-6); HEMATOCRIT 28.5 % (37.9-51.0); LYMPHOCYTES % (AUTO) 14.7 % (13-45); MEAN CORPUSCULAR HEMOGLOBIN 29.7 pg (27.0-33.4); MEAN CORPUSCULAR HGB CONC 34.9 g/dL (32.0-36.0); MEAN CORPUSCULAR VOLUME 85 fl (80-97); MONOCYTES % (AUTO) 16.5 % (3-13); PLATELET COUNT 255 10^3/uL (150-450); RED BLOOD COUNT 3.36 10^6/uL (4.35-5.55); RED CELL DISTRIBUTION WIDTH 13.3 % (11.5-14.0); SEGMENTED NEUTROPHILS % (AUTO) 64.7 % (42-78); TOTAL CELLS COUNTED % (AUTO) 100 %; WHITE BLOOD COUNT 8.2 10^3/uL (4.0-10.5)
--- NOTE | 2019-06-02 08:43 | PDOC PROGRESS REPORT ---
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 He has a fever of 103 in the emergency room with a WBC count of 16,000. Medical consult was called for admission. Dr. Moreno is going to see the patient today. And agreed to stay in the hospital for further management. Invanz was given in the hospital. 05/29/[id number]-quek-old male with history of type 2 diabetes mellitus and history of right foot osteomyelitis admitted for left foot cellulitis MRI with contrast was done yesterday negative for osteomyelitis surgical consultation with Dr. Moreno was done. Patient was started on Invanz because patient has allergic reaction to vancomycin, the antibiotics are changed to meropenem today as per the pharmacy recommendations. Patient was also started on linozelide Patient still have a spiking fever of 102. I spoke to Dr. Moreno this morning ,he re quested me to talk to the radiology about possible CT of the lower extremity look for the abscesses. I spoke to Frantz in the radiology department his recommendation is MRI did not show any abscess there is no need for the investigations like CT. Patient WBC went up to 23,000 today. Did not want Dilaudid he wants to try Percocets from today. 05/30/[id number]-athd-old male with history of type 2 diabetes mellitus right second toe osteomyelitis status post amputation admitted with left great toe cellulitis. MRI of the left foot was done negative for osteomyelitis negative for abscess negative for fluid collection surgical consult was done recommendation is continue the IV antibiotic therapy. t Max is 100.2. Patient says he is feeling much better. Cultures are pending so far. 05/31/2019. No acute events overnight. Mild improvement of left toe erythema and swelling, persistent swelling of the right lower extremity below the knee, with significant erythema neurovascularly intact. Patient reports improvement of his symptoms, denies any fever, chills, nausea, vomiting, diarrhea, constipation or any urinary symptoms. MRI of left lower extremity is negative for osteomyelitis and venous Doppler negative for DVT. Surgery has signed off at this point, recommending IV antibiotic therapy. 06/01/[id number]-yamc-old male admitted with left great toe cellulitis. Os teomyelitis is ruled out. Left lower leg was still swollen. CT of the lower extremity was done indicating subcutaneous edema most likely secondary to cellulitis. Surgical follow-up requested Dr. Aldana think is not a compartmental syndrome. MRI of the left lower extremity ruled out osteomyelitis. Patient is afebrile. No acute events in the last 24 hours. Presently on meropenem and lenezolid. 06/02/[id number]-aame-old male admitted with left scrotal cellulitis MRI of the left lower extremity was done osteomyelitis is ruled out. CT of the left lower extremity was done for the possibility of compartmental syndrome and came back negative. Surgical consult was done to think compartmental syndrome is unlikely. No acute events in the last 24 hours. Afebrile. lt Lower leg swelling and erythema is improving on daily basis. Reason For Visit: LT FOOT CELLUTLITIS Physical Exam Vital Signs: Temp Pulse Resp BP Pulse Ox 97.7 F 66 16 108/59 L 92 06/02/19 04:31 06/02/19 04:31 06/02/19 04:31 06/02/19 04:31 06/02/19 04:31 Intake & Output 06/01/19 06/02/19 06/03/19 06:59 06:59 06:59 Intake Total 1160 1250 Output Total 2 Balance 1160 1248 Weight 98 kg 95.6 kg General appearance: PRESENT: no acute distress Head exam: PRESENT: normocephalic Eye exam: PRESENT: PERRLA Mouth exam: PRESENT: dry mucosa Teeth exam: PRESENT: poor dentation Respiratory exam: PRESENT: decreased breath sounds Cardiovascular exam: PRESENT: RRR. ABSENT: diastolic murmur, rubs, systolic murmur GI/Abdominal exam: PRESENT: normal bowel sounds, soft. ABSENT: distended, guarding, mass, organolmegaly, rebound, tenderness Rectal exam: PRESENT: deferred Gentrourinary exam: PRESENT: other - Left lower leg was swollen and erythematous, swelling is improved compared to yesterday. Neurological exam: PRESENT: alert, awake, oriented to person, oriented to place, oriented to time, oriented to situation, CN II-XII grossly intact. ABSENT: motor sensory deficit Psychiatric exam: PRESENT: appropriate affect, normal mood. ABSENT: homicidal ideation, suicidal ideation Results Laboratory Results: 05/28/19 05/28/1905/28/19 08:34 08:34 15:50 Creatine Kinase 145 117 CK-MB (CK-2) Troponin I 0.014 05/28/19 05/28/19 05/28/19 15:50 20:25 20:25 Creatine Kinase 144 CK-MB (CK-2) 0.54 0.61 Troponin I 0.024 0.031 05/29/19 05/29/19 02:41 02:41 Creatine Kinase 259 H CK-MB (CK-2) 1.26 Troponin I 0.032 Impressions: Lower Extremity MRI 05/28/19 00:00 IMPRESSION: 1. NO EVIDENCE FOR OSTEOMYELITIS. 2. SUBCUTANEOUS SOFT TISSUE EDEMA/INFLAMMATION. NO EVIDENCE OF ABSCESS. 3. POSTERIOR SUBLUXATION OF THE MTP JOINT OF THE 2ND TOE, PRESUMABLY CHRONIC. Toe X-Ray 05/28/19 07:54 IMPRESSION: SUBLUXATION OF THE MTP JOINT OF THE 2ND TOE, PRESUMED CHRONIC. NO OTHER SIGNIFICANT RADIOGRAPHIC FINDINGS. Venous Doppler Study 05/29/19 00:00 IMPRESSION: NO EVIDENCE DVT OR SVT IN THE LEFT LEG. Lower Extremity CT 05/31/19 17:45 IMPRESSION: Subcutaneous edema. Cannot exclude cellulitis. No evidence of compartment syndrome. Have compartment measurements been obtained? Assessment and Plan - Diagnosis (1) Cellulitis Qualifiers: Site of cellulitis: extremity Site of cellulitis of extremity: lower extremity Laterality: left Qualified Code(s): L03.116 - Cellulitis of left lower limb Is this a current diagnosis for this admission?: Yes (2) DM type 2 (diabetes mellitus, type 2) Qualifiers: Diabetes mellitus rn long term care insulin use: without rn long term care use Diabetes mellitus complication status: with skin complications Diabetes mellitus complication detail: with foot ulcer Qualified Code(s): E11.621 - Type 2 diabetes mellitus with foot ulcer; L97.509 - Non-pressure chronic ulcer of other part of unspecified foot with unspecified severity Is this a current diagnosis for this admission?: Yes (3) Hypertension Qualifiers: Hypertension type: essential hypertension Qualified Code(s): I10 - Essential (primary) hypertension Is this a current diagnosis for this admission?: No (4) Leukocytosis Qualifiers: Leukocytosis type: bandemia Qualified Code(s): D72.825 - Bandemia Is this a current diagnosis for this admission?: Yes - Plan Summary Summary: 1.cellulitis of the left great toe Plan to place him in IMCU surgical consult was requested started on Invanz. MRI of the left foot was requested. GI prophylaxis DVT prophylaxis initiated. Started on Dilaudid 1 mg IV every 4 as needed for pain. Start on Zofran 4 mg IV every 6 as needed for nausea. Started on insulin sliding scale. pt also placed on Lantus 10 units p.o. twice daily patient is taking metformin at home which is on hold. 05/29/2019-patient admitted with left foot cellulitis, negative for osteomyelitis. Presently on meropenem on daily Nasalide. Still have a spiking fever of 102 and a history of MRSA. Plan is to continue IV antibiotic therapy for now as per surgical recommendations. 05/30/2019-patient admitted with left foot cellulitis especially involving the left great toe. Consultation with Dr. Giuliano franco is done. Recommendation is conservative management with IV antibiotic therapy. T-max is 100.2 patient is presently on vancomycin and Zosyn cultures are no growth so far. 05/31/2019. Extremity cellulitis with left toe base gangrene. Surgery has signed off, MRI left lower extremity negative for any osteomyelitis, abscess or fluid collection, venous Doppler negative for any DVT. Recommendation is to continue IV empiric antibiotics. Is negative so far. We will continue IV empiric antibiotics and switch to p.o. antibiotics once symptomatic improvement. Monitor for compartment syndrome. 06/01/2019-patient came in with left great toe cellulitis MRI is negative for osteomyelitis. Left lower leg still swollen erythematous. With fluid blisters on the skin. Compartmental syndrome is ruled out. CT of the left lower extremity suggestive of subcutaneous edema most likely secondary to cellulitis. Patient is presently on linezolid and meropenem. Cultures are negative so far. 05/2019-blood cultures are negative patient is presently on Linezolid and meropenem. Afebrile. Blood cultures are negative so far. MRI of the left lower extremity negative for osteomyelitis. 2.type 2 diabetes mellitus Patient blood sugar is 265 and hemoglobin A1c is 8.9, patient is on metformin at home which is on hold started on insulin sliding scale before meals and at bedtime and Lantus 10 units p.o. twice daily dietary consult is requested. 05/29/2019-patient blood sugar today is 189 and hemoglobin A1c is 8.9. Presently on insulin sliding scale before meals and at bedtime Lantus 10 units twice a day. Plan is to continue the present management. 05/30/2019-patient has history of type 2 diabetes mellitus. Latest blood sugar is 171 and hemoglobin A1c is 8.7. On Lantus 10 units twice a day and also insulin sliding scale before meals and at bedtime. Plan is to continue the present management dietary consult was requested. 05/31/2019. History of uncontrolled diabetes. Hemoglobin A1c 8.7 on this admission. History of noncompliance. Takes metformin and glyburide at home. Increase Lantus to 15 units twice daily, continue sliding scale insulin, adjust dosage as needed. Outpatient PCP follow-up. Restart metformin upon discharge. 06/01/2019-patient has history of type 2 diabetes mellitus latest blood sugar is 107. Hemoglobin A1c is 8.7. Is presently on Lantus 15 units twice a day and insulin sliding scale. 06/02/2019-latest blood sugar is 117 and today's labs are pending, patient's hemoglobin A1c is 8.7. Plan is to continue Lantus 15 units twice a day and insulin sliding scale before meals and at bedtime. 3.hypertension. Blood pressure is 138/57. Stable. Start her on hydralazine 10 mg IV every 4 as needed for blood pressure more than systolic more than 150. 05/29/2019-patient blood pressure today is 126/44 on hydralazine 10 mg IV every 4 as needed for high blood pressure he is receiving IV fluids at this moment. 05/30/2019-patient blood pressure today is 157/66. Stable. Plan is to discontinue IV fluids from today. 05/31/2019. BP uncontrolled. UDS positive for cocaine. Start on losartan 50 mg p.o. daily, adjust as needed. Continue hydralazine IV as needed. 06/01/2019-patient blood pressure today is 140/67. Patient is off the IV fluids. Left lower leg is extremely edematous plan to give 1 dose of IV Lasix today. 06/02/2019-patient was given 1 dose of IV Lasix 40 mg yesterday today's blood pressure is 108/60. Stable. Plan is to continue the present management. 4.leukocytosis wBC count is a 16,000 most likely secondary to cellulitis of the left great toe MRI of the left foot is pending we are looking for osteomyelitis. 05/29/2019-WBC count went up to 20,000 today. Most likely secondary to left lower leg cellulitis. Plan is to check the labs on daily basis. 05/30/2019-WBC count today is 14,000, improving from a 20,000 yesterday. On IV Zosyn and vancomycin plan is to continue the present management. T-max is 100.2. 05/31/2019. WBC 11.7. Blood cultures negative. Afebrile. Continue Vanco and Zosyn, switch to p.o. antibiotics once symptomatic improvement. 06/01/2019-blood cultures are negative WBC count came back to normal at 9.4 today. Presently on linezolid and meropenem. pt has a history of vancomycin induced renal failure. 5.heart murmur Examination patient has a systolic heart murmur in the mitral area to arrange for the transthoracic echocardiogram today. 06/01/19- normal echo with EF 60%
[2019-06-02 08:57] LABS: ALBUMIN 2.9 g/dL (3.5-5.0); ALKALINE PHOSPHATASE 43 U/L (38-126); ANION GAP 10 (5-19); ASPARTATE AMINO TRANSFERASE 36 U/L (17-59); BILIRUBIN,DIRECT 0.2 mg/dL (0.0-0.4); BILIRUBIN,TOTAL 0.5 mg/dL (0.2-1.3); BLOOD UREA NITROGEN 11 mg/dL (7-20); CALCIUM 8.2 mg/dL (8.4-10.2); CARBON DIOXIDE 27 mmol/L (22-30); CHLORIDE 96 mmol/L (98-107); GLUCOSE 110 mg/dL (75-110); POTASSIUM 3.2 mmol/L (3.6-5.0); TOTAL PROTEIN 5.7 g/dL (6.3-8.2)
[2019-06-02] MEDS: FAMOTIDINE 20 MG TABLET PO SCH ×2 (09:05→21:19)
[2019-06-02] MEDS: ENOXAPARIN SODIUM INJ 40 MG/0.4 ML DISP.SYRIN SUBCUT SCH (09:05)
[2019-06-02] MEDS: INSULIN GLARGINE,HUM.REC.ANLOG 1,000 UNIT/10 ML VIAL SUBCUT SCH ×2 (09:05→21:35)
[2019-06-02] MEDS: OXYCODONE-ACETAMINOPHEN 5-325 MG TABLET PO PRN ×2 (16:41→21:34)
[2019-06-02] MEDS ORDERED: POTASSIUM CHLORIDE 10 MEQ CAPSULE.ER PO ONE (21:00)
[2019-06-02] MEDS: MAGNESIUM SULFATE 1 GM/D5W 100 ML IV SCH ×2 (21:26→23:29)
[2019-06-02] MEDS: POTASSI CL 20 MEQ/50 ML RIDER 20 MEQ/50 ML RTUPB IV SCH (23:06)
[2019-06-03] MEDS: POTASSI CL 20 MEQ/50 ML RIDER 20 MEQ/50 ML RTUPB IV SCH (00:58)
[2019-06-03] MEDS: OXYCODONE-ACETAMINOPHEN 5-325 MG TABLET PO PRN ×5 (02:40→23:15)
[2019-06-03] MEDS: MEROPENEM 1 GM in NORMAL SALINE 50 ML IV SCH ×3 (06:16→21:35)
[2019-06-03 07:27] LABS: ABSOLUTE BASOPHILS # (AUTO) 0.1 10^3/uL (0.0-0.2); ABSOLUTE EOSINOPHILS # (AUTO) 0.3 10^3/uL (0.0-0.6); ABSOLUTE MONOCYTES (AUTO) 1.4 10^3/uL (0.1-1.4); ABSOLUTE NEUT (AUTO) 4.4 10^3/uL (1.7-8.2); BASOPHILS % (AUTO) 0.6 % (0-2); EOSINOPHILS % (AUTO) 3.5 % (0-6); HEMATOCRIT 30.4 % (37.9-51.0); HEMOGLOBIN 10.4 g/dL (13.5-17.0); LYMPHOCYTES % (AUTO) 24.9 % (13-45); MEAN CORPUSCULAR HEMOGLOBIN 29.2 pg (27.0-33.4); MEAN CORPUSCULAR VOLUME 86 fl (80-97); MONOCYTES % (AUTO) 17.4 % (3-13); PLATELET COUNT 273 10^3/uL (150-450); RED BLOOD COUNT 3.54 10^6/uL (4.35-5.55); RED CELL DISTRIBUTION WIDTH 13.5 % (11.5-14.0); SEGMENTED NEUTROPHILS % (AUTO) 53.6 % (42-78); TOTAL CELLS COUNTED % (AUTO) 100 %; WHITE BLOOD COUNT 8.2 10^3/uL (4.0-10.5)
[2019-06-03 07:54] LABS: ALBUMIN 3.1 g/dL (3.5-5.0); ALKALINE PHOSPHATASE 53 U/L (38-126); ANION GAP 8 (5-19); ASPARTATE AMINO TRANSFERASE 30 U/L (17-59); BILIRUBIN,DIRECT 0.2 mg/dL (0.0-0.4); BILIRUBIN,TOTAL 0.5 mg/dL (0.2-1.3); BLOOD UREA NITROGEN 11 mg/dL (7-20); CALCIUM 8.2 mg/dL (8.4-10.2); CARBON DIOXIDE 28 mmol/L (22-30); CHLORIDE 100 mmol/L (98-107); GLUCOSE 117 mg/dL (75-110); TOTAL PROTEIN 6.3 g/dL (6.3-8.2)
[2019-06-03] MEDS: INSULIN LISPRO 100 UNIT/ML 3 ML VIAL SUBCUT SCH ×4 (08:36→22:35)
--- NOTE | 2019-06-03 08:36 | PDOC PROGRESS REPORT ---
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 He has a fever of 103 in the emergency room with a WBC count of 16,000. Medical consult was called for admission. Dr. Moreno is going to see the patient today. And agreed to stay in the hospital for further management. Invanz was given in the hospital. 05/29/[id number]-old male with history of type 2 diabetes mellitus and history of right foot osteomyelitis admitted for left foot cellulitis MRI with contrast was done yesterday negative for osteomyelitis surgical consultation with Dr. Moreno was done. Patient was started on Invanz because patient has allergic reaction to vancomycin, the antibiotics are changed to meropenem today as per the pharmacy recommendations. Patient was also started on linozelide Patient still have a spiking fever of 102. I spoke to Dr. Moreno this morning ,he re quested me to talk to the radiology about possible CT of the lower extremity look for the abscesses. I spoke to Frantz in the radiology department his recommendation is MRI did not show any abscess there is no need for the investigations like CT. Patient WBC went up to 23,000 today. Did not want D jolieaudid he wants to try Percocets from today. 05/30/[id number]-xhow-old male with history of type 2 diabetes mellitus right second toe osteomyelitis status post amputation admitted with left great toe ce llulitis. MRI of the left foot was done negative for osteomyelitis negative for abscess negative for fluid collection surgical consult was done recommendation is continue the IV antibiotic therapy. t Max is 100.2. Patient says he is feeling much better. Cultures are pending so far. 05/31/2019. No acute events overnight. Mild improvement of left toe erythema and swelling, persistent swelling of the right lower extremity below the knee, with significant erythema neurovascularly intact. Patient reports improvement of his symptoms, denies any fever, chills, nausea, v omiting, diarrhea, constipation or any urinary symptoms. MRI of left lower extremity is negative for osteomyelitis and venous Doppler negative for DVT. Surgery has signed off at this point, recommending IV antibiotic therapy. 06/01/[id number]-tzlc-old male admitted with left great toe cellulitis. Os teomyelitis is ruled out. Left lower leg was still swollen. CT of the lower extremity was done indicating subcutaneous edema most likely secondary to cellulitis. Surgical follow-up requested Dr. Aldana think is not a compartmental syndrome. MRI of the left lower extremity ruled out osteomyeliti s. Patient is afebrile. No acute events in the last 24 hours. Presently on meropenem and lenezolid. 06/02/[id number]-wnrg-old male admitted with left leg cellulitis ,,MRI of the left lower extremity was done osteomyelitis is ruled out. CT of the left lower extremity was done for the possibility of compartmental syndrome and came back negative. Surgical consult was done to think compartmental syndrome is unlikely. No acute events in the last 24 hours. Afebrile. lt Lower leg swelling and erythema is improving on daily basis. 06/03/19-no acute events in the last 24 hours. Afebrile. Left lower leg swelling and erythema significantly improved. Redness and erythema of the left hird toe is improving. Reason For Visit: LT FOOT CELLUTLITIS Physical Exam Vital Signs: Temp Pulse Resp BP Pulse Ox 97.7 F 63 20 114/59 L 94 06/03/19 03:13 06/03/19 03:13 06/03/19 03:13 06/03/19 03:13 06/03/19 03:13 Intake & Output 06/02/19 06/03/19 06/04/19 06:59 06:59 06:59 Intake Total 1250 2300 Output Total 2 Balance 1248 2300 Weight 95.6 kg 98.1 kg General appearance: PRESENT: no acute distress, obese Head exam: PRESENT: atraumatic Eye exam: PRESENT: PERRLA Mouth exam: PRESENT: moist, tongue midline Teeth exam: PRESENT: poor dentation Neck exam: ABSENT: carotid bruit, JVD, lymphadenopathy, thyromegaly Respiratory exam: PRESENT: decreased breath sounds Cardiovascular exam: PRESENT: RRR. ABSENT: diastolic murmur, rubs, systolic murmur Pulses: PRESENT: normal dorsalis pedis pul GI/Abdominal exam: PRESENT: normal bowel sounds, soft. ABSENT: distended, guarding, mass, organolmegaly, rebound, tenderness Rectal exam: PRESENT: deferred Extremities exam: PRESENT: full ROM. ABSENT: calf tenderness, clubbing, pedal edema Neurological exam: PRESENT: alert, awake, oriented to person, oriented to place, oriented to time, oriented to situation, CN II-XII grossly intact. ABSENT: motor sensory deficit Psychiatric exam: PRESENT: appropriate affect, normal mood. ABSENT: homicidal ideation, suicidal ideation Results Laboratory Results: 06/03/19 07:16 06/03/19 07:16 06/02/19 06/02/19 06/03/19 07:47 07:47 07:16 WBC 8.2 8.2 RBC 3.36 L 3.54 L Hgb 10.0 L 10.4 L Hct 28.5 L 30.4 L MCV 85 86 MCH 29.7 29.2 MCHC 34.9 34.0 RDW 13.3 13.5 Plt Count 255 273 Seg Neutrophils % 64.7 53.6 Sodium 133.2 L Potassium 3.2 L Chloride 96 L Carbon Dioxide 27 Anion Gap 10 BUN 11 Creatinine 0.96 Est GFR ( Amer) > 60 Glucose 110 Calcium 8.2 L Magnesium 1.5 L Total Bilirubin 0.5 AST 36 Alkaline Phosphatase 43 Total Protein 5.7 L Albumin 2.9 L 06/03/19 07:16 WBC RBC Hgb Hct MCV MCH MCHC RDW Plt Count Seg Neutrophils % Sodium 135.6 L Potassium 4.0 Chloride 100 Carbon Dioxide 28 Anion Gap 8 BUN 11 Creatinine 0.91 Est GFR ( Amer) > 60 Glucose 117 H Calcium 8.2 L Magnesium 2.0 Total Bilirubin 0.5 AST 30 Alkaline Phosphatase 53 Total Protein 6.3 Albumin 3.1 L 05/28/19 10:05 Blood Blood Culture - Final NO GROWTH IN 5 DAYS 05/28/19 08:34 Blood Blood Culture - Final NO GROWTH IN 5 DAYS 05/28/19 05/28/19 05/28/19 08:34 08:34 15:50 Creatine Kinase 145 117 CK-MB (CK-2) Troponin I 0.014 05/28/19 05/28/19 05/28/19 15:50 20:25 20:25 Creatine Kinase 144 CK-MB (CK-2) 0.54 0.61 Troponin I 0.024 0.031 05/29/19 05/29/19 02:41 02:41 Creatine Kinase 259 H CK-MB (CK-2) 1.26 Troponin I 0.032 Impressions: Lower Extremity MRI 05/28/19 00:00 IMPRESSION: 1. NO EVIDENCE FOR OSTEOMYELITIS. 2. SUBCUTANEOUS SOFT TISSUE EDEMA/INFLAMMATION. NO EVIDENCE OF ABSCESS. 3. POSTERIOR SUBLUXATION OF THE MTP JOINT OF THE 2ND TOE, PRESUMABLY CHRONIC. Toe X-Ray 05/28/19 07:54 IMPRESSION: SUBLUXATION OF THE MTP JOINT OF THE 2ND TOE, PRESUMED CHRONIC. NO OTHER SIGNIFICANT RADIOGRAPHIC FINDINGS. Venous Doppler Study 05/29/19 00:00 IMPRESSION: NO EVIDENCE DVT OR SVT IN THE LEFT LEG. Lower Extremity CT 05/31/19 17:45 IMPRESSION: Subcutaneous edema. Cannot exclude cellulitis. No evidence of compartment syndrome. Have compartment measurements been obtained? Assessment and Plan - Diagnosis (1) Cellulitis Qualifiers: Site of cellulitis: extremity Site of cellulitis of extremity: lower extremity Laterality: left Qualified Code(s): L03.116 - Cellulitis of left lower limb Is this a current diagnosis for this admission?: Yes (2) DM type 2 (diabetes mellitus, type 2) Qualifiers: Diabetes mellitus shelter insulin use: without remote computer terminal operator use Diabetes mellitus complication status: with skin complications Diabetes mellitus complication detail: with foot ulcer Qualified Code(s): E11.621 - Type 2 diabetes mellitus with foot ulcer; L97.509 - Non-pressure chronic ulcer of other part of unspecified foot with unspecified severity Is this a current diagnosis for this admission?: Yes (3) Hypertension Qualifiers: Hypertension type: essential hypertension Qualified Code(s): I10 - Essential (primary) hypertension Is this a current diagnosis for this admission?: No (4) Leukocytosis Qualifiers: Leukocytosis type: bandemia Qualified Code(s): D72.825 - Bandemia Is this a current diagnosis for this admission?: Yes - Plan Summary Summary: 1.cellulitis of the left great toe Plan to place him in IMCU surgical consult was requested started on Invanz. MRI of the left foot was requested. GI prophylaxis DVT prophylaxis initiated. Started on Dilaudid 1 mg IV every 4 as needed for pain. Start on Zofran 4 mg IV every 6 as needed for nausea. Started on insulin sliding scale. pt also placed on Lantus 10 units p.o. twice daily patient is taking metformin at home which is on hold. 05/29/2019-patient admitted with left foot cellulitis, negative for osteomyelitis . Presently on meropenem on daily Nasalide. Still have a spiking fever of 102 and a history of MRSA. Plan is to continue IV antibiotic therapy for now as per surgical recommendations. 05/30/2019-patient admitted with left foot cellulitis especially involving the left great toe. Consultation with Dr. Giuliano franco is done. Recommendation is conservative management with IV antibiotic therapy. T-max is 100.2 patient is presently on vancomycin and Zosyn cultures are no growth so far. 05/31/2019. Extremity cellulitis with left toe base gangrene. Surgery has signed off, MRI left lower extremity negative for any osteomyelitis, abscess or fluid collection, venous Doppler negative for any DVT. Recommendation is to continue IV empiric antibiotics. Is negative so far. We will continue IV empiric antibiotics and switch to p.o. antibiotics once symptomatic improvement. Monitor for compartment syndrome. 06/01/2019-patient came in with left great toe cellulitis MRI is negative for osteomyelitis. Left lower leg still swollen erythematous. With fluid blisters on the skin. Compartmental syndrome is ruled out. CT of the left lower extremity suggestive of subcutaneous edema most likely secondary to cellulitis. Patient is presently on linezolid and meropenem. Cultures are negative so far. 05/2019-blood cultures are negative patient is presently on Linezolid and meropenem. Afebrile. Blood cultures are negative so far. MRI of the left lower extremity negative for osteomyelitis. 06/03/2019-patient is presently on linozelide and meropenem. Blood cultures are negative. Compartmental syndrome is ruled out. Lower extremity erythema redness significantly improved. 2.type 2 diabetes mellitus Patient blood sugar is 265 and hemoglobin A1c is 8.9, patient is on metformin at home which is on hold started on insulin sliding scale before meals and at bedtime and Lantus 10 units p.o. twice daily dietary consult is requested. 05/29/2019-patient blood sugar today is 189 and hemoglobin A1c is 8.9. Presently on insulin sliding scale before meals and at bedtime Lantus 10 units twice a day. Plan is to continue the present management. 05/30/2019-patient has history of type 2 diabetes mellitus. Latest blood sugar is 171 and hemoglobin A1c is 8.7. On Lantus 10 units twice a day and also insulin sliding scale before meals and at bedtime. Plan is to continue the present management dietary consult was requested. 05/31/2019. History of uncontrolled diabetes. Hemoglobin A1c 8.7 on this admission. History of noncompliance. Takes metformin and glyburide at home. Increase Lantus to 15 units twice daily, continue sliding scale insulin, adjust dosage as needed. Outpatient PCP follow-up. Restart metformin upon discharge. 06/01/2019-patient has history of type 2 diabetes mellitus latest blood sugar is 107. Hemoglobin A1c is 8.7. Is presently on Lantus 15 units twice a day and insulin sliding scale. 06/02/2019-latest blood sugar is 117 and today's labs are pending, patient's hemoglobin A1c is 8.7. Plan is to continue Lantus 15 units twice a day and insulin sliding scale before meals and at bedtime. 06/03/2019-patient blood sugar today is 105, hemoglobin A1c is 8.9 presently on Lantus 10 units twice a day and insulin sliding scale before meals and at bedtime. Plan is to continue the present management. 3.hypertension. Blood pressure is 138/57. Stable. Start her on hydralazine 10 mg IV every 4 as needed for blood pressure more than systolic more than 150. 05/29/2019-patient blood pressure today is 126/44 on hydralazine 10 mg IV every 4 as needed for high blood pressure he is receiving IV fluids at this moment. 05/30/2019-patient blood pressure today is 157/66. Stable. Plan is to discontinue IV fluids from today. 05/31/2019. BP uncontrolled. UDS positive for cocaine. Start on losartan 50 mg p.o. daily, adjust as needed. Continue hydralazine IV as needed. 06/01/2019-patient blood pressure today is 140/67. Patient is off the IV fluids. Left lower leg is extremely edematous plan to give 1 dose of IV Lasix today. 06/02/2019-patient was given 1 dose of IV Lasix 40 mg yesterday today's blood pressure is 108/60. Stable. Plan is to continue the present management. 06/03/2019-patient blood pressure today is 114/60. Stable. Plan is to continue the present management. 4.leukocytosis wBC count is a 16,000 most likely secondary to cellulitis of the left great toe MRI of the left foot is pending we are looking for osteomyelitis. 05/29/2019-WBC count went up to 20,000 today. Most likely secondary to left lower leg cellulitis. Plan is to check the labs on daily basis. 05/30/2019-WBC count today is 14,000, improving from a 20,000 yesterday. On IV Zosyn and vancomycin plan is to continue the present management. T-max is 100.2. 05/31/2019. WBC 11.7. Blood cultures negative. Afebrile. Continue Vanco and Zosyn, switch to p.o. antibiotics once symptomatic improvement. 06/01/2019-blood cultures are negative WBC count came back to normal at 9.4 today. Presently on linezolid and meropenem. pt has a history of vancomycin induced renal failure. 06/03/2019-patient has history of MRSA, and allergic reaction to vancomycin developed renal failure presently on linezolide and meropenem Blood cultures are negative so far. MRI of the lower extremities negative for osteomyelitis on the CT scan ruled out compartmental syndrome. 5.heart murmur Examination patient has a systolic heart murmur in the mitral area to arrange for the transthoracic echocardiogram today. 06/01/19- normal echo with EF 60%
[2019-06-03] MEDS: LINEZOLID 600 MG/300 ML RTUPB IV SCH ×2 (08:44→19:00)
[2019-06-03] MEDS: FAMOTIDINE 20 MG TABLET PO SCH ×2 (10:14→21:35)
[2019-06-03] MEDS: FUROSEMIDE INJ/PF 40 MG/4 ML SDV IV SCH (10:14)
[2019-06-03] MEDS: INSULIN GLARGINE,HUM.REC.ANLOG 1,000 UNIT/10 ML VIAL SUBCUT SCH ×2 (10:16→21:37)
[2019-06-03] MEDS: ENOXAPARIN SODIUM INJ 40 MG/0.4 ML DISP.SYRIN SUBCUT SCH (10:17)
[2019-06-03] MEDS: PROMETHAZINE HCL INJ 25 MG/1 ML VIAL IV PRN (10:18)
[2019-06-03] MEDS ORDERED: KETOROLAC TROMETHAMINE INJ/PF 30 MG/1 ML SDV IV PRN (20:38)
[2019-06-04] MEDS: OXYCODONE-ACETAMINOPHEN 5-325 MG TABLET PO PRN ×2 (02:19→06:51)
[2019-06-04] MEDS: MEROPENEM 1 GM in NORMAL SALINE 50 ML IV SCH (05:39)
[2019-06-04] MEDS: LINEZOLID 600 MG/300 ML RTUPB IV SCH (06:50)
[2019-06-04] MEDS: INSULIN LISPRO 100 UNIT/ML 3 ML VIAL SUBCUT SCH (07:53)
--- NOTE | 2019-06-04 09:40 | PDOC DISCHARGE SUMMARY ---
Impression - Admit/DC Date/PCP Admission Date/Primary Care Provider: 05/28/19 10:21 BRIDGER MARTINEZ MD Discharge Date: 06/04/19 - Discharge Diagnosis (1) Cellulitis Is this a current diagnosis for this admission?: Yes (2) DM type 2 (diabetes mellitus, type 2) Is this a current diagnosis for this admission?: Yes (3) Hypertension Is this a current diagnosis for this admission?: No (4) Leukocytosis Is this a current diagnosis for this admission?: Yes - Assessment Summary: 1.cellulitis of the left great toe Plan to place him in IMCU surgical consult was requested started on Invanz. MRI of the left foot was requested. GI prophylaxis DVT prophylaxis initiated. Started on Dilaudid 1 mg IV every 4 as needed for pain. Start on Zofran 4 mg IV every 6 as needed for nausea. Started on insulin sliding scale. pt also placed on Lantus 10 units p.o. twice daily patient is taking metformin at home which is on hold. 05/29/2019-patient admitted with left foot cellulitis, negative for osteomyelitis. Presently on meropenem on daily Nasalide. Still have a spiking fever of 102 and a history of MRSA. Plan is to continue IV antibiotic therapy for now as per surgical recommendations. 05/30/2019-patient admitted with left foot cellulitis especially involving the left great toe. Consultation with Dr. Giuliano franco is done. Recommendation is conservative management with IV antibiotic therapy. T-max is 100.2 patient is presently on vancomycin and Zosyn cultures are no growth so far. 05/31/2019. Extremity cellulitis with left toe base gangrene. Surgery has signed off, MRI left lower extremity negative for any osteomyelitis, abscess or fluid collection, venous Doppler negative for any DVT. Recommendation is to continue IV empiric antibiotics. Is negative so far. We will continue IV empiric antibiotics and switch to p.o. antibiotics once symptomatic improvement. Monitor for compartment syndrome. 06/01/2019-patient came in with left great toe cellulitis MRI is negative for os teomyelitis. Left lower leg still swollen erythematous. With fluid blisters on the skin. Compartmental syndrome is ruled out. CT of the left lower extremity suggestive of subcutaneous edema most likely secondary to cellulitis. Patient is presently on linezolid and meropenem. Cultures are negative so far. 05/2019-blood cultures are negative patient is presently on Linezolid and meropenem. Afebrile. Blood cultures are negative so far. MRI of the left lower extremity negative for osteomyelitis. 06/03/2019-patient is presently on linozelide and meropenem. Blood cultures are negative. Compartmental syndrome is ruled out. Lower extremity erythema redness significantly improved. 06/04/2019-left lower leg cellulitis and swelling is improving. Left great toe cellulitis resolved. Cultures are came back negative. Presently on lenozelide and meropenem, plan to discontinue those antibiotics and to discharge him on a levofloxacillin 500 mg p.o. daily for 10 days patient was strongly advised to follow-up with the wound care center in 3 to 5 days. 2.type 2 diabetes mellitus Patient blood sugar is 265 and hemoglobin A1c is 8.9, patient is on metformin at home which is on hold started on insulin sliding scale before meals and at bedtime and Lantus 10 units p.o. twice daily dietary consult is requested. 05/29/2019-patient blood sugar today is 189 and hemoglobin A1c is 8.9. Presently on insulin sliding scale before meals and at bedtime Lantus 10 units twice a day. Plan is to continue the present management. 05/30/2019-patient has history of type 2 diabetes mellitus. Latest blood sugar is 171 and hemoglobin A1c is 8.7. On Lantus 10 units twice a day and also insulin sliding scale before meals and at bedtime. Plan is to continue the present management dietary consult was requested. 05/31/2019. History of uncontrolled diabetes. Hemoglobin A1c 8.7 on this admission. History of noncompliance. Takes metformin and glyburide at home. Increase Lantus to 15 units twice daily, continue sliding scale insulin, adjust dosage as needed. Outpatient PCP follow-up. Restart metformin upon discharge. 06/01/2019-patient has history of type 2 diabetes mellitus latest blood sugar is 107. Hemoglobin A1c is 8.7. Is presently on Lantus 15 units twice a day and insulin sliding scale. 06/02/2019-latest blood sugar is 117 and today's labs are pending, patient's hemoglobin A1c is 8.7. Plan is to continue Lantus 15 units twice a day and insulin sliding scale before meals and at bedtime. 06/03/2019-patient blood sugar today is 105, hemoglobin A1c is 8.9 presently on Lantus 10 units twice a day and insulin sliding scale before meals and at bedtime. Plan is to continue the present management. 06/04/2019-patient's blood sugar today is 70. Hemoglobin A1c is 8.9. He is received Lantus 10 units twice daily and insulin sliding scale during the hospital stay. Patient was advised to restart metformin at home and given a prescription for glipizide 2.5 mg p.o. twice daily. 3.hypertension. Blood pressure is 138/57. Stable. Start her on hydralazine 10 mg IV every 4 as needed for blood pressure more than systolic more than 150. 05/29/2019-patient blood pressure today is 126/44 on hydralazine 10 mg IV every 4 as needed for high blood pressure he is receiving IV fluids at this moment. 05/30/2019-patient blood pressure today is 157/66. Stable. Plan is to discontinue IV fluids from today. 05/31/2019. BP uncontrolled. UDS positive for cocaine. Start on losartan 50 mg p.o. daily, adjust as needed. Continue hydralazine IV as needed. 06/01/2019-patient blood pressure today is 140/67. Patient is off the IV fluids. Left lower leg is extremely edematous plan to give 1 dose of IV Lasix today. 06/02/2019-patient was given 1 dose of IV Lasix 40 mg yesterday today's blood pressure is 108/60. Stable. Plan is to continue the present management. 06/03/2019-patient blood pressure today is 114/60. Stable. Plan is to continue the present management. 06/04/2019-patient blood pressure today is 149/70. Stable. Patient is on losartan 50 mg p.o. daily he was advised to continue the medication at home. 4.leukocytosis wBC count is a 16,000 most likely secondary to cellulitis of the left great toe MRI of the left foot is pending we are looking for osteomyelitis. 05/29/2019-WBC count went up to 20,000 today. Most likely secondary to left lower leg cellulitis. Plan is to check the labs on daily basis. 05/30/2019-WBC count today is 14,000, improving from a 20,000 yesterday. On IV Zosyn and vancomycin plan is to continue the present management. T-max is 100.2. 05/31/2019. WBC 11.7. Blood cultures negative. Afebrile. Continue Vanco and Zosyn, switch to p.o. antibiotics once symptomatic improvement. 06/01/2019-blood cultures are negative WBC count came back to normal at 9.4 today. Presently on linezolid and meropenem. pt has a history of vancomycin induced renal failure. 06/03/2019-patient has history of MRSA, and allergic reaction to vancomycin developed renal failure presently on linezolide and meropenem Blood cultures are negative so far. MRI of the lower extremities negative for osteomyelitis on the CT scan ruled out compartmental syndrome. 5.heart murmur Examination patient has a systolic heart murmur in the mitral area to arrange for the transthoracic echocardiogram today. 06/01/19- normal echo with EF 60% - Additional Information Discharge Diet: Diabetic Discharge Activity: Activity As Tolerated Referrals: BRIDGER MARTINEZ MD [Primary Care Provider] - Follow up as needed Prescriptions: Glipizide [Glipizide Xl] 2.5 mg PO BID 30 Days #60 tab.er.24 Levofloxacin [Levaquin 500 mg Tablet] 500 mg PO DAILY #10 tablet Oxycodone HCl/Acetaminophen [Percocet 5-325 mg Tablet] 1 tab PO Q4HP PRN 3 Days #10 tablet PRN Reason: Home Medications: Metformin HCl [Glucophage] 1,000 mg PO BID 05/28/19 Glipizide [Glipizide Xl] 2.5 mg PO BID 30 Days #60 tab.er.24 06/04/19 Levofloxacin [Levaquin 500 mg Tablet] 500 mg PO DAILY #10 tablet 06/04/19 Oxycodone HCl/Acetaminophen [Percocet 5-325 mg Tablet] 1 tab PO Q4HP PRN 3 Days #10 tablet 06/04/19 History of Present Illiness History of Present Illness: GISELLA HAYS is a 58 year old male history of type 2 diabetes mellitus, history of right great toe osteomyelitis status post amputation, renal failure secondary to vancomycin came to the emergency room with complaints of great toe swelling and pain for the last 2 to 3 days. He has a fever of 103 in the emergency room with a WBC count of 16,000. Medical consult was called for admission. Dr. Moreno is going to see the patient today. And agreed to stay in the hospital for further management. Invanz was given in the hospital. Hospital Course Hospital Course: 58 year old male history of type 2 diabetes mellitus, history of right great toe osteomyelitis status post amputation, renal failure secondary to vancomycin came to the emergency room with complaints of great toe swelling and pain for the last 2 to 3 days. He has a fever of 103 in the emergency room with a WBC count of 16,000. Medical consult was called for admission. Dr. Moreno is going to see the patient today. And agreed to stay in the hospital for further management. Invanz was given in the hospital. 05/29/[id number]-gvcf-old male with history of type 2 diabetes mellitus and history of right foot osteomyelitis admitted for left foot cellulitis MRI with contrast was done yesterday negative for osteomyelitis surgical consultation with Dr. Moreno was done. Patient was started on Invanz because patient has allergic reaction to vancomycin, the antibiotics are changed to meropenem today as per the pharmacy recommendations. Patient was also started on linozelide Patient still have a spiking fever of 102. I spoke to Dr. Moreno this morning ,he requested me to talk to the radiology about possible CT of the lower extremity look for the abscesses. I spoke to Frantz in the radiology department his recommendation is MRI did not show any abscess there is no need for the investigations like CT. Patient WBC went up to 23,000 today. Did not want Dilaudid he wants to try Percocets from today. 05/30/[id number]-afha-old male with history of type 2 diabetes mellitus right second toe osteomyelitis status post amputation admitted with left great toe cellulitis. MRI of the left foot was done negative for osteomyelitis negative for abscess negative for fluid collection surgical consult was done recommendation is continue the IV antibiotic therapy. t Max is 100.2. Patient says he is feeling much better. Cultures are pending so far. 05/31/2019. No acute events overnight. Mild improvement of left toe erythema and swelling, persistent swelling of the right lower extremity below the knee, with significant erythema neurovascularly intact. Patient reports improvement of his symptoms, denies any fever, chills, nausea, vomiting, diarrhea, constipation or any urinary symptoms. MRI of left lower extremity is negative for osteomyelitis and venous Doppler negative for DVT. Surgery has signed off at this point, recommending IV antibiotic therapy. 06/01/[id number]-yemg-old male admitted with left great toe cellulitis. Osteomyelitis is ruled out. Left lower leg was still swollen. CT of the lower extremity was done indicating subcutaneous edema most likely secondary to cellulitis. Surgical follow-up requested Dr. Aldana think is not a compartmental syndrome. MRI of the left lower extremity ruled out osteomyelitis. Patient is afebrile. No acute events in the last 24 hours. Presently on meropenem and lenezolid. 06/02/[id number]-azgy-old male admitted with left leg cellulitis ,,MRI of the left lower extremity was done osteomyelitis is ruled out. CT of the left lower extremity was done for the possibility of compartmental syndrome and came back negative. Surgical consult was done to think compartmental syndrome is unlikely. No acute events in the last 24 hours. Afebrile. lt Lower leg swelling and erythema is improving on daily basis. 06/03/19-no acute events in the last 24 hours. Afebrile. Left lower leg swelling and erythema significantly improved. Redness and erythema of the left hird toe is improving. 06/04/2019-patient is comfortably in the bed communicating well. Afebrile for the last several days. Blood cultures are negative. Patient is expressing desire to go home on p.o. antibiotics. He agreed to follow with wound care center in 3 to 5 days. Physical Exam Vital Signs: Temp Pulse Resp BP Pulse Ox 97.7 F 59 L 18 153/58 H 93 06/04/19 07:20 06/04/19 07:20 06/04/19 07:20 06/04/19 07:20 06/04/19 07:20 Intake & Output 06/03/19 06/04/19 06/05/19 06:59 06:59 06:59 Intake Total 2300 2840 300 Balance 2300 2840 300 Weight 98.1 kg 95 kg General appearance: PRESENT: no acute distress, cooperative, obese Head exam: PRESENT: atraumatic Eye exam: PRESENT: PERRLA Mouth exam: PRESENT: moist, tongue midline Teeth exam: PRESENT: poor dentation Neck exam: ABSENT: carotid bruit, JVD, lymphadenopathy, thyromegaly Respiratory exam: PRESENT: decreased breath sounds Cardiovascular exam: PRESENT: RRR. ABSENT: diastolic murmur, rubs, systolic murmur GI/Abdominal exam: PRESENT: normal bowel sounds, soft. ABSENT: distended, guarding, mass, organolmegaly, rebound, tenderness Rectal exam: PRESENT: deferred Extremities exam: PRESENT: other - lt Lower leg cellulitis is resolving. Neurological exam: PRESENT: alert, awake, oriented to person, oriented to place, oriented to time, oriented to situation, CN II-XII grossly intact. ABSENT: motor sensory deficit Psychiatric exam: PRESENT: appropriate affect, normal mood. ABSENT: homicidal ideation, suicidal ideation Results Laboratory Results: WBC 8.2 10^3/uL (4.0-10.5) 06/03/19 07:16 RBC 3.54 10^6/uL (4.35-5.55) L 06/03/19 07:16 Hgb 10.4 g/dL (13.5-17.0) L 06/03/19 07:16 Hct 30.4 % (37.9-51.0) L 06/03/19 07:16 MCV 86 fl (80-97) 06/03/19 07:16 MCH 29.2 pg (27.0-33.4) 06/03/19 07:16 MCHC 34.0 g/dL (32.0-36.0) 06/03/19 07:16 RDW 13.5 % (11.5-14.0) 06/03/19 07:16 Plt Count 273 10^3/uL (150-450) 06/03/19 07:16 Lymph % (Auto) 24.9 % (13-45) 06/03/19 07:16 [place] % (Auto) 17.4 % (3-13) H 06/03/19 07:16 Eos % (Auto) 3.5 % (0-6) 06/03/19 07:16 Baso % (Auto) 0.6 % (0-2) 06/03/19 07:16 Absolute Neuts (auto) 4.4 10^3/uL (1.7-8.2) 06/03/19 07:16 Absolute Lymphs (auto) 2.0 10^3/uL (0.5-4.7) 06/03/19 07:16 Absolute Monos (auto) 1.4 10^3/uL (0.1-1.4) 06/03/19 07:16 Absolute Eos (auto) 0.3 10^3/uL (0.0-0.6) 06/03/19 07:16 Absolute Basos (auto) 0.1 10^3/uL (0.0-0.2) 06/03/19 07:16 Total Counted 100 05/29/19 05:34 Seg Neutrophils % 53.6 % (42-78) 06/03/19 07:16 Seg Neuts % (Manual) 80 % (42-78) H 05/29/19 05:34 Band Neutrophils % 1 % (3-5) L 05/28/19 08:34 Lymphocytes % (Manual) 12 % (13-45) L 05/29/19 05:34 Monocytes % (Manual) 8 % (3-13) 05/29/19 05:34 Eosinophils % (Manual) 0 % (0-6) 05/29/19 05:34 Basophils % (Manual) 0 % (0-2) 05/29/19 05:34 Abs Neuts (Manual) 16.2 10^3/uL (1.7-8.2) H 05/29/19 05:34 Abs Lymphs (Manual) 2.4 10^3/uL (0.5-4.7) 05/29/19 05:34 Abs Monocytes (Manual) 1.6 10^3/uL (0.1-1.4) H 05/29/19 05:34 Absolute Eos (Manual) 0.0 10^3/uL (0.0-0.6) 05/29/19 05:34 Abs Basophils (Manual) 0.0 10^3/uL (0.0-0.2) 05/29/19 05:34 Platelet Comment ADEQUATE 05/29/19 05:34 Sodium 135.6 mmol/L (137-145) L 06/03/19 07:16 Potassium 4.0 mmol/L (3.6-5.0) 06/03/19 07:16 Chloride 100 mmol/L (98-107) 06/03/19 07:16 Carbon Dioxide 28 mmol/L (22-30) 06/03/19 07:16 Anion Gap 8 (5-19) 06/03/19 07:16 BUN 11 mg/dL (7-20) 06/03/19 07:16 Creatinine 0.91 mg/dL (0.52-1.25) 06/03/19 07:16 Est GFR ( Amer) > 60 (>60) 06/03/19 07:16 Est GFR (MDRD) Non-Af > 60 (>60) 06/03/19 07:16 Glucose 117 mg/dL (75-110) H 06/03/19 07:16 POC Glucose 170 mg/dL (70-110) H 06/04/19 07:19 Hemoglobin A1c % 8.7 % (4.7-6.0) H 05/29/19 05:34 Lactic Acid 1.4 mmol/L (0.7-2.1) 05/28/19 08:34 Uric Acid 6.8 mg/dL (3.5-8.5) 05/28/19 08:34 Calcium 8.2 mg/dL (8.4-10.2) L 06/03/19 07:16 Magnesium 2.0 mg/dL (1.6-2.3) 06/03/19 07:16 Total Bilirubin 0.5 mg/dL (0.2-1.3) 06/03/19 07:16 Direct Bilirubin 0.2 mg/dL (0.0-0.4) 06/03/19 07:16 Neonat Total Bilirubin Not Reportable 06/03/19 07:16 Neonat Direct Bilirubin Not Reportable 06/03/19 07:16 Neonat Indirect Bili Not Reportable 06/03/19 07:16 AST 30 U/L (17-59) 06/03/19 07:16 ALT 27 U/L (<50) 06/03/19 07:16 Alkaline Phosphatase 53 U/L (38-126) 06/03/19 07:16 Creatine Kinase 259 U/L (55-170) H 05/29/19 02:41 CK-MB (CK-2) 1.26 ng/mL (<4.55) 05/29/19 02:41 Troponin I 0.032 ng/mL 05/29/19 02:41 Total Protein 6.3 g/dL (6.3-8.2) 06/03/19 07:16 Albumin 3.1 g/dL (3.5-5.0) L 06/03/19 07:16 Triglycerides 100 mg/dL (<150) 05/29/19 05:34 Cholesterol 134.13 mg/dL (0-200) 05/29/19 05:34 LDL Cholesterol Direct 86 mg/dL (<100) 05/29/19 05:34 VLDL Cholesterol 20.0 mg/dL (10-31) 05/29/19 05:34 HDL Cholesterol 40 mg/dL (>40) 05/29/19 05:34 TSH 0.46 uIU/mL (0.47-4.68) L 05/29/19 05:34 Urine Color YELLOW 05/28/19 10:00 Urine Appearance CLEAR 05/28/19 10:00 Urine pH 5.0 (5.0-9.0) 05/28/19 10:00 Ur Specific [place] 1.013 05/28/19 10:00 Urine Protein 30 mg/dL (NEGATIVE) H 05/28/19 10:00 Urine Glucose (UA) >=500 mg/dL (NEGATIVE) H 05/28/19 10:00 Urine Ketones TRACE mg/dL (NEGATIVE) H 05/28/19 10:00 Urine Blood SMALL (NEGATIVE) H 05/28/19 10:00 Urine Nitrite NEGATIVE (NEGATIVE) 05/28/19 10:00 Urine Bilirubin NEGATIVE (NEGATIVE) 05/28/19 10:00 Urine Urobilinogen NEGATIVE mg/dL (<2.0) 05/28/19 10:00 Ur Leukocyte Esterase NEGATIVE (NEGATIVE) 05/28/19 10:00 Urine WBC (Auto) 0 /HPF 05/28/19 10:00 Urine RBC (Auto) 1 /HPF 05/28/19 10:00 Urine Ascorbic Acid NEGATIVE (NEGATIVE) 05/28/19 10:00 Urine Opiates Screen NEGATIVE 06/01/19 10:54 Urine Methadone Screen NEGATIVE 06/01/19 10:54 Ur Barbiturates Screen NEGATIVE 06/01/19 10:54 Ur Phencyclidine Scrn NEGATIVE 06/01/19 10:54 Ur Amphetamines Screen NEGATIVE 06/01/19 10:54 U Benzodiazepines Scrn NEGATIVE 06/01/19 10:54 Urine Cocaine Screen NEGATIVE 06/01/19 10:54 U Marijuana (THC) Screen NEGATIVE 06/01/19 10:54 05/28/19 05/28/19 05/28/19 08:34 15:50 20:25 CK-MB (CK-2) 0.54 0.61 Troponin I 0.014 0.024 0.031 05/29/19 02:41 CK-MB (CK-2) 1.26 Troponin I 0.032 Impressions: Lower Extremity MRI 05/28/19 00:00 IMPRESSION: 1. NO EVIDENCE FOR OSTEOMYELITIS. 2. SUBCUTANEOUS SOFT TISSUE EDEMA/INFLAMMATION. NO EVIDENCE OF ABSCESS. 3. POSTERIOR SUBLUXATION OF THE MTP JOINT OF THE 2ND TOE, PRESUMABLY CHRONIC. Toe X-Ray 05/28/19 07:54 IMPRESSION: SUBLUXATION OF THE MTP JOINT OF THE 2ND TOE, PRESUMED CHRONIC. NO OTHER SIGNIFICANT RADIOGRAPHIC FINDINGS. Venous Doppler Study 05/29/19 00:00 IMPRESSION: NO EVIDENCE DVT OR SVT IN THE LEFT LEG. Lower Extremity CT 05/31/19 17:45 IMPRESSION: Subcutaneous edema. Cannot exclude cellulitis. No evidence of compartment syndrome. Have compartment measurements been obtained? Plan Plan of Treatment: She was strongly advised to follow-up with Dr. Zheng and wound care center in 3 to 5 days. Time Spent: Greater than 30 Minutes Stroke Is this a Stroke Patient?: No Acute Heart Failure - Is this a Heart Failure Patient?: No
[2019-06-04] MEDS: INSULIN GLARGINE,HUM.REC.ANLOG 1,000 UNIT/10 ML VIAL SUBCUT SCH (09:49)
[2019-06-04] MEDS: FUROSEMIDE INJ/PF 40 MG/4 ML SDV IV SCH (09:49)
[2019-06-04] MEDS: FAMOTIDINE 20 MG TABLET PO SCH (09:49)
[2019-06-04] MEDS: ENOXAPARIN SODIUM INJ 40 MG/0.4 ML DISP.SYRIN SUBCUT SCH (09:50)
[2019-06-04 10:06] VITALS: BP 108/59
== END 2019-06-04 10:42 | disposition home or self-care (01) | DRG 603 ==
LOC: ER 06:50 → EH 10:21 → 3N 14:29
PROVIDERS: ADMIT Internal Medicine; ATTEND Internal Medicine
DX: L03.032 Cellulitis of left toe (principal); I10 Essential (primary) hypertension; F32.9 Major depressive disorder, single episode, unspecified; L97.509 Non-pressure chronic ulcer of other part of unspecified foot with unspecified severity; E11.621 Type 2 diabetes mellitus with foot ulcer; R01.1 Cardiac murmur, unspecified; E11.40 Type 2 diabetes mellitus with diabetic neuropathy, unspecified; Z23 Encounter for immunization; Z86.14 Personal history of Methicillin resistant Staphylococcus aureus infection; Z79.899 Other long term (current) drug therapy; Z88.3 Allergy status to other anti-infective agents; Z88.8 Allergy status to other drugs, medicaments and biological substances; Z79.84 Long term (current) use of oral hypoglycemic drugs
CPT/HCPCS: 36415; 80053; 80061; 80307; 81001; 82550; 82553; 82962; 83036; 83605; 83735; 84443; 84484; 84550; 85025; 87040; 87070; 87205; 90686; 93005; 93010; 93306; 93971; 96361; 96365; 96375; 99291; J1170; J1335; J1650; J1815; J1885; J1940; J2020; J2060; J2185; J2405; J2550; J2765; J3230; J3475; J3480; J3490; J7030

== ENCOUNTER 2019-06-16 14:36 | Inpatient (IN) | payer OTHER ==
--- NOTE | 2019-06-16 14:56 | ER Document Report ---
ED Medical Screen (RME) - General Chief Complaint: Foot Pain Stated Complaint: TOE PAIN Time Seen by Provider: 06/16/19 14:52 Primary Care Provider: BRIDGER MARTINEZ MD [Primary Care Provider] - Follow up as needed Mode of Arrival: Ambulatory Information source: Patient Notes: 58-year-old male presented to ED for a reinfection of his left foot and toe. He states he was in the hospital for a week on antibiotics they sent him home for with 10 pills which were antibiotics to take he took all of his antibiotics and his infection came back he states he has heat and redness all the way up to his thigh. He states he has had hot and cold chills for the last 2 days. He states his temperature is normal at this time. Dates he took 2 Tylenol an hour ago. He states he went to Dr. Davis office and he sent him over to the emergency room. I have greeted and performed a rapid initial assessment of this patient. A comprehensive ED assessment and evaluation of the patient, analysis of test results and completion of medical decision making process will be conducted by an additional ED providers. TRAVEL OUTSIDE OF THE [place] IN LAST 30 DAYS: No - Related Data Allergies/Adverse Reactions: aspartame [From Nutrasweet Aspartame] Allergy (Verified 02/16/19 10:53) Coconut * [Coconut] Allergy (Verified 02/16/19 10:53) vancomycin Allergy (Verified 02/16/19 10:53) Past Medical History - Past Medical History Cardiac Medical History: Reports: Hx Hypertension Endocrine Medical History: Reports: Hx Diabetes Mellitus Type 2 Renal/ Medical History: Denies: Hx Peritoneal Dialysis Psychiatric Medical History: Reports: Hx Depression Past Surgical History: Reports: Hx Orthopedic Surgery - Left Knee, Ruptured Disc Repair L4/L5 - Immunizations Immunizations up to date: Yes Hx Diphtheria, Pertussis, Tetanus Vaccination: Yes Physical Exam - Vital signs Vitals: Temp Pulse Resp BP Pulse Ox 98.9 F 78 18 137/66 H 96 06/16/19 14:43 06/16/19 14:43 06/16/19 14:43 06/16/19 14:43 06/16/19 14:43 Course - Vital Signs Vital signs: Temp Pulse Resp BP Pulse Ox 98.9 F 78 18 137/66 H 96 06/16/19 14:43 06/16/19 14:43 06/16/19 14:43 06/16/19 14:43 06/16/19 14:43 Doctor's Discharge - Discharge Referrals: BRIDGER MARTINEZ MD [Primary Care Provider] - Follow up as needed
[2019-06-16 16:34] LABS: ABSOLUTE BASOPHILS # (AUTO) 0.1 10^3/uL (0.0-0.2); ABSOLUTE LYMPHOCYTES (AUTO) 1.2 10^3/uL (0.5-4.7); ABSOLUTE MONOCYTES (AUTO) 1.9 10^3/uL (0.1-1.4); ABSOLUTE NEUT (AUTO) 13.5 10^3/uL (1.7-8.2); BASOPHILS % (AUTO) 0.5 % (0-2); EOSINOPHILS % (AUTO) 0.3 % (0-6); HEMATOCRIT 30.3 % (37.9-51.0); HEMOGLOBIN 10.3 g/dL (13.5-17.0); LYMPHOCYTES % (AUTO) 7.3 % (13-45); MEAN CORPUSCULAR HEMOGLOBIN 28.9 pg (27.0-33.4); MEAN CORPUSCULAR VOLUME 85 fl (80-97); MONOCYTES % (AUTO) 11.1 % (3-13); PLATELET COUNT 513 10^3/uL (150-450); RED BLOOD COUNT 3.56 10^6/uL (4.35-5.55); RED CELL DISTRIBUTION WIDTH 13.6 % (11.5-14.0); SEGMENTED NEUTROPHILS % (AUTO) 80.8 % (42-78); TOTAL CELLS COUNTED % (AUTO) 100 %; WHITE BLOOD COUNT 16.7 10^3/uL (4.0-10.5)
[2019-06-16 16:36] LABS: VENOUS BLOOD BASE EXCESS 0.1 mmol/L; VENOUS BLOOD PCO2 50.4 mmHg (35-63); VENOUS BLOOD PH 7.35 (7.30-7.42)
[2019-06-16 16:43] LABS: INTERNATIONAL RATION (INR) 1.29; PROTHROMBIN TIME 16.2 SEC (11.4-15.4)
[2019-06-16 16:55] LABS: ALBUMIN 3.9 g/dL (3.5-5.0); ALKALINE PHOSPHATASE 54 U/L (38-126); ANION GAP 10 (5-19); ASPARTATE AMINO TRANSFERASE 30 U/L (17-59); BILIRUBIN,DIRECT 0.2 mg/dL (0.0-0.4); BILIRUBIN,TOTAL 0.8 mg/dL (0.2-1.3); BLOOD UREA NITROGEN 14 mg/dL (7-20); CALCIUM 8.9 mg/dL (8.4-10.2); CARBON DIOXIDE 26 mmol/L (22-30); CHLORIDE 96 mmol/L (98-107); GLUCOSE 194 mg/dL (75-110); POTASSIUM 4.2 mmol/L (3.6-5.0); TOTAL PROTEIN 8.3 g/dL (6.3-8.2)
--- NOTE | 2019-06-16 17:29 | RADIOLOGY REPORT (SQ) ---
EXAM DESCRIPTION: FOOT LEFT COMPLETE COMPLETED DATE/TIME: 06/16/2019 3:50 pm REASON FOR STUDY: Re-infection of the left foot. COMPARISON: None. NUMBER OF VIEWS: Three views. TECHNIQUE: AP, lateral and oblique radiographic images acquired of the left foot. LIMITATIONS: None. FINDINGS: MINERALIZATION: Normal. BONES: No acute fracture or dislocation. No osteolysis or periosteal reaction. JOINTS: The tarsometatarsal alignment is preserved SOFT TISSUES: Soft tissue swelling along the dorsal aspect of the foot. There is no subcutaneous emp hysema or radiopaque foreign body. OTHER: Vascular calcifications IMPRESSION: Soft tissue swelling along the dorsal aspect of the foot without an associated osseous a bnormality. TECHNICAL DOCUMENTATION: JOB ID: [id number] [employer]- All Rights Reserved Reading location - IP/workstation name: [email or web address]
[2019-06-16] MEDS ORDERED: MORPHINE SULFATE 10 MG/ML INJ IV ONE (17:35)
--- NOTE | 2019-06-16 18:33 | ER Document Report ---
ED General - General Chief Complaint: Leg Swelling Stated Complaint: TOE PAIN Time Seen by Provider: 06/16/19 14:52 Mode of Arrival: Ambulatory Notes: Patient is a 58-year-old male with multiple medical problems including poorly controlled diabetes that presents to the emergency department for chief complaint of left foot swelling and redness and pain. Patient reports he was recently admitted to the hospital earlier in the month and was treated for cellulitis of the left foot. States he was discharged home on 10 days of antibiotics which he completed, but he states that over the last 2 days he is been having more pain in his foot and redness and streaking up his leg, he states that the large blister had on the bottom of his large toe and foot had sloughed off and is been having more pain in that area as well. He states he has had a fever of 104 F at home as well. He is been having sweats associated with this. Denies any chest pain, abdominal pain but does admit to having some nausea and vomiting. He currently rates his pain as a 9 out of 10 describes as a constant throbbing and aching sensation in his left leg. Past Medical History: Diabetes mellitus, hypertension, hyperlipidemia Past Surgical History: Right toe amputation Social History: Denies tobacco use, regular alcohol use, or drug use. Family History: Reviewed and noncontributory for presenting illness Allergies: Reviewed, see documented allergy list. REVIEW OF SYSTEMS: Other than noted above, the 12 point review of systems was reviewed with the patient and were negative, all pertinent findings are included in the HPI. PHYSICAL EXAMINATION: Vital signs reviewed, nursing noted reviewed. GENERAL: Patient appears uncomfortable on exam, and in pain, but answers questions appropriately HEAD: Atraumatic, normocephalic. EYES: Eyes appear normal, extraocular movements intact, sclera anicteric, conjunctiva are normal. ENT: nares patent, oropharynx clear without exudates. Moist mucous membranes. NECK: Normal range of motion, supple without lymphadenopathy LUNGS: Breath sounds clear to auscultation bilaterally and equal. No wheezes rales or rhonchi. HEART: Regular rate and rhythm without murmurs ABDOMEN: Soft, nontender, normoactive bowel sounds. No rebound, guarding, or rigidity. No masses appreciated. EXTREMITIES: Patient's left lower extremity, has significant erythema distally, and extends up more proximally, towards the knee, and on his foot, he is tenderness to palpation, with edema, and the skin has sloughed off on the bottom of his first and second toes, and over a portion of the sole of the foot. There is no crepitus with palpation. No calf tenderness. On the patient's right lower extremity, there is no tenderness to palpation, he is noted to have fourth toe amputation on the right. The patient's upper extremities are unremarkable. NEUROLOGICAL: No focal neurological deficits. Moves all extremities spontaneously Motor and sensory grossly intact on exam. PSYCH: Flat affect, answers questions appropriately though SKIN: Warm, Dry, normal turgor, TRAVEL OUTSIDE OF THE [place] IN LAST 30 DAYS: No - Related Data Allergies/Adverse Reactions: aspartame [From Nutrasweet Aspartame] Allergy (Verified 06/16/19 14:53) Coconut * [Coconut] Allergy (Verified 06/16/19 14:53) vancomycin Allergy (Verified 06/16/19 14:53) Past Medical History - General Information source: Patient - Social History Smoking Status: Never Smoker Chew tobacco use (# tins/day): No Frequency of alcohol use: None Drug Abuse: None Family History: Reviewed & Not Pertinent Patient has suicidal ideation: No Patient has homicidal ideation: No - Past Medical History Cardiac Medical History: Reports: Hx Hypertension Endocrine Medical History: Reports: Hx Diabetes Mellitus Type 2 Renal/ Medical History: Denies: Hx Peritoneal Dialysis Psychiatric Medical History: Reports: Hx Depression Past Surgical History: Reports: Hx Orthopedic Surgery - Left Knee, Ruptured Disc Repair L4/L5 - Immunizations Immunizations up to date: Yes Hx Diphtheria, Pertussis, Tetanus Vaccination: Yes Physical Exam - Vital signs Vitals: Temp Pulse Resp BP Pulse Ox 98.9 F 78 18 137/66 H 96 06/16/19 14:43 06/16/19 14:43 06/16/19 14:43 06/16/19 14:43 06/16/19 14:43 Course - Re-evaluation Re-evalutation: Patient seen and examined vital signs reviewed. Laboratory data and imaging were ordered as appropriate for the patient's presenting symptoms and complaint, with consideration of any critical or life threatening conditions that may be associated with their obtained history and exam as noted above. Patient was treated with IV fluids, and morphine for pain initially, he was started on Zosyn and clindamycin, he is allergic to vancomycin, his previous cultures demonstrated sensitivity to clindamycin for MRSA. He is also grown beta-hemolytic strep. Results were reviewed when available and demonstrated leukocytosis of 16,000, and normal lactic acid, blood work is otherwise unremarkable, patient's x-ray was negative for gas or air. The patient was re-evaluated and was still having some pain, he was given IV Dilaudid at this point, patient did have significant cellulitis in skin sloughing to his left foot, which is concerning, I did discuss this case with the surgeon Dr. Brown, who will come to see the patient but ultimately they need to be admitted. Evaluation was most consistent with cellulitis of the left lower extremity Results were discussed with the patient at this point after careful consideration I feel that that patient should be admitted to the hospital. This was discussed with the patient that it is in the best interest for their care to be admitted for further evaluation and management. Patient agreed with this plan of care. A call was placed to the admitting physician, Dr. Magana who graciously accepted the patient onto their service. *Note is created using voice recognition software and may contain spelling, syntax or grammatical errors. Laboratory 06/16/19 06/16/19 06/16/19 16:15 16:15 16:15 WBC 16.7 H RBC 3.56 L Hgb 10.3 L Hct 30.3 L MCV 85 MCH 28.9 MCHC 34.0 RDW 13.6 Plt Count 513 H Lymph % (Auto) 7.3 L Mccreary % (Auto) 11.1 Eos % (Auto) 0.3 Baso % (Auto) 0.5 Absolute Neuts (auto) 13.5 H Absolute Lymphs (auto) 1.2 Absolute Monos (auto) 1.9 H Absolute Eos (auto) 0.0 Absolute Basos (auto) 0.1 Seg Neutrophils % 80.8 H PT 16.2 H INR 1.29 VBG pH VBG pCO2 VBG HCO3 VBG Base Excess Sodium 132.2 L Potassium 4.2 Chloride 96 L Carbon Dioxide 26 Anion Gap 10 BUN 14 Creatinine 1.04 Est GFR ( Amer) > 60 Est GFR (MDRD) Non-Af > 60 Glucose 194 H POC Glucose Lactic Acid Calcium 8.9 Total Bilirubin 0.8 Direct Bilirubin 0.2 Neonat Total Bilirubin Not Reportable Neonat Direct Bilirubin Not Reportable Neonat Indirect Bili Not Reportable AST 30 ALT 17 Alkaline Phosphatase 54 Total Protein 8.3 H Albumin 3.9 06/16/19 06/16/19 06/16/19 16:15 16:15 16:33 WBC RBC Hgb Hct MCV MCH MCHC RDW Plt Count Lymph % (Auto) Mccreary % (Auto) Eos % (Auto) Baso % (Auto) Absolute Neuts (auto) Absolute Lymphs (auto) Absolute Monos (auto) Absolute Eos (auto) Absolute Basos (auto) Seg Neutrophils % PT INR VBG pH 7.35 VBG pCO2 50.4 VBG HCO3 27.0 VBG Base Excess 0.1 Sodium Potassium Chloride Carbon Dioxide Anion Gap BUN Creatinine Est GFR ( Amer) Est GFR (MDRD) Non-Af Glucose POC Glucose 199 H Lactic Acid 0.9 Calcium Total Bilirubin Direct Bilirubin Neonat Total Bilirubin Neonat Direct Bilirubin Neonat Indirect Bili AST ALT Alkaline Phosphatase Total Protein Albumin Foot X-Ray 06/16/19 14:57 IMPRESSION: Soft tissue swelling along the dorsal aspect of the foot without an associated osseous abnormality. - Vital Signs Vital signs: Temp Pulse Resp BP Pulse Ox 98.4 F 79 16 154/79 H 98 06/16/19 23:57 06/16/19 23:57 06/16/19 23:57 06/16/19 23:57 06/16/19 23:57 - Laboratory Result Diagrams: 06/16/19 16:15 06/16/19 16:15 Laboratory results interpreted by me: 06/16/19 06/16/19 06/16/19 16:15 16:15 16:15 WBC 16.7 H RBC 3.56 L Hgb 10.3 L Hct 30.3 L Plt Count 513 H Lymph % (Auto) 7.3 L Absolute Neuts (auto) 13.5 H Absolute Monos (auto) 1.9 H Seg Neutrophils % 80.8 H PT 16.2 H Sodium 132.2 L Chloride 96 L Glucose 194 H POC Glucose Total Protein 8.3 H 06/16/19 16:33 WBC RBC Hgb Hct Plt Count Lymph % (Auto) Absolute Neuts (auto) Absolute Monos (auto) Seg Neutrophils % PT Sodium Chloride Glucose POC Glucose 199 H Total Protein Discharge - Discharge Clinical Impression: Wound of left foot Cellulitis Qualifiers: Site of cellulitis: extremity Site of cellulitis of extremity: lower extremity Laterality: left Qualified Code(s): L03.116 - Cellulitis of left lower limb Leukocytosis Qualifiers: Leukocytosis type: bandemia Qualified Code(s): D72.825 - Bandemia Condition: Stable Disposition: ADMITTED INPATIENT Admitting Provider: Chino (Hospitalist) Unit Admitted: Medical Floor
[2019-06-16] MEDS ORDERED: RINGERS SOLUTION,LACTATED 1,000 ML IV ONE (18:39)
[2019-06-16] MEDS ORDERED: PIPERACILLIN/TAZOBACTAM 3.375 GM VIAL IV ONE (18:40)
[2019-06-16] MEDS ORDERED: CLINDAMYCIN 900 MG/D5W RTU 900 MG/50 ML RTUPB IV ONE (18:41)
[2019-06-16] MEDS ORDERED: HYDROMORPHONE HCL INJ/PF 2 MG/ML AMPULE IV ONE (19:43)
[2019-06-16] MEDS ORDERED: ONDANSETRON HCL INJ/PF 4 MG/2 ML SDV IV ONE (19:43)
[2019-06-16] MEDS ORDERED: HYDROMORPHONE HCL INJ/PF 2 MG/ML AMPULE ONE (20:01)
[2019-06-16] MEDS ORDERED: DEXTROSE 50%-WATER 25 GM/50 ML DISP.SYRIN IV PRN ×2 (20:17)
[2019-06-16] MEDS ORDERED: MAG HYDROX/AL HYDROX/SIMETH SUSP 30 ML UDCUP PO PRN (20:17)
[2019-06-16] MEDS ORDERED: ACETAMINOPHEN 325 MG TABLET PO PRN (20:17)
[2019-06-16] MEDS ORDERED: IPRATROPIUM/ALBUTEROL 0.5-2.5 MG/3 ML AMPUL NEB PRN (20:17)
[2019-06-16] MEDS ORDERED: DEXTROSE 40% GEL 15 GM TUBE PO PRN ×2 (20:17)
[2019-06-16] MEDS ORDERED: MAGNESIUM HYDROXIDE SUSP 30 ML UDCUP PO PRN (20:17)
[2019-06-16] MEDS ORDERED: GLUCAGON,HUMAN RECOMB 1 MG INJ IM PRN (20:17)
[2019-06-16] MEDS ORDERED: NORMAL SALINE 1000 ML 1,000 ML IV SCH (20:30)
[2019-06-16] MEDS: NORMAL SALINE 1000 ML 1,000 ML IV PRN (20:57)
[2019-06-16] MEDS: LINEZOLID 600 MG/300 ML RTUPB IV SCH (22:11)
[2019-06-16] MEDS: GABAPENTIN 100 MG CAPSULE PO SCH (22:19)
[2019-06-16] MEDS: HEPARIN SOD (PORCINE) 5,000 UNIT/ML 1 ML VIAL SUBCUT SCH (22:19)
[2019-06-16] MEDS: HUM INSULIN NPH/REG INSULIN HM 100 UNIT/1 ML 3 ML SUBCUT SCH (22:27)
--- NOTE | 2019-06-16 23:02 | PDOC CONSULTATION ---
Consultation Consult Date: 06/16/19 Provider Consulted: EKTA BOOGIE Consult reason:: Cellulitis left foot/leg History of Present Illness Admission Date/PCP: 06/16/19 20:06 BRIDGER MARTINEZ MD History of Present Illness: GISELLA HAYS is a 58 year old male type II diabetic with previous history of cellulitis of the left foot 1005 10/03/2013 at [facility], started complaining some redness and swelling of the left foot and noted fevers and chills for the past 2days as well as pains along the left foot, the left medial calf and left upper leg. He had a x-ray of the left foot in the ED which showed soft tissue edema on the dorsum of the foot. No evidence of osteomyelitis. Past Medical History Cardiac Medical History: Reports: Hypertension Endocrine Medical History: Reports: Diabetes Mellitus Type 2 Psychiatric Medical History: Reports: Depression Past Surgical History Past Surgical History: Reports: Orthopedic Surgery - Left Knee, Ruptured Disc Repair L4/L5, Other - Right second toe amputation Social History Smoking Status: Never Smoker Electronic Cigarette use?: No Frequency of Alcohol Use: Heavy Hx Recreational Drug Use: No Drugs: None Hx Prescription Drug Abuse: No Family History Family History: Reviewed & Not Pertinent Parental Family History Reviewed: Yes Children Family History Reviewed: No Sibling(s) Family History Reviewed.: No Medication/Allergy Home Medications: Glipizide [Glucotrol Xl 2.5 mg Tab.er] 2.5 mg PO DAILY 06/16/19 Allergies/Adverse Reactions: aspartame [From Nutrasweet Aspartame] Allergy (Verified 06/16/19 14:53) Coconut * [Coconut] Allergy (Verified 06/16/19 14:53) vancomycin Allergy (Verified 06/16/19 14:53) Review of Systems Constitutional: PRESENT: as per HPI Musculoskeletal: PRESENT: as per HPI Integumentary: PRESENT: as per HPI Physical Exam Vital Signs: Temp Pulse Resp BP Pulse Ox 98.5 F 65 12 129/54 H 99 06/16/19 22:38 06/16/19 22:38 06/16/19 22:38 06/16/19 22:38 06/16/19 22:38 Intake & Output 06/15/19 06/16/19 06/17/19 06:59 06:59 06:59 Intake Total 1050 Balance 1050 Weight 93.894 kg General appearance: PRESENT: mild distress Head exam: PRESENT: atraumatic Eye exam: PRESENT: conjunctiva pink Mouth exam: PRESENT: moist Neck exam: PRESENT: full ROM Respiratory exam: PRESENT: clear to auscultation kayleen Cardiovascular exam: PRESENT: RRR Pulses: PRESENT: normal radial pulses GI/Abdominal exam: PRESENT: soft Rectal exam: PRESENT: deferred Extremities exam: PRESENT: other - There is edema of the left foot with erythema. The left toes some blisters starting with the first second and third. The fourth and fifth toes had evidence of ruptured blisters. No drainage noted. The plantar aspect of the left foot has evidence of superficial dry scab occupying the whole 5060% of the foot. This however is nontender. No evidence of any collection underneath. Neurological exam: PRESENT: alert, oriented to person, oriented to place, oriented to time, oriented to situation Psychiatric exam: PRESENT: appropriate affect Skin exam: PRESENT: erythema, skin tears, warm, other - Swollen left foot with small blisters along the first second and third toes. Evidence of ruptured blisters along the fourth and fifth toes. Results Laboratory Results: 06/16/19 16:15 06/16/19 16:15 06/16/19 06/16/19 06/16/19 16:15 16:15 16:15 WBC 16.7 H RBC 3.56 L Hgb 10.3 L Hct 30.3 L MCV 85 MCH 28.9 MCHC 34.0 RDW 13.6 Plt Count 513 H Seg Neutrophils % 80.8 H VBG pH VBG pCO2 VBG HCO3 VBG Base Excess Sodium 132.2 L Potassium 4.2 Chloride 96 L Carbon Dioxide 26 Anion Gap 10 BUN 14 Creatinine 1.04 Est GFR ( Amer) > 60 Glucose 194 H Lactic Acid 0.9 Calcium 8.9 Total Bilirubin 0.8 AST 30 Alkaline Phosphatase 54 Total Protein 8.3 H Albumin 3.9 06/16/19 16:15 WBC RBC Hgb Hct MCV MCH MCHC RDW Plt Count Seg Neutrophils % VBG pH 7.35 VBG pCO2 50.4 VBG HCO3 27.0 VBG Base Excess 0.1 Sodium Potassium Chloride Carbon Dioxide Anion Gap BUN Creatinine Est GFR ( Amer) Glucose Lactic Acid Calcium Total Bilirubin AST Alkaline Phosphatase Total Protein Albumin Impressions: Foot X-Ray 06/16/19 14:57 IMPRESSION: Soft tissue swelling along the dorsal aspect of the foot without an associated osseous abnormality. 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 longterm use Diabetes mellitus complication status: with skin complications Diabetes mellitus complication detail: with foot ulcer Qualified Code(s): E11.621 - Type 2 diabetes mellitus with foot ulcer; L97.509 - Non-pressure chronic ulcer of other part of unspecified foot with unspecified severity Is this a current diagnosis for this admission?: Yes - Time Time Spent: 30 to 50 Minutes - Inpatient Certification Medical Necessity: Need For Continuous Telemetry Monitoring, Need for IV Antibiotics, Need for Surgery - Plan Summary Plan Summary: 58-year-old male with type 2 diabetes and history of cellulitis of the left foot was admitted 1005 to 1014 at [facility], complained of discomfort along the left foot the left medial calf and left thigh for the past few days. Admits to having fever and chills past 2days. He has some blisters along the left first second and third toes and interrupted blisters along the fourth and fifth toes. Plantar area is dry scab. No evidence of tenderness likely due to neuropathy. X-ray showed no osteomyelitis. Impression: Cellulitis left foot with some blister formation type 2 diabetes mellitus Plans: Agree with IV antibiotics Elevate left leg We will debride the blisters in a.m. at bedside.
[2019-06-17] MEDS: KETOROLAC TROMETHAMINE INJ/PF 30 MG/1 ML SDV IV PRN ×2 (00:49→19:48)
[2019-06-17] MEDS: PIPERACILLIN SODIUM/TAZOBACTAM 4.5 GM in NORMAL SALINE 100 ML IV SCH ×5 (00:52→23:42)
[2019-06-17] MEDS: NORMAL SALINE 1000 ML 1,000 ML IV PRN (04:33)
[2019-06-17 05:37] LABS: ABSOLUTE BASOPHILS # (AUTO) 0.1 10^3/uL (0.0-0.2); ABSOLUTE EOSINOPHILS # (AUTO) 0.1 10^3/uL (0.0-0.6); ABSOLUTE LYMPHOCYTES (AUTO) 1.9 10^3/uL (0.5-4.7); ABSOLUTE MONOCYTES (AUTO) 1.1 10^3/uL (0.1-1.4); ABSOLUTE NEUT (AUTO) 7.2 10^3/uL (1.7-8.2); EOSINOPHILS % (AUTO) 0.9 % (0-6); HEMATOCRIT 28.4 % (37.9-51.0); HEMOGLOBIN 9.6 g/dL (13.5-17.0); LYMPHOCYTES % (AUTO) 18.6 % (13-45); MEAN CORPUSCULAR HEMOGLOBIN 28.7 pg (27.0-33.4); MEAN CORPUSCULAR HGB CONC 33.6 g/dL (32.0-36.0); MEAN CORPUSCULAR VOLUME 85 fl (80-97); MONOCYTES % (AUTO) 10.3 % (3-13); PLATELET COUNT 410 10^3/uL (150-450); RED BLOOD COUNT 3.33 10^6/uL (4.35-5.55); RED CELL DISTRIBUTION WIDTH 13.8 % (11.5-14.0); SEGMENTED NEUTROPHILS % (AUTO) 69.2 % (42-78); TOTAL CELLS COUNTED % (AUTO) 100 %; WHITE BLOOD COUNT 10.5 10^3/uL (4.0-10.5)
[2019-06-17 06:00] LABS: ANION GAP 9 (5-19); BLOOD UREA NITROGEN 12 mg/dL (7-20); CALCIUM 8.6 mg/dL (8.4-10.2); CARBON DIOXIDE 25 mmol/L (22-30); CHLORIDE 103 mmol/L (98-107); GLUCOSE 149 mg/dL (75-110)
[2019-06-17] MEDS: HEPARIN SOD (PORCINE) 5,000 UNIT/ML 1 ML VIAL SUBCUT SCH ×3 (06:05→21:06)
[2019-06-17] MEDS: GABAPENTIN 100 MG CAPSULE PO SCH ×3 (06:20→21:23)
--- NOTE | 2019-06-17 06:55 | PDOC H&P ---
History of Present Illness Admission Date/PCP: 06/16/19 20:06 BRIDGER MARTINEZ MD Patient complains of: Left foot pain and swelling History of Present Illness: GISELLA HAYS is a 58 year old male with a past medical history of diabetes, tobacco, hypertension, MRSA and Pseudomonas diabetic foot and left leg cellulitis. Patient discharged 3 weeks ago for diabetic foot. Patient's symptoms have significantly worsened with erythema pain and swelling prompting reevaluation the emergency room. He started on empiric antibiotics, surgery is consulted recommending OR debridement in the a.m. Patient admits compliant with medication regiment. Denies uncontrolled blood sugar and is otherwise felt well. Past Medical History Cardiac Medical History: Reports: Hypertension Endocrine Medical History: Reports: Diabetes Mellitus Type 2 Psychiatric Medical History: Reports: Depression Past Surgical History Past Surgical History: Reports: Orthopedic Surgery - Left Knee, Ruptured Disc Repair L4/L5, Other - Right second toe amputation Social History Information Source: Patient Smoking Status: Never Smoker Electronic Cigarette use?: No Frequency of Alcohol Use: Social Hx Recreational Drug Use: No Drugs: None Hx Prescription Drug Abuse: No - Advance Directive Resuscitation Status: Full Code Family History Family History: DM Parental Family History Reviewed: Yes Children Family History Reviewed: Yes Sibling(s) Family History Reviewed.: Yes Medication/Allergy Home Medications: Glipizide [Glucotrol Xl 2.5 mg Tab.er] 2.5 mg PO DAILY 06/16/19 Allergies/Adverse Reactions: aspartame [From Nutrasweet Aspartame] Allergy (Verified 06/16/19 14:53) Coconut * [Coconut] Allergy (Verified 06/16/19 14:53) vancomycin Allergy (Verified 06/16/19 14:53) Review of Systems Constitutional: ABSENT: chills, fever(s), headache(s), weight gain, weight loss Eyes: ABSENT: visual disturbances Ears: ABSENT: hearing changes Cardiovascular: ABSENT: chest pain, dyspnea on exertion, edema, orthropnea, palpitations Respiratory: ABSENT: cough, hemoptysis Gastrointestinal: ABSENT: abdominal pain, constipation, diarrhea, hematemesis, hematochezia, nausea, vomiting Genitourinary: ABSENT: dysuria, hematuria Musculoskeletal: ABSENT: joint swelling Integumentary: ABSENT: rash, wounds Neurological: ABSENT: abnormal gait, abnormal speech, confusion, dizziness, focal weakness, syncope Psychiatric: ABSENT: anxiety, depression, homidical ideation, suicidal ideation Endocrine: ABSENT: cold intolerance, heat intolerance, polydipsia, polyuria Hematologic/Lymphatic: ABSENT: easy bleeding, easy bruising Physical Exam Vital Signs: Temp Pulse Resp BP Pulse Ox 98.4 F 79 16 154/79 H 98 06/16/19 23:57 06/16/19 23:57 06/16/19 23:57 06/16/19 23:57 06/16/19 23:57 Intake & Output 06/15/19 06/16/19 06/17/19 11:59 11:59 11:59 Intake Total 2450 Balance 2450 Weight 96.8 kg General appearance: PRESENT: cooperative, mild distress, well-developed, well- nourished. ABSENT: disheveled Head exam: PRESENT: atraumatic, normocephalic Eye exam: PRESENT: conjunctiva pink, EOMI, PERRLA. ABSENT: scleral icterus Ear exam: PRESENT: normal external ear exam Mouth exam: PRESENT: moist, tongue midline Neck exam: ABSENT: carotid bruit, JVD, lymphadenopathy, thyromegaly Respiratory exam: PRESENT: clear to auscultation kayleen. ABSENT: rales, rhonchi, wheezes Cardiovascular exam: PRESENT: RRR. ABSENT: diastolic murmur, rubs, systolic murmur Pulses: PRESENT: normal dorsalis pedis pul Vascular exam: PRESENT: normal capillary refill GI/Abdominal exam: PRESENT: normal bowel sounds, soft. ABSENT: distended, guarding, mass, organolmegaly, rebound, tenderness Rectal exam: PRESENT: deferred Extremities exam: PRESENT: tenderness - Malodorous necrotic left foot involving plantar surface and all digits, +2 edema Musculoskeletal exam: PRESENT: other - Malodorous necrotic left foot involving plantar surface and all digits Neurological exam: PRESENT: alert, awake, oriented to person, oriented to place, oriented to time, oriented to situation, CN II-XII grossly intact. ABSENT: motor sensory deficit Psychiatric exam: PRESENT: appropriate affect, normal mood. ABSENT: homicidal ideation, suicidal ideation Skin exam: PRESENT: dry, erythema, intact, warm, other - Malodorous necrotic left foot involving plantar surface and all digits. ABSENT: cyanosis, rash Results Laboratory Results: 06/17/19 04:53 06/17/19 04:53 1006/16/19 06/16/19 16:15 16:15 16:15 WBC 16.7 H RBC 3.56 L Hgb 10.3 L Hct 30.3 L MCV 85 MCH 28.9 MCHC 34.0 RDW 13.6 Plt Count 513 H Seg Neutrophils % 80.8 H VBG pH VBG pCO2 VBG HCO3 VBG Base Excess Sodium 132.2 L Potassium 4.2 Chloride 96 L Carbon Dioxide 26 Anion Gap 10 BUN 14 Creatinine 1.04 Est GFR ( Amer) > 60 Glucose 194 H Lactic Acid 0.9 Calcium 8.9 Total Bilirubin 0.8 AST 30 Alkaline Phosphatase 54 Total Protein 8.3 H Albumin 3.9 06/16/19 06/17/19 06/17/19 16:15 04:53 04:53 WBC 10.5 RBC 3.33 L Hgb 9.6 L Hct 28.4 L MCV 85 MCH 28.7 MCHC 33.6 RDW 13.8 Plt Count 410 Seg Neutrophils % 69.2 VBG pH 7.35 VBG pCO2 50.4 VBG HCO3 27.0 VBG Base Excess 0.1 Sodium 136.6 L Potassium 4.0 Chloride 103 Carbon Dioxide 25 Anion Gap 9 BUN 12 Creatinine 1.04 Est GFR ( Amer) > 60 Glucose 149 H Lactic Acid Calcium 8.6 Total Bilirubin AST Alkaline Phosphatase Total Protein Albumin Impressions: Foot X-Ray 06/16/19 14:57 IMPRESSION: Soft tissue swelling along the dorsal aspect of the foot without an associated osseous abnormality. Assessment and Plan - Diagnosis (1) MRSA cellulitis of left foot Is this a current diagnosis for this admission?: Yes Plan: History of both MRSA and Pseudomonas left foot ulcer. Olimpia nasal lid given vancomycin allergy, Zosyn for Pseudomonas coverage. Follow-up CBC, blood culture, wound culture and surgical debridement. (2) DM type 2 (diabetes mellitus, type 2) Qualifiers: Diabetes mellitus assisted insulin use: without intermission coordinator use Diabetes mellitus complication status: with skin complications Diabetes mellitus complication detail: with foot ulcer Qualified Code(s): E11.621 - Type 2 diabetes mellitus with foot ulcer; L97.509 - Non-pressure chronic ulcer of other part of unspecified foot with unspecified severity Is this a current diagnosis for this admission?: Yes Plan: Insulin 70/30 10 units twice daily and Humalog sliding scale ordered, follow-up A1c. - Inpatient Certification I certify that my determination is in accordance with my understanding of [employer] 's requirements for reasonable and necessary INPATIENT services [42 CFR 412.3e].: Yes Medical Necessity: Need Close Monitoring Due to Risk of Patient Decompensation
[2019-06-17 07:41] LABS: IRON(TIBC) 12.2 ug/dL (49-181)
[2019-06-17 07:49] LABS: ABSOLUTE RETICS # 0.026 10^6/uL (0.028-0.122)
[2019-06-17] MEDS: INSULIN LISPRO 100 UNIT/ML 3 ML VIAL SUBCUT SCH ×3 (08:20→16:59)
[2019-06-17] MEDS: HUM INSULIN NPH/REG INSULIN HM 100 UNIT/1 ML 3 ML SUBCUT SCH ×2 (08:28→17:04)
[2019-06-17 08:47] LABS: FOLATE 7.76 ng/mL (>2.76)
[2019-06-17] MEDS: OXYCODONE-ACETAMINOPHEN 5-325 MG TABLET PO PRN ×4 (09:08→23:42)
[2019-06-17] MEDS: DOCUSATE SODIUM 100 MG/10 ML UDC PO SCH ×2 (09:09→17:01)
[2019-06-17] MEDS: LINEZOLID 600 MG/300 ML RTUPB IV SCH ×2 (10:28→21:23)
--- NOTE | 2019-06-17 11:48 | PDOC PROGRESS REPORT ---
Subjective Progress Note for:: 06/17/19 Subjective:: This is a 58 year old male with a past medical history of diabetes, tobacco, hypertension, history of MRSA and Pseudomonas diabetic foot and left leg cellulitis who was 3 weeks ago for an infected left diabetic foot who presented with recurrence of tenderness and ruptured bullae in the left foot. He was admitted for left leg and foot cellulitis. No acute event overnight. He does complain of left foot tenderness. Lesions demarcated. Surgery is planning to do bedside debridement today. Reason For Visit: LEG FOOT CELLULITIS, DM Physical Exam Vital Signs: Temp Pulse Resp BP Pulse Ox 98.3 F 60 14 102/54 L 97 06/17/19 07:23 06/17/19 07:23 06/17/19 07:23 06/17/19 07:23 06/17/19 07:23 Intake & Output 06/16/19 06/17/19 06/18/19 06:59 06:59 06:59 Intake Total 2450 Balance 2450 Weight 213 lb 6.519 oz General appearance: PRESENT: no acute distress, well-developed, well-nourished Head exam: PRESENT: atraumatic, normocephalic Eye exam: PRESENT: conjunctiva pink, EOMI, PERRLA. ABSENT: scleral icterus Ear exam: PRESENT: normal external ear exam Mouth exam: PRESENT: moist, tongue midline Neck exam: ABSENT: carotid bruit, JVD, lymphadenopathy, thyromegaly Respiratory exam: PRESENT: clear to auscultation kayleen. ABSENT: rales, rhonchi, wheezes Cardiovascular exam: PRESENT: RRR. ABSENT: diastolic murmur, rubs, systolic mu rmur Pulses: PRESENT: normal dorsalis pedis pul GI/Abdominal exam: PRESENT: normal bowel sounds, soft. ABSENT: distended, guarding, mass, organolmegaly, rebound, tenderness Rectal exam: PRESENT: deferred Musculoskeletal exam: PRESENT: other - erythema and tenderness on left leg and foot with ruptured bulla on the left sole Neurological exam: PRESENT: alert, awake, oriented to person, oriented to place, oriented to time, oriented to situation, CN II-XII grossly intact. ABSENT: motor sensory deficit Results Laboratory Results: 06/17/19 04:53 06/17/19 04:53 06/16/19 06/16/19 06/16/19 16:15 16:15 16:15 WBC 16.7 H RBC 3.56 L Hgb 10.3 L Hct 30.3 L MCV 85 MCH 28.9 MCHC 34.0 RDW 13.6 Plt Count 513 H Seg Neutrophils % 80.8 H Retic Count (auto) VBG pH VBG pCO2 VBG HCO3 VBG Base Excess Sodium 132.2 L Potassium 4.2 Chloride 96 L Carbon Dioxide 26 Anion Gap 10 BUN 14 Creatinine 1.04 Est GFR ( Amer) > 60 Glucose 194 H Lactic Acid 0.9 Calcium 8.9 Iron TIBC % Saturation Ferritin Total Bilirubin 0.8 AST 30 Alkaline Phosphatase 54 Total Protein 8.3 H Albumin 3.9 Vitamin B12 Folate 06/16/19 06/17/19 06/17/19 16:15 04:53 04:53 WBC 10.5 RBC 3.33 L Hgb 9.6 L Hct 28.4 L MCV 85 MCH 28.7 MCHC 33.6 RDW 13.8 Plt Count 410 Seg Neutrophils % 69.2 Retic Count (auto) VBG pH 7.35 VBG pCO2 50.4 VBG HCO3 27.0 VBG Base Excess 0.1 Sodium 136.6 L Potassium 4.0 Chloride 103 Carbon Dioxide 25 Anion Gap 9 BUN 12 Creatinine 1.04 Est GFR ( Amer) > 60 Glucose 149 H Lactic Acid Calcium 8.6 Iron TIBC % Saturation Ferritin Total Bilirubin AST Alkaline Phosphatase Total Protein Albumin Vitamin B12 Folate 06/17/19 06/17/19 04:53 04:53 WBC RBC Hgb Hct MCV MCH MCHC RDW Plt Count Seg Neutrophils % Retic Count (auto) 0.80 VBG pH VBG pCO2 VBG HCO3 VBG Base Excess Sodium Potassium Chloride Carbon Dioxide Anion Gap BUN Creatinine Est GFR ( Amer) Glucose Lactic Acid Calcium Iron 12.2 L TIBC 199 L % Saturation 6 Ferritin 499.00 H Total Bilirubin AST Alkaline Phosphatase Total Protein Albumin Vitamin B12 447.0 Folate 7.76 Impressions: Foot X-Ray 06/16/19 14:57 IMPRESSION: Soft tissue swelling along the dorsal aspect of the foot without an associated osseous abnormality. Assessment and Plan - Diagnosis (1) Cellulitis Qualifiers: Site of cellulitis: extremity Site of cellulitis of extremity: lower extremity Laterality: left Qualified Code(s): L03.116 - Cellulitis of left lower limb Is this a current diagnosis for this admission?: Yes Plan: Continue IV antibiotics. Surgery is planning to do bedside debridement today. (2) DM type 2 (diabetes mellitus, type 2) Is this a current diagnosis for this admission?: Yes Plan: Hba1c 8.7. He only takes glipizide at home. Currently on 70/30 and sliding scale insulin. (3) Hypertension Qualifiers: Hypertension type: essential hypertension Qualified Code(s): I10 - Essential (primary) hypertension Is this a current diagnosis for this admission?: Yes Plan: Blood pressures in the low normal and. - Time Time Spent with patient: 25-34 minutes
--- NOTE | 2019-06-17 15:12 | Operative Report ---
Operative Report DATE OF SURGERY: 06/17/19 PREOPERATIVE DIAGNOSIS: Blisters over the left first second and third toes with underlying cellulitis POSTOPERATIVE DIAGNOSIS: Same OPERATION: Unroofing of blisters to the left first second and third toes SURGEON: EKTA BOOGIE ANESTHESIA: Other - Given p.o. Percocet an hour prior TISSUE REMOVED OR ALTERED: Skin blisters COMPLICATIONS: None ESTIMATED BLOOD LOSS: Less than 1 cc QUANTITATIVE BLOOD LOSS: 1 INTRAOPERATIVE FINDINGS: Blisters about 1-1/2 cm x 1-1/2 cm on the first second and third toes that are noted to be starting to dry up. No purulent material noted. Small amount of fluid was obtained and sent forC&S PROCEDURE: Blisters over the left first second and third toes were excised with the scissors. There were noted to be starting to dry up. No evidence of purulent material noted. Small amount of fluid was placed in the culturette to be sent for C&S. The blister sites roughly measured about 1-1/2 x 1-1/2cm for each toe no bleeding noted patient tolerated well. A layer of Xeroform gauze was laid over the blister. Areas that were unroofed and wrapped with 4 x 4 and Kerlix
--- NOTE | 2019-06-17 15:16 | PDOC PROGRESS REPORT ---
Subjective Progress Note for:: 06/17/19 Subjective:: Mild pains left foot Reason For Visit: LEG FOOT CELLULITIS, DM Physical Exam Vital Signs: Temp Pulse Resp BP Pulse Ox 97.9 F 74 18 139/64 H 95 06/17/19 11:20 06/17/19 14:19 06/17/19 14:19 06/17/19 11:20 06/17/19 14:19 Intake & Output 06/16/19 06/17/19 06/18/19 06:59 06:59 06:59 Intake Total 2550 1760 Balance 2550 1760 Weight 96.8 kg Exam: Cellulitis appears to be improving. The blisters are starting to dry up. They were then unroofed with the use of scissors at bedside this morning. Layer of Xeroform gauze placed over the blisters and covered with 4 x 4 and Kerlix Results Laboratory Results: 06/17/19 04:53 06/17/19 04:53 06/16/19 06/16/19 06/16/19 16:15 16:15 16:15 WBC 16.7 H RBC 3.56 L Hgb 10.3 L Hct 30.3 L MCV 85 MCH 28.9 MCHC 34.0 RDW 13.6 Plt Count 513 H Seg Neutrophils % 80.8 H Retic Count (auto) VBG pH VBG pCO2 VBG HCO3 VBG Base Excess Sodium 132.2 L Potassium 4.2 Chloride 96 L Carbon Dioxide 26 Anion Gap 10 BUN 14 Creatinine 1.04 Est GFR ( Amer) > 60 Glucose 194 H Lactic Acid 0.9 Calcium 8.9 Iron TIBC % Saturation Ferritin Total Bilirubin 0.8 AST 30 Alkaline Phosphatase 54 Total Protein 8.3 H Albumin 3.9 Vitamin B12 Folate 06/16/19 06/17/19 06/17/19 16:15 04:53 04:53 WBC 10.5 RBC 3.33 L Hgb 9.6 L Hct 28.4 L MCV 85 MCH 28.7 MCHC 33.6 RDW 13.8 Plt Count 410 Seg Neutrophils % 69.2 Retic Count (auto) VBG pH 7.35 VBG pCO2 50.4 VBG HCO3 27.0 VBG Base Excess 0.1 Sodium 136.6 L Potassium 4.0 Chloride 103 Carbon Dioxide 25 Anion Gap 9 BUN 12 Creatinine 1.04 Est GFR ( Amer) > 60 Glucose 149 H Lactic Acid Calcium 8.6 Iron TIBC % Saturation Ferritin Total Bilirubin AST Alkaline Phosphatase Total Protein Albumin Vitamin B12 Folate 06/17/19 06/17/19 04:53 04:53 WBC RBC Hgb Hct MCV MCH MCHC RDW Plt Count Seg Neutrophils % Retic Count (auto) 0.80 VBG pH VBG pCO2 VBG HCO3 VBG Base Excess Sodium Potassium Chloride Carbon Dioxide Anion Gap BUN Creatinine Est GFR ( Amer) Glucose Lactic Acid Calcium Iron 12.2 L TIBC 199 L % Saturation 6 Ferritin 499.00 H Total Bilirubin AST Alkaline Phosphatase Total Protein Albumin Vitamin B12 447.0 Folate 7.76 Impressions: Foot X-Ray 06/16/19 14:57 IMPRESSION: Soft tissue swelling along the dorsal aspect of the foot without an associated osseous abnormality. Assessment & Plan - Diagnosis (1) Cellulitis Qualifiers: Site of cellulitis: extremity Site of cellulitis of extremity: lower extremity Laterality: left Qualified Code(s): L03.116 - Cellulitis of left lower limb Is this a current diagnosis for this admission?: Yes (2) DM type 2 (diabetes mellitus, type 2) Qualifiers: Diabetes mellitus [employer] insulin use: without [facility] use Diabetes mellitus complication status: with skin complications Diabetes mellitus complication detail: with foot ulcer Qualified Code(s): E11.621 - Type 2 diabetes mellitus with foot ulcer; L97.509 - Non-pressure chronic ulcer of other part of unspecified foot with unspecified severity Is this a current diagnosis for this admission?: Yes - Time Time Spent with patient: 15-24 minutes - Inpatient Certification Medical Necessity: Need for IV Antibiotics - Plan Summary Plan Summary: Cellulitis appears to be improving and all the blisters were removed surgically. Continue with IV antibiotics. The dressings can be removed tomorrow and just leave the foot open to air. Surgery will sign off and call for any questions. Patient can be followed up at the wound care center on outpatient basis
[2019-06-18] MEDS: HEPARIN SOD (PORCINE) 5,000 UNIT/ML 1 ML VIAL SUBCUT SCH ×3 (05:05→21:02)
[2019-06-18] MEDS: OXYCODONE-ACETAMINOPHEN 5-325 MG TABLET PO PRN ×3 (05:09→19:26)
[2019-06-18] MEDS: GABAPENTIN 100 MG CAPSULE PO SCH ×3 (05:09→21:04)
[2019-06-18] MEDS: KETOROLAC TROMETHAMINE INJ/PF 30 MG/1 ML SDV IV PRN ×2 (05:09→21:04)
[2019-06-18] MEDS: PIPERACILLIN SODIUM/TAZOBACTAM 4.5 GM in NORMAL SALINE 100 ML IV SCH ×4 (05:09→23:50)
[2019-06-18] MEDS: HUM INSULIN NPH/REG INSULIN HM 100 UNIT/1 ML 3 ML SUBCUT SCH ×2 (08:16→16:21)
[2019-06-18] MEDS: INSULIN LISPRO 100 UNIT/ML 3 ML VIAL SUBCUT SCH ×3 (08:16→16:17)
[2019-06-18] MEDS: DOCUSATE SODIUM 100 MG/10 ML UDC PO SCH ×2 (09:24→17:18)
[2019-06-18] MEDS: LINEZOLID 600 MG/300 ML RTUPB IV SCH ×2 (09:24→21:05)
--- NOTE | 2019-06-18 11:02 | XCELERA REPORT ---
[address] [address] Lower Extremity Venous Evaluation Procedure: Color flow and duplex imaging of the veins of the left lower extremity as well as the right Common Femoral vein. Right Sided Venous Evaluation The right common femoral vein is fully compressible. Spontaneous and phasic flow is present in the right common femoral vein. Left Sided Venous Evaluation An oval structure, 1.25 x 4 cms with central echogenicity in the groin. Normal vessel filling wall to wall, compression and augmentation as well as Colour flow down to the infrageniculate veins. Interpretation Summary No duplex evidence of DVT or obstruction in the left lower extremity nor in the right Common Femoral vein. An enlarged lymph node in the left groin noted. Name: GISELLA HAYS Age: 58 yrs Gender: Male : 1960 Patient Status: Inpatient Patient Location: [address] [place] [address] Study Date: 06/17/2019 10:45 AM Reason For Study: left leg swelling, r/o left leg DVT Ordering Physician: TERRENCE MCKEON Performed By: Jarad Reyna : TERRENCE MCKEON > Pepe Zheng
--- NOTE | 2019-06-18 12:27 | PDOC PROGRESS REPORT ---
Subjective Progress Note for:: 06/18/19 Subjective:: This is a 58 year old male with a past medical history of diabetes, tobacco, hypertension, history of MRSA and Pseudomonas diabetic foot and left leg cellulitis who was 3 weeks ago for an infected left diabetic foot who presented with recurrence of tenderness and ruptured bullae in the left foot. He was admitted for left leg and foot cellulitis. 06/17: He does complain of left foot tenderness. Lesions demarcated. Surgery is planning to do bedside debridement today. 06/18: No acute event overnight. He had bedside debridement by surgery yesterday. Swelling and redness on the left leg and foot have improved. He does report that the tenderness and pain have also improved this morning. Reason For Visit: LEG FOOT CELLULITIS, DM Physical Exam Vital Signs: Temp Pulse Resp BP Pulse Ox 99.4 F 61 14 171/72 H 96 06/17/19 19:58 06/18/19 08:37 06/18/19 08:37 06/17/19 19:58 06/18/19 08:37 Intake & Output 06/17/19 06/18/19 06/19/19 06:59 06:59 06:59 Intake Total 2550 2700 Balance 2550 2700 Weight 213 lb 6.519 oz 211 lb 10.3 oz General appearance: PRESENT: no acute distress, well-developed, well-nourished Head exam: PRESENT: atraumatic, normocephalic Eye exam: PRESENT: conjunctiva pink, EOMI, PERRLA. ABSENT: scleral icterus Ear exam: PRESENT: normal external ear exam Mouth exam: PRESENT: moist, tongue midline Neck exam: ABSENT: carotid bruit, JVD, lymphadenopathy, thyromegaly Respiratory exam: PRESENT: clear to auscultation kayleen. ABSENT: rales, rhonchi, wheezes Cardiovascular exam: PRESENT: RRR. ABSENT: diastolic murmur, rubs, systolic murmur Pulses: PRESENT: normal dorsalis pedis pul GI/Abdominal exam: PRESENT: normal bowel sounds, soft. ABSENT: distended, guarding, mass, organolmegaly, rebound, tenderness Rectal exam: PRESENT: deferred Musculoskeletal exam: PRESENT: other - Swelling and erythema have improved Neurological exam: PRESENT: alert, awake, oriented to person, oriented to place, oriented to time, oriented to situation, CN II-XII grossly intact. ABSENT: motor sensory deficit Results Laboratory Results: 06/17/19 04:53 06/17/19 04:53 Impressions: Foot X-Ray 06/16/19 14:57 IMPRESSION: Soft tissue swelling along the dorsal aspect of the foot without an associated osseous abnormality. Assessment and Plan - Diagnosis (1) Cellulitis Qualifiers: Site of cellulitis: extremity Site of cellulitis of extremity: lower extremity Laterality: left Qualified Code(s): L03.116 - Cellulitis of left lower limb Is this a current diagnosis for this admission?: Yes Plan: Improving. S/P bedside debridement by surgery 06/17. Continue IV antibiotics today. (2) DM type 2 (diabetes mellitus, type 2) Is this a current diagnosis for this admission?: Yes Plan: Hba1c 8.7. He only takes glipizide at home. Currently on 70/30 and sliding scale insulin. (3) Hypertension Qualifiers: Hypertension type: essential hypertension Qualified Code(s): I10 - Ess ential (primary) hypertension Is this a current diagnosis for this admission?: Yes Plan: Blood pressures improved. - Time Time Spent with patient: 25-34 minutes
[2019-06-18] MEDS ORDERED: FERRIC CARBOXYMALTOSE INJ 750 MG/15 ML VIAL IV SCH (12:30)
[2019-06-19] MEDS: HEPARIN SOD (PORCINE) 5,000 UNIT/ML 1 ML VIAL SUBCUT SCH (05:25)
[2019-06-19] MEDS: PIPERACILLIN SODIUM/TAZOBACTAM 4.5 GM in NORMAL SALINE 100 ML IV SCH (05:29)
[2019-06-19] MEDS: GABAPENTIN 100 MG CAPSULE PO SCH (05:29)
[2019-06-19] MEDS: INSULIN LISPRO 100 UNIT/ML 3 ML VIAL SUBCUT SCH (08:42)
[2019-06-19] MEDS: HUM INSULIN NPH/REG INSULIN HM 100 UNIT/1 ML 3 ML SUBCUT SCH (08:46)
[2019-06-19] MEDS: LINEZOLID 600 MG/300 ML RTUPB IV SCH (09:29)
[2019-06-19] MEDS: DOCUSATE SODIUM 100 MG/10 ML UDC PO SCH (09:30)
[2019-06-19 10:28] VITALS: BP 129/54
--- NOTE | 2019-06-19 16:46 | PDOC DISCHARGE SUMMARY ---
Impression - Admit/DC Date/PCP Admission Date/Primary Care Provider: 06/16/19 20:06 BRIDGER MARTINEZ MD Discharge Date: 06/19/19 - Discharge Diagnosis (1) Cellulitis Is this a current diagnosis for this admission?: Yes (2) DM type 2 (diabetes mellitus, type 2) Is this a current diagnosis for this admission?: Yes (3) Hypertension Is this a current diagnosis for this admission?: Yes - Additional Information Resuscitation Status: Full Code Discharge Diet: As Tolerated, Diabetic Discharge Activity: Activity As Tolerated Referrals: Wound Care [Provider Group] BRIDGER MARTINEZ MD [Primary Care Provider] - Follow up as needed JODEE CHAPIN MD [ACTIVE STAFF] - Prescriptions: Sulfamethoxazole/Trimethoprim [Bactrim Ds Tablet] 1 each PO BID 5 Days #10 tablet Glipizide [Glucotrol Xl 5 mg Tab.er] 5 mg PO QAM #30 tab.er.24 Hydrocodone/Acetaminophen [[place] 5-325 mg Tablet] 1 tab PO Q6HP PRN #12 tablet PRN Reason: Home Medications: Glipizide [Glucotrol Xl 5 mg Tab.er] 5 mg PO QAM #30 tab.er.24 06/19/19 Hydrocodone/Acetaminophen [[place] 5-325 mg Tablet] 1 tab PO Q6HP PRN #12 tablet 06/19/19 Sulfamethoxazole/Trimethoprim [Bactrim Ds Tablet] 1 each PO BID 5 Days #10 tablet 06/19/19 History of Present Illiness History of Present Illness: Admitting hospitalist's H&P: GISELLA HAYS is a 58 year old male with a past medical history of diabetes, tobacco, hypertension, MRSA and Pseudomonas diabetic foot and left leg cellulitis. Patient discharged 3 weeks ago for diabetic foot. Patient's symptoms have significantly worsened with erythema pain and swelling prompting reevaluation the emergency room. He started on empiric antibiotics, surgery is consulted recommending OR debridement in the a.m. Patient admits compliant with medication regiment. Denies uncontrolled blood sugar and is otherwise felt well. Hospital Course Hospital Course: This is a 58 year old male with a past medical history of diabetes, tobacco, hypertension, history of MRSA and Pseudomonas diabetic foot and left leg cellulitis who was 3 weeks ago for an infected left diabetic foot who presented with recurrence of tenderness and ruptured bullae in the left foot. He was admitted for left leg and foot cellulitis. He was started on IV antibiotics. Surgery did bedside debridement on 06/17. He had significant improvement in the swelling and tenderness. Erythema on the left leg was very minimal on day of discharge. Wound culture grew A. baumanii and Haemophilus. He will be discharged on Bactrim. He will closely follow-up with surgery and the wound clinic for reassessment of his divided wound. His HbA1c also came back at 8.7. Glipizide dose was increased. Physical Exam Vital Signs: Temp Pulse Resp BP Pulse Ox 97.6 F 60 16 129/54 H 97 06/19/19 10:27 06/19/19 10:27 06/19/19 10:27 06/19/19 10:27 06/19/19 10:27 Intake & Output 06/18/19 06/19/19 06/20/19 06:59 06:59 06:59 Intake Total 2700 2320 Output Total 50 Balance 2700 2270 Weight 211 lb 10.3 oz 219 lb 12.814 oz Results Laboratory Results: WBC 10.5 10^3/uL (4.0-10.5) 06/17/19 04:53 RBC 3.33 10^6/uL (4.35-5.55) L 06/17/19 04:53 Hgb 9.6 g/dL (13.5-17.0) L 06/17/19 04:53 Hct 28.4 % (37.9-51.0) L 06/17/19 04:53 MCV 85 fl (80-97) 06/17/19 04:53 MCH 28.7 pg (27.0-33.4) 06/17/19 04:53 MCHC 33.6 g/dL (32.0-36.0) 06/17/19 04:53 RDW 13.8 % (11.5-14.0) 06/17/19 04:53 Plt Count 410 10^3/uL (150-450) 06/17/19 04:53 Lymph % (Auto) 18.6 % (13-45) 06/17/19 04:53 Cecil % (Auto) 10.3 % (3-13) 06/17/19 04:53 Eos % (Auto) 0.9 % (0-6) 06/17/19 04:53 Baso % (Auto) 1.0 % (0-2) 06/17/19 04:53 Reticulocyte # 0.026 10^6/uL (0.028-0.122) L 06/17/19 04:53 Absolute Neuts (auto) 7.2 10^3/uL (1.7-8.2) 06/17/19 04:53 Absolute Lymphs (auto) 1.9 10^3/uL (0.5-4.7) 06/17/19 04:53 Absolute Monos (auto) 1.1 10^3/uL (0.1-1.4) 06/17/19 04:53 Absolute Eos (auto) 0.1 10^3/uL (0.0-0.6) 06/17/19 04:53 Absolute Basos (auto) 0.1 10^3/uL (0.0-0.2) 06/17/19 04:53 Seg Neutrophils % 69.2 % (42-78) 06/17/19 04:53 Retic Count (auto) 0.80 % (0.66-2.85) 06/17/19 04:53 PT 16.2 SEC (11.4-15.4) H 06/16/19 16:15 INR 1.29 06/16/19 16:15 VBG pH 7.35 (7.30-7.42) 06/16/19 16:15 VBG pCO2 50.4 mmHg (35-63) 06/16/19 16:15 VBG HCO3 27.0 mmol/L (20-32) 06/16/19 16:15 VBG Base Excess 0.1 mmol/L 06/16/19 16:15 Sodium 136.6 mmol/L (137-145) L 06/17/19 04:53 Potassium 4.0 mmol/L (3.6-5.0) 06/17/19 04:53 Chloride 103 mmol/L (98-107) 06/17/19 04:53 Carbon Dioxide 25 mmol/L (22-30) 06/17/19 04:53 Anion Gap 9 (5-19) 06/17/19 04:53 BUN 12 mg/dL (7-20) 06/17/19 04:53 Creatinine 1.04 mg/dL (0.52-1.25) 06/17/19 04:53 Est GFR ( Amer) > 60 (>60) 06/17/19 04:53 Est GFR (MDRD) Non-Af > 60 (>60) 06/17/19 04:53 Glucose 149 mg/dL (75-110) H 06/17/19 04:53 POC Glucose 109 mg/dL (70-110) 06/19/19 08:02 Hemoglobin A1c % 8.7 % (4.7-6.0) H 06/17/19 04:53 Lactic Acid 0.9 mmol/L (0.7-2.1) 06/16/19 16:15 Calcium 8.6 mg/dL (8.4-10.2) 06/17/19 04:53 Iron 12.2 ug/dL (49-181) L 06/17/19 04:53 TIBC 199 ug/dL (250-450) L 06/17/19 04:53 % Saturation 6 % 06/17/19 04:53 Ferritin 499.00 ng/mL (17.9-464.0) H 06/17/19 04:53 Total Bilirubin 0.8 mg/dL (0.2-1.3) 06/16/19 16:15 Direct Bilirubin 0.2 mg/dL (0.0-0.4) 06/16/19 16:15 Neonat Total Bilirubin Not Reportable 06/16/19 16:15 Neonat Direct Bilirubin Not Reportable 06/16/19 16:15 Neonat Indirect Bili Not Reportable 06/16/19 16:15 AST 30 U/L (17-59) 06/16/19 16:15 ALT 17 U/L (<50) 06/16/19 16:15 Alkaline Phosphatase 54 U/L (38-126) 06/16/19 16:15 Total Protein 8.3 g/dL (6.3-8.2) H 06/16/19 16:15 Albumin 3.9 g/dL (3.5-5.0) 06/16/19 16:15 Vitamin B12 447.0 pg/mL (239-931) 06/17/19 04:53 Folate 7.76 ng/mL (>2.76) 06/17/19 04:53 Impressions: Foot X-Ray 06/16/19 14:57 IMPRESSION: Soft tissue swelling along the dorsal aspect of the foot without an associated osseous abnormality. Stroke Is this a Stroke Patient?: No Acute Heart Failure - Is this a Heart Failure Patient?: No
== END 2019-06-19 10:42 | disposition home health service (06) | DRG 638 ==
LOC: ER 14:36 → EH 20:06 → 3N 06-17
PROVIDERS: ADMIT Internal Medicine; ATTEND Internal Medicine
PROC: 0HBNXZZ Excision of Left Foot Skin, External Approach (ICD-10-PCS; principal; 2019-06-17)
DX: E11.621 Type 2 diabetes mellitus with foot ulcer (principal); L03.116 Cellulitis of left lower limb; F17.210 Nicotine dependence, cigarettes, uncomplicated; I10 Essential (primary) hypertension; F32.9 Major depressive disorder, single episode, unspecified; Z86.14 Personal history of Methicillin resistant Staphylococcus aureus infection; Z89.421 Acquired absence of other right toe(s); Z88.3 Allergy status to other anti-infective agents; Z91.018 Allergy to other foods; Z91.048 Other nonmedicinal substance allergy status; Z79.899 Other long term (current) drug therapy; Z83.3 Family history of diabetes mellitus
CPT/HCPCS: 36415; 80048; 80053; 82607; 82728; 82746; 82803; 82962; 83036; 83540; 83550; 83605; 85025; 85045; 85610; 87040; 87070; 87077; 87186; 87205; 93971; 96365; 96375; 99285; J1170; J1644; J1815; J1885; J2020; J2270; J2405; J2543; J3490; J7030; J7050; J7120

== ENCOUNTER → 2019-06-29 | Outpatient (CLI) | payer OTHER | LOC: SP 11:10 | PROVIDERS: ATTEND Surgery | DX: L97.522 Non-pressure chronic ulcer of other part of left foot with fat layer exposed (principal) | CPT/HCPCS: 93922; 93925 ==

== ENCOUNTER 2019-07-13 15:23 | Inpatient (IN) | payer OTHER ==
[2019-07-13] MEDS ORDERED: NORMAL SALINE 1000 ML 1,000 ML IV ONE ×2 (16:22→18:11)
[2019-07-13] MEDS ORDERED: CEFTRIAXONE 1 GM/D5W RTU 1 GM/50 ML RTUPB IV ONE (16:22)
[2019-07-13] MEDS ORDERED: ONDANSETRON HCL INJ/PF 4 MG/2 ML SDV IV ONE (16:23)
--- NOTE | 2019-07-13 16:27 | ER Document Report ---
ED Medical Screen (RME) - General Chief Complaint: Fever Stated Complaint: FEVER Time Seen by Provider: 07/13/19 16:14 Primary Care Provider: LINDA VALDES MD [Primary Care Provider] - Follow up as needed Notes: Patient is a 4-year-old male with history of diabetic foot ulcer who presents to the emergency department with a fever. Patient states that he has had a fever for the past 5 days. Patient states that he thinks that he may have the flu, because he has had a fever. His maximum temperature was 104.1 at home. Patient also states that he has not changed his foot ulcer dressings for the past 5 days due to not feeling well. Exam: Diabetic foot ulcer to the left foot. Foul-smelling. I have greeted and performed a rapid initial assessment of this patient. A comprehensive ED assessment and evaluation of the patient, analysis of test results and completion of medical decision making process will be conducted by an additional ED providers. TRAVEL OUTSIDE OF THE [place] IN LAST 30 DAYS: No - Related Data Allergies/Adverse Reactions: aspartame [From Nutrasweet Aspartame] Allergy (Verified 06/16/19 14:53) Coconut * [Coconut] Allergy (Verified 06/16/19 14:53) vancomycin Allergy (Verified 06/16/19 14:53) Home Medications: Metformin. Lisinopril. Glipizide Past Medical History - Social History Frequency of alcohol use: None Drug Abuse: None - Past Medical History Cardiac Medical History: Reports: Hx Hypertension Endocrine Medical History: Reports: Hx Diabetes Mellitus Type 2 Renal/ Medical History: Denies: Hx Peritoneal Dialysis Psychiatric Medical History: Reports: Hx Depression Past Surgical History: Reports: Hx Orthopedic Surgery - Left Knee, Ruptured Disc Repair L4/L5, Other - Right second toe amputation - Immunizations Immunizations up to date: Yes Hx Diphtheria, Pertussis, Tetanus Vaccination: Yes Physical Exam - Vital signs Vitals: Temp Pulse Resp BP Pulse Ox 100.4 F 89 18 161/62 H 97 07/13/19 15:29 07/13/19 15:29 07/13/19 15:29 07/13/19 15:29 07/13/19 15:29 Course - Vital Signs Vital signs: Temp Pulse Resp BP Pulse Ox 100.4 F 89 18 161/62 H 97 07/13/19 15:29 07/13/19 15:29 07/13/19 15:29 07/13/19 15:29 07/13/19 15:29 Doctor's Discharge - Discharge Referrals: LINDA VALDES MD [Primary Care Provider] - Follow up as needed
--- NOTE | 2019-07-13 17:29 | RADIOLOGY REPORT (SQ) ---
EXAM DESCRIPTION: FOOT LEFT COMPLETE COMPLETED DATE/TIME: 07/13/2019 5:04 pm REASON FOR STUDY: eval osteomylitis COMPARISON: None. EXAM PARAMETERS: NUMBER OF VIEWS: Three views. TECHNIQUE: AP, lateral and oblique radiographic images acquired of the left foot. LIMITATIONS: None. FINDINGS: MINERALIZATION: Normal. BONES: No acute fracture. 7 mm dorsal-medial 2nd MTP joint subluxation- dislocation. No worrisome b one lesions. JOINTS: No effusion. SOFT TISSUES: No significant soft tissue swelling. No radiopaque foreign body. OTHER: No other significant finding. IMPRESSION: No acute fracture. 7 mm dorsal-medial 2nd MTP joint subluxation- dislocation. No worri some bone lesions.. TECHNICAL DOCUMENTATION: JOB ID: [id number] [place]-72 2010 [employer]- All Rights Reserved Reading location - IP/workstation name: [email or web address]
--- NOTE | 2019-07-13 17:31 | RADIOLOGY REPORT (SQ) ---
EXAM DESCRIPTION: CHEST SINGLE VIEW COMPLETED DATE/TIME: 07/13/2019 5:04 pm REASON FOR STUDY: fever; congestion COMPARISON: 09/12/2018 TECHNIQUE: Single frontal radiographic view of the chest acquired. NUMBER OF VIEWS: One view. LIMITATIONS: None. FINDINGS: LUNGS AND PLEURA: No pneumothorax. No consolidation or pleural effusion. MEDIASTINUM AND HILAR STRUCTURES: Stable. HEART AND VASCULAR STRUCTURES: Stable. BONES: No acute findings. HARDWARE: None in the chest. OTHER: No other significant finding. IMPRESSION: NO ACUTE FINDINGS. TECHNICAL DOCUMENTATION: JOB ID: [id number] [id number] 2010 [employer]- All Rights Reserved Reading location - IP/workstation name: [email or web address]
[2019-07-13 17:42] LABS: HEMATOCRIT 32.7 % (37.9-51.0); HEMOGLOBIN 10.9 g/dL (13.5-17.0); MEAN CORPUSCULAR HEMOGLOBIN 27.5 pg (27.0-33.4); MEAN CORPUSCULAR HGB CONC 33.4 g/dL (32.0-36.0); MEAN CORPUSCULAR VOLUME 82 fl (80-97); PLATELET COUNT 438 10^3/uL (150-450); RED BLOOD COUNT 3.98 10^6/uL (4.35-5.55); RED CELL DISTRIBUTION WIDTH 15.2 % (11.5-14.0); WHITE BLOOD COUNT 18.8 10^3/uL (4.0-10.5)
[2019-07-13 17:47] LABS: VENOUS BLOOD BASE EXCESS 2.2 mmol/L; VENOUS BLOOD HCO3 26.8 mmol/L (20-32); VENOUS BLOOD PCO2 41.7 mmHg (35-63); VENOUS BLOOD PH 7.43 (7.30-7.42)
[2019-07-13 17:53] LABS: ALBUMIN 3.7 g/dL (3.5-5.0); ALKALINE PHOSPHATASE 73 U/L (38-126); ANION GAP 15 (5-19); ASPARTATE AMINO TRANSFERASE 17 U/L (17-59); BILIRUBIN,DIRECT 0.3 mg/dL (0.0-0.4); BLOOD UREA NITROGEN 12 mg/dL (7-20); CALCIUM 9.1 mg/dL (8.4-10.2); CARBON DIOXIDE 24 mmol/L (22-30); CHLORIDE 95 mmol/L (98-107); GLUCOSE 224 mg/dL (75-110); TOTAL PROTEIN 7.6 g/dL (6.3-8.2)
[2019-07-13 17:59] LABS: A TYPE INFLUENZA AG NEGATIVE (NEGATIVE); B INFLUENZA AG NEGATIVE (NEGATIVE)
[2019-07-13] MEDS ORDERED: METOCLOPRAMIDE HCL INJ/PF 10 MG/2 ML SDV IV ONE (18:07)
[2019-07-13] MEDS ORDERED: PIPERACILLIN/TAZOBACTAM 3.375 GM VIAL IV ONE (18:10)
[2019-07-13] MEDS ORDERED: LINEZOLID 600 MG/300 ML RTUPB IV ONE (18:10)
[2019-07-13 18:17] LABS: ABSOLUTE LYMPHOCYTES# (MANUAL) 1.1 10^3/uL (0.5-4.7); ABSOLUTE MONOCYTES # (MANUAL) 1.3 10^3/uL (0.1-1.4); BASOPHILS % (MANUAL) 2 % (0-2); EOSINOPHILS % (MANUAL) 0 % (0-6); LYMPHOCYTES % (MANUAL) 6 % (13-45); MONOCYTES % (MANUAL) 7 % (3-13); SEGMENTED NEUTROPHILS % (MAN) 85 % (42-78); TOTAL CELLS COUNTED 100
[2019-07-13] MEDS ORDERED: ACETAMINOPHEN 325 MG TABLET PO ONE (18:17)
[2019-07-13 18:18] LABS: ANISOCYTOSIS SLIGHT; PLATELET COMMENT ADEQUATE; POLYCHROMASIA SLIGHT
[2019-07-13] MEDS ORDERED: DEXTROSE 40% GEL 15 GM TUBE PO PRN ×2 (18:41)
[2019-07-13] MEDS ORDERED: GLUCAGON,HUMAN RECOMB 1 MG INJ IM PRN (18:41)
[2019-07-13] MEDS ORDERED: DEXTROSE 50%-WATER 25 GM/50 ML DISP.SYRIN IV PRN ×2 (18:41)
--- NOTE | 2019-07-13 19:06 | PDOC H&P ---
History of Present Illness Admission Date/PCP: 07/13/19 18:27 Patient complains of: Fever, nausea History of Present Illness: GISELLA HAYS is a 58 year old male with a history of type 2 diabetes mellitus, diabetic foot ulcer in the left foot, right foot phalangeal amputation, who presents to the hospital with complaints of fever for the past 2 weeks. Of note patient was recently discharged last month on 5 days of Bactrim after being treated for infected diabetic foot ulcer on his left foot. Patient states he completed a 5-day regimen but shortly after completion started to develop fevers and chills. Patient states that he did not follow-up with the wound clinic to get adequate dressing and as a result the wound started having purulent drainage once again. Patient endorses pain in the foot. Patient has been taking Tylenol and Motrin to help with his fever. He measured it at home and it was 102 and 103F. Patient also admits several episodes of dry retching for the past couple days and some abdominal pain whenever he asked his retching episodes. He denies any headache, urinary symptoms or productive cough. Past Medical History Cardiac Medical History: Reports: Hypertension Endocrine Medical History: Reports: Diabetes Mellitus Type 2 Psychiatric Medical History: Reports: Depression Past Surgical History Past Surgical History: Reports: Orthopedic Surgery - Left Knee, Ruptured Disc Repair L4/L5, Other - Right second toe amputation Social History Information Source: Patient Smoking Status: Former Smoker Frequency of Alcohol Use: Social Hx Recreational Drug Use: No Drugs: None Hx Prescription Drug Abuse: No - Advance Directive Resuscitation Status: Full Code Family History Family History: DM Parental Family History Reviewed: Yes Children Family History Reviewed: Yes Sibling(s) Family History Reviewed.: Yes Medication/Allergy Home Medications: Glipizide [Glucotrol Xl 5 mg Tab.er] 5 mg PO QAM #30 tab.er.24 06/19/19 Hydrocodone/Acetaminophen [[place] 5-325 mg Tablet] 1 tab PO Q6HP PRN #12 tablet 06/19/19 Sulfamethoxazole/Trimethoprim [Bactrim Ds Tablet] 1 each PO BID 5 Days #10 tablet 06/19/19 Allergies/Adverse Reactions: aspartame [From Nutrasweet Aspartame] Allergy (Verified 06/16/19 14:53) Coconut * [Coconut] Allergy (Verified 06/16/19 14:53) vancomycin Allergy (Verified 06/16/19 14:53) Review of Systems Constitutional: PRESENT: chills, fever(s), night sweats. ABSENT: headache(s) Eyes: ABSENT: visual disturbances Nose, Mouth, and Throat: ABSENT: headache(s) Cardiovascular: ABSENT: chest pain Respiratory: PRESENT: cough. ABSENT: dyspnea, sputum Gastrointestinal: PRESENT: abdominal pain - During periods of dry retching, nausea, vomiting. ABSENT: diarrhea Genitourinary: ABSENT: dysuria Integumentary: PRESENT: diaphoresis Neurological: ABSENT: confusion Endocrine: ABSENT: polyuria Physical Exam Vital Signs: Temp Pulse Resp BP Pulse Ox 101.0 F H 89 18 170/68 H 97 07/13/19 17:22 07/13/19 15:29 07/13/19 15:29 07/13/19 18:37 07/13/19 18:37 Intake & Output 07/12/19 07/13/19 07/14/19 06:59 06:59 06:59 Intake Total 50 Balance 50 Weight 89.811 kg General appearance: PRESENT: no acute distress, cooperative Head exam: PRESENT: normocephalic Eye exam: PRESENT: EOMI Neck exam: ABSENT: JVD Respiratory exam: PRESENT: clear to auscultation kayleen, unlabored. ABSENT: tachypnea, wheezes Cardiovascular exam: PRESENT: RRR, +S1, +S2. ABSENT: systolic murmur, tac hycardia GI/Abdominal exam: PRESENT: normal bowel sounds, soft, tenderness. ABSENT: distended, firm, guarding, rebound, rigid Musculoskeletal exam: PRESENT: other - Left foot with large ulcer in the plantar surface with foul-smelling and purulent drainage Results Laboratory Results: 07/13/19 17:15 07/13/19 17:15 07/13/19 07/13/19 07/13/19 17:15 17:15 17:15 WBC 18.8 H RBC 3.98 L Hgb 10.9 L Hct 32.7 L MCV 82 MCH 27.5 MCHC 33.4 RDW 15.2 H Plt Count 438 Seg Neutrophils % Not Reportable VBG pH 7.43 H VBG pCO2 41.7 VBG HCO3 26.8 VBG Base Excess 2.2 Sodium 134.4 L Potassium 4.0 Chloride 95 L Carbon Dioxide 24 Anion Gap 15 BUN 12 Creatinine 1.42 H Est GFR ( Amer) > 60 Glucose 224 H Calcium 9.1 Total Bilirubin 1.0 AST 17 Alkaline Phosphatase 73 Total Protein 7.6 Albumin 3.7 Impressions: Foot X-Ray 07/13/19 16:20 IMPRESSION: No acute fracture. 7 mm dorsal-medial 2nd MTP joint subluxation- dislocation. No worrisome bone lesions.. Chest X-Ray 07/13/19 16:24 IMPRESSION: NO ACUTE FINDINGS. Assessment and Plan - Diagnosis (1) Diabetic infection of left foot Is this a current diagnosis for this admission?: Yes Plan: We will start on broad-spectrum IV antibiotics. Linezolid given vancomycin allergy and Zosyn. Surgery consulted for possible intervention Blood culture was sent Given failed recent antibiotic treatment and significant size and infection of ulcer, I will get an MRI and ESR level to evaluate for underlying osteomyelitis (2) Sepsis Qualifiers: Sepsis type: sepsis due to unspecified organism Sepsis acute organ dysfunction status: with acute organ dysfunction Severe sepsis acute organ dysfunction type: acute renal failure Acute renal failure type: unspecified Severe sepsis shock status: without septic shock Qualified Code(s): A41.9 - Sepsis, unspecified organism; R65.20 - Severe sepsis without septic shock; N17.9 - Acute kidney failure, unspecified Is this a current diagnosis for this admission?: Yes Plan: Febrile with white count elevation, mild lactic acidosis and acute renal injury IV fluids resuscitation Lactate of 2.1 we will repeat. (3) Acute kidney injury (nontraumatic) Is this a current diagnosis for this admission?: Yes Plan: Secondary to prerenal azotemia versus sepsis Check response of creatinine to IV fluids Baseline is around 1.0 (4) DM type 2 (diabetes mellitus, type 2) Qualifiers: Diabetes mellitus superintendent terminal insulin use: without superintendent terminal use Diabetes mellitus complication status: with skin complications Diabetes mellitus complication detail: with foot ulcer Qualified Code(s): E11.621 - Type 2 diabetes mellitus with foot ulcer; L97.509 - Non-pressure chronic ulcer of other part of unspecified foot with unspecified severity Is this a current diagnosis for this admission?: Yes Plan: Resume glipizide and metformin Sliding scale insulin Accu-Cheks before meals & nightly, diabetic diet - Time Time Spent with patient: 35 or more minutes
[2019-07-13] MEDS: HEPARIN SOD (PORCINE) 5,000 UNIT/ML 1 ML VIAL SUBCUT SCH (22:19)
[2019-07-13] MEDS: INSULIN LISPRO 100 UNIT/ML 3 ML VIAL SUBCUT SCH (22:27)
--- NOTE | 2019-07-13 23:09 | ER Document Report ---
Entered by STEFANIE BARTON SCRIBE 07/13/19 1804 Acting as scribe for:GLEN RIOS DO ED General - General Chief Complaint: Fever Stated Complaint: FEVER Time Seen by Provider: 07/13/19 16:14 Mode of Arrival: Ambulatory Information source: Patient Notes: This 58 year old male patient that presents to the emergency department today with complaints of generally not feeling well with fevers, cough, and vomiting. Patient has been seeing would care for an infected left foot but has not been on antibiotics for the last three weeks. Patient states today he feels like he did when he was admitted in May. TRAVEL OUTSIDE OF THE [place] IN LAST 30 DAYS: No - Related Data Allergies/Adverse Reactions: aspartame [From Nutrasweet Aspartame] Allergy (Verified 06/16/19 14:53) Coconut * [Coconut] Allergy (Verified 06/16/19 14:53) vancomycin Allergy (Verified 06/16/19 14:53) Home Medications: Metformin. Lisinopril. Glipizide Past Medical History - General Information source: Patient - Social History Smoking Status: Former Smoker Cigarette use (# per day): No Frequency of alcohol use: None Drug Abuse: None Lives with: Family Family History: Reviewed & Not Pertinent, DM Patient has suicidal ideation: No Patient has homicidal ideation: No - Past Medical History Cardiac Medical History: Reports: Hx Hypertension Endocrine Medical History: Reports: Hx Diabetes Mellitus Type 2 Psychiatric Medical History: Reports: Hx Depression Past Surgical History: Reports: Hx Orthopedic Surgery - Left Knee, Ruptured Disc Repair L4/L5, Other - Right second toe amputation - Immunizations Immunizations up to date: Yes Hx Diphtheria, Pertussis, Tetanus Vaccination: Yes Review of Systems - Review of Systems Constitutional: See HPI, Fever EENT: No symptoms reported Cardiovascular: No symptoms reported Respiratory: See HPI, Cough Gastrointestinal: See HPI, Nausea, Vomiting Genitourinary: No symptoms reported Male Genitourinary: No symptoms reported Musculoskeletal: No symptoms reported Skin: See HPI, Lesions Hematologic/Lymphatic: No symptoms reported Neurological/Psychological: No symptoms reported -: Yes All other systems reviewed and negative Physical Exam - Vital signs Vitals: Temp Pulse Resp BP Pulse Ox 100.4 F 89 18 161/62 H 97 07/13/19 15:29 07/13/19 15:29 07/13/19 15:29 07/13/19 15:29 07/13/19 15:29 Interpretation: Tachycardic, Febrile - General General appearance: Alert In distress: Mild - HEENT Head: Normocephalic, Atraumatic Cornea: Normal Mucous membranes: Dry - Respiratory Respiratory status: No respiratory distress Breath sounds: Normal - Cardiovascular Rhythm: Regular, Tachycardia - Abdominal Inspection: Normal Distension: No distension Bowel sounds: Normal Tenderness: Nontender - Back Back: Normal - Extremities General upper extremity: Normal inspection, Nontender, Normal color, Normal ROM General lower extremity: No: Normal color Shoulder: Normal Arm: Normal Elbow: Normal Forearm: Normal Wrist: Normal Hand: Normal Hip: Normal Thigh: Normal Knee: Normal Foot: Other - Left great toe with skin breakdown and ulceration, purulent smell, open ulcer to bottom of left foot that appears well granulated. - Neurological Orientation: AAOx4 Lizzy Coma Scale Eye Opening: Spontaneous [place] Coma Scale Verbal: Oriented Lizzy Coma Scale Motor: Obeys Commands Lizzy Coma Scale Total: 15 - Psychological Associated symptoms: Normal affect, Normal mood - Skin Skin Temperature: Hot Skin Moisture: Moist Course - Re-evaluation Re-evalutation: 07/13/19 Patient is a 4-year-old male who comes in with fever white count and purulent drainage and odor from left great toe and foot. Recent admission for infection with surgical debridement in May. Patient apparently went home with ant ibiotics but has been off them. States that his wound care doctor, Dr. Zheng, last saw his foot on Thursday. States that he has been doing well until the last 2 days. Patient has been sick to stomach and dry heaving. Given antibiotics. Started on nasal lid and Zosyn due to patient's vancomycin allergy as he has a history of MRSA and Pseudomonas. Discussed with the hospitalist will admit. Discussed with Dr. Benavidez from surgery who will consult. Recommended keeping patient n.p.o. Patient with no elevated lactic acid. Given fluids. Nausea stopped with Zofran and Reglan. Stable at the time of admission to the medical floor. Patient is agreeable to this plan. - Vital Signs Vital signs: Temp Pulse Resp BP Pulse Ox 100.7 F H 89 21 H 149/50 H 93 07/13/19 19:35 07/13/19 15:29 07/13/19 19:35 07/13/19 19:35 07/13/19 19:35 - Laboratory Result Diagrams: 07/13/19 17:15 07/13/19 17:15 Laboratory results interpreted by me: 07/13/19 07/13/19 07/13/19 17:15 17:15 17:15 WBC 18.8 H RBC 3.98 L Hgb 10.9 L Hct 32.7 L RDW 15.2 H Seg Neuts % (Manual) 85 H Lymphocytes % (Manual) 6 L Abs Neuts (Manual) 16.0 H Abs Basophils (Manual) 0.4 H VBG pH 7.43 H Sodium 134.4 L Chloride 95 L Creatinine 1.42 H Est GFR (MDRD) Non-Af 51 L Glucose 224 H Discharge - Discharge Clinical Impression: MRSA cellulitis of left foot DM type 2 (diabetes mellitus, type 2) Qualifiers: Diabetes mellitus vermin exterminator insulin use: with chcf use Diabetes mellitus complication status: with skin complications Diabetes mellitus complication detail: with foot ulcer Qualified Code(s): E11.621 - Type 2 diabetes mellitus with foot ulcer; L97.509 - Non-pressure chronic ulcer of other part of unspecified foot with unspecified severity; Z79.4 - skilled nursing (current) use of insulin Osteomyelitis Qualifiers: Osteomyelitis type: unspecified type Osteomyelitis location: foot Laterality: left Qualified Code(s): M86.9 - Osteomyelitis, unspecified Condition: Stable Disposition: ADMITTED INPATIENT Admitting Provider: [facility] Unit Admitted: Medical Floor I personally performed the services described in the documentation, reviewed and edited the documentation which was dictated to the scribe in my presence, and it accurately records my words and actions.
--- NOTE | 2019-07-13 23:24 | RADIOLOGY REPORT (SQ) ---
MR LOWER EXTREMITY WITHOUT IV CONTRAST HISTORY: Foot ulcer. COMPARISON: Radiographs from earlier the same day. TECHNIQUE: Multiplanar, multisequence MR imaging of the left foot was performed without the administration of intravenous gadolinium. FINDINGS: There is abnormally decreased T1 signal with increased bone marrow edema within the distal phalanx of the first digit consistent with acute osteomyelitis. There is overlying soft tissue ulceration and diffuse subcutaneous edema. There is mildly increased T2 signal within the midfoot, likely reactive. Diffuse edema throughout the intrinsic foot musculature with fatty atrophy is consistent with myositis, which may be neurogenic or reactive. Diffuse subcutaneous edema. IMPRESSION: Acute osteomyelitis of the distal phalanx of the great toe.
[2019-07-13] MEDS: NORMAL SALINE 1000 ML 1,000 ML IV PRN (23:57)
[2019-07-13] MEDS: PIPERACILLIN SODIUM/TAZOBACTAM 3.375 GM in NORMAL SALINE 100 ML IV SCH (23:58)
[2019-07-14] MEDS ORDERED: PIPERACILLIN/TAZOBACTAM 3.375 GM VIAL IV SCH
[2019-07-14] MEDS ORDERED: SILVER SULFADIAZINE 1% CREAM 25 GM ONE (00:53)
[2019-07-14] MEDS: METOCLOPRAMIDE HCL INJ/PF 10 MG/2 ML SDV IV PRN ×3 (01:54→21:54)
[2019-07-14 02:50] LABS: APPEARANCE,URINE CLEAR; BILIRUBIN,URINE NEGATIVE (NEGATIVE); COLOR,URINE YELLOW; GLUCOSE, URINE 150 mg/dL (NEGATIVE); KETONES,URINE NEGATIVE (NEGATIVE); PROTEIN,URINE 30 mg/dL (NEGATIVE)
[2019-07-14] MEDS: ACETAMINOPHEN 325 MG TABLET PO PRN ×3 (04:40→13:55)
[2019-07-14] MEDS: HEPARIN SOD (PORCINE) 5,000 UNIT/ML 1 ML VIAL SUBCUT SCH ×3 (05:23→21:51)
[2019-07-14] MEDS: PIPERACILLIN SODIUM/TAZOBACTAM 3.375 GM in NORMAL SALINE 100 ML IV SCH ×3 (05:23→21:51)
[2019-07-14 06:01] LABS: HEMATOCRIT 26.9 % (37.9-51.0); MEAN CORPUSCULAR HGB CONC 33.2 g/dL (32.0-36.0); MEAN CORPUSCULAR VOLUME 81 fl (80-97); PLATELET COUNT 415 10^3/uL (150-450); RED BLOOD COUNT 3.31 10^6/uL (4.35-5.55)
[2019-07-14 06:14] LABS: INTERNATIONAL RATION (INR) 1.49; PROTHROMBIN TIME 18.2 SEC (11.4-15.4)
[2019-07-14 06:15] LABS: PARTIAL THROMBOPLASTIN TIME 45.7 SEC (23.5-35.8)
[2019-07-14 06:23] LABS: ALKALINE PHOSPHATASE 62 U/L (38-126); ANION GAP 14 (5-19); ASPARTATE AMINO TRANSFERASE 17 U/L (17-59); BILIRUBIN,DIRECT 0.3 mg/dL (0.0-0.4); BILIRUBIN,TOTAL 0.7 mg/dL (0.2-1.3); BLOOD UREA NITROGEN 12 mg/dL (7-20); CALCIUM 8.2 mg/dL (8.4-10.2); CARBON DIOXIDE 22 mmol/L (22-30); CHLORIDE 98 mmol/L (98-107); GLUCOSE 149 mg/dL (75-110); POTASSIUM 4.1 mmol/L (3.6-5.0); TOTAL PROTEIN 6.4 g/dL (6.3-8.2)
[2019-07-14 06:33] LABS: ABSOLUTE LYMPHOCYTES# (MANUAL) 0.5 10^3/uL (0.5-4.7); ABSOLUTE MONOCYTES # (MANUAL) 0.9 10^3/uL (0.1-1.4); BASOPHILS % (MANUAL) 0 % (0-2); EOSINOPHILS % (MANUAL) 0 % (0-6); LYMPHOCYTES % (MANUAL) 3 % (13-45); MONOCYTES % (MANUAL) 5 % (3-13); SEGMENTED NEUTROPHILS % (MAN) 92 % (42-78); TOTAL CELLS COUNTED 100
[2019-07-14 06:34] LABS: ANISOCYTOSIS SLIGHT; PLATELET COMMENT ADEQUATE; POIKILOCYTOSIS SLIGHT; SCHISTOCYTES SLIGHT
--- NOTE | 2019-07-14 06:46 | PDOC CONSULTATION ---
Consultation Consult Date: 07/13/19 Provider Consulted: SURGICAL SURGICALIST History of Present Illness Admission Date/PCP: 07/13/19 18:27 Patient complains of: Fevers, chills, malaise, fatigue. Chronic wound to the left foot. History of Present Illness: GISELLA HAYS is a 58 year old male seen in consultation at the request of the hospitalist service. 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 The patient irene s been following with Dr. Steff Zheng in the wound care clinic. Several weeks ago he was admitted to the hospital for a wound infection and given outpatient antibiotics. Patient reports increased fever, chills, malaise, and fatigue. He denies any purulent drainage or overt foot pain. He reports that his wound "looks better than it has ever looked". The patient uses Silvadene and dry dressings at home. The patient presented to the emergency room and was found to have a leukocytosis. He was admitted for diabetic foot infection. An MRI has been ordered, but has not yet been read. Past Medical History Cardiac Medical History: Reports: Hypertension Endocrine Medical History: Reports: Diabetes Mellitus Type 2 Psychiatric Medical History: Reports: Depression Past Surgical History Past Surgical History: Reports: Orthopedic Surgery - Left Knee, Ruptured Disc Repair L4/L5, Other - Right second toe amputation Social History Smoking Status: Former Smoker Frequency of Alcohol Use: Social Hx Recreational Drug Use: No Drugs: None Hx Prescription Drug Abuse: No - Advance Directive Resuscitation Status: Full Code Family History Family History: DM Parental Family History Reviewed: Yes Children Family History Reviewed: Yes Sibling(s) Family History Reviewed.: Yes Medication/Allergy Home Medications: Glipizide [Glipizide Xl] 5 mg PO QAM 07/13/19 Allergies/Adverse Reactions: aspartame [From Nutrasweet Aspartame] Allergy (Verified 07/14/19 00:47) Coconut * [Coconut] Allergy (Verified 07/14/19 00:47) vancomycin Allergy (Verified 07/14/19 00:47) Review of Systems Constitutional: PRESENT: chills, fatigue, fever(s). ABSENT: headache(s) Eyes: ABSENT: visual disturbances Ears: ABSENT: hearing changes Nose, Mouth, and Throat: ABSENT: sore throat Cardiovascular: ABSENT: chest pain Respiratory: ABSENT: cough, dyspnea Gastrointestinal: ABSENT: abdominal pain, bloating, hematemesis, hematochezia, melena, vomiting Genitourinary: ABSENT: dysuria Musculoskeletal: ABSENT: back pain Neurological: ABSENT: confusion, convulsions, dizziness Psychiatric: ABSENT: anxiety, depression Endocrine: ABSENT: cold intolerance, heat intolerance Hematologic/Lymphatic: ABSENT: easy bleeding, easy bruising Physical Exam Vital Signs: Temp Pulse Resp BP Pulse Ox 100.7 F H 89 21 H 149/50 H 93 07/13/19 19:35 07/13/19 15:29 07/13/19 19:35 07/13/19 19:35 07/13/19 19:35 Intake & Output 07/12/19 07/13/19 07/14/19 06:59 06:59 06:59 Intake Total 2350 Balance 2350 Weight 89.811 kg General appearance: PRESENT: no acute distress, cooperative Head exam: PRESENT: atraumatic, normocephalic Eye exam: PRESENT: EOMI, PERRLA. ABSENT: scleral icterus Mouth exam: PRESENT: moist, neck supple Neck exam: ABSENT: tenderness, thyromegaly, tracheal deviation, tracheostomy Respiratory exam: PRESENT: clear to auscultation kayleen, unlabored. ABSENT: chest wall tenderness, tachypnea, wheezes Cardiovascular exam: PRESENT: RRR Pulses: PRESENT: normal radial pulses GI/Abdominal exam: PRESENT: soft. ABSENT: distended, tenderness Rectal exam: PRESENT: deferred Extremities exam: ABSENT: clubbing Neurological exam: PRESENT: alert, awake, oriented to person, oriented to place, oriented to time, oriented to situation, CN II-XII grossly intact Psychiatric exam: ABSENT: agitated, anxious, depressed Focused psych exam: ABSENT: delusional Skin exam: PRESENT: other - Large wound to the left plantar foot. There is a "scalded skin. I see no evidence of erythema, purulent drainage, or obvious" appearance active infection.. ABSENT: cyanosis, erythema Results Laboratory Results: 07/13/19 17:15 07/13/19 17:15 07/13/19 07/13/19 07/13/19 17:15 17:15 17:15 WBC 18.8 H RBC 3.98 L Hgb 10.9 L Hct 32.7 L MCV 82 MCH 27.5 MCHC 33.4 RDW 15.2 H Plt Count 438 Seg Neutrophils % Not Reportable VBG pH 7.43 H VBG pCO2 41.7 VBG HCO3 26.8 VBG Base Excess 2.2 Sodium 134.4 L Potassium 4.0 Chloride 95 L Carbon Dioxide 24 Anion Gap 15 BUN 12 Creatinine 1.42 H Est GFR ( Amer) > 60 Glucose 224 H Calcium 9.1 Total Bilirubin 1.0 AST 17 Alkaline Phosphatase 73 Total Protein 7.6 Albumin 3.7 Impressions: Foot X-Ray 07/13/19 16:20 IMPRESSION: No acute fracture. 7 mm dorsal-medial 2nd MTP joint subluxation- dislocation. No worrisome bone lesions.. Chest X-Ray 07/13/19 16:24 IMPRESSION: NO ACUTE FINDINGS. Assessment & Plan - Diagnosis (1) Diabetic infection of left foot Is this a current diagnosis for this admission?: Yes - Plan Summary Plan Summary: This is a 58-year-old male with a large wound to the left foot. He is a diabetic. He has increasing fevers and chills. The foot has some soft tissue swelling distally, but has no evidence of erythema or purulent drainage. There are no external signs of severe infection. The foot x-rays do not show signs of osteo. The patient is not amenable to surgical therapy at this time. He has been followed by the wound clinic and says that he has been "doing much better". Continue with antibiotics for now. An MRI has been ordered. Depending on the results of the MRI, the patient may require some form of debridement or amputation. I have discussed surgery with the patient, and at this time he has refused. I will revisit the situation once the MRI has returned. Will follow.
[2019-07-14 06:50] LABS: ERYTHROCYTE SEDIMENTATION RATE 117 mm/hr (0-20)
[2019-07-14] MEDS: GLIPIZIDE 10 MG TABLET PO SCH (08:53)
[2019-07-14] MEDS: INSULIN LISPRO 100 UNIT/ML 3 ML VIAL SUBCUT SCH ×4 (08:53→21:54)
[2019-07-14] MEDS: METFORMIN HCL 500 MG TABLET PO SCH ×2 (08:53→16:49)
[2019-07-14] MEDS: MAGNESIUM SULFATE/D5W 1 GM/100 ML RTUPB IV SCH ×2 (09:50→12:37)
[2019-07-14] MEDS ORDERED: LINEZOLID 600 MG/300 ML RTUPB IV SCH (10:00)
[2019-07-14] MEDS: SILVER SULFADIAZINE 1% CREAM 25 GM TP SCH ×2 (10:29→10:58)
--- NOTE | 2019-07-14 11:51 | PDOC PROGRESS REPORT ---
Subjective Progress Note for:: 07/14/19 Subjective:: Patient expresses concern about having distal left phalanx amputation today. Explained his disappointment that he was hoping to be able to avoid this. However states that if it needs to be done should be done. Still having some fevers. Otherwise denies any nausea vomiting or shortness of breath. Reason For Visit: INFECTED FOOT ULCER Physical Exam Vital Signs: Temp Pulse Resp BP Pulse Ox 101.3 F H 82 16 140/67 H 96 07/14/19 07:57 07/14/19 07:57 07/14/19 07:57 07/14/19 07:57 07/14/19 07:57 Intake & Output 07/13/19 07/14/19 07/15/19 06:59 06:59 06:59 Intake Total 2550 Balance 2550 Weight 93.3 kg General appearance: PRESENT: no acute distress, cooperative Head exam: PRESENT: normocephalic Eye exam: PRESENT: EOMI Neck exam: ABSENT: JVD Respiratory exam: PRESENT: clear to auscultation kayleen, symmetrical, unlabored. ABSENT: tachypnea, wheezes Cardiovascular exam: PRESENT: RRR, +S1, +S2. ABSENT: diastolic murmur, systolic murmur GI/Abdominal exam: PRESENT: normal bowel sounds, soft. ABSENT: rebound, rigid, tenderness Extremities exam: PRESENT: other - Large ulcer and plantar surface of the left foot with foul-smelling drainage Musculoskeletal exam: PRESENT: ambulatory Neurological exam: PRESENT: alert, awake, oriented to person, oriented to place, oriented to time, oriented to situation Results Laboratory Results: 07/14/19 04:31 07/14/19 04:31 07/13/19 07/13/19 07/13/19 17:15 17:15 17:15 WBC 18.8 H RBC 3.98 L Hgb 10.9 L Hct 32.7 L MCV 82 MCH 27.5 MCHC 33.4 RDW 15.2 H Plt Count 438 Seg Neutrophils % Not Reportable VBG pH 7.43 H VBG pCO2 41.7 VBG HCO3 26.8 VBG Base Excess 2.2 Sodium 134.4 L Potassium 4.0 Chloride 95 L Carbon Dioxide 24 Anion Gap 15 BUN 12 Creatinine 1.42 H Est GFR ( Amer) > 60 Glucose 224 H Calcium 9.1 Magnesium Total Bilirubin 1.0 AST 17 Alkaline Phosphatase 73 Total Protein 7.6 Albumin 3.7 Urine Color Urine Appearance Urine pH Ur Specific [place] Urine Protein Urine Glucose (UA) Urine Ketones Urine Blood Urine RBC (Auto) 07/14/19 07/14/19 07/14/19 02:30 04:31 04:31 WBC 17.0 H RBC 3.31 L Hgb 9.0 L Hct 26.9 L MCV 81 MCH 27.0 MCHC 33.2 RDW 15.0 H Plt Count 415 Seg Neutrophils % Not Reportable VBG pH VBG pCO2 VBG HCO3 VBG Base Excess Sodium 133.6 L Potassium 4.1 Chloride 98 Carbon Dioxide 22 Anion Gap 14 BUN 12 Creatinine 1.25 Est GFR ( Amer) > 60 Glucose 149 H Calcium 8.2 L Magnesium 1.4 L Total Bilirubin 0.7 AST 17 Alkaline Phosphatase 62 Total Protein 6.4 Albumin 3.0 L Urine Color YELLOW Urine Appearance CLEAR Urine pH 5.0 Ur Specific [place] 1.010 Urine Protein 30 H Urine Glucose (UA) 150 H Urine Ketones NEGATIVE Urine Blood SMALL H Urine RBC (Auto) 2 Impressions: Lower Extremity MRI 07/13/19 00:00 IMPRESSION: Acute osteomyelitis of the distal phalanx of the great toe. Foot X-Ray 07/13/19 16:20 IMPRESSION: No acute fracture. 7 mm dorsal-medial 2nd MTP joint subluxation- dislocation. No worrisome bone lesions.. Chest X-Ray 07/13/19 16:24 IMPRESSION: NO ACUTE FINDINGS. Assessment and Plan - Diagnosis (1) Diabetic infection of left foot Is this a current diagnosis for this admission?: Yes Plan: As infected large left foot ulcer on plantar surface with underlying osteomyelitis seen in the distal phalanx of the left foot on MRI. Surgery following and planning for potential amputation for source control. This is pending as patient has requested a second opinion from infectious disease. ID has been consulted Blood cultures growing gram-positive cocci in one set. Patient does have a history of MRSA. We will continue with Zyvox and Zosyn for now. We will check arterial Dopplers to assess blood flow in lower extremity (2) Osteomyelitis of left foot Qualifiers: Osteomyelitis type: other acute Qualified Code(s): M86.172 - Other acute osteomyelitis, left ankle and foot Is this a current diagnosis for this admission?: Yes Plan: Plan as stated in problem #1 (3) Sepsis Qualifiers: Sepsis type: sepsis due to unspecified organism Sepsis acute organ dysfunction status: with acute organ dysfunction Severe sepsis acute organ dysfunction type: acute renal failure Acute renal failure type: unspecified Severe sepsis shock status: without septic shock Qualified Code(s): A41.9 - Sepsis, unspecified organism; R65.20 - Severe sepsis without septic shock; N17.9 - Acute kidney failure, unspecified Is this a current diagnosis for this admission?: Yes Plan: Febrile with white count elevation, mild lactic acidosis and acute renal injury on presentation Improved with IV fluids and antibiotics (4) Acute kidney injury (nontraumatic) Is this a current diagnosis for this admission?: Yes Plan: Improving with IV fluids (5) DM type 2 (diabetes mellitus, type 2) Qualifiers: Diabetes mellitus registration representative insulin use: without registration representative use Diabetes mellitus complication status: with skin complications Diabetes mellitus complication detail: with foot ulcer Qualified Code(s): E11.621 - Type 2 diabetes mellitus with foot ulcer; L97.509 - Non-pressure chronic ulcer of other part of unspecified foot with unspecified severity Is this a current diagnosis for this admission?: Yes Plan: Resume glipizide and metformin Sliding scale insulin Accu-Cheks before meals & nightly, diabetic diet - Time Time Spent with patient: 15-24 minutes
--- NOTE | 2019-07-14 13:45 | Progress Note ---
Provider Note Provider Note: [facility] Telephone Advice Consultation Chart reviewed. 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 He has been evaluated in the past for DFI, in May he had debridement of the wound and received 5 days of Bactrim as outpatient. He did not have osteomyelitis at that time. When he completed antibiotics, he started experiencing fevers and chills. He noticed worsening drainage from the wound in his toe. He didn't follow at the wound clinic as he was supposed to. He was admitted and was found with sepsis secondary to GPC in chains bacteremia suspected to be Streptococcus spp. He had an MRI of the foor that was consistent with acute osteomyelitis of the great toe distal phalanx. He was seen by surgery who recommended amputation for source control. Patient has been adamant to get an amputation, wanted ID recommendations. PMH: DM DFI PSH: Knee surgery toe amputation Allergies: aspartame [From Nutrasweet Aspartame] Allergy (Verified 07/14/19 00:47) Coconut [Coconut] Allergy (Verified 07/14/19 00:47) vancomycin Allergy (Verified 07/14/19 00:47) Medications: Glipizide [Glipizide Xl] 5 mg PO QAM 07/13/19 Vital Signs: Temp Pulse Resp BP Pulse Ox 98.7 F 72 16 137/60 H 97 07/14/19 12:25 07/14/19 12:25 07/14/19 12:25 07/14/19 12:25 07/14/19 12:25 Intake & Output 07/13/19 07/14/19 07/15/19 06:59 06:59 06:59 Intake Total 2550 100 Balance 2550 100 Weight 93.3 kg Weight/Height Weight 93.3 kg Height 6 ft 2 in Laboratories: 07/14/19 04:31 07/14/19 04:31 MCV 81 fl (80-97) 07/14/19 04:31 MCH 27.0 pg (27.0-33.4) 07/14/19 04:31 MCHC 33.2 g/dL (32.0-36.0) 07/14/19 04:31 RDW 15.0 % (11.5-14.0) H 07/14/19 04:31 Seg Neutrophils % Not Reportable 07/14/19 04:31 VBG pH 7.43 (7.30-7.42) H 07/13/19 17:15 VBG pCO2 41.7 mmHg (35-63) 07/13/19 17:15 VBG HCO3 26.8 mmol/L (20-32) 07/13/19 17:15 VBG Base Excess 2.2 mmol/L 07/13/19 17:15 Chloride 98 mmol/L (98-107) 07/14/19 04:31 Carbon Dioxide 22 mmol/L (22-30) 07/14/19 04:31 Anion Gap 14 (5-19) 07/14/19 04:31 Est GFR ( Amer) > 60 (>60) 07/14/19 04:31 Glucose 149 mg/dL (75-110) H 07/14/19 04:31 Calcium 8.2 mg/dL (8.4-10.2) L 07/14/19 04:31 Magnesium 1.4 mg/dL (1.6-2.3) L 07/14/19 04:31 Total Bilirubin 0.7 mg/dL (0.2-1.3) 07/14/19 04:31 AST 17 U/L (17-59) 07/14/19 04:31 Alkaline Phosphatase 62 U/L (38-126) 07/14/19 04:31 Total Protein 6.4 g/dL (6.3-8.2) 07/14/19 04:31 Albumin 3.0 g/dL (3.5-5.0) L 07/14/19 04:31 Urine Color YELLOW 07/14/19 02:30 Urine Appearance CLEAR 07/14/19 02:30 Urine pH 5.0 (5.0-9.0) 07/14/19 02:30 Ur Specific [place] 1.010 07/14/19 02:30 Urine Protein 30 mg/dL (NEGATIVE) H 07/14/19 02:30 Urine Glucose (UA) 150 mg/dL (NEGATIVE) H 07/14/19 02:30 Urine Ketones NEGATIVE mg/dL (NEGATIVE) 07/14/19 02:30 Urine Blood SMALL (NEGATIVE) H 07/14/19 02:30 Urine RBC (Auto) 2 /HPF 07/14/19 02:30 Microbiology: Blood Cultures: 06/12/13 Gram positive cocci chains Radiology: Lower Extremity MRI 07/13/19 00:00 IMPRESSION: Acute osteomyelitis of the distal phalanx of the great toe. Foot X-Ray 07/13/19 16:20 IMPRESSION: No acute fracture. 7 mm dorsal-medial 2nd MTP joint subluxation- dislocation. No worrisome bone lesions.. Chest X-Ray 07/13/19 16:24 IMPRESSION: NO ACUTE FINDINGS. Assessment and recommendations: Case evaluated for distal phlanax osteomyelitis of the left great toe with GPC bacteremia. Patient has had this chronic ulcer and has received short courses of antibiotics in the past but he is now bacteremic with GPC in chains possibly Streptococcus and osteomyelitis of the left great toe confirmed by MRI. I discussed it with the surgeon, the ideal next step in management would be toe amputation for source control but patient is refusing amputation. The alternative to surgery will be 6 weeks of antibiotics for osteomyelitis, but there is a potential for antibiotic failure and worsening of the infection without surgical management and patient needs to be aware of that if he refuses surgery. There is no abscess or necrotic tissue for debridement per discussion with surgeon. As he is bacteremic, will recommend a TTE to rule out endovascular complications and to repeat blood cultures in 24-48 hrs. If he is persistently bacteremic despite antibiotics, will have to revisit the need for surgery. Antibiotic therapy with linezolid + pip/tazo is reasonable for now until more microbiological data is available. Please call if questions. Alayna Jimenez MD [facility] Infectious Disease [phone]
--- NOTE | 2019-07-14 13:55 | PDOC PROGRESS REPORT ---
Subjective Progress Note for:: 07/14/19 Subjective:: Chills and fever Refuses left big toe amputation Request ID consultation for second opinion Reason For Visit: INFECTED FOOT ULCER Physical Exam Vital Signs: Temp Pulse Resp BP Pulse Ox 98.7 F 72 16 137/60 H 97 07/14/19 12:25 07/14/19 12:25 07/14/19 12:25 07/14/19 12:25 07/14/19 12:25 Intake & Output 07/13/19 07/14/19 07/15/19 06:59 06:59 06:59 Intake Total 2550 100 Balance 2550 100 Weight 93.3 kg Exam: Left big toe swollen and slightly erythematous. The left lower leg is swollen but not inflamed. Results Laboratory Results: 07/14/19 04:31 07/14/19 04:31 07/13/19 07/13/19 07/13/19 17:15 17:15 17:15 WBC 18.8 H RBC 3.98 L Hgb 10.9 L Hct 32.7 L MCV 82 MCH 27.5 MCHC 33.4 RDW 15.2 H Plt Count 438 Seg Neutrophils % Not Reportable VBG pH 7.43 H VBG pCO2 41.7 VBG HCO3 26.8 VBG Base Excess 2.2 Sodium 134.4 L Potassium 4.0 Chloride 95 L Carbon Dioxide 24 Anion Gap 15 BUN 12 Creatinine 1.42 H Est GFR ( Amer) > 60 Glucose 224 H Calcium 9.1 Magnesium Total Bilirubin 1.0 AST 17 Alkaline Phosphatase 73 Total Protein 7.6 Albumin 3.7 Urine Color Urine Appearance Urine pH Ur Specific [place] Urine Protein Urine Glucose (UA) Urine Ketones Urine Blood Urine RBC (Auto) 07/14/19 07/14/19 07/14/19 02:30 04:31 04:31 WBC 17.0 H RBC 3.31 L Hgb 9.0 L Hct 26.9 L MCV 81 MCH 27.0 MCHC 33.2 RDW 15.0 H Plt Count 415 Seg Neutrophils % Not Reportable VBG pH VBG pCO2 VBG HCO3 VBG Base Excess Sodium 133.6 L Potassium 4.1 Chloride 98 Carbon Dioxide 22 Anion Gap 14 BUN 12 Creatinine 1.25 Est GFR ( Amer) > 60 Glucose 149 H Calcium 8.2 L Magnesium 1.4 L Total Bilirubin 0.7 AST 17 Alkaline Phosphatase 62 Total Protein 6.4 Albumin 3.0 L Urine Color YELLOW Urine Appearance CLEAR Urine pH 5.0 Ur Specific [place] 1.010 Urine Protein 30 H Urine Glucose (UA) 150 H Urine Ketones NEGATIVE Urine Blood SMALL H Urine RBC (Auto) 2 Impressions: Lower Extremity MRI 07/13/19 00:00 IMPRESSION: Acute osteomyelitis of the distal phalanx of the great toe. Foot X-Ray 07/13/19 16:20 IMPRESSION: No acute fracture. 7 mm dorsal-medial 2nd MTP joint subluxation- dislocation. No worrisome bone lesions.. Chest X-Ray 07/13/19 16:24 IMPRESSION: NO ACUTE FINDINGS. Assessment & Plan - Diagnosis (1) DM type 2 (diabetes mellitus, type 2) Qualifiers: Diabetes mellitus emt intermediate insulin use: with emt intermediate use Diabetes mellitus complication status: with skin complications Diabetes mellitus complication detail: with foot ulcer Qualified Code(s): E11.621 - Type 2 diabetes mellitus with foot ulcer; L97.509 - Non-pressure chronic ulcer of other part of unspecified foot with unspecified severity; Z79.4 - detention (current) use of insulin Is this a current diagnosis for this admission?: Yes (2) Osteomyelitis of left foot Qualifiers: Osteomyelitis type: other acute Qualified Code(s): M86.172 - Other acute osteomyelitis, left ankle and foot Is this a current diagnosis for this admission?: Yes (3) Sepsis Qualifiers: Sepsis type: sepsis due to unspecified organism Sepsis acute organ dysfunction status: with acute organ dysfunction Severe sepsis acute organ dysfunction type: acute renal failure Acute renal failure type: unspecified Severe sepsis shock status: without septic shock Qualified Code(s): A41.9 - Sepsis, unspecified organism; R65.20 - Severe sepsis without septic shock; N17.9 - Acute kidney failure, unspecified Is this a current diagnosis for this admission?: Yes - Time Time Spent with patient: 15-24 minutes - Inpatient Certification Medical Necessity: Need for IV Antibiotics - Plan Summary Plan Summary: I have discussed patient's status with infectious disease. Infectious disease from [place] feels that if patient refused surgery then trial of 6 weeks IV antibiotics may be feasible. There is possibility that the antibiotics therapy may not completely heal the infection. This was relayed to the patient and also possible risk of worsening of the infection that may need a bigger amputation anytime this was discussed with the patient and his patient understands and is still would like to continue with intravenous antibiotic therapy. We will cancel the toe amputation today. I also discussed patient's situation with hospitalist who said he will continue with with broad-spectrum antibiotics while waiting for the final culture. Will also obtain arterial Doppler of the lower extremities. We will follow-up the patient with medicine.
[2019-07-14] MEDS: LINEZOLID 600 MG/300 ML RTUPB IV SCH (15:55)
[2019-07-14] MEDS: NORMAL SALINE 1000 ML 1,000 ML IV PRN (16:52)
[2019-07-14] MEDS ORDERED: TRAMADOL HCL 50 MG TABLET PO PRN (17:02)
[2019-07-14] MEDS ORDERED: GUAIFENESIN SYRP 200 MG/10 ML UDC PO ONE (23:15)
[2019-07-15] MEDS: PIPERACILLIN SODIUM/TAZOBACTAM 3.375 GM in NORMAL SALINE 100 ML IV SCH ×4 (02:23→21:48)
[2019-07-15 06:21] LABS: ABSOLUTE BASOPHILS # (AUTO) 0.1 10^3/uL (0.0-0.2); ABSOLUTE EOSINOPHILS # (AUTO) 0.1 10^3/uL (0.0-0.6); ABSOLUTE MONOCYTES (AUTO) 2.1 10^3/uL (0.1-1.4); ABSOLUTE NEUT (AUTO) 9.4 10^3/uL (1.7-8.2); BASOPHILS % (AUTO) 0.8 % (0-2); EOSINOPHILS % (AUTO) 0.9 % (0-6); HEMATOCRIT 23.4 % (37.9-51.0); LYMPHOCYTES % (AUTO) 14.5 % (13-45); MEAN CORPUSCULAR HEMOGLOBIN 27.2 pg (27.0-33.4); MEAN CORPUSCULAR HGB CONC 33.9 g/dL (32.0-36.0); MEAN CORPUSCULAR VOLUME 80 fl (80-97); PLATELET COUNT 387 10^3/uL (150-450); RED CELL DISTRIBUTION WIDTH 15.4 % (11.5-14.0); SEGMENTED NEUTROPHILS % (AUTO) 68.8 % (42-78); TOTAL CELLS COUNTED % (AUTO) 100 %; WHITE BLOOD COUNT 13.7 10^3/uL (4.0-10.5)
[2019-07-15 06:33] LABS: HEMOGLOBIN 7.9 g/dL (13.5-17.0)
[2019-07-15] MEDS: LINEZOLID 600 MG/300 ML RTUPB IV SCH ×2 (06:38→17:40)
[2019-07-15] MEDS: HEPARIN SOD (PORCINE) 5,000 UNIT/ML 1 ML VIAL SUBCUT SCH ×4 (06:38→21:48)
[2019-07-15 06:44] LABS: ANION GAP 12 (5-19); BLOOD UREA NITROGEN 9 mg/dL (7-20); CALCIUM 8.1 mg/dL (8.4-10.2); CARBON DIOXIDE 22 mmol/L (22-30); CHLORIDE 101 mmol/L (98-107); GLUCOSE 105 mg/dL (75-110); POTASSIUM 3.5 mmol/L (3.6-5.0)
[2019-07-15] MEDS ORDERED: POTASSIUM CHLORIDE 10 MEQ CAPSULE.ER PO ONE (08:30)
[2019-07-15] MEDS: INSULIN LISPRO 100 UNIT/ML 3 ML VIAL SUBCUT SCH ×4 (09:02→21:54)
[2019-07-15] MEDS: METFORMIN HCL 500 MG TABLET PO SCH ×2 (09:59→16:34)
[2019-07-15] MEDS: ACETAMINOPHEN 325 MG TABLET PO PRN (10:01)
[2019-07-15] MEDS: GLIPIZIDE 10 MG TABLET PO SCH (10:03)
[2019-07-15] MEDS: SILVER SULFADIAZINE 1% CREAM 25 GM TP SCH (10:05)
[2019-07-15] MEDS ORDERED: METHYLPREDNISOLONE INJ 40 MG/1 ML SDV IV PRN (10:06)
[2019-07-15] MEDS ORDERED: OXYCODONE-ACETAMINOPHEN 5-325 MG TABLET PO PRN ×2 (10:08→10:09)
[2019-07-15] MEDS ORDERED: PROMETHAZINE HCL INJ 25 MG/1 ML VIAL IV PRN (10:09)
[2019-07-15] MEDS: GUAIFENESIN SYRP 200 MG/10 ML UDC PO PRN ×2 (10:09→16:34)
--- NOTE | 2019-07-15 14:25 | PDOC PROGRESS REPORT ---
Subjective Progress Note for:: 07/15/19 Subjective:: Patient is feeling better today. Chills and fevers have stopped. Patient endorses that he had an episode of sore throat very recently though was never checked for strep throat. Is any pain in the lower extremities. Reason For Visit: INFECTED FOOT ULCER Physical Exam Vital Signs: Temp Pulse Resp BP Pulse Ox 98.3 F 73 17 143/71 H 98 07/15/19 11:55 07/15/19 11:55 07/15/19 11:55 07/15/19 11:55 07/15/19 11:55 Intake & Output 07/14/19 07/15/19 07/16/19 06:59 06:59 06:59 Intake Total 2550 2782 400 Output Total 600 Balance 2550 2182 400 Weight 93.3 kg 94.9 kg General appearance: PRESENT: no acute distress, cooperative Neck exam: ABSENT: JVD Respiratory exam: PRESENT: clear to auscultation kayleen, symmetrical, unlabored. ABSENT: tachypnea, wheezes Cardiovascular exam: PRESENT: RRR, +S1, +S2. ABSENT: systolic murmur, tachyca rdia GI/Abdominal exam: PRESENT: normal bowel sounds, soft. ABSENT: rebound, rigid, tenderness Extremities exam: PRESENT: other - Large ulcer in the plantar surface of left foot some drainage Neurological exam: PRESENT: alert, awake, oriented to person, oriented to place, oriented to time Results Laboratory Results: 07/15/19 05:17 07/15/19 05:17 07/15/19 07/15/19 05:17 05:17 WBC 13.7 H RBC 2.90 L Hgb 7.9 L Hct 23.4 L MCV 80 MCH 27.2 MCHC 33.9 RDW 15.4 H Plt Count 387 Seg Neutrophils % 68.8 Sodium 134.5 L Potassium 3.5 L Chloride 101 Carbon Dioxide 22 Anion Gap 12 BUN 9 Creatinine 1.09 Est GFR ( Amer) > 60 Glucose 105 Calcium 8.1 L Magnesium 1.9 07/13/19 17:15 Blood Blood Culture (PCR) - Final Strep Pyogenes (Grp A) Impressions: Lower Extremity MRI 07/13/19 00:00 IMPRESSION: Acute osteomyelitis of the distal phalanx of the great toe. Foot X-Ray 07/13/19 16:20 IMPRESSION: No acute fracture. 7 mm dorsal-medial 2nd MTP joint subluxation- dislocation. No worrisome bone lesions.. Chest X-Ray 07/13/19 16:24 IMPRESSION: NO ACUTE FINDINGS. Assessment and Plan - Diagnosis (1) Diabetic infection of left foot Is this a current diagnosis for this admission?: Yes Plan: Infected large left foot ulcer on plantar surface with underlying osteomyelitis seen in the distal phalanx of the left foot on MRI. Surgery following and recommended amputation but the patient would like to defer amputation and see if osteomyelitis resolves with IV antibiotics only. He will need IV antibiotics for 6 weeks in the absence of surgical source control. PICC line will be placed once repeat blood cultures are negative for at least 48 hours. ID is following Blood cultures growing strep pyogenes in one set. Patient does have a history of MRSA so I will continue with Zyvox and Zosyn for now pending ID recommendations. Recent arterial Dopplers show adequate blood flow to his lower extremities (2) Streptococcal bacteremia Is this a current diagnosis for this admission?: Yes Plan: Blood cultures from admission showing strep pyogenes. This could either be from his osteomyelitis or from the infected diabetic ulcer or from the potential strep infection (as patient endorses recent significant sore throat). Either way, will treat bacteremia with current antibiotics and await sensitivities. Repeat blood cultures sent. (3) Osteomyelitis of left foot Qualifiers: Osteomyelitis type: other acute Qualified Code(s): M86.172 - Other acute osteomyelitis, left ankle and foot Is this a current diagnosis for this admission?: Yes Plan: Plan as stated in problem #1 (4) Sepsis Qualifiers: Sepsis type: sepsis due to unspecified organism Sepsis acute organ dysfunction status: with acute organ dysfunction Severe sepsis acute organ dysfunction type: acute renal failure Acute renal failure type: unspecified Severe sepsis shock status: without septic shock Qualified Code(s): A41.9 - Sepsis, unspecified organism; R65.20 - Severe sepsis without septic shock; N17.9 - Acute kidney failure, unspecified Is this a current diagnosis for this admission?: Yes Plan: Sepsis resolved (5) Acute kidney injury (nontraumatic) Is this a current diagnosis for this admission?: Yes Plan: Resolved with IV fluids (6) DM type 2 (diabetes mellitus, type 2) Qualifiers: Diabetes mellitus terminal carman insulin use: without fpc use Diabetes mellitus complication status: with skin complications Diabetes mellitus complication detail: with foot ulcer Qualified Code(s): E11.621 - Type 2 diabetes mellitus with foot ulcer; L97.509 - Non-pressure chronic ulcer of other part of unspecified foot with unspecified severity Is this a current diagnosis for this admission?: Yes Plan: glipizide and metformin Sliding scale insulin Accu-Cheks before meals & nightly, diabetic diet - Time Time Spent with patient: 15-24 minutes
[2019-07-15] MEDS: NORMAL SALINE 1000 ML 1,000 ML IV PRN (22:35)
[2019-07-16] MEDS: PIPERACILLIN SODIUM/TAZOBACTAM 3.375 GM in NORMAL SALINE 100 ML IV SCH ×2 (02:07→08:05)
[2019-07-16] MEDS: GUAIFENESIN SYRP 200 MG/10 ML UDC PO PRN ×3 (02:07→17:42)
[2019-07-16] MEDS: LINEZOLID 600 MG/300 ML RTUPB IV SCH ×2 (06:25→17:36)
[2019-07-16] MEDS: HEPARIN SOD (PORCINE) 5,000 UNIT/ML 1 ML VIAL SUBCUT SCH ×3 (06:25→22:07)
[2019-07-16] MEDS: METOCLOPRAMIDE HCL INJ/PF 10 MG/2 ML SDV IV PRN (07:05)
[2019-07-16] MEDS: GLIPIZIDE 10 MG TABLET PO SCH (08:04)
[2019-07-16] MEDS: METFORMIN HCL 500 MG TABLET PO SCH ×2 (08:04→17:36)
[2019-07-16] MEDS: INSULIN LISPRO 100 UNIT/ML 3 ML VIAL SUBCUT SCH ×4 (08:05→22:02)
[2019-07-16] MEDS: SILVER SULFADIAZINE 1% CREAM 25 GM TP SCH (12:36)
--- NOTE | 2019-07-16 12:57 | PDOC PROGRESS REPORT ---
Subjective Progress Note for:: 07/16/19 Subjective:: Patient states that he feels well this morning. Only complains of a cough whenever he lies down. Denies any orthopnea or shortness of breath. Denies any chest pain. Denies any fevers or chills overnight or yesterday. Patient remains optimistic about saving his toe. Reason For Visit: INFECTED FOOT ULCER Physical Exam Vital Signs: Temp Pulse Resp BP Pulse Ox 98.3 F 71 17 136/70 H 98 07/15/19 23:45 07/15/19 23:45 07/15/19 23:45 07/15/19 23:45 07/15/19 23:45 Intake & Output 07/15/19 07/16/19 07/17/19 06:59 06:59 06:59 Intake Total 3782 1800 Output Total 600 300 Balance 3182 1500 Weight 94.9 kg 93.7 kg General appearance: PRESENT: no acute distress, cooperative Neck exam: ABSENT: JVD Respiratory exam: PRESENT: clear to auscultation kayleen, symmetrical, unlabored. ABSENT: tachypnea, wheezes Cardiovascular exam: PRESENT: RRR, +S1, +S2. ABSENT: diastolic murmur, systolic murmur, tachycardia GI/Abdominal exam: PRESENT: normal bowel sounds, soft. ABSENT: firm, guarding, rigid, tenderness Extremities exam: PRESENT: other - In dressing for left foot. Large ulcer on p lantar surface. Neurological exam: PRESENT: alert, awake, oriented to person, oriented to place, oriented to time Results Laboratory Results: 07/15/19 05:17 07/15/19 05:17 07/13/19 17:15 Blood Blood Culture (PCR) - Final Strep Pyogenes (Grp A) 07/13/19 17:15 Blood Blood Culture - Final Group A Beta Streptococcus Impressions: Lower Extremity MRI 07/13/19 00:00 IMPRESSION: Acute osteomyelitis of the distal phalanx of the great toe. Foot X-Ray 07/13/19 16:20 IMPRESSION: No acute fracture. 7 mm dorsal-medial 2nd MTP joint subluxation- dislocation. No worrisome bone lesions.. Chest X-Ray 07/13/19 16:24 IMPRESSION: NO ACUTE FINDINGS. Assessment and Plan - Diagnosis (1) Diabetic infection of left foot Is this a current diagnosis for this admission?: Yes Plan: -Infected large left foot ulcer on plantar surface plus underlying acute osteomyelitis seen in the distal phalanx of the left foot on MRI. -Surgery following and recommended amputation but the patient would like to defer amputation and see if osteomyelitis resolves with IV antibiotics only. -He will need IV antibiotics for 6 weeks in the absence of surgical source control. -PICC line planned for Thursday once repeat blood cultures are negative for at least 48 hours. -Recent arterial Dopplers show adequate blood flow to his lower extremities -ID is following -Blood cultures growing strep pyogenes in one set--> Zosyn discontinued. Started on ampicillin. -Patient does have a history of MRSA so I will continue with Zyvox for now pending further ID recommendations. (2) Streptococcal bacteremia Is this a current diagnosis for this admission?: Yes Plan: Blood cultures from admission showing strep pyogenes. This is likely from his osteomyelitis or from the infected diabetic ulcer or from the potential strep infection (as patient endorses recent significant sore throat). Either way, will treat bacteremia with current antibiotics. Repeat blood cultures negative so far. (3) Osteomyelitis of left foot Qualifiers: Osteomyelitis type: other acute Qualified Code(s): M86.172 - Other acute osteomyelitis, left ankle and foot Is this a current diagnosis for this admission?: Yes Plan: Plan as stated in problem #1 (4) Sepsis Qualifiers: Sepsis type: sepsis due to unspecified organism Sepsis acute organ dysfunction status: with acute organ dysfunction Severe sepsis acute organ dysfunction type: acute renal failure Acute renal failure type: unspecified Severe sepsis shock status: without septic shock Qualified Code(s): A41.9 - Sepsis, unspecified organism; R65.20 - Severe sepsis without septic shock; N17.9 - Acute kidney failure, unspecified Is this a current diagnosis for this admission?: Yes Plan: Sepsis resolved (5) Acute kidney injury (nontraumatic) Is this a current diagnosis for this admission?: Yes Plan: Resolved with IV fluids (6) DM type 2 (diabetes mellitus, type 2) Qualifiers: Diabetes mellitus truck terminal manager insulin use: without truck terminal manager use Diabetes mellitus complication status: with skin complications Diabetes mellitus complication detail: with foot ulcer Qualified Code(s): E11.621 - Type 2 diabetes mellitus with foot ulcer; L97.509 - Non-pressure chronic ulcer of other part of unspecified foot with unspecified severity Is this a current diagnosis for this admission?: Yes Plan: glipizide and metformin Sliding scale insulin Accu-Cheks before meals & nightly, diabetic diet - Time Time Spent with patient: 15-24 minutes
[2019-07-16] MEDS ORDERED: AMPICILLIN SOD INJ 2 GM VIAL IV SCH (14:00)
[2019-07-16] MEDS: AMPICILLIN SODIUM 2 GM in NORMAL SALINE 100 ML IV SCH ×2 (15:19→20:38)
[2019-07-16] MEDS ORDERED: HYDRALAZINE HCL INJ/PF 20 MG/1 ML SDV ONE (23:51)
[2019-07-17] MEDS ORDERED: HYDRALAZINE HCL INJ/PF 20 MG/1 ML SDV IV PRN
[2019-07-17] MEDS ORDERED: AMLODIPINE BESYLATE 10 MG TABLET PO ONE ×2 (01:00→23:00)
[2019-07-17] MEDS: AMPICILLIN SODIUM 2 GM in NORMAL SALINE 100 ML IV SCH ×2 (02:01→08:17)
[2019-07-17] MEDS: METOCLOPRAMIDE HCL INJ/PF 10 MG/2 ML SDV IV PRN (03:07)
[2019-07-17] MEDS: HEPARIN SOD (PORCINE) 5,000 UNIT/ML 1 ML VIAL SUBCUT SCH ×3 (05:06→21:23)
[2019-07-17] MEDS: LINEZOLID 600 MG/300 ML RTUPB IV SCH ×2 (05:06→17:08)
[2019-07-17 07:21] LABS: ABSOLUTE BASOPHILS # (AUTO) 0.1 10^3/uL (0.0-0.2); ABSOLUTE EOSINOPHILS # (AUTO) 0.3 10^3/uL (0.0-0.6); ABSOLUTE LYMPHOCYTES (AUTO) 2.2 10^3/uL (0.5-4.7); ABSOLUTE MONOCYTES (AUTO) 0.9 10^3/uL (0.1-1.4); ABSOLUTE NEUT (AUTO) 4.6 10^3/uL (1.7-8.2); BASOPHILS % (AUTO) 0.8 % (0-2); EOSINOPHILS % (AUTO) 3.4 % (0-6); HEMATOCRIT 26.3 % (37.9-51.0); MEAN CORPUSCULAR HEMOGLOBIN 27.4 pg (27.0-33.4); MEAN CORPUSCULAR HGB CONC 34.1 g/dL (32.0-36.0); MEAN CORPUSCULAR VOLUME 80 fl (80-97); PLATELET COUNT 403 10^3/uL (150-450); RED BLOOD COUNT 3.27 10^6/uL (4.35-5.55); SEGMENTED NEUTROPHILS % (AUTO) 57.8 % (42-78); TOTAL CELLS COUNTED % (AUTO) 100 %
[2019-07-17 07:26] LABS: ANION GAP 13 (5-19); BLOOD UREA NITROGEN 4 mg/dL (7-20); CALCIUM 9.2 mg/dL (8.4-10.2); CARBON DIOXIDE 20 mmol/L (22-30); CHLORIDE 110 mmol/L (98-107); GLUCOSE 110 mg/dL (75-110); POTASSIUM 3.7 mmol/L (3.6-5.0)
[2019-07-17] MEDS: METFORMIN HCL 500 MG TABLET PO SCH ×2 (08:11→15:19)
[2019-07-17] MEDS: GLIPIZIDE 10 MG TABLET PO SCH (08:11)
[2019-07-17] MEDS: INSULIN LISPRO 100 UNIT/ML 3 ML VIAL SUBCUT SCH ×4 (08:11→21:56)
[2019-07-17] MEDS: SILVER SULFADIAZINE 1% CREAM 25 GM TP SCH (09:54)
[2019-07-17] MEDS: GUAIFENESIN SYRP 200 MG/10 ML UDC PO PRN (09:56)
[2019-07-17] MEDS ORDERED: LOSARTAN POTASSIUM 25 MG TABLET PO SCH (10:00)
--- NOTE | 2019-07-17 11:56 | PDOC PROGRESS REPORT ---
Subjective Progress Note for:: 07/17/19 Subjective:: Patient is doing well. Patient remains optimistic about treatment plan. Patient denies any shortness of breath chest pain fever or chills. Patient is very pleasant today. Reason For Visit: INFECTED FOOT ULCER Physical Exam Vital Signs: Temp Pulse Resp BP Pulse Ox 97.6 F 64 15 157/80 H 100 07/17/19 07:32 07/17/19 07:32 07/17/19 07:32 07/17/19 07:32 07/17/19 07:32 Intake & Output 07/16/19 07/17/19 07/18/19 06:59 06:59 06:59 Intake Total 1800 3680 400 Output Total 300 Balance 1500 3680 400 Weight 93.7 kg General appearance: PRESENT: no acute distress, cooperative Neck exam: ABSENT: JVD Respiratory exam: PRESENT: clear to auscultation kayleen, unlabored. ABSENT: tachypnea, wheezes Cardiovascular exam: PRESENT: +S1, +S2. ABSENT: diastolic murmur, systolic murmur, tachycardia GI/Abdominal exam: PRESENT: normal bowel sounds, soft. ABSENT: guarding, rebound, rigid, tenderness Neurological exam: PRESENT: alert, awake, oriented to person, oriented to place, oriented to time Psychiatric exam: ABSENT: agitated, anxious Results Laboratory Results: 07/17/19 06:55 07/17/19 06:55 07/17/19 07/17/19 06:55 06:55 WBC 8.0 RBC 3.27 L Hgb 9.0 L Hct 26.3 L MCV 80 MCH 27.4 MCHC 34.1 RDW 15.0 H Plt Count 403 Seg Neutrophils % 57.8 Sodium 142.5 Potassium 3.7 Chloride 110 H Carbon Dioxide 20 L Anion Gap 13 BUN 4 L Creatinine 0.81 Est GFR ( Amer) > 60 Glucose 110 Calcium 9.2 07/13/19 17:15 Blood Blood Culture (PCR) - Final Strep Pyogenes (Grp A) 07/13/19 17:15 Blood Blood Culture - Final Group A Beta Streptococcus Impressions: Lower Extremity MRI 07/13/19 00:00 IMPRESSION: Acute osteomyelitis of the distal phalanx of the great toe. Foot X-Ray 07/13/19 16:20 IMPRESSION: No acute fracture. 7 mm dorsal-medial 2nd MTP joint subluxation- dislocation. No worrisome bone lesions.. Chest X-Ray 07/13/19 16:24 IMPRESSION: NO ACUTE FINDINGS. Assessment and Plan - Diagnosis (1) Diabetic infection of left foot Is this a current diagnosis for this admission?: Yes Plan: -Infected large left foot ulcer on plantar surface plus underlying acute osteomyelitis seen in the distal phalanx of the left foot on MRI. -Surgery following and recommended amputation but the patient would like to defer amputation and see if osteomyelitis resolves with IV antibiotics only. -He will need IV antibiotics for 6 weeks in the absence of surgical source control. Blood cultures negative since 07/15. So IV antibiotics 08/26/2019. -PICC line planned for Thursday as repeat blood cultures are negative for over 48 hours. -Recent arterial Dopplers show adequate blood flow to his lower extremities -ID is following -Blood cultures growing strep pyogenes in one set--> Zosyn discontinued. I will switch to ceftriaxone given more convenience with daily dosing for an outpatient regimen. I will discuss with ID tomorrow regarding using ceftriaxone versus p.o. Levaquin as outpatient. -Patient does have a history of MRSA so I will continue with Zyvox for now pending further ID recommendations. (2) Streptococcal bacteremia Is this a current diagnosis for this admission?: Yes Plan: Blood cultures from admission showing strep pyogenes. This is likely from his osteomyelitis or from the infected diabetic ulcer or from the potential strep infection (as patient endorses recent significant sore throat). Either way, will treat bacteremia with current antibiotics. Repeat blood cultures negative so far. (3) Osteomyelitis of left foot Qualifiers: Osteomyelitis type: other acute Qualified Code(s): M86.172 - Other acute osteomyelitis, left ankle and foot Is this a current diagnosis for this admission?: Yes Plan: Plan as stated in problem #1 (4) Sepsis Qualifiers: Sepsis type: sepsis due to unspecified organism Sepsis acute organ dysfunction status: with acute organ dysfunction Severe sepsis acute organ dysfunction type: acute renal failure Acute renal failure type: unspecified Severe sepsis shock status: without septic shock Qualified Code(s): A41.9 - Sepsis, unspecified organism; R65.20 - Severe sepsis without septic shock; N17.9 - Acute kidney failure, unspecified Is this a current diagnosis for this admission?: Yes Plan: Sepsis resolved (5) Acute kidney injury (nontraumatic) Is this a current diagnosis for this admission?: Yes Plan: Resolved with IV fluids (6) DM type 2 (diabetes mellitus, type 2) Qualifiers: Diabetes mellitus adjunct faculty for medical terminology insulin use: without adjunct faculty for medical terminology use Diabetes mellitus complication status: with skin complications Diabetes mellitus complication detail: with foot ulcer Qualified Code(s): E11.621 - Type 2 diabetes mellitus with foot ulcer; L97.509 - Non-pressure chronic ulcer of other part of unspecified foot with unspecified severity Is this a current diagnosis for this admission?: Yes Plan: glipizide and metformin Sliding scale insulin Accu-Cheks before meals & nightly, diabetic diet (7) Hypertension Qualifiers: Hypertension type: essential hypertension Qualified Code(s): I10 - Essential (primary) hypertension Is this a current diagnosis for this admission?: Yes Plan: Losartan 25 mg every 12 hours - Time Time Spent with patient: 15-24 minutes
[2019-07-17] MEDS: CEFTRIAXONE 2 GM/D5W RTU 2 GM/50 ML RTUPB IV SCH (15:19)
[2019-07-17] MEDS: LOSARTAN POTASSIUM 50 MG TABLET PO SCH (21:23)
[2019-07-18] MEDS: LINEZOLID 600 MG/300 ML RTUPB IV SCH (05:06)
[2019-07-18] MEDS: HEPARIN SOD (PORCINE) 5,000 UNIT/ML 1 ML VIAL SUBCUT SCH ×2 (05:34→13:59)
[2019-07-18] MEDS: LOSARTAN POTASSIUM 50 MG TABLET PO SCH (09:01)
[2019-07-18] MEDS: INSULIN LISPRO 100 UNIT/ML 3 ML VIAL SUBCUT SCH ×3 (09:01→16:52)
[2019-07-18] MEDS: GLIPIZIDE 10 MG TABLET PO SCH (09:03)
[2019-07-18] MEDS: METFORMIN HCL 500 MG TABLET PO SCH ×2 (09:03→16:51)
[2019-07-18] MEDS ORDERED: LINEZOLID 600 MG TABLET PO SCH (10:00)
[2019-07-18] MEDS: SILVER SULFADIAZINE 1% CREAM 25 GM TP SCH (14:00)
--- NOTE | 2019-07-18 15:05 | PDOC DISCHARGE SUMMARY ---
Impression - Admit/DC Date/PCP Admission Date/Primary Care Provider: 07/13/19 18:27 JODEE CHAPIN MD Discharge Date: 07/18/19 - Discharge Diagnosis (1) Diabetic infection of left foot Is this a current diagnosis for this admission?: Yes (2) Streptococcal bacteremia Is this a current diagnosis for this admission?: Yes (3) Osteomyelitis of left foot Is this a current diagnosis for this admission?: Yes (4) Sepsis Is this a current diagnosis for this admission?: Yes (5) Acute kidney injury (nontraumatic) Is this a current diagnosis for this admission?: Yes (6) DM type 2 (diabetes mellitus, type 2) Is this a current diagnosis for this admission?: Yes (7) Hypertension Is this a current diagnosis for this admission?: Yes - Assessment Summary: Patient was admitted for severe sepsis secondary to infected left diabetic foot ulcer. Upon admission, patient was febrile with elevated white blood cell count. Also noted to have CHERYLE at this time. Patient was started on IV fluids and empiric antibiotics IV. MRI was obtained of the left foot which showed acute osteomyelitis of the distal phalanx of the left foot. Patient was evaluated by surgery who recommended amputation of the left foot the distal phalanx. However patient declined surgery and opted to pursue more conservative approach with IV antibiotics and would revisit surgical option only if this option failed. Infectious diseases was also consulted regarding patient's care. Blood cultures revealed bacteremia with Streptococcus pyogenes being isolated. Repeat blood cultures after about 2 days of antibiotics have been clear now for over 72 hours. Review of recent imaging done as outpatient showed that lower extremity arterial Dopplers showed adequate blood flow in both lower extremities. Patient sepsis has resolved. After reviewing the sensitivity report of the organism isolated, and upon discussion with infectious disease, decision was made to go ahead with 6 weeks of antibiotic therapy with IV ceftriaxone 2 g daily and Flagyl 500 mg p.o. twice daily until 08/26/2019 to complete 6-week course for treatment of his acute osteomyelitis and infected diabetic foot ulcer. Patient has chosen to follow-up with Dr. Marquez [infectious disease]. Patient has been given strict instructions care and cleaning his wound and to follow-up with [facility] for continued wound care. PICC line has been placed and patient will be getting his IV antibiotics here. Patient instructed to have ESR and CRP monitored weekly together with CBC and CMP by his Primary care provider and for removal of PICC line at the time of completion of antibiotics. I have also started patient on losartan 50 mg twice a day for control of his blood pressure. - Additional Information Resuscitation Status: Full Code Discharge Diet: Diabetic Referrals: [facility] [Provider Group] - 07/25/19 1:45 pm Prescriptions: Losartan Potassium [Cozaar 50 mg Tablet] 50 mg PO Q12 #60 tablet Metronidazole [Flagyl 500 mg Tablet] 500 mg PO BID 38 Days tablet Glipizide [Glipizide Xl] 10 mg PO QAM #30 Metformin HCl [Glucophage] 500 mg PO BID 30 Days Ceftriaxone 2 gm/D5w RTU [Rocephin RTU 2 gm/D5w 50 ml Premix Bag] 2 gm IV DAILY 38 Days rtupb Silver Sulfadiazine [Silvadene 1% Cream 25 gm] 1 applic TP DAILY #25 g Home Medications: Ceftriaxone 2 gm/D5w RTU [Rocephin RTU 2 gm/D5w 50 ml Premix Bag] 2 gm IV DAILY 38 Days rtupb 07/18/19 Glipizide [Glipizide Xl] 10 mg PO QAM #30 07/18/19 Losartan Potassium [Cozaar 50 mg Tablet] 50 mg PO Q12 #60 tablet 07/18/19 Metformin HCl [Glucophage] 500 mg PO BID 30 Days 07/18/19 Metronidazole [Flagyl 500 mg Tablet] 500 mg PO BID 38 Days tablet 07/18/19 Silver Sulfadiazine [Silvadene 1% Cream 25 gm] 1 applic TP DAILY #25 g 07/18/19 History of Present Illiness History of Present Illness: GISELLA HAYS is a 58 year old male with a history of type 2 diabetes mellitus, diabetic foot ulcer in the left foot, right foot phalangeal amputation, who presents to the hospital with complaints of fever for the past 2 weeks. Of note patient was recently discharged last month on 5 days of Bactrim after being treated for infected diabetic foot ulcer on his left foot. Patient states he completed a 5-day regimen but shortly after completion started to develop fevers and chills. Patient states that he did not follow-up with the wound clinic to get adequate dressing and as a result the wound started having purulent drainage once again. Patient endorses pain in the foot. Patient has been taking Tylenol and Motrin to help with his fever. He measured it at home and it was 102 and 103F. Patient also admits several episodes of dry retching for the past couple days and some abdominal pain whenever he asked his retching episodes. He denies any headache, urinary symptoms or productive cough. Physical Exam Vital Signs: Temp Pulse Resp BP Pulse Ox 98.1 F 65 18 173/79 H 98 07/18/19 09:20 07/18/19 09:20 07/18/19 09:20 07/18/19 09:20 07/18/19 09:20 Intake & Output 07/17/19 07/18/19 07/19/19 06:59 06:59 06:59 Intake Total 3680 2872 Balance 3680 2872 Weight 87.5 kg General appearance: PRESENT: no acute distress, cooperative Neck exam: ABSENT: JVD Respiratory exam: PRESENT: clear to auscultation kayleen Cardiovascular exam: PRESENT: +S1, +S2 GI/Abdominal exam: PRESENT: normal bowel sounds Skin exam: PRESENT: other - Large ulcer the plantar surface of left foot Results Laboratory Results: WBC 8.0 10^3/uL (4.0-10.5) 07/17/19 06:55 RBC 3.27 10^6/uL (4.35-5.55) L 07/17/19 06:55 Hgb 9.0 g/dL (13.5-17.0) L 07/17/19 06:55 Hct 26.3 % (37.9-51.0) L 07/17/19 06:55 MCV 80 fl (80-97) 07/17/19 06:55 MCH 27.4 pg (27.0-33.4) 07/17/19 06:55 MCHC 34.1 g/dL (32.0-36.0) 07/17/19 06:55 RDW 15.0 % (11.5-14.0) H 07/17/19 06:55 Plt Count 403 10^3/uL (150-450) 07/17/19 06:55 Lymph % (Auto) 27.0 % (13-45) 07/17/19 06:55 [place] % (Auto) 11.0 % (3-13) 07/17/19 06:55 Eos % (Auto) 3.4 % (0-6) 07/17/19 06:55 Baso % (Auto) 0.8 % (0-2) 07/17/19 06:55 Absolute Neuts (auto) 4.6 10^3/uL (1.7-8.2) 07/17/19 06:55 Absolute Lymphs (auto) 2.2 10^3/uL (0.5-4.7) 07/17/19 06:55 Absolute Monos (auto) 0.9 10^3/uL (0.1-1.4) 07/17/19 06:55 Absolute Eos (auto) 0.3 10^3/uL (0.0-0.6) 07/17/19 06:55 Absolute Basos (auto) 0.1 10^3/uL (0.0-0.2) 07/17/19 06:55 Total Counted 100 07/14/19 04:31 Seg Neutrophils % 57.8 % (42-78) 07/17/19 06:55 Seg Neuts % (Manual) 92 % (42-78) H 07/14/19 04:31 Lymphocytes % (Manual) 3 % (13-45) L 07/14/19 04:31 Monocytes % (Manual) 5 % (3-13) 07/14/19 04:31 Eosinophils % (Manual) 0 % (0-6) 07/14/19 04:31 Basophils % (Manual) 0 % (0-2) 07/14/19 04:31 Abs Neuts (Manual) 15.6 10^3/uL (1.7-8.2) H 07/14/19 04:31 Abs Lymphs (Manual) 0.5 10^3/uL (0.5-4.7) 07/14/19 04:31 Abs Monocytes (Manual) 0.9 10^3/uL (0.1-1.4) 07/14/19 04:31 Absolute Eos (Manual) 0.0 10^3/uL (0.0-0.6) 07/14/19 04:31 Abs Basophils (Manual) 0.0 10^3/uL (0.0-0.2) 07/14/19 04:31 Platelet Comment ADEQUATE 07/14/19 04:31 Polychromasia SLIGHT 07/13/19 17:15 Poikilocytosis SLIGHT 07/14/19 04:31 Anisocytosis SLIGHT 07/14/19 04:31 Schistocytes SLIGHT 07/14/19 04:31 ESR 117 mm/hr (0-20) H 07/14/19 04:31 PT 18.2 SEC (11.4-15.4) H 07/14/19 04:31 INR 1.49 07/14/19 04:31 APTT 45.7 SEC (23.5-35.8) H 07/14/19 04:31 VBG pH 7.43 (7.30-7.42) H 07/13/19 17:15 VBG pCO2 41.7 mmHg (35-63) 07/13/19 17:15 VBG HCO3 26.8 mmol/L (20-32) 07/13/19 17:15 VBG Base Excess 2.2 mmol/L 07/13/19 17:15 Sodium 142.5 mmol/L (137-145) 07/17/19 06:55 Potassium 3.7 mmol/L (3.6-5.0) 07/17/19 06:55 Chloride 110 mmol/L (98-107) H 07/17/19 06:55 Carbon Dioxide 20 mmol/L (22-30) L 07/17/19 06:55 Anion Gap 13 (5-19) 07/17/19 06:55 BUN 4 mg/dL (7-20) L 07/17/19 06:55 Creatinine 0.81 mg/dL (0.52-1.25) 07/17/19 06:55 Est GFR ( Amer) > 60 (>60) 07/17/19 06:55 Est GFR (MDRD) Non-Af > 60 (>60) 07/17/19 06:55 Glucose 110 mg/dL (75-110) 07/17/19 06:55 POC Glucose 105 mg/dL (70-110) 07/18/19 13:57 Lactic Acid (Sepsis) 1.1 mmol/L (0.7-2.1) 07/13/19 21:33 Calcium 9.2 mg/dL (8.4-10.2) 07/17/19 06:55 Magnesium 1.9 mg/dL (1.6-2.3) 07/15/19 05:17 Total Bilirubin 0.7 mg/dL (0.2-1.3) 07/14/19 04:31 Direct Bilirubin 0.3 mg/dL (0.0-0.4) 07/14/19 04:31 Neonat Total Bilirubin Not Reportable 07/14/19 04:31 Neonat Direct Bilirubin Not Reportable 07/14/19 04:31 Neonat Indirect Bili Not Reportable 07/14/19 04:31 AST 17 U/L (17-59) 07/14/19 04:31 ALT 12 U/L (<50) 07/14/19 04:31 Alkaline Phosphatase 62 U/L (38-126) 07/14/19 04:31 Total Protein 6.4 g/dL (6.3-8.2) 07/14/19 04:31 Albumin 3.0 g/dL (3.5-5.0) L 07/14/19 04:31 Urine Color YELLOW 07/14/19 02:30 Urine Appearance CLEAR 07/14/19 02:30 Urine pH 5.0 (5.0-9.0) 07/14/19 02:30 Ur Specific [place] 1.010 07/14/19 02:30 Urine Protein 30 mg/dL (NEGATIVE) H 07/14/19 02:30 Urine Glucose (UA) 150 mg/dL (NEGATIVE) H 07/14/19 02:30 Urine Ketones NEGATIVE mg/dL (NEGATIVE) 07/14/19 02:30 Urine Blood SMALL (NEGATIVE) H 07/14/19 02:30 Urine Nitrite (Reflex) NEGATIVE (NEGATIVE) 07/14/19 02:30 Urine Bilirubin NEGATIVE (NEGATIVE) 07/14/19 02:30 Urine Urobilinogen 2.0 mg/dL (<2.0) H 07/14/19 02:30 Leukocyte Esterase Rfl NEGATIVE (NEGATIVE) 07/14/19 02:30 Urine RBC (Auto) 2 /HPF 07/14/19 02:30 Urine WBC (Reflex) 1 /HPF 07/14/19 02:30 Squamous Epi Cells Auto <1 /HPF 07/14/19 02:30 Urine Mucus (Auto) RARE /LPF 07/14/19 02:30 Urine Ascorbic Acid NEGATIVE (NEGATIVE) 07/14/19 02:30 Influenza A (Rapid) NEGATIVE (NEGATIVE) 07/13/19 17:15 Influenza B (Rapid) NEGATIVE (NEGATIVE) 07/13/19 17:15 Impressions: Lower Extremity MRI 07/13/19 00:00 IMPRESSION: Acute osteomyelitis of the distal phalanx of the great toe. Foot X-Ray 07/13/19 16:20 IMPRESSION: No acute fracture. 7 mm dorsal-medial 2nd MTP joint subluxation- dislocation. No worrisome bone lesions.. Chest X-Ray 07/13/19 16:24 IMPRESSION: NO ACUTE FINDINGS. Plan Time Spent: Greater than 30 Minutes Stroke Is this a Stroke Patient?: No Acute Heart Failure - Is this a Heart Failure Patient?: No
--- NOTE | 2019-07-18 15:14 | Progress Note ---
Provider Note Provider Note: [facility] Telephone Advice Chart reviewed. Patient previously evaluated for diabetic foot infection refusing amputation of the great toe. He was started on piperacillin/tazobactam and vancomycin awaiting blood cultures. His blood cultures grew Streptococcus pyogenes. He was evaluated by surgery but he refused any type of surgical intervention. I discussed it with the surgeon, no debridement was indicated but amputation of the toe. MRI was consistent with osteomyelitis. Antibiotic therapy was de escalated to ceftriaxone. He is overall stable, leukocytosis resolved. Vital Signs: Temp Pulse Resp BP Pulse Ox 98.1 F 65 18 173/79 H 98 07/18/19 09:20 07/18/19 09:20 07/18/19 09:20 07/18/19 09:20 07/18/19 09:20 Intake & Output 07/17/19 07/18/19 07/19/19 06:59 06:59 06:59 Intake Total 3680 2872 Balance 3680 2872 Weight 87.5 kg Weight/Height Weight 87.5 kg Height 6 ft 2 in Laboratories: 07/17/19 06:55 07/17/19 06:55 MCV 80 fl (80-97) 07/17/19 06:55 MCH 27.4 pg (27.0-33.4) 07/17/19 06:55 MCHC 34.1 g/dL (32.0-36.0) 07/17/19 06:55 RDW 15.0 % (11.5-14.0) H 07/17/19 06:55 Seg Neutrophils % 57.8 % (42-78) 07/17/19 06:55 VBG pH 7.43 (7.30-7.42) H 07/13/19 17:15 VBG pCO2 41.7 mmHg (35-63) 07/13/19 17:15 VBG HCO3 26.8 mmol/L (20-32) 07/13/19 17:15 VBG Base Excess 2.2 mmol/L 07/13/19 17:15 Chloride 110 mmol/L (98-107) H 07/17/19 06:55 Carbon Dioxide 20 mmol/L (22-30) L 07/17/19 06:55 Anion Gap 13 (5-19) 07/17/19 06:55 Est GFR ( Amer) > 60 (>60) 07/17/19 06:55 Glucose 110 mg/dL (75-110) 07/17/19 06:55 Calcium 9.2 mg/dL (8.4-10.2) 07/17/19 06:55 Magnesium 1.9 mg/dL (1.6-2.3) 07/15/19 05:17 Total Bilirubin 0.7 mg/dL (0.2-1.3) 07/14/19 04:31 AST 17 U/L (17-59) 07/14/19 04:31 Alkaline Phosphatase 62 U/L (38-126) 07/14/19 04:31 Total Protein 6.4 g/dL (6.3-8.2) 07/14/19 04:31 Albumin 3.0 g/dL (3.5-5.0) L 07/14/19 04:31 Urine Color YELLOW 07/14/19 02:30 Urine Appearance CLEAR 07/14/19 02:30 Urine pH 5.0 (5.0-9.0) 07/14/19 02:30 Ur Specific [place] 1.010 07/14/19 02:30 Urine Protein 30 mg/dL (NEGATIVE) H 07/14/19 02:30 Urine Glucose (UA) 150 mg/dL (NEGATIVE) H 07/14/19 02:30 Urine Ketones NEGATIVE mg/dL (NEGATIVE) 07/14/19 02:30 Urine Blood SMALL (NEGATIVE) H 07/14/19 02:30 Urine RBC (Auto) 2 /HPF 07/14/19 02:30 Microbiology: 07/13/19 17:15 Blood Blood Culture (PCR) - Final Strep Pyogenes (Grp A) 07/13/19 17:15 Blood Blood Culture - Final Group A Beta Streptococcus Radiology: Lower Extremity MRI 07/13/19 00:00 IMPRESSION: Acute osteomyelitis of the distal phalanx of the great toe. Foot X-Ray 07/13/19 16:20 IMPRESSION: No acute fracture. 7 mm dorsal-medial 2nd MTP joint subluxation- dislocation. No worrisome bone lesions.. Chest X-Ray 07/13/19 16:24 IMPRESSION: NO ACUTE FINDINGS. Assessment and recommendations: Patient evaluated due to osteomyelitis/diabetic foot infection. He is bacteremic with Streptococcus pyogenes, new blood cultures already negative in 72 hr. Patient had a PICC placed. Considering that this is a diabetic foot infection, ceftriaxone 2g iv daily + metronidazole 500 mg po bid x 6 weeks from negative blood culture is recommended. Please monitor ESR and CRP weekly together with CBC and CMP (monitored by PCP). Please remove PICC at the time of completion of antibiotics. Alayna Jimenez MD [facility] Infect[facility] [phone]
[2019-07-18] MEDS: CEFTRIAXONE 2 GM/D5W RTU 2 GM/50 ML RTUPB IV SCH (16:08)
[2019-07-18 16:20] VITALS: BP 198/88
--- NOTE | 2019-07-18 16:53 | RADIOLOGY REPORT (SQ) ---
EXAM DESCRIPTION: PICC INSERTION; FLUORO/CV PLACEMENT; U/S GUIDE FOR VASCULAR ACCESS COMPLETED DATE/TIME: 07/18/2019 3:42 pm REASON FOR STUDY: IV antibiotics for osteomyelitis; IV ABX COMPARISON: AP chest 07/13/2019 FLUOROSCOPY TIME: 20 seconds 1 ultrasound and 1 digital fluoroscopic image saved to PACS. TECHNIQUE: Fluoroscopic and ultrasound guided PICC placement. LIMITATIONS: None. PROCEDURE: After written consent and assessment were obtained, the patient was brought into the fluo roscopy room and placed supine on the table. Ultrasound evaluation of potential access sites were per formed. After successfully identifying a patent left basilic vein, the left arm was prepped and drape d in a sterile fashion along with the ultrasound probe. The entry site was anesthetized with 1% lidoc alma. A 21 gauge 7 cm needle was advanced through the skin and into the basilic vein under live ultra sound guidance. An ultrasound image was saved to PACS confirming access site. A .018 guide wire was then inserted through the needle and into the venous system. The needle was then removed and an 11 b lade scalpel was used to make a 1cm skin incision. A 5 fr peel-away sheath was advanced over the wir e and into the venous system. A measurement was then made using the existing wire and live fluoroscop ic guidance. The wire was then removed and trimmed. The PICC was advanced through the peel-away sheat h and into the venous system. The peel-away sheath was removed and the catheter was adhered to the pa tients arm with a stat lock. The catheter was then aspirated and flushed and a sterile bandage was pl aced over the access site. A fluoroscopic spot image was saved to PACS confirming the catheter tip w ithin the superior vena cava. IMPRESSION: SUCCESSFUL PLACEMENT OF A 5 FR DUAL LUMEN 31 CM PICC IN THE LEFT BASILIC VEIN. COMMENT: Patient medication list reviewed: Yes- Quality ID# 130:Eligible professional attests to doc umenting in the medical record they obtained, updated, or reviewed the patient's current medications. . Quality ID 145: Final reports for procedures using fluoroscopy that document radiation exposure magdaleno rebecca, or exposure time and number of fluorographic images (if radiation exposure indices are not avail able) Quality ID #76: The patient was prepped and draped using maximum sterile barrier technique including cap, mask, sterile gown, sterile gloves, a large sterile sheet, hand hygiene, and 2% Chlorhexidine fo r cutaneous antisepsis. When ultrasound is used, sterile ultrasound techniques are followed requiring sterile gel and sterile probes. TECHNICAL DOCUMENTATION: JOB ID: [id number] [employer]- All Rights Reserved rev-01/08 Reading location - IP/workstation name: [email or web address]
== END 2019-07-18 17:32 | disposition home or self-care (01) | DRG 872 ==
LOC: ER 15:23 → EH 18:27 → 4N 20:20
PROVIDERS: ADMIT Internal Medicine; ATTEND Internal Medicine
PROC: 02HV33Z Insertion of Infusion Device into Superior Vena Cava, Percutaneous Approach (ICD-10-PCS; principal; 2019-07-18)
PROC: B518ZZA Fluoroscopy of Superior Vena Cava, Guidance (ICD-10-PCS; 2019-07-18)
PROC: B548ZZA Ultrasonography of Superior Vena Cava, Guidance (ICD-10-PCS; 2019-07-18)
DX: A40.0 Sepsis due to streptococcus, group A (principal); N17.9 Acute kidney failure, unspecified; M86.172 Other acute osteomyelitis, left ankle and foot; E11.621 Type 2 diabetes mellitus with foot ulcer; E11.69 Type 2 diabetes mellitus with other specified complication; L97.521 Non-pressure chronic ulcer of other part of left foot limited to breakdown of skin; I10 Essential (primary) hypertension; F32.9 Major depressive disorder, single episode, unspecified; L97.529 Non-pressure chronic ulcer of other part of left foot with unspecified severity; Z88.1 Allergy status to other antibiotic agents; R65.20 Severe sepsis without septic shock; Z79.84 Long term (current) use of oral hypoglycemic drugs; Z87.891 Personal history of nicotine dependence; Z89.421 Acquired absence of other right toe(s); Z83.3 Family history of diabetes mellitus; Z86.14 Personal history of Methicillin resistant Staphylococcus aureus infection; Z53.29 Procedure and treatment not carried out because of patient's decision for other reasons; Z79.899 Other long term (current) drug therapy
CPT/HCPCS: 36415; 36569; 71045; 76937; 77001; 80048; 80053; 81001; 82803; 82962; 83605; 83735; 85025; 85610; 85652; 85730; 87040; 87077; 87150; 87186; 87804; 96365; 96375; 99285; J0290; J0360; J0696; J1642; J1644; J1815; J2020; J2405; J2543; J2765; J3475; J3490; J7030; J7050

== ENCOUNTER → 2020-01-04 | Outpatient (CLI) | payer MEDICAID, OTHER ==
--- NOTE | 2020-01-04 09:47 | ER RDC ASSESSMENT REPORT ---
Intake - In the Last 14 days Have you traveled outside [place]?: No Have you been in close contact with someone CONFIRMED: No Worked in Healthcare?: No - Symptoms Subjective Fever([place] feverish): Yes --How many day(s)?: Afebrile today but has had a fever as high as 104 Chills: Yes Muscule Aches: Yes Runny Nose: No Sore Throat: No Cough (New or worsening chronic cough): No Shortness of breath: No Nausea or Vomiting: Yes Headache: Yes Abdominal Pain: No Diarrhea(3 or more loose stools in last 24 hours): No - Do you have any of the following Chronic lung disease: Asthma or emphysema or COPD: No Cystic Fibrosis: No Diabetes: Yes Diabetes Comment: Diabetes type 2 High Blood Pressure: Yes Cardiovascular Disease: Yes Chronic Kidney Disease: No Chronic Liver Disease: No Chronic blood disorder like Sickle Cell Disease: No Weak immune system due to disease or medication: No Neurologic condition that limits movement: No Developmental delay - Moderate to Severe: No Recent (within past 2 weeks) or current : No Morbid Obesity (>100 pounds over ideal weight): No Obesity Comment: Height 6 feet 0 inches weight 202 pounds - Objective Temperature: 98.1 F Pulse Rate: 67 Respiratory Rate: 20 Blood Pressure: 139/71 O2 Sat by Pulse Oximetry: 96 Objective: Given above, testing performed: If Testing Performed: Test Specimen Type Sent to General - General Information source: Patient Notes: Patient here at [facility] for COVID testing. Patient has had a recent admission to [facility] for minor procedure has a open wound to his toes. Patient's PCP wanted patient to be screened for COVID rule out due to recent fevers muscle aches. Patient feels strongly that this is a result from his chronic wound to his toes. - Related Data Allergies/Adverse Reactions: aspartame [From Nutrasweet Aspartame] Allergy (Verified 07/14/19 00:47) Coconut * [Coconut] Allergy (Verified 07/14/19 00:47) vancomycin Allergy (Verified 07/14/19 00:47) Past Medical History - Social History Smoking Status: Never Smoker Family History: DM - Past Medical History Cardiac Medical History: Reports: Hx Hypertension Denies: Hx Coronary Artery Disease, Hx Heart Attack Pulmonary Medical History: Denies: Hx Asthma, Hx Bronchitis, Hx COPD, Hx Pneumonia Neurological Medical History: Denies: Hx Cerebrovascular Accident, Hx Seizures Endocrine Medical History: Reports: Hx Diabetes Mellitus Type 2 Renal/ Medical History: Denies: Hx Peritoneal Dialysis Musculoskeletal Medical History: Denies Hx Arthritis Psychiatric Medical History: Reports: Hx Depression Past Surgical History: Reports: Hx Orthopedic Surgery - Left Knee, Ruptured Disc Repair L4/L5, Other - Right second toe amputation Physical Exam - General General appearance: Appears well, Alert In distress: None Notes: PHYSICAL EXAMINATION: GENERAL: Well-appearing and in no acute distress. HEAD: Atraumatic, normocephalic. EYES: sclera anicteric, conjunctiva are normal. ENT: nares patent. Moist mucous membranes. NECK: Normal range of motion, supple without lymphadenopathy Left tonsil noted to be larger and red compared to right. No lymphadenopathy patient denies sore throat. LUNGS: CTAB and equal. No wheezes rales or rhonchi. resp even and unlabored. Lung sounds clear. HEART: Regular rate and rhythm without murmurs ABDOMEN: Soft, nontender, normal bowel sounds, no guarding. EXTREMITIES: No cyanosis. NEUROLOGICAL: Normal speech. PSYCH: Normal mood, normal affect. SKIN: Warm, Dry, normal turgor, Diagnostic Results Laboratory Results: Patient informed of negative rapid strep and negative rapid flu results. pending strep culture pending COVID testing results. Patient provided instructions regarding COVID to include: As a person under investigation for Covid 19, the [place] department of Health and Human Services, division of public health advises you to adhere to the following guidance until your test results are reported to you. If your test result is positive, you will receive additional information from your provider and your local health department at that time. Remain at home until you are cleared by the health provider or public health authorities. Keep a log of visitors to your home, notify any visitors to your home of your isolation status. If you plan to move to a new address or leave the county, notify the local health department in your County. Call your doctor or seek care if you have an urgent medical need. Before seeking medical care, call ahead to get instructions from the provider before arriving at the medical office clinic or hospital. Notify them that you are being tested for the virus that causes Covid 19 so that arrangements can be made, as necessary, to prevent transmission to others in the healthcare setting. Next, notify the local health department in your county. If a medical emergency arises and you need to call 911, inform the first responders that you are being tested for the virus that causes Covid 19. Next, notify the local health department in your county. Patient Education/Counseling Counseling/Education: Patient presents with upper respiratory symptoms worrisome for possible Covid 19. Patient does not have emergency worring symptoms such as difficulty breathing, shortness of breath, chest pain, pressure, confusion or cyanosis. Patient appears suitable for discharge. Patient instructed to follow up with PCP. To ED for persistent or worsening symptoms. Patient's vital signs are stable and patient is nontoxic in appearance. Good return precautions have been discussed with patient, patient verbalized understanding and is agreeable with discharge plan of care at this time. RDC Discharge - Discharge Clinical Impression: COVID - 19 SCREENING Fever Qualifiers: Fever type: unspecified Qualified Code(s): R50.9 - Fever, unspecified Condition: Stable Disposition: Home; Selfcare
[2020-01-04 10:17] VITALS: BP 139/71
[2020-01-04 11:56] LABS: A TYPE INFLUENZA AG NEGATIVE (NEGATIVE)
[2020-01-04 11:57] LABS: B INFLUENZA AG NEGATIVE (NEGATIVE)
== END ==
LOC: RDC 09:13
PROVIDERS: ATTEND Nurse Practitioner Family
DX: Z20.828 Contact with and (suspected) exposure to other viral communicable diseases (principal); R50.9 Fever, unspecified; M79.10 Myalgia, unspecified site; R51 Headache; R11.0 Nausea; I10 Essential (primary) hypertension; E11.9 Type 2 diabetes mellitus without complications
CPT/HCPCS: 87070; 87635; 87804; 87880; 99211

== ENCOUNTER 2020-01-07 20:45 | Emergency (ER) | payer MEDICAID, OTHER ==
[2020-01-07 21:35] LABS: ABSOLUTE BASOPHILS # (AUTO) 0.1 10^3/uL (0.0-0.2); ABSOLUTE LYMPHOCYTES (AUTO) 1.2 10^3/uL (0.5-4.7); ABSOLUTE MONOCYTES (AUTO) 2.2 10^3/uL (0.1-1.4); ABSOLUTE NEUT (AUTO) 14.6 10^3/uL (1.7-8.2); BASOPHILS % (AUTO) 0.3 % (0-2); EOSINOPHILS % (AUTO) 0.1 % (0-6); HEMATOCRIT 30.1 % (37.9-51.0); HEMOGLOBIN 10.3 g/dL (13.5-17.0); LYMPHOCYTES % (AUTO) 6.7 % (13-45); MEAN CORPUSCULAR HEMOGLOBIN 27.7 pg (27.0-33.4); MEAN CORPUSCULAR HGB CONC 34.2 g/dL (32.0-36.0); MEAN CORPUSCULAR VOLUME 81 fl (80-97); MONOCYTES % (AUTO) 12.1 % (3-13); PLATELET COUNT 598 10^3/uL (150-450); RED BLOOD COUNT 3.72 10^6/uL (4.35-5.55); RED CELL DISTRIBUTION WIDTH 15.1 % (11.5-14.0); SEGMENTED NEUTROPHILS % (AUTO) 80.8 % (42-78); TOTAL CELLS COUNTED % (AUTO) 100 %
[2020-01-07 21:39] LABS: VENOUS BLOOD BASE EXCESS 3.5 mmol/L; VENOUS BLOOD PCO2 42.1 mmHg (35-63); VENOUS BLOOD PH 7.44 (7.30-7.42)
[2020-01-07 21:46] LABS: ALBUMIN 3.4 g/dL (3.5-5.0); ALKALINE PHOSPHATASE 62 U/L (38-126); ANION GAP 11 (5-19); ASPARTATE AMINO TRANSFERASE 17 U/L (17-59); BILIRUBIN,TOTAL 0.4 mg/dL (0.2-1.3); BLOOD UREA NITROGEN 20 mg/dL (7-20); CALCIUM 8.8 mg/dL (8.4-10.2); CARBON DIOXIDE 26 mmol/L (22-30); CHLORIDE 89 mmol/L (98-107); GLUCOSE 328 mg/dL (75-110); POTASSIUM 4.4 mmol/L (3.6-5.0)
[2020-01-07 21:55] LABS: INTERNATIONAL RATION (INR) 1.47
[2020-01-07] MEDS ORDERED: NORMAL SALINE 1000 ML 1,000 ML IV ONE (22:44)
[2020-01-07] MEDS ORDERED: ACETAMINOPHEN 325 MG TABLET PO ONE (22:44)
[2020-01-07] MEDS ORDERED: ONDANSETRON HCL INJ/PF 4 MG/2 ML SDV IV ONE (23:01)
[2020-01-08] MEDS ORDERED: MORPHINE SULFATE 10 MG/ML INJ IV ONE (00:05)
[2020-01-08] MEDS ORDERED: PIPERACILLIN/TAZOBACTAM 4.5 GM VIAL IV ONE ×2 (00:05→06:00)
--- NOTE | 2020-01-08 00:07 | ER Document Report ---
ED General - General Chief Complaint: Fever Stated Complaint: Leg pain Time Seen by Provider: 01/07/20 23:50 Primary Care Provider: KASANDRA KING MD [Primary Care Provider] - Follow up as needed Notes: Patient is a 59-year-old male who comes to the emergency department for chief complaint of fever and pain and swelling to his left foot and leg. Patient has a history of diabetes, osteomyelitis, and multiple surgeries on the left foot, he states he had cosmetic surgery and skin graft on the left foot at [facility] on 01/02/2020. He states that after he went home he started having chills and he states he had a fever of 102 F today. He states that he is also had increased pain and swelling to the area. He states he has kept the area elevated and dressed, he has been taking his clindamycin and Flagyl as prescribed. He states he started vomiting, he vomited 3 times today. He denies abdominal pain, chest pain, shortness of breath, cough, headache, sore throat. He denies any other complaints. TRAVEL OUTSIDE OF THE [place] IN LAST 30 DAYS: No - Related Data Allergies/Adverse Reactions: aspartame [From Nutrasweet Aspartame] Allergy (Verified 01/07/20 21:56) Coconut * [Coconut] Allergy (Verified 01/07/20 21:56) vancomycin Allergy (Verified 01/07/20 21:56) Past Medical History - General Information source: Patient - Social History Smoking Status: Never Smoker Frequency of alcohol use: Occasional Drug Abuse: None Lives with: Family Family History: DM Patient has homicidal ideation: No - Past Medical History Cardiac Medical History: Reports: Hx Hypertension Denies: Hx Coronary Artery Disease, Hx Heart Attack Pulmonary Medical History: Denies: Hx Asthma, Hx Bronchitis, Hx COPD, Hx Pneumonia Neurological Medical History: Denies: Hx Cerebrovascular Accident, Hx Seizures Endocrine Medical History: Reports: Hx Diabetes Mellitus Type 2 Renal/ Medical History: Denies: Hx Peritoneal Dialysis Musculoskeletal Medical History: Denies Hx Arthritis Psychiatric Medical History: Reports: Hx Depression Past Surgical History: Reports: Hx Orthopedic Surgery - Left Knee, Ruptured Disc Repair L4/L5, Other - Right second toe amputation - Immunizations Immunizations up to date: Yes Hx Diphtheria, Pertussis, Tetanus Vaccination: Yes Review of Systems - Review of Systems Constitutional: See HPI EENT: No symptoms reported Cardiovascular: No symptoms reported Respiratory: No symptoms reported Gastrointestinal: No symptoms reported Genitourinary: No symptoms reported Male Genitourinary: No symptoms reported Musculoskeletal: See HPI Skin: See HPI Hematologic/Lymphatic: No symptoms reported Neurological/Psychological: No symptoms reported Physical Exam - Vital signs Vitals: Temp 100.2 F 01/07/20 20:45 - Notes Notes: GENERAL: Alert, interacts well. No acute distress. Nontoxic in appearance HEAD: Normocephalic, atraumatic. EYES: Pupils equal, round, and reactive to light. Extraocular movements intact. ENT: Oral mucosa moist, tongue midline. Oropharynx unremarkable. Airway patent. NECK: Full range of motion. Supple. Trachea midline. No lymphadenopathy. LUNGS: Clear to auscultation bilaterally, no wheezes, rales, or rhonchi. No respiratory distress. Non-tender chest wall. HEART: Regular rate and rhythm. No murmur ABDOMEN: Soft, non-tender. Non-distended. EXTREMITIES: Left lower extremity with postsurgical foot missing all of the toes, the stump is malodorous, swollen, erythematous, and tender. There is a dressing with what appears to be a graft. There is no noted bleeding or purulent drainage now but there is purulent drainage in the dressing. Cellulitis extends up the foot to the leg. There is no streaking up the leg. No crepitus noted. Otherwise unremarkable extremities. BACK: no cervical, thoracic, lumbar midline tenderness. No saddle anesthesia, normal distal neurovascular exam. Moves all extremities in full range of motion. NEUROLOGICAL: Alert and oriented x3. Normal speech. Cranial nerves II through XII grossly intact. Strength 5/5 in all extremities. PSYCH: Normal affect, normal mood. SKIN: Flushed Course - Re-evaluation Re-evalutation: Patient with very erythematous, swollen, malodorous left stump with what appears to be a graft and a dressing over this. I do not note any purulent drainage at this time but there is purulent drainage on the dressing. There is obvious cellulitis extending slightly up the foot/leg as well. Patient febrile at 102.4 in the emergency department, he was treated with Tylenol for this. CBC shows leukocytosis at 18,000 with elevation of neutrophils but no bandemia. Chemistry nonspecific, lactic acid is not elevated, patient is not tachycardic or hypotensive. X-ray of the chest is unremarkable, x-ray added to the extremity and shows diffuse soft tissue swelling, there is also some air which could either be postsurgical versus infectious. Patient is allergic to vancomycin, has been on clindamycin and Flagyl, has been started on Zosyn here. Blood cultures pending. Patient has been discussed with Dr. Weems. I discussed with patient, we will contact [facility] for continued care after surgery. Patient is very agreeable and appreciative. Called and spoke with [facility] transfer center, pending callback. Called transfer center again, still pending callback. Spoke with Dr. Juno Escalante. Discussed patient history, details, presentation. Patient did not actually have full surgery a week ago, he was actually seen by the painting worker and had debridement with dressing although he has had surgeryat [facility] twice within the past few months. Patient is accepted for transfer for continuity of care. Patient states appreciation and agreement. 01/08/20 06:05 Patient has been accepted to [facility] and has a room waiting, we have had delay in transfer because of unavailable transport, however they will be here around 730. Patient has been given his second dose of antibiotics. Patient reevaluated and is comfortable. Vital signs without significant change from prior. - Vital Signs Vital signs: Temp Pulse Resp BP Pulse Ox 98.5 F 18 112/51 L 98 01/08/20 03:19 01/08/20 05:01 01/08/20 05:01 01/08/20 05:01 - Laboratory Result Diagrams: 01/07/20 21:00 01/07/20 21:00 Laboratory results interpreted by me: 01/07/20 01/07/20 01/07/20 21:00 21:00 21:00 WBC 18.0 H RBC 3.72 L Hgb 10.3 L Hct 30.1 L RDW 15.1 H Plt Count 598 H Lymph % (Auto) 6.7 L Absolute Neuts (auto) 14.6 H Absolute Monos (auto) 2.2 H Seg Neutrophils % 80.8 H PT 18.0 H VBG pH Sodium 126.4 L Chloride 89 L Creatinine 1.27 H Est GFR (MDRD) Non-Af 58 L Glucose 328 H Albumin 3.4 L Urine Protein Urine Glucose (UA) Urine Ketones Urine Blood 01/07/20 01/07/20 21:00 23:55 WBC RBC Hgb Hct RDW Plt Count Lymph % (Auto) Absolute Neuts (auto) Absolute Monos (auto) Seg Neutrophils % PT VBG pH 7.44 H Sodium Chloride Creatinine Est GFR (MDRD) Non-Af Glucose Albumin Urine Protein 100 H Urine Glucose (UA) >=500 H Urine Ketones TRACE H Urine Blood MODERATE H Discharge - Discharge Clinical Impression: Hyperglycemia, Wound infection, Post-op pain Fever Qualifiers: Fever type: unspecified Qualified Code(s): R50.9 - Fever, unspecified Leukocytosis Qualifiers: Leukocytosis type: unspecified Qualified Code(s): D72.829 - Elevated white blood cell count, unspecified Condition: Stable Disposition: [facility] Referrals: KASANDRA KING MD [Primary Care Provider] - Follow up as needed
--- NOTE | 2020-01-08 00:08 | RADIOLOGY REPORT (SQ) ---
EXAM DESCRIPTION: XR CHEST 1 VIEW COMPLETED DATE/TME: 01/07/2020 22:46 CLINICAL HISTORY: 59 years, Male, Fever COMPARISON: 07/13/2019 chest NUMBER OF VIEWS: 1 TECHNIQUE: Portable chest LIMITATIONS: None. FINDINGS: Heart size normal. Lungs clear. No pneumothorax IMPRESSION: Negative chest copyright 2010 [id number]- All Rights Reserved
--- NOTE | 2020-01-08 01:24 | RADIOLOGY REPORT (SQ) ---
EXAM DESCRIPTION: XR FOOT 3 OR MORE VIEWS COMPLETED DATE/TME: 01/08/2020 00:06 CLINICAL HISTORY: 59 years, Male, fever, swelling, pain, hx osteom COMPARISON: 07/13/2019 left foot NUMBER OF VIEWS: 3 TECHNIQUE: 3 views left foot LIMITATIONS: None. FINDINGS: Interval resection of the distal foot beginning at the level of the mid metatarsals. Diffuse soft tissue swelling. Soft tissue gas may in part be postoperative in nature. Soft tissue ulceration distally, near the remaining distal second metatarsal. Underlying sclerotic changes. Vascular calcifications. IMPRESSION: Extensive soft tissue swelling. Resection of the distal foot. Adjacent soft tissue gas could be postoperative or infectious in nature copyright 2010 [employer]- All Rights Reserved
[2020-01-08 03:01] LABS: APPEARANCE,URINE SLIGHTLY-CLOUDY; BILIRUBIN,URINE NEGATIVE (NEGATIVE); COLOR,URINE AMBER; GLUCOSE, URINE >=500 mg/dL (NEGATIVE); KETONES,URINE TRACE mg/dL (NEGATIVE); PROTEIN,URINE 100 mg/dL (NEGATIVE); URINE SPECIFIC GRAVITY 1.025; UROBILINOGEN,URINE NEGATIVE mg/dL (<2.0)
[2020-01-08 08:08] VITALS: BP 127/71
--- NOTE | 2020-01-08 08:20 | ER Document Report ---
Doctor's Note Notes: 01/08/20 08:20 Transported here for the patient to go to [facility]. Vital signs are stable. Patient is stable for transport.
--- NOTE | 2020-01-08 10:33 | EKG REPORT ---
SEVERITY:- BORDERLINE ECG - SINUS RHYTHM BORDERLINE T ABNORMALITIES, DIFFUSE LEADS : Confirmed by: Gabrielle Degroot 08-Jan-2020 10:32:23
== END 2020-01-08 08:25 | disposition short-term general hospital (02) ==
LOC: ER 20:45
DX: T87.44 Infection of amputation stump, left lower extremity (principal); E11.65 Type 2 diabetes mellitus with hyperglycemia; G89.18 Other acute postprocedural pain; R50.9 Fever, unspecified; D72.829 Elevated white blood cell count, unspecified; M79.672 Pain in left foot; M79.89 Other specified soft tissue disorders; M79.605 Pain in left leg; R11.10 Vomiting, unspecified; Z98.890 Other specified postprocedural states; E11.9 Type 2 diabetes mellitus without complications; Z88.1 Allergy status to other antibiotic agents; I10 Essential (primary) hypertension
CPT/HCPCS: 93005; 99284; 96361; 96375; 96365; 36415; 87040; 82962; 83605; 85025; 85610; 87077; 80053; 81001; 84484; 87186; 82803; 87150 ×26; 71045; 73630; 93010; J3490; J2270; J2405; J7030; J2543

== ENCOUNTER → 2020-04-19 | Outpatient (CLI) | payer MEDICAID ==
--- NOTE | 2020-04-19 15:11 | RADIOLOGY REPORT (SQ) ---
EXAM DESCRIPTION: U/S NON-OB PELVIS W/O DOP IMAGES COMPLETED DATE/TIME: 04/19/2020 2:45 pm REASON FOR STUDY: R59.0 LOCALIZED ENLARGED LYMPH NODES R59.0 LOCALIZED ENLARGED LYMPH NODES COMPARISON: None. TECHNIQUE: Dynamic and static grayscale images acquired of the pelvis via transabdominal approach an d recorded on PACS. Additional selected color Doppler and spectral images recorded. LIMITATIONS: None. FINDINGS: Sonographic imaging of the left groin shows multiple lymph nodes. These show increased va scularity. The largest measures 4.3 x 3 x 1.8 cm. IMPRESSION: Left inguinal adenopathy. TECHNICAL DOCUMENTATION: JOB ID: [id number] 2010 [employer]- All Rights Reserved Rev-01/08 Reading location - IP/workstation name: [email or web address]
== END ==
LOC: RAD 14:05
PROVIDERS: ATTEND Family Medicine
DX: R59.0 Localized enlarged lymph nodes (principal)
CPT/HCPCS: 76856